=== PATIENT | male | born 1955 | race Caucasian/White ===

== ENCOUNTER 2018-07-24 23:46 | Observation (INO) | payer MEDICARE ==
[2018-07-24] MEDS ORDERED: NITRO-BID 2% UD PACKETS TOP ONE (23:59)
[2018-07-25] MEDS ORDERED: NITRO-BID 2% UD PACKETS ONE (00:06)
--- NOTE | 2018-07-25 00:06 | ERPHSYRPT ---
- History of Present Illness Time Seen by Provider: 07/24/18 23:54 Source: patient Exam Limitations: no limitations Physician History: Pt started c/o increasing SOB, chest pressure since 3 PM today, he took few sublingual NTG pills, and the pain relieved. He has a chronic cough, denies sore throat, cold symptoms, fever, chills, vomiting, diarrhea other complaints. EMS gave him 125 mg IV Solumedrol and Duoneb treatment. Timing/Duration: hour(s) (9) Activities at Onset: none Severity of Dyspnea-Max: moderate Severity of Dyspnea-Current: moderate Possible Cause: occasional episodes Modifying Factors: Improves With: activity Associated Symptoms: constant Allergies/Adverse Reactions: No Known Drug Allergies Allergy (Verified 01/23/15 06:49) Home Medications: Aspirin 81 mg PO DAILY 06/12/13 [History] Carvedilol 6.25 mg [Coreg 6.25 MG] 6.25 mg PO BID 06/12/13 [History] Clopidogrel Bisulfate 75 mg [PLAVIX 75 MG Tablet] 75 mg PO DAILY 06/12/13 [History] Levothyroxine Sodium 150 mcg PO DAILY 06/12/13 [History] Isosorbide Mononitrate [Isosorbide Mononitrate ER] 30 mg PO DAILY 01/20/15 [ History] Albuterol 2.5 mg/3 ml Neb [Proventil 2.5 mg/3 ml Neb] 0.63 mg NEB QID PRN 07/25/18 [History] Atorvastatin Calcium 40 mg PO DAILY 07/25/18 [History] Fluticasone/Vilanterol [Breo Ellipta 100-25 Mcg INH] 100 mg IH DAILY 07/25/18 [ History] Lisinopril 10 mg [Zestril 10 MG] 10 mg PO DAILY 07/25/18 [History] Nitroglycerin [Nitrostat] 0.4 mg SL Q5MIN PRN MR X 3 PRN 07/25/18 [History] - Review of Systems Constitutional: No Symptoms Ears, Nose, & Throat: No Symptoms Respiratory: Cough, Dyspnea Cardiac: Chest Pain Abdominal/Gastrointestinal: No Symptoms Genitourinary Symptoms: No Symptoms Musculoskeletal: No Symptoms Skin: No Symptoms Neurological: No Symptoms All Other Systems: Reviewed and Negative - Past Medical History Pertinent Past Medical History: Yes Neurological History: No Pertinent History ENT History: No Pertinent History Cardiac History: Aneurysm, Coronary Artery Disease, High Cholesterol Respiratory History: COPD Endocrine Medical History: No Pertinent History Musculoskeletal History: Arthritis GI Medical History: No Pertinent History History: No Pertinent History Psycho-Social History: No Pertinent History Male Reproductive Disorders: No Pertinent History - Past Surgical History Past Surgical History: Yes Neuro Surgical History: No Pertinent History Cardiac: No Pertinent History Gastrointestinal: Cholecystectomy Genitourinary: No Pertinent History Musculoskeletal: Joint Replacement, Other Male Surgical History: No Pertinent History Other Surgical History: STENT. AAA RIGHT KNEE. LEFT HIP REPLACEMENT. BACK SURGERY - Social History Smoking Status: Current every day smoker How long have you smoked: 40 YEARS Exposure to second hand smoke: Yes Drug Use: none Patient Lives Alone: No - Nursing Vital Signs Nursing Vital Signs: Initial Vital Signs Temperature 98.0 F 07/24/18 23:57 Pulse Rate 79 07/24/18 23:57 Respiratory Rate 22 07/24/18 23:57 Blood Pressure 137/85 07/24/18 23:57 O2 Sat by Pulse Oximetry 98 07/24/18 23:57 Pain Scale Pain Intensity 0 - Physical Exam General Appearance: mild distress Eye Exam: eyes nml inspection Ears, Nose, Throat Exam: normal pharynx Neck Exam: normal inspection, non-tender, supple, No carotid bruit, No JVD Respiratory Exam: respiratory distress (mild), crackles/rales, rhonchi (mild, bibasilar) Cardiovascular/Chest Exam: normal heart sounds, regular rate/rhythm, murmur, normal peripheral pulses, No edema, No JVD Abdominal/Gastrointestinal Exam: soft, normal bowel sounds, No tenderness Extremity Exam: non-tender, No no calf tenderness, No no pedal edema, No jeanna' s sign Peripheral Pulses Exam: carotid (R): 3+, carotid (L): 3+, dorsalis-pedis (R): 2+ , dorsalis-pedis (L): 2+ Neurologic Exam: alert, oriented x 3, cooperative, normal mood/affect Skin Exam: normal color, warm, dry, No rash, No petechiae, No diaphoresis Lymphatic Exam: No adenopathy SpO2 Interpretation: normal SpO2: 98 O2 Delivery: Nasal Cannula - Course Nursing assessment & vital signs reviewed: Yes EKG Interpreted by Me: RATE (77/min), NORMAL AXIS, NORMAL INTERVALS, NORMAL QRS , Non-specific ST Changes - Radiology Exams Chest X-ray Interpretation: Interpreted by me, Negative, Other (COPD) - CT Exams Chest CT Interpretation: Tele-radiologist Report, No PE, Other (1.4 cm new pulmonary nodule in ANTHONY) Ordered Tests: Active Orders 24 hr Category Date Time Status Rn Eligibility STAT Care 07/25/18 00:00 Active EKG-ER Only STAT Care 07/24/18 23:59 Active EKG-ER Only STAT Care 07/25/18 02:14 Active IV Insertion STAT Care 07/24/18 23:59 Active Oxygen-ED Only Nasal Cannula 2 lpm Care 07/24/18 23:59 Active CHEST 1 VIEW (PORTABLE) Stat Exams 07/25/18 00:00 Taken CHEST WITH CONTRAST [CT] Stat Exams 07/25/18 01:35 Taken ABG [ARTERIAL BLOOD GASES] Stat Lab 07/25/18 00:24 Completed D-DIMER QUANTITATION Stat Lab 07/25/18 00:00 Completed TROPONIN Q3H Lab 07/25/18 00:23 Completed TROPONIN Q3H Lab 07/25/18 02:33 Completed TROPONIN Q3H Lab 07/25/18 05:15 Ordered TROPONIN Q3H Lab 07/25/18 06:00 Ordered TROPONIN Q3H Lab 07/25/18 08:15 Ordered TROPONIN Q3H Lab 07/25/18 09:00 Ordered TROPONIN Q3H Lab 07/25/18 11:15 Ordered TROPONIN Q3H Lab 07/25/18 12:00 Ordered Peak Expiratory Flow Rate DAILY RT 07/25/18 01:32 Active Respiratory Therapy Assessment DAILY RT 07/25/18 01:32 Active Medication Summary Discontinued Medications Generic Name Dose Route Start Last Admin Trade Name Freq PRN Reason Stop Dose Admin Albuterol/Ipratropium 3 ml 07/25/18 01:13 07/25/18 01:27 Duoneb 0.5-3 Mg/3 Ml Neb IH 07/25/18 01:14 3 ml STAT ONE Administration Albuterol/Ipratropium Confirm 07/25/18 01:26 Duoneb 0.5-3 Mg/3 Ml Neb Administered 07/25/18 01:27 Dose 3 ml IH .STK-MED ONE Nitroglycerin 1 gm 07/24/18 23:59 07/25/18 00:07 Nitro-Bid 2% Ud Packets TOP 07/25/18 00:00 1 gm STAT ONE Administration Nitroglycerin Confirm 07/25/18 00:06 Nitro-Bid 2% Ud Packets Administered 07/25/18 00:07 Dose 1 gm .ROUTE .STK-MED ONE Lab/Rad Data: Laboratory Result Diagrams 07/24/18 00:23 07/24/18 00:23 Laboratory Results 07/25/18 07/25/18 07/25/18 Range/Units 02:33 00:24 00:23 WBC (4.0-10.5) K/mm3 RBC (4.1-5.6) M/mm3 Hgb (12.5-18.0) gm/dl Hct (42-50) % MCV (78-100) fl MCH (26-32) pg MCHC (32-36) g/dl RDW (11.5-14.0) % Plt Count (150-450) K/mm3 MPV (6-9.5) fl Gran % (36.0-66.0) % Eos # (Auto) (0-0.5) Absolute Lymphs (auto) (1.0-4.6) Absolute Monos (auto) (0.0-1.3) Lymphocytes % (24.0-44.0) % Monocytes % (0.0-12.0) % Eosinophils % (0.00-5.0) % Basophils % (0.0-0.4) % Absolute Granulocytes (1.4-6.9) Basophils # (0-0.4) PT (8.83-12.87) SECONDS INR (0.8-3.0) APTT (24.1-36.1) SECONDS D-Dimer (215-500) ng/mL Puncture Site RIGHT BRACHIAL pCO2 54 H (35-45) mmHg pO2 100 (75-100) mmHg Base Excess 4.6 H (-2.0-2.0) O2 Saturation 92.2 L (94-100) g/dF ABG pH 7.37 (7.35-7.45) ABG HCO3 31.2 H* (22-28) ABG O2 Sat (Measured) 99.1 (95-100) % Pool Test NOT APPLICABLE A-a Gradient 89 a/A Ratio 0.53 Hemoglobin 13.1 Carboxyhemoglobin 6.3 (0.0-6.9) % THgb Methemoglobin 0.7 L (1.4-1.5) % Temperature 37.0 C POC O2 Flow Rate 36 % Sodium (137-145) mmol/L Potassium 4.8 (3.5-5.1) mmol/L Chloride (98-107) mmol/L Carbon Dioxide (22-30) mmol/L Anion Gap (5-15) MEQ/L BUN (9-20) mg/dL Creatinine (0.66-1.25) mg/dL Estimated GFR ML/MIN Glucose (74-106) mg/dL Calcium (8.4-10.2) mg/dL Total Bilirubin (0.2-1.3) mg/dL AST (17-59) U/L ALT (0-50) U/L Alkaline Phosphatase (38-126) U/L Creatine Kinase (55-170) U/L Troponin I < 0.012 < 0.012 (0.000-0.034) ng/mL NT-Pro-B Natriuret Pep (0-900) pg/mL Serum Total Protein (6.3-8.2) g/dL Albumin (3.5-5.0) g/dL 07/25/18 07/24/18 07/24/18 Range/Units 00:00 00:23 00:23 WBC (4.0-10.5) K/mm3 RBC (4.1-5.6) M/mm3 Hgb (12.5-18.0) gm/dl Hct (42-50) % MCV (78-100) fl MCH (26-32) pg MCHC (32-36) g/dl RDW (11.5-14.0) % Plt Count (150-450) K/mm3 MPV (6-9.5) fl Gran % (36.0-66.0) % Eos # (Auto) (0-0.5) Absolute Lymphs (auto) (1.0-4.6) Absolute Monos (auto) (0.0-1.3) Lymphocytes % (24.0-44.0) % Monocytes % (0.0-12.0) % Eosinophils % (0.00-5.0) % Basophils % (0.0-0.4) % Absolute Granulocytes (1.4-6.9) Basophils # (0-0.4) PT 12.1 (8.83-12.87) SECONDS INR 1.07 (0.8-3.0) APTT 32.5 (24.1-36.1) SECONDS D-Dimer 6982 H* (215-500) ng/mL Puncture Site pCO2 (35-45) mmHg pO2 (75-100) mmHg Base Excess (-2.0-2.0) O2 Saturation (94-100) g/dF ABG pH (7.35-7.45) ABG HCO3 (22-28) ABG O2 Sat (Measured) (95-100) % Pool Test A-a Gradient a/A Ratio Hemoglobin Carboxyhemoglobin (0.0-6.9) % THgb Methemoglobin (1.4-1.5) % Temperature C POC O2 Flow Rate % Sodium 141 (137-145) mmol/L Potassium 4.9 (3.5-5.1) mmol/L Chloride 101 (98-107) mmol/L Carbon Dioxide 33 H (22-30) mmol/L Anion Gap 12.1 (5-15) MEQ/L BUN 27 H (9-20) mg/dL Creatinine 1.11 (0.66-1.25) mg/dL Estimated GFR > 60.0 ML/MIN Glucose 76 (74-106) mg/dL Calcium 9.8 (8.4-10.2) mg/dL Total Bilirubin 0.30 (0.2-1.3) mg/dL AST 16 L (17-59) U/L ALT 18 (0-50) U/L Alkaline Phosphatase 74 (38-126) U/L Creatine Kinase 51 L (55-170) U/L Troponin I (0.000-0.034) ng/mL NT-Pro-B Natriuret Pep 334 (0-900) pg/mL Serum Total Protein 7.7 (6.3-8.2) g/dL Albumin 4.1 (3.5-5.0) g/dL 07/24/18 Range/Units 00:23 WBC 4.5 (4.0-10.5) K/mm3 RBC 4.13 (4.1-5.6) M/mm3 Hgb 13.0 (12.5-18.0) gm/dl Hct 40.1 L (42-50) % MCV 97.1 (78-100) fl MCH 31.5 (26-32) pg MCHC 32.4 (32-36) g/dl RDW 14.5 H (11.5-14.0) % Plt Count 124 L (150-450) K/mm3 MPV 10.4 H (6-9.5) fl Gran % 40.9 (36.0-66.0) % Eos # (Auto) 0.51 H (0-0.5) Absolute Lymphs (auto) 1.41 (1.0-4.6) Absolute Monos (auto) 0.70 (0.0-1.3) Lymphocytes % 31.6 (24.0-44.0) % Monocytes % 15.7 H (0.0-12.0) % Eosinophils % 11.4 H (0.00-5.0) % Basophils % 0.4 (0.0-0.4) % Absolute Granulocytes 1.82 (1.4-6.9) Basophils # 0.02 (0-0.4) PT (8.83-12.87) SECONDS INR (0.8-3.0) APTT (24.1-36.1) SECONDS D-Dimer (215-500) ng/mL Puncture Site pCO2 (35-45) mmHg pO2 (75-100) mmHg Base Excess (-2.0-2.0) O2 Saturation (94-100) g/dF ABG pH (7.35-7.45) ABG HCO3 (22-28) ABG O2 Sat (Measured) (95-100) % Pool Test A-a Gradient a/A Ratio Hemoglobin Carboxyhemoglobin (0.0-6.9) % THgb Methemoglobin (1.4-1.5) % Temperature C POC O2 Flow Rate % Sodium (137-145) mmol/L Potassium (3.5-5.1) mmol/L Chloride (98-107) mmol/L Carbon Dioxide (22-30) mmol/L Anion Gap (5-15) MEQ/L BUN (9-20) mg/dL Creatinine (0.66-1.25) mg/dL Estimated GFR ML/MIN Glucose (74-106) mg/dL Calcium (8.4-10.2) mg/dL Total Bilirubin (0.2-1.3) mg/dL AST (17-59) U/L ALT (0-50) U/L Alkaline Phosphatase (38-126) U/L Creatine Kinase (55-170) U/L Troponin I (0.000-0.034) ng/mL NT-Pro-B Natriuret Pep (0-900) pg/mL Serum Total Protein (6.3-8.2) g/dL Albumin (3.5-5.0) g/dL - Progress Progress: improved Air Movement: good Progress Note: 07/25/18 03:55 Pt states, he feels much better, denies chest pain, no resting dyspnea, little bit of SOB when active, we reviewed his results, including his CT chest, revealing new 1.4 cm ANTHONY pulmonary nodule, will require close follow up, his repeat troponin is also negative, he has appointment with his wind technician tomorrow. He was advised to be admitted for observation, I explained my reasons , he understood, but declined, he wants to go home and follow up with his physician. He is alert and oriented x4, mentally competent, and stable. He was advised to rest x 2-3 days, and follow up with physician and pulmonary physician as scheduled. Blood Culture(s) Obtained: No Antibiotics given: Yes Counseled pt/family regarding: lab results, diagnosis, need for follow-up, rad results - Departure Departure Disposition: AMA Clinical Impression: COPD (chronic obstructive pulmonary disease) with acute bronchitis Condition: Stable Critical Care Time: No Referrals: LIZZY FREITAS [Primary Care Provider] - Instructions: Chronic Obstructive Pulmonary Disease, Exacerbation of COPD (DC) , Acute Bronchitis, Adult (DC) Additional Instructions: Rest x 2-3 days, and follow up with your physician and medical management specialist as scheduled in 1-2 days, return if severe shortness of breath, chest pain, vomiting, fever> 102 F! Prescriptions: Albuterol Sulfate [Albuterol Sulfate Hfa] 8.5 gm IH Q4H PRN #1 [email or web address] PRN Reason: Shortness Of Breath/Wheezing Albuterol/Ipratropium 3ml Neb* [DUONEB 0.5-3 MG/3 ml Neb] 3 ml NEB Q4H PRN # 25 ampul.neb PRN Reason: Shortness Of Breath/Wheezing Azithromycin 250 mg [Zithromax 250 MG TABLET] 250 mg PO ZPACK #6 tablet Methylprednisolone Packet [Medrol Dosepack] 4 mg PO UD #1 packet
[2018-07-25 00:27] LABS: BASOPHIL % 0.4 % (0.0-0.4); Basophil (Absolute #) 0.02 (0-0.4); Eosinophil % 11.4 % (0.00-5.0); Eosinophil (Absolute #) 0.51 (0-0.5); Granulocyte Absolute (ANC) 1.82 (1.4-6.9); Granulocytes % 40.9 % (36.0-66.0); Hematocrit 40.1 % (42-50); Lymphocyte (Absolute #) 1.41 (1.0-4.6); Lymphocytes % 31.6 % (24.0-44.0); Mean Cell Volume 97.1 fl (78-100); Mean Corpuscular Hemoglobin 31.5 pg (26-32); Mean Corpuscular Hgb Concent. 32.4 g/dl (32-36); Mean Platelet Volume 10.4 fl (6-9.5); Monocytes % 15.7 % (0.0-12.0); Platelet Count 124 K/mm3 (150-450); Red Blood Count 4.13 M/mm3 (4.1-5.6); Red Cell Distribution Width 14.5 % (11.5-14.0); White Blood Count 4.5 K/mm3 (4.0-10.5)
[2018-07-25 00:32] LABS: A-aADO2 89; ABG HEMOGLOBIN 13.1; ABG POTASSIUM 4.8 (3.5-5.1); ABG SITE RIGHT BRACHIAL; ARTERIAL BLD GAS O2 SATURATION 99.1 % (95-100); ARTERIAL BLOOD GAS BASE EXCESS 4.6 (-2.0-2.0); ARTERIAL BLOOD GAS FIO2 36 %; ARTERIAL BLOOD GAS PCO2 54 mmHg (35-45); ARTERIAL BLOOD GAS PO2 100 mmHg (75-100); ARTERIAL BLOOD GAS pH 7.37 (7.35-7.45); CARBOXYHEMOGLOBIN 6.3 % THgb (0.0-6.9); HCO3- 31.2 (22-28); HGB O2 SAT 92.2 g/dF (94-100); Methhemoglobin 0.7 % (1.4-1.5); paO2 pAO1 0.53
[2018-07-25 00:35] LABS: INR 1.07 (0.8-3.0); PROTIME 12.1 SECONDS (8.83-12.87)
[2018-07-25 00:38] LABS: PTT 32.5 SECONDS (24.1-36.1)
[2018-07-25 00:48] LABS: ALBUMIN 4.1 g/dL (3.5-5.0); ALKALINE PHOSPHATASE 74 U/L (38-126); ANION GAP 12.1 MEQ/L (5-15); BLOOD UREA NITROGEN 27 mg/dL (9-20); CHLORIDE 101 mmol/L (98-107); CK-Creatinine Phosphokinase 51 U/L (55-170); Calcium 9.8 mg/dL (8.4-10.2); Carbon Dioxide 33 mmol/L (22-30); Creatinine 1 1.11 mg/dL (0.66-1.25); Glucose 76 mg/dL (74-106); NT PRO BNP 334 pg/mL (0-900); Potassium 4.9 mmol/L (3.5-5.1); SGOT/AST 16 U/L (17-59); SGPT/ALT 18 U/L (0-50); SODIUM 141 mmol/L (137-145); Total Protein 7.7 g/dL (6.3-8.2)
[2018-07-25] MEDS ORDERED: DUONEB 0.5-3 MG/3 ml Neb IH ONE ×2 (01:13→01:26)
[2018-07-25] MEDS ORDERED: Ecotrin 325 MG PO ONE (04:13)
[2018-07-25] MEDS ORDERED: BABY ASPIRIN 81 MG CHEW PO ONE (04:18)
[2018-07-25] MEDS ORDERED: BABY ASPIRIN 81 MG CHEW ONE (04:18)
[2018-07-25 05:17] VITALS: O2SAT 94
[2018-07-25] MEDS ORDERED: PROVENTIL 2.5 MG/3 ML NEB IH ONE (05:33)
[2018-07-25] MEDS: PROVENTIL 2.5 MG/3 ML NEB IH SCH ×2 (05:38→10:39)
[2018-07-25] MEDS ORDERED: solu-MEDROL 125 MG IV SCH (06:00)
[2018-07-25] MEDS ORDERED: PROVENTIL 2.5 MG/3 ML NEB IH SCH (07:00)
[2018-07-25] MEDS ORDERED: Advair Hfa 115/21 Common canister IH SCH (07:00)
[2018-07-25 07:11] VITALS: BP 119/68
[2018-07-25] MEDS ORDERED: solu-MEDROL 125 MG IV ONE (07:45)
--- NOTE | 2018-07-25 07:51 | PCM.DCORD ---
- Discharge Discharge Date: 07/25/18 Disposition: Home, Self-Care Prescriptions: New Albuterol Sulfate [Albuterol Sulfate Hfa] 8.5 gm IH Q4H PRN #1 [email or web address] PRN Reason: Shortness Of Breath/Wheezing Albuterol/Ipratropium 3ml Neb* [DUONEB 0.5-3 MG/3 ml Neb] 3 ml NEB Q4H PRN #25 ampul.neb PRN Reason: Shortness Of Breath/Wheezing Continue Carvedilol 6.25 mg [Coreg 6.25 MG] 6.25 mg PO BID Aspirin 81 mg PO DAILY Levothyroxine Sodium 150 mcg PO DAILY Clopidogrel Bisulfate 75 mg [PLAVIX 75 MG Tablet] 75 mg PO DAILY Isosorbide Mononitrate [Isosorbide Mononitrate ER] 30 mg PO DAILY Nitroglycerin [Nitrostat] 0.4 mg SL Q5MIN PRN MR X 3 PRN PRN Reason: Chest Pain Lisinopril 10 mg [Zestril 10 MG] 10 mg PO DAILY Fluticasone/Vilanterol [Breo Ellipta 100-25 Mcg INH] 100 mg IH DAILY Atorvastatin Calcium 40 mg PO DAILY Albuterol 2.5 mg/3 ml Neb [Proventil 2.5 mg/3 ml Neb] 0.63 mg NEB QID PRN Additional Instructions: Keep fu appt with Estelle on 07/26 Follow up with: LIZZY FREITAS [Primary Care Provider] - 1 Week
--- NOTE | 2018-07-25 08:49 | XRAY ---
Indication: Chest pain and dyspnea. Elevated d-dimer. Multiple contiguous axial images obtained through the chest using 80 cc Isovue 370 contrast and PE protocol. Comparison: June 12, 2013. There is satisfactory opacification of the pulmonary arteries to include the lobar and segmental branches. No filling defect or pulmonary embolus. Heart is now borderline enlarged with interval CABG surgery. Aorta is mildly arteriosclerotic without aneurysm/dissection. No pathologic mediastinal/hilar lymphadenopathy. Examination of the lung parenchyma again demonstrates mild pulmonary emphysema with diffuse scattered fibrosis/scarring, mild bilateral dependent atelectasis, and a few right lung calcified granulomas. New indeterminant 1.4 cm left upper lobe noncalcified nodule. No infiltrate or effusion. Bony thorax intact again with mild degenerative changes throughout the spine and new sternotomy wires. Limited upper abdomen again demonstrates tiny left lobe hepatic cyst, nonobstructing left renal micro-calculus, cholecystectomy, and incompletely visualize 4 cm AAA with endovascular stent graft. Impression: 1. Negative pulmonary embolus. No acute cardiopulmonary abnormalities. 2. New indeterminant 1.4 cm left upper lobe noncalcified nodule. PET/CT may yield further information. 3. Stable pulmonary emphysema, fibrosis/scarring, and evidence for old granulomatous disease. 4. Interval CABG surgery with now borderline cardiomegaly. 5. Stable hepatic cyst, nonobstructing left renal micro-calculus, and incompletely visualized AAA with endovascular stent graft. Comment: Preliminary interpretation was made by [facility]. No critical discrepancy. CT DI 20.75
--- NOTE | 2018-07-25 08:51 | XRAY ---
Indication: Dyspnea. Comparison: February 18, 2016. Portable chest remains hyperinflated and clear again with incidental calcified granulomas and CABG surgery. Heart is not enlarged. New small left upper lobe nodule further detailed same-day CT chest exam. Bony thorax intact again with degenerative changes.
[2018-07-25] MEDS ORDERED: Nitrostat 0.4 MG Tablet SL PRN (09:11)
[2018-07-25] MEDS ORDERED: ECOTRIN 81 MG PO SCH (10:00)
[2018-07-25] MEDS ORDERED: PLAVIX 75 MG Tablet PO SCH (10:00)
[2018-07-25] MEDS ORDERED: NON-FORMULARY ITEM (Atorvastatin Calcium [Atorvastatin Calcium] 40 MG) PO SCH (10:00)
[2018-07-25] MEDS ORDERED: NON-FORMULARY ITEM (Aspirin [Aspirin] 81 MG) PO SCH (10:00)
[2018-07-25] MEDS ORDERED: SYNTHROID 150 MCG PO SCH (10:00)
[2018-07-25] MEDS ORDERED: Zithromax 500 MG/ 250 ML NaCl Premix 500 MG/250 ML IVPB IV SCH (10:00)
[2018-07-25] MEDS ORDERED: LEVOTHYROXINE SODIUM 150 MCG PO SCH (10:00)
[2018-07-25] MEDS ORDERED: ZOCOR 20MG PO SCH (10:00)
[2018-07-25] MEDS ORDERED: Imdur 30 MG PO SCH (10:00)
[2018-07-25] MEDS ORDERED: Coreg 6.25 MG PO SCH (10:00)
[2018-07-25] MEDS ORDERED: Zestril 10 MG PO SCH (10:00)
[2018-07-25 10:42] VITALS: PULSE 88
--- NOTE | 2018-07-25 10:48 | SSS ---
DISCHARGE DIAGNOSES: 1) CHRONIC OBSTRUCTIVE PULMONARY DISEASE EXACERBATION. 2) CORONARY ARTERY DISEASE. HOSPITAL COURSE: The patient is a 63 year-old white male with history of chronic obstructive pulmonary disease and coronary artery disease. He had recently seen his salon shampoo assistant about three weeks ago and was told that he had some issues. He previously had a coronary artery bypass graft and also apparently aneurysm. He reports that he is being treated medically for this. The patient also has a consultation with his pulmonary physician coming up tomorrow morning. The patient was brought into the emergency room due to increasing shortness of breath. He does wear oxygen at home. He apparently was outside last evening doing some yard work when he came in. He was more short of breath than usual and he got to the point where felt like he was stressing out and presented to the emergency room. Apparently he was evaluated in the emergency room and was doing better. The evaluation essentially showed no significant new problems and ready to discharge him home. However, when he got up to go to the bathroom he was extremely dyspneic on his trip to the bathroom. We therefore decided to keep him overnight for IV steroid medications and Zithromax for evaluation in the morning. By the morning the patient was feeling much better, at ease at rest. He had been able to go to the bathroom without so much distress and he is anxious to be discharged home as he does not wish to miss his visit with his pulmonary doctor tomorrow. HOME MEDICATIONS: Aspirin 81 mg a day, Coreg 6.25 mg b.i.d., Plavix 75 mg a day, levothyroxine 150 mg daily, isosorbide mononitrate 30 mg daily, Proventil PRN, Atorvastatin 40 mg a day, Breo Ellipta daily, lisinopril 10 mg daily, Nitrostat PRN. The patient does also wear oxygen he reports mostly at night and he does have an oxygen monitor at home. ALLERGIES: NKDA. PHYSICAL EXAMINATION: The patient's vital signs on admission showed temperature 98.0F, pulse 79, respiratory rate 22 and blood pressure 137/85. O2 saturations 98% with supplemental oxygen. HEENT: Normocephalic, atraumatic. Pupils equal round reactive to light. He is wearing oxygen 2 liters nasal cannula presently. Oropharynx is pink and moist. NECK: Supple without lymphadenopathy, thyromegaly or JVD. CHEST: Clear to auscultation with diminished air movement bilaterally but no wheezes presently. HEART: Currently regular rate and rhythm without significant murmurs, rubs or gallops heard. ABDOMEN: Soft. No palpable masses. EXTREMITIES: Without cyanosis, clubbing or edema. NEUROLOGIC: The patient is alert and oriented x3. LAB DATA AND TESTS: Troponins which have been less than 0.012. His D-dimer was elevated at 6,982. He did have a CT scan ruling out pulmonary embolism but it does show a new 1.4 cm nodule in the lung which the patient has been appraised of. His metabolic panel showed glucose 76, BUN 27, creatinine 1.11. Electrolytes are normal. Liver enzymes are normal. CPK was low at 51. International normalized ratio was 1.07. CBC showed a white count of 4,500, hemoglobin 13.0, PLT count was slightly low at 124,000. ABG showed pH of 7.37, pCO2 of 54 and pO2 of 100. His CT showed no evidence of pulmonary embolism, a new pulmonary nodule located in the left upper lobe measuring 1.4 cm in its greatest length, not present on the previous CT scan dated 2013. The patient's EKG shows him to be in sinus rhythm. ASSESSMENT: A patient with exacerbation of his chronic obstructive pulmonary disease, will give him a dose of Solu-Medrol 125 mg prior to discharging home. He has nebulizer treatments at home already and oxygen as well. He will be discharged with his to home also to keep an eye on him otherwise he does have an appointment to see his pulmonary physician tomorrow morning.
== END 2018-07-25 11:45 | disposition home or self-care (01) ==
LOC: ED 23:46 → MED SURG 07-25 05:02
PROVIDERS: ADMIT Family Medicine; ATTEND Family Medicine
DX: J44.1 Chronic obstructive pulmonary disease with (acute) exacerbation (principal); R09.02 Hypoxemia; I25.10 Atherosclerotic heart disease of native coronary artery without angina pectoris; Z99.81 Dependence on supplemental oxygen; Z79.899 Other long term (current) drug therapy; Z79.01 Long term (current) use of anticoagulants
CPT/HCPCS: 36415; 36600; 71045; 71260; 80053; 82375; 82550; 82803; 83880; 84484; 85025; 85379; 85610; 85730; 93005; 93041; 93268; 94150; 94640; 94760; 99285; J2930; J7609; A9270-GY; G0378

== ENCOUNTER 2018-09-26 08:29 | Observation (INO) | payer MEDICARE ==
--- NOTE | 2018-09-26 08:36 | ERPHSYRPT ---
- History of Present Illness Time Seen by Provider: 09/26/18 08:31 Historian: patient Exam Limitations: no limitations Physician History: 63 y/o white male pt of Dr. Wong, cobbler upper, woke up fine this am. at 0700 pt had sudden left sided chest pain that radiated into left jaw. pt took his bp and it was low. despite this, pt took a ntg sl and a single baby asa. pts bp went lower and per his spouse says he turned borrero and passed out twice. pt has hx of cabg and 5 cardiac stents. pt has associated soa. pt takes plavix and asa daily. pt continues to smoke Timing/Duration: today Activities at Onset: none Quality: pressure, sharpness Location: other (left chest) Chest Pain Radiation: jaw Severity of Pain-Max: moderate Severity of Pain-Current: mild Modifying Factors: Improves With: nitroglycerin, aspirin Associated Symptoms: shortness of breath, diaphoresis Prior Chest Pain/Cardiac Workup: cardiac cath, heart attack Nitro Today/Relief: 0.4 mg x 1 Aspirin Treatment Today: 81 mg x 1 Allergies/Adverse Reactions: No Known Drug Allergies Allergy (Verified 01/23/15 06:49) Home Medications: Aspirin 81 mg PO DAILY 06/12/13 [History] Carvedilol 6.25 mg [Coreg 6.25 MG] 25 mg PO BID 06/12/13 [History] Clopidogrel Bisulfate 75 mg [PLAVIX 75 MG Tablet] 75 mg PO DAILY 06/12/13 [History] Levothyroxine Sodium 150 mcg PO DAILY 06/12/13 [History] Isosorbide Mononitrate [Isosorbide Mononitrate ER] 30 mg PO DAILY 01/20/15 [ History] Albuterol 2.5 mg/3 ml Neb [Proventil 2.5 mg/3 ml Neb] 0.63 mg NEB QID PRN 07/25/18 [History] Atorvastatin Calcium 40 mg PO DAILY 07/25/18 [History] Fluticasone/Vilanterol [Breo Ellipta 100-25 Mcg INH] 100 mg IH DAILY 07/25/18 [ History] Lisinopril 10 mg [Zestril 10 MG] 10 mg PO DAILY 07/25/18 [History] Nitroglycerin [Nitrostat] 0.4 mg SL Q5MIN PRN MR X 3 PRN 07/25/18 [History] Hx Tetanus, Diphtheria Vaccination/Date Given: Yes Hx Influenza Vaccination/Date Given: Yes Hx Pneumococcal Vaccination/Date Given: Yes - Review of Systems Constitutional: No Symptoms Eyes: No Symptoms Ears, Nose, & Throat: No Symptoms Respiratory: Dyspnea Cardiac: Chest Pain, Syncope Abdominal/Gastrointestinal: No Symptoms Genitourinary Symptoms: No Symptoms Musculoskeletal: No Symptoms Skin: No Symptoms Neurological: No Symptoms Psychological: No Symptoms Endocrine: No Symptoms Hematologic/Lymphatic: No Symptoms Immunological/Allergic: No Symptoms All Other Systems: Reviewed and Negative - Past Medical History Pertinent Past Medical History: Yes Neurological History: No Pertinent History ENT History: No Pertinent History Cardiac History: Aneurysm, Coronary Artery Disease, High Cholesterol Respiratory History: COPD Endocrine Medical History: No Pertinent History Musculoskeletal History: Arthritis GI Medical History: No Pertinent History History: No Pertinent History Psycho-Social History: No Pertinent History Male Reproductive Disorders: No Pertinent History - Past Surgical History Past Surgical History: Yes Neuro Surgical History: No Pertinent History Cardiac: No Pertinent History Respiratory: No Pertinent History Gastrointestinal: Cholecystectomy Genitourinary: No Pertinent History Musculoskeletal: Joint Replacement, Other Male Surgical History: No Pertinent History Other Surgical History: STENT. AAA RIGHT KNEE. LEFT HIP REPLACEMENT. BACK SURGERY - Social History Smoking Status: Current every day smoker How long have you smoked: 40 YEARS Exposure to second hand smoke: Yes Drug Use: none Patient Lives Alone: No - Nursing Vital Signs Nursing Vital Signs: Initial Vital Signs Temperature 97.7 F 09/26/18 08:30 Pulse Rate 61 09/26/18 08:30 Respiratory Rate 22 09/26/18 08:30 Blood Pressure 100/76 09/26/18 08:30 O2 Sat by Pulse Oximetry 97 09/26/18 08:30 Pain Scale Pain Intensity 2 - Physical Exam General Appearance: moderate distress, alert, anxiety Eye Exam: PERRL/EOMI, eyes nml inspection Ears, Nose, Throat Exam: normal ENT inspection, moist mucous membranes Neck Exam: normal inspection, non-tender, supple, full range of motion Respiratory Exam: normal breath sounds, chest tenderness, lungs clear, airway intact, No respiratory distress Cardiovascular Exam: regular rate/rhythm, normal heart sounds, normal peripheral pulses Gastrointestinal/Abdomen Exam: soft, normal bowel sounds, No tenderness Rectal Exam: not done Back Exam: normal inspection, normal range of motion, No CVA tenderness, No vertebral tenderness Extremity Exam: normal inspection, normal range of motion, pelvis stable Neurologic Exam: alert, oriented x 3, cooperative, history tutor II-XII nml as tested Skin Exam: normal color, warm, dry Lymphatic Exam: No adenopathy SpO2 Interpretation: normal O2 Delivery: Room Air - Course Nursing assessment & vital signs reviewed: Yes EKG Interpreted by Me: RATE (59), Sinus Rhythm, NORMAL AXIS, NORMAL INTERVALS, NORMAL QRS, Non-specific ST Changes, Other (new st segment changes when compared to ekg dated 07/25/18) Ordered Tests: Active Orders 24 hr Category Date Time Status Care Director STAT Care 09/26/18 08:41 Active EKG-ER Only STAT Care 09/26/18 08:40 Active IV Insertion STAT Care 09/26/18 08:40 Active Pulse Oximetry (ED) STAT Care 09/26/18 08:40 Active CHEST 1 VIEW (PORTABLE) Stat Exams 09/26/18 08:40 Completed CHEST WITH CONTRAST [CT] Stat Exams 09/26/18 09:28 Completed HEAD WITHOUT CONTRAST [CT] Stat Exams 09/26/18 09:28 Completed CBC W DIFF Stat Lab 09/26/18 08:49 Completed CMP Stat Lab 09/26/18 08:49 Completed D-DIMER QUANTITATION Stat Lab 09/26/18 08:49 Completed NT PRO BNP Stat Lab 09/26/18 08:49 Completed PROTIME WITH INR Stat Lab 09/26/18 08:49 Completed TROPONIN Q3H Lab 09/26/18 08:49 Completed TROPONIN Q3H Lab 09/26/18 11:50 Received TROPONIN Q3H Lab 09/26/18 14:45 Ordered TROPONIN Q3H Lab 09/26/18 17:45 Ordered TROPONIN Q3H Lab 09/26/18 20:45 Ordered Transfer Order Routine Transfer 09/26/18 Ordered Medication Summary Generic Name Dose Route Start Last Admin Trade Name Freq PRN Reason Stop Dose Admin Sodium Chloride 1,000 mls @ 100 mls/hr 09/26/18 08:45 09/26/18 08:43 Sodium Chloride 0.9% 1000 Ml IV 10/26/18 08:44 100 mls/hr .Q10H AMMY Administration Discontinued Medications Generic Name Dose Route Start Last Admin Trade Name Freq PRN Reason Stop Dose Admin Aspirin Confirm 09/26/18 08:39 Baby Aspirin 81 Mg Chew Administered 09/26/18 08:40 Dose 243 mg .ROUTE .STK-MED ONE Aspirin 243 mg 09/26/18 08:40 09/26/18 08:42 Baby Aspirin 81 Mg Chew PO 09/26/18 08:41 243 mg STAT ONE Administration Morphine Sulfate 4 mg 09/26/18 10:11 09/26/18 10:14 Morphine Sulfate 4 Mg Inj IV 09/26/18 10:12 Not Given STAT ONE Morphine Sulfate Confirm 09/26/18 10:12 Morphine Sulfate 4 Mg Inj Administered 09/26/18 10:13 Dose 4 mg .ROUTE .STK-MED ONE Lab/Rad Data: Laboratory Result Diagrams 09/26/18 08:49 09/26/18 08:49 Laboratory Results 09/26/18 09/26/18 09/26/18 Range/Units 08:49 08:49 08:49 WBC (4.0-10.5) K/mm3 RBC (4.1-5.6) M/mm3 Hgb (12.5-18.0) gm/dl Hct (42-50) % MCV (78-100) fl MCH (26-32) pg MCHC (32-36) g/dl RDW (11.5-14.0) % Plt Count (150-450) K/mm3 MPV (6-9.5) fl Gran % (36.0-66.0) % Eos # (Auto) (0-0.5) Absolute Lymphs (auto) (1.0-4.6) Absolute Monos (auto) (0.0-1.3) Lymphocytes % (24.0-44.0) % Monocytes % (0.0-12.0) % Eosinophils % (0.00-5.0) % Basophils % (0.0-0.4) % Absolute Granulocytes (1.4-6.9) Basophils # (0-0.4) PT 11.9 (8.83-12.87) SECONDS INR 1.05 (0.8-3.0) D-Dimer 4864 H* (215-500) ng/mL Sodium 140 (137-145) mmol/L Potassium 4.5 (3.5-5.1) mmol/L Chloride 103 (98-107) mmol/L Carbon Dioxide 32 H (22-30) mmol/L Anion Gap 10.7 (5-15) MEQ/L BUN 16 (9-20) mg/dL Creatinine 0.97 (0.66-1.25) mg/dL Estimated GFR > 60.0 ML/MIN Glucose 88 (74-106) mg/dL Calcium 9.6 (8.4-10.2) mg/dL Total Bilirubin 0.60 (0.2-1.3) mg/dL AST 20 (17-59) U/L ALT 19 (0-50) U/L Alkaline Phosphatase 61 (38-126) U/L Troponin I < 0.012 (0.000-0.034) ng/mL NT-Pro-B Natriuret Pep 564 (0-900) pg/mL Serum Total Protein 7.3 (6.3-8.2) g/dL Albumin 4.1 (3.5-5.0) g/dL 09/26/18 Range/Units 08:49 WBC 4.7 (4.0-10.5) K/mm3 RBC 4.36 (4.1-5.6) M/mm3 Hgb 13.7 (12.5-18.0) gm/dl Hct 42.5 (42-50) % MCV 97.5 (78-100) fl MCH 31.4 (26-32) pg MCHC 32.2 (32-36) g/dl RDW 15.3 H (11.5-14.0) % Plt Count 159 (150-450) K/mm3 MPV 10.1 H (6-9.5) fl Gran % 62.4 (36.0-66.0) % Eos # (Auto) 0.19 (0-0.5) Absolute Lymphs (auto) 0.98 L (1.0-4.6) Absolute Monos (auto) 0.56 (0.0-1.3) Lymphocytes % 20.9 L (24.0-44.0) % Monocytes % 12.0 (0.0-12.0) % Eosinophils % 4.1 (0.00-5.0) % Basophils % 0.6 (0.0-0.4) % Absolute Granulocytes 2.92 (1.4-6.9) Basophils # 0.03 (0-0.4) PT (8.83-12.87) SECONDS INR (0.8-3.0) D-Dimer (215-500) ng/mL Sodium (137-145) mmol/L Potassium (3.5-5.1) mmol/L Chloride (98-107) mmol/L Carbon Dioxide (22-30) mmol/L Anion Gap (5-15) MEQ/L BUN (9-20) mg/dL Creatinine (0.66-1.25) mg/dL Estimated GFR ML/MIN Glucose (74-106) mg/dL Calcium (8.4-10.2) mg/dL Total Bilirubin (0.2-1.3) mg/dL AST (17-59) U/L ALT (0-50) U/L Alkaline Phosphatase (38-126) U/L Troponin I (0.000-0.034) ng/mL NT-Pro-B Natriuret Pep (0-900) pg/mL Serum Total Protein (6.3-8.2) g/dL Albumin (3.5-5.0) g/dL - Progress Progress: improved Air Movement: good Progress Note: 09/26/18 09:31 after d/w pt and spouse regarding elevated d dimer and performing a cta chest looking for pulmonary emboli, they informed they already know he has them and dr. Wong is aware as well. 09/26/18 11:56 cxr-no acute process; cta chest-no pulm emboli; no acute process spoke with dr. Wong, cobbler upper. pt needs to be observed. ok to keep here. if physician here does not feel comfortable, then he will accept. ok to discharge to home in am if troponins remain negative. 09/26/18 12:04 dr. infante, who is covering for dr. heath, accepts pt for observation placement with telemetry. Blood Culture(s) Obtained: No Antibiotics given: No Discussed with : Linwood, Other (Judith-pts cobbler upper) Counseled pt/family regarding: lab results, diagnosis, need for follow-up, rad results - Departure Departure Disposition: Observation Clinical Impression: Chest pain Condition: Stable Critical Care Time: No Critical Care Time(excluding separately billable procedures): Critical 30-74 mins Referrals: LIZZY HEATH [Primary Care Provider] -
[2018-09-26] MEDS ORDERED: BABY ASPIRIN 81 MG CHEW ONE (08:39)
[2018-09-26] MEDS ORDERED: BABY ASPIRIN 81 MG CHEW PO ONE (08:40)
[2018-09-26] MEDS ORDERED: Sodium Chloride 0.9% 1000 ML 1,000 ML ONE (08:42)
[2018-09-26] MEDS ORDERED: Sodium Chloride 0.9% 1000 ML 1,000 ML IV SCH ×2 (08:45→14:22)
[2018-09-26 08:57] LABS: INR 1.05 (0.8-3.0); PROTIME 11.9 SECONDS (8.83-12.87)
[2018-09-26 08:58] LABS: BASOPHIL % 0.6 % (0.0-0.4); Basophil (Absolute #) 0.03 (0-0.4); Eosinophil % 4.1 % (0.00-5.0); Eosinophil (Absolute #) 0.19 (0-0.5); Granulocyte Absolute (ANC) 2.92 (1.4-6.9); Granulocytes % 62.4 % (36.0-66.0); Hematocrit 42.5 % (42-50); Hemoglobin 13.7 gm/dl (12.5-18.0); Lymphocyte (Absolute #) 0.98 (1.0-4.6); Lymphocytes % 20.9 % (24.0-44.0); Mean Cell Volume 97.5 fl (78-100); Mean Corpuscular Hemoglobin 31.4 pg (26-32); Mean Corpuscular Hgb Concent. 32.2 g/dl (32-36); Mean Platelet Volume 10.1 fl (6-9.5); Monocyte (Absolute #) 0.56 (0.0-1.3); Platelet Count 159 K/mm3 (150-450); Red Blood Count 4.36 M/mm3 (4.1-5.6); Red Cell Distribution Width 15.3 % (11.5-14.0); White Blood Count 4.7 K/mm3 (4.0-10.5)
[2018-09-26 09:11] LABS: ALBUMIN 4.1 g/dL (3.5-5.0); ALKALINE PHOSPHATASE 61 U/L (38-126); ANION GAP 10.7 MEQ/L (5-15); BLOOD UREA NITROGEN 16 mg/dL (9-20); CHLORIDE 103 mmol/L (98-107); Calcium 9.6 mg/dL (8.4-10.2); Carbon Dioxide 32 mmol/L (22-30); Creatinine 1 0.97 mg/dL (0.66-1.25); Glucose 88 mg/dL (74-106); NT PRO BNP 564 pg/mL (0-900); Potassium 4.5 mmol/L (3.5-5.1); SGOT/AST 20 U/L (17-59); SGPT/ALT 19 U/L (0-50); SODIUM 140 mmol/L (137-145); Total Protein 7.3 g/dL (6.3-8.2)
--- NOTE | 2018-09-26 09:17 | XRAY ---
Indication: Chest pain and short of breath. Comparison: July 25, 2018. Portable chest unchanged again hyperinflated with scattered fibrosis/scarring and a few calcified granulomas. No focal infiltrate, consolidation, or large effusion. Heart is not enlarged again with CABG surgery. Bony thorax intact again with mild degenerative changes. Impression: Stable nonacute chest with chronic features.
[2018-09-26] MEDS ORDERED: MORPHINE SULFATE 4 MG INJ IV ONE (10:11)
[2018-09-26] MEDS ORDERED: MORPHINE SULFATE 4 MG INJ ONE (10:12)
--- NOTE | 2018-09-26 11:30 | XRAY ---
Indication: Headache and dizziness. Multiple contiguous axial images obtained through the head without contrast. Comparison: None Normal appearing brain parenchyma, ventricles, and bony calvarium. Visualized paranasal sinuses and mastoid air cells are clear. Impression: Normal CT head without contrast exam. CTDI 67.60
--- NOTE | 2018-09-26 11:36 | XRAY ---
Indication: Elevated d-dimer. History of blood clots. Multiple contiguous axial images obtained through the chest using 80 cc Isovue 370 contrast and PE protocol. Comparison: July 25, 2018. There is satisfactory opacification of the pulmonary arteries to include the lobar and segmental branches. Again no filling defect or pulmonary embolus. Heart is not enlarged again with CABG surgery. Aorta remains mildly arteriosclerotic without aneurysm/dissection. No pathologic mediastinal/hilar lymphadenopathy. Lungs again demonstrates mild pulmonary emphysema with diffuse scattered fibrosis/scarring, mild bilateral dependent atelectasis, right lung calcified granulomas, and 1.4 cm indeterminate left upper lobe noncalcified nodule. Again no infiltrate or effusion. Bony thorax again demonstrates mild degenerative changes throughout the spine and sternotomy wires. Limited upper abdomen demonstrates stable tiny hepatic cyst, cholecystectomy, and incompletely visualized 4 cm AAA with endovascular stent graft. Impression: 1. Again negative pulmonary embolus. No new or acute cardiopulmonary abnormalities. 2. Stable indeterminant 1.4 cm left upper lobe noncalcified nodule. 3. Stable pulmonary emphysema, scattered fibrosis/scarring, and evidence for old granulomatous disease. 4. Stable hepatic cyst and incompletely visualized AAA with endovascular stent graft. CT DI 23.69
[2018-09-26] MEDS ORDERED: Zofran 4 MG/2 ML VIAL IV PRN (14:22)
[2018-09-26] MEDS ORDERED: TYLENOL 325 MG PO PRN (14:22)
[2018-09-26] MEDS ORDERED: PROVENTIL 2.5 MG/3 ML NEB IH PRN (15:30)
[2018-09-26] MEDS ORDERED: DUONEB 0.5-3 MG/3 ml Neb IH ONE (15:34)
[2018-09-26] MEDS: DUONEB 0.5-3 MG/3 ml Neb IH SCH ×2 (15:36→19:29)
[2018-09-26] MEDS: Advair Hfa 115/21 Common canister IH SCH (19:30)
[2018-09-26] MEDS ORDERED: Nitrostat 0.4 MG Tablet SL PRN (20:22)
[2018-09-26] MEDS: COREG 12.5 MG PO SCH ×2 (21:46→21:48)
[2018-09-26] MEDS ORDERED: Coreg 6.25 MG PO SCH (22:00)
[2018-09-27 04:57] LABS: Hematocrit 41.1 % (42-50); Hemoglobin 13.3 gm/dl (12.5-18.0); Mean Cell Volume 97.6 fl (78-100); Mean Corpuscular Hemoglobin 31.6 pg (26-32); Mean Corpuscular Hgb Concent. 32.4 g/dl (32-36); Mean Platelet Volume 10.3 fl (6-9.5); Platelet Count 149 K/mm3 (150-450); Red Blood Count 4.21 M/mm3 (4.1-5.6); Red Cell Distribution Width 15.2 % (11.5-14.0); White Blood Count 4.2 K/mm3 (4.0-10.5)
[2018-09-27 05:03] LABS: ALBUMIN 3.9 g/dL (3.5-5.0); ALKALINE PHOSPHATASE 57 U/L (38-126); ANION GAP 9.6 MEQ/L (5-15); BLOOD UREA NITROGEN 15 mg/dL (9-20); CHLORIDE 104 mmol/L (98-107); Calcium 9.2 mg/dL (8.4-10.2); Carbon Dioxide 32 mmol/L (22-30); Creatinine 1 0.86 mg/dL (0.66-1.25); Glucose 82 mg/dL (74-106); NT PRO BNP 502 pg/mL (0-900); Potassium 4.8 mmol/L (3.5-5.1); SGOT/AST 27 U/L (17-59); SGPT/ALT 19 U/L (0-50); SODIUM 141 mmol/L (137-145); Total Protein 7.2 g/dL (6.3-8.2)
[2018-09-27] MEDS: DUONEB 0.5-3 MG/3 ml Neb IH SCH (06:55)
[2018-09-27] MEDS: Advair Hfa 115/21 Common canister IH SCH (06:55)
[2018-09-27 08:11] VITALS: BP 144/74; PULSE 66; O2SAT 94
[2018-09-27] MEDS ORDERED: Celestone Soluspan 6MG/ML IM ONE (08:17)
[2018-09-27] MEDS ORDERED: LEVOTHYROXINE SODIUM 150 MCG PO SCH (10:00)
[2018-09-27] MEDS ORDERED: SYNTHROID 150 MCG PO SCH (10:00)
[2018-09-27] MEDS ORDERED: ZOCOR 20MG PO SCH (10:00)
[2018-09-27] MEDS ORDERED: NON-FORMULARY ITEM (Aspirin [Aspirin] 81 MG) PO SCH (10:00)
[2018-09-27] MEDS ORDERED: Zestril 10 MG PO SCH (10:00)
[2018-09-27] MEDS ORDERED: ECOTRIN 81 MG PO SCH (10:00)
[2018-09-27] MEDS ORDERED: NON-FORMULARY ITEM (Atorvastatin Calcium [Atorvastatin Calcium] 40 MG) PO SCH (10:00)
[2018-09-27] MEDS ORDERED: PLAVIX 75 MG Tablet PO SCH (10:00)
[2018-09-27] MEDS ORDERED: Imdur 30 MG PO SCH (10:00)
[2018-09-27] MEDS ORDERED: VILANTEROL IH SCH (10:00)
[2018-09-27] MEDS ORDERED: [UNRECOGNIZED DRUG - OTHER] IH SCH (10:00)
--- NOTE | 2018-09-27 14:01 | SSS ---
DISCHARGE DIAGNOSES: 1) SYNCOPAL EPISODE. 2) HYPOTENSION. 3) CORONARY ARTERY DISEASE. 4) CHRONIC OBSTRUCTIVE PULMONARY DISEASE. 5) BRONCHOSPASM. HISTORY: The patient is a 63 year-old white male patient who presented to the emergency room after having an episode of left-sided chest discomfort. He reports his blood pressure was noted to be somewhat low and noted that it continued to get lower but due to the chest pain he took his nitroglycerin after which he passed out. He did call his and he was brought to the emergency room for further evaluation and management. In the emergency room, the patient's senior sales compensation analyst, Dr. Randle, was contacted and felt the patient needed to be admitted for observational stay and to monitor his troponins. If his troponins had stayed negative overnight he was to be discharged the next morning if he was stable. PAST MEDICAL/SURGICAL HISTORY: Again significant for previous coronary artery bypass graft. He has chronic obstructive pulmonary disease. He is hypothyroid. HOME MEDICATIONS: Aspirin 81 mg a day, carvedilol 6.25 mg b.i.d., Plavix 75 mg daily, levofloxacin 150 mcg daily, isosorbide mononitrate 30 mg a day, Albuterol nebulizers four times a day PRN, atorvastatin 40 mg a day, Breo Ellipta, lisinopril 10 mg daily, nitroglycerin sublingual PRN. ALLERGIES: NKDA. PHYSICAL EXAMINATION: The patient's vital signs in the emergency room showed his temperature to be 97.7F, pulse 61, respiratory rate 22 and blood pressure 100/76. O2 saturation 97%. HEENT: Normocephalic, atraumatic. Pupils equal round reactive to light. Extraocular movements intact. Oropharynx is pink and moist. NECK: Supple without lymphadenopathy, thyromegaly or JVD. CHEST: Reveals slight wheezes on the left side. HEART: Regular rate and rhythm. ABDOMEN: Soft. No palpable masses. EXTREMITIES: Without cyanosis, clubbing or edema. NEUROLOGIC: The patient is alert and oriented x3. HOSPITAL COURSE: The patient was admitted to the medicine [place]. His blood pressure ranged from 100/76 up to 140/73 by 0420 hours the morning of 09/27/2018. His heart rate stayed in the high 50's to low 70's. O2 saturation 95%. The patient being monitored overnight on telemetry did well with no further episodes. Due to the wheeze on his left side, history of chronic obstructive pulmonary disease he was given a Celestone shot prior to discharge home. His laboratory studies revealed his troponins to all be less than 0.012. His metabolic panel showed glucose 82 fasting, BUN 15, creatinine 0.86. Electrolytes were normal. Liver enzymes were normal. ProBNP was normal at 502. The patient's CBC showed hemoglobin 13.3, white blood cell count 4,200, PLT count 149,000. The patient did have an elevation in his D-dimer that was above 4864. He had a CT to rule out pulmonary embolism which was negative. Again, the patient at this time was felt to be ready for discharge home. He will see his senior sales compensation analyst within the next week. He also has follow up in my office due to chronic obstructive pulmonary disease with evolving what sounds to be like an early bronchitis. He is to return to the hospital if he has any further problems in the interim.
== END 2018-09-27 09:37 | disposition home or self-care (01) ==
LOC: ED 08:29 → MED SURG 13:59
PROVIDERS: ADMIT Family Medicine; ATTEND Family Medicine
DX: R55 Syncope and collapse (principal); I95.9 Hypotension, unspecified; I25.10 Atherosclerotic heart disease of native coronary artery without angina pectoris; J44.9 Chronic obstructive pulmonary disease, unspecified; E03.9 Hypothyroidism, unspecified; J98.01 Acute bronchospasm; Z79.01 Long term (current) use of anticoagulants; Z79.899 Other long term (current) drug therapy
CPT/HCPCS: 36000; 36415; 70450; 71045; 71260; 80053; 83880; 84484; 85025; 85027; 85379; 85610; 93005; 93041; 93268; 94150; 94640; 94760; 94762; 96360; 99285; G0378; 96374; J0702; J2270; A9270-GY

== ENCOUNTER 2019-08-08 12:29 | Day surgery (SDC) | payer MEDICARE, OTHER ==
--- NOTE | 2019-08-01 09:05 | HP ---
DATE OF SURGERY: 08/08/2019 HISTORY OF PRESENT ILLNESS: The patient presents with pain in the umbilical area for the past four or five months. He sees a bulge. He states that this is getting worse. He reports that it sticks out especially after he eats. He does have a small umbilical hernia that is reducible on our exam today. PAST MEDICAL HISTORY: Coronary artery disease. COPD. Thyroid disease. PAST SURGICAL HISTORY: Triple bypass. Abdominal aortic aneurysm stented. Laparoscopic cholecystectomy. Several orthopedic surgeries. ALLERGIES: NKDA. MEDICATIONS: Atorvastatin. Aspirin. Plavix. Coreg. Isosorbide. Levothyroxine. Furosemide. Albuterol. Advair nebulizer inhaler. FAMILY HISTORY: Heart attack, heart disease. SOCIAL HISTORY: He smokes a pack a day, denies alcohol. REVIEW OF SYSTEMS: CONSTITUTIONAL: No fever. No chills. CHEST: Denies shortness of breath. CVS: Denies chest pain. ABDOMEN: Soft, tender to palpation umbilical areal with umbilical hernia reducible. Denies diarrhea, constipation or rectal bleeding. : Denies dysuria or hematuria. PHYSICAL EXAMINATION: GENERAL: No acute distress. CHEST: Nonlabored. No shortness of breath. CVS: Regular rate and rhythm. ABDOMEN: Soft, reducible umbilical hernia. EXTREMITIES: No edema. NEUROLOGIC: Alert. PSYCHIATRIC: Appropriate. ASSESSMENT: Small to moderate umbilical hernia. PLAN: Repair of umbilical hernia with possible mesh with Dr. Jose Elias Parekh. As dictated by Eva Peoples NP.
[~2019-08-08 12:29] MED LIST: KEFZOL 1 GM ONE; Lactated Ringers 1,000 ML IV ONE; Sensorcaine 0.25% 10 ML ONE
[2019-08-08] MEDS ORDERED: Xopenex 1.25 MG/0.5 ML UD NEBULE IH ONE (14:13)
[2019-08-08] MEDS ORDERED: Sodium Chloride 3 ML UD NEBULES IH ONE (14:16)
[2019-08-08] MEDS ORDERED: Lactated Ringers 1,000 ML IV SCH (14:30)
[2019-08-08] MEDS ORDERED: CEFAZOLIN 2 GM-D5W BAG** 2 GM/50 ML ML IV SCH (14:30)
[2019-08-08] MEDS ORDERED: DIPRIVAN 200 MG/20 ML IV ONE (15:05)
[2019-08-08] MEDS ORDERED: Versed 2 MG/2 ML Injection ONE (15:05)
[2019-08-08] MEDS ORDERED: SUBLIMAZE 250 MCG/5 ML ONE (15:05)
[2019-08-08] MEDS ORDERED: DEMEROL 50 MG ONE (17:55)
[2019-08-08 18:55] VITALS: PULSE 77; O2SAT 95
[2019-08-08 19:08] VITALS: BP 155/90
--- NOTE | 2019-08-09 11:54 | OP ---
SURGERY DATE/TIME: 08/08/2019 1641 PREOPERATIVE DIAGNOSIS: Umbilical hernia. POSTOPERATIVE DIAGNOSIS: Ventral hernia, umbilical hernia. The patient also has diastasis rectus which was not addressed. PROCEDURES: 1) Ventral hernia with mesh. 2) Umbilical hernia basically primary repair. 3) Diastasis recti observation only. SURGEON: Jose Elias Parekh M.D. ANESTHESIA: General. COMPLICATIONS: None. CONDITION: Stable. INDICATION: The patient has symptomatic hernia. He was examined in the holding area. He does have a diastasis above this which will not be addressed. DESCRIPTION OF PROCEDURE: He is taken to surgery. General anesthetic. Routine prep and drape. Time out performed. It was a little sketchy on exactly the nature of this hernia so vertical incision was made. There was a lot of omentum about 3 inches but the defect was ventral and the defect was only 2 cm x 1.5 cm so it was slightly in the diastasis rectus area. Below this was umbilical hernia 1 cm this was taken off the umbilicus and repaired primarily. A small Bicomponent mesh was then placed and then pulled up this did cover underneath the umbilical and underneath the ventral hernia. It was secured with 0 Prolene. The fascia was basically covered over the ventral hernia. The field was dry. It was irrigated with antibiotic solution. Umbilicus reapproximated with 3-0 Vicryl. Skin closed with 4-0 Vicryl. Sterile dressing applied. The patient tolerated the procedure satisfactorily.
== END 2019-08-08 19:17 | disposition home or self-care (01) ==
LOC: SDC 12:29
PROVIDERS: ATTEND Surgery
DX: K42.9 Umbilical hernia without obstruction or gangrene (principal); K43.9 Ventral hernia without obstruction or gangrene; M62.08 Separation of muscle (nontraumatic), other site; J44.9 Chronic obstructive pulmonary disease, unspecified; I25.10 Atherosclerotic heart disease of native coronary artery without angina pectoris; Z79.01 Long term (current) use of anticoagulants; Z79.899 Other long term (current) drug therapy
CPT/HCPCS: 94640; J0690; J2175; J2250; J2704; J3010; A9270-GY; C1781

== ENCOUNTER 2020-06-09 20:10 | Inpatient (IN) | payer MEDICARE, OTHER ==
[2020-06-09] MEDS ORDERED: Ativan 2 MG/1 ML VIAL IV ONE (20:20)
[2020-06-09] MEDS ORDERED: Lasix 40 MG/4 ML IV ONE (20:20)
--- NOTE | 2020-06-09 20:20 | ERPHSYRPT ---
- History of Present Illness Time Seen by Provider: 06/09/20 20:15 Source: patient, EMS Exam Limitations: clinical condition Physician History: This is a 65-year-old white male patient of Dr. Freitas who has a history of COPD, coronary artery disease, coronary artery stents, CABG, chronic angina, hypothyroidism and has had an abdominal aortic aneurysm repair and continues to smoke. He is taking Plavix daily. His drilling assistant is Dr. Randle. If patient requires transfer he prefers [facility]. In the last 2 days the patient has had increasing shortness of air. However, he did not come in until this evening even though he had symptoms this morning he went to [facility] to have a CAT scan of his chest performed to evaluate a pulmonary nodule. That center is closed at this time and we are unable to obtain the report. However, it appears as though he had intravenous contrast during that study. Patient denies chest pain. He has a fever on arrival of 101.8 F. Timing/Duration: day(s) (2) Severity of Dyspnea-Max: severe Severity of Dyspnea-Current: moderate Possible Cause: occasional episodes Modifying Factors: Improves With: rest Associated Symptoms: anxiety, No chest pain/discomfort Allergies/Adverse Reactions: No Known Drug Allergies Allergy (Verified 07/31/19 09:14) Home Medications: Aspirin 81 mg PO DAILY 06/12/13 [History] Carvedilol 6.25 mg [Coreg 6.25 MG] 12.5 mg PO BID 06/12/13 [History] Clopidogrel Bisulfate 75 mg [PLAVIX 75 MG Tablet] 75 mg PO DAILY 06/12/13 [History] Levothyroxine Sodium 150 mcg PO DAILY 06/12/13 [History] Isosorbide Mononitrate [Isosorbide Mononitrate ER] 90 mg PO DAILY 01/20/15 [History] Atorvastatin Calcium 40 mg PO DAILY 07/25/18 [History] Nitroglycerin [Nitrostat] 0.4 mg SL Q5MIN PRN MR X 3 PRN 07/25/18 [History] Albuterol/Ipratropium 3ml Neb* [DUONEB 0.5-3 MG/3 ml Neb] 3 ml NEB Q4H 07/31/19 [History] Fluticasone/Umeclidin/Vilanter [Trelegy Ellipta 100-62.5-25] 1 each IH DAILY 08/08/19 [History] Furosemide 20 mg [Lasix 20 mg] 20 mg PO DAILY PRN 08/08/19 [History] Hx Tetanus, Diphtheria Vaccination/Date Given: Yes Hx Influenza Vaccination/Date Given: Yes Hx Pneumococcal Vaccination/Date Given: Yes Travel Risk - International Travel Have you traveled outside of the country in past 3 weeks: No - Coronavirus Screening Are you exhibiting any of the following symptoms?: No Close contact with a COVID-19 positive Pt in past 14-21 Days: No - Vaccine Status Have you recieved a Covid-19 vaccination: No - Review of Systems Constitutional: No Symptoms Eyes: No Symptoms Ears, Nose, & Throat: No Symptoms Respiratory: Dyspnea Cardiac: No Symptoms Abdominal/Gastrointestinal: No Symptoms Genitourinary Symptoms: No Symptoms Musculoskeletal: No Symptoms Skin: No Symptoms Neurological: No Symptoms Psychological: No Symptoms Endocrine: No Symptoms Hematologic/Lymphatic: No Symptoms Immunological/Allergic: No Symptoms All Other Systems: Reviewed and Negative - Past Medical History Pertinent Past Medical History: Yes Neurological History: No Pertinent History ENT History: No Pertinent History Cardiac History: Aneurysm, Angina, Congenital Heart Disease, Coronary Artery Disease, High Cholesterol, Hypertension Respiratory History: CHF, COPD Endocrine Medical History: Hyperthyroidism Musculoskeletal History: No Pertinent History GI Medical History: No Pertinent History History: No Pertinent History Psycho-Social History: No Pertinent History Male Reproductive Disorders: No Pertinent History - Past Surgical History Past Surgical History: Yes (2016 open heart) Neuro Surgical History: No Pertinent History Cardiac: CABG, Cardiac Stent Respiratory: No Pertinent History Gastrointestinal: Cholecystectomy Genitourinary: No Pertinent History Musculoskeletal: Joint Replacement Male Surgical History: No Pertinent History Other Surgical History: R knee, L hip replacement. Aortic aneursym repair - Social History Smoking Status: Current every day smoker How long have you smoked: 40 years Exposure to second hand smoke: No Drug Use: none Patient Lives Alone: No - Nursing Vital Signs Nursing Vital Signs: Initial Vital Signs Temperature 101.8 F 06/09/20 20:14 Pulse Rate 104 H 06/09/20 20:14 Respiratory Rate 26 H 06/09/20 20:14 Blood Pressure 175/91 06/09/20 20:14 O2 Sat by Pulse Oximetry 96 06/09/20 20:14 Pain Scale Pain Intensity 0 - Physical Exam General Appearance: moderate distress, alert, anxiety Eye Exam: PERRL/EOMI, eyes nml inspection Ears, Nose, Throat Exam: hearing grossly normal Neck Exam: normal inspection, non-tender, supple, full range of motion Respiratory Exam: respiratory distress, airway intact, diminished breath sounds, accessory muscle use Cardiovascular/Chest Exam: normal peripheral pulses, tachycardia Abdominal/Gastrointestinal Exam: soft, normal bowel sounds, No tenderness Rectal Exam: not done Extremity Exam: non-tender, normal range of motion, no calf tenderness, pedal edema, No normal inspection Neurologic Exam: alert, oriented x 3, cooperative, door slinger II-XII nml as tested (Mild bilateral ankles), other (Anxious) Skin Exam: normal color, warm, dry Lymphatic Exam: No adenopathy SpO2 Interpretation: normal O2 Delivery: Aerosol Mask - Course Nursing assessment & vital signs reviewed: Yes EKG Interpreted by Me: RATE (104), Sinus Tach, Non-specific ST Changes, Other (When compared to EKG dated 08/01/2019 there is new sinus tachycardia. The remainder of the EKG is unchanged. There is no obvious acute ischemic changes on today's EKG.) Ordered Tests: Active Orders 24 hr Category Date Time Status EKG-ER Only STAT Care 06/09/20 20:20 Active Vicente [Catheter-[place] Vicente] STAT Care 06/09/20 21:25 Active IV Insertion STAT Care 06/09/20 20:20 Active IV Insertion-2nd Peripheral STAT Care 06/09/20 20:25 Active Oxygen-ED Only Nasal Cannula 4 lpm Care 06/09/20 21:14 Active Pulse Oximetry (ED) STAT Care 06/09/20 20:20 Active CHEST 1 VIEW (PORTABLE) Stat Exams 06/09/20 20:39 Taken ABG [ARTERIAL BLOOD GASES] Stat Lab 06/09/20 20:22 Completed ABG [ARTERIAL BLOOD GASES] Stat Lab 06/09/20 20:45 Completed BLOOD CULTURE Stat Lab 06/09/20 20:43 Received CBC W DIFF Stat Lab 06/09/20 20:15 Completed CMP Stat Lab 06/09/20 20:15 Completed CULTURE,URINE Stat Lab 06/09/20 21:28 Received D-DIMER QUANTITATIVE Stat Lab 06/09/20 20:15 Completed INFLUENZA A+B WALLY Stat Lab 06/09/20 20:43 Completed Lactic Acid Stat Lab 06/09/20 20:22 Completed NT PRO BNP Stat Lab 06/09/20 20:15 Completed PROTIME WITH INR Stat Lab 06/09/20 20:15 Completed Sputum Culture [CULTURE,SPUTUM] Stat Lab 06/09/20 21:08 Received TROPONIN Q3H Lab 06/09/20 20:15 Completed TROPONIN Q3H Lab 06/09/20 23:30 Ordered TROPONIN Q3H Lab 06/10/20 02:30 Ordered TROPONIN Q3H Lab 06/10/20 05:30 Ordered TROPONIN Q3H Lab 06/10/20 08:30 Ordered UA W/RFX UR CULTURE Stat Lab 06/09/20 21:08 Received UA W/RFX UR CULTURE Stat Lab 06/09/20 21:26 Received Transfer Order Routine Transfer 06/09/20 Ordered Medication Summary Discontinued Medications Generic Name Dose Route Start Last Admin Trade Name Freq PRN Reason Stop Dose Admin Acetaminophen 650 mg 06/09/20 20:49 06/09/20 20:51 Tylenol 325 Mg PO 06/09/20 20:50 650 mg STAT STA Administration Acetaminophen Confirm 06/09/20 20:51 Tylenol 325 Mg Administered 06/09/20 20:52 Dose 650 mg .ROUTE .STK-MED ONE Bumetanide 2 mg 06/09/20 20:27 06/09/20 20:32 Bumex 1 Mg IV 06/09/20 20:28 2 mg STAT STA Administration Bumetanide Confirm 06/09/20 20:28 Bumex 1 Mg Administered 06/09/20 20:29 Dose 2 mg .ROUTE .STK-MED ONE Furosemide 40 mg 06/09/20 20:20 06/09/20 20:47 Lasix 40 Mg/4 Ml IV 06/09/20 20:21 Not Given STAT ONE Lorazepam 1 mg 06/09/20 20:20 06/09/20 20:32 Ativan 2 Mg/1 Ml Vial IV 06/09/20 20:21 1 mg STAT ONE Administration Lorazepam Confirm 06/09/20 20:28 Ativan 2 Mg/1 Ml Vial Administered 06/09/20 20:29 Dose 2 mg .ROUTE .STK-MED ONE Lab/Rad Data: Laboratory Result Diagrams 06/09/20 20:15 06/09/20 20:15 Laboratory Results 06/09/20 06/09/20 06/09/20 Range/Units 21:26 20:45 20:43 WBC (4.0-10.5) K/mm3 RBC (4.1-5.6) M/mm3 Hgb (12.5-18.0) gm/dl Hct (42-50) % MCV (78-100) fl MCH (26-32) pg MCHC (32-36) g/dl RDW (11.5-14.0) % Plt Count (150-450) K/mm3 MPV (7.5-11.0) fl Gran % (36.0-66.0) % Eos # (Auto) (0-0.5) Absolute Lymphs (auto) (1.0-4.6) Absolute Monos (auto) (0.0-1.3) Lymphocytes % (24.0-44.0) % Monocytes % (0.0-12.0) % Eosinophils % (0.00-5.0) % Basophils % (0.0-0.4) % Absolute Granulocytes (1.4-6.9) Basophils # (0-0.4) PT (8.83-12.87) SECONDS INR (0.8-3.0) D-Dimer (215-500) ng/mL Puncture Site RIGHT RADIAL pCO2 42 (35-45) mmHg pO2 71 L (75-100) mmHg Base Excess 3.9 H (-2.0-2.0) O2 Saturation 89.7 L (94-100) g/dF ABG pH 7.44 (7.35-7.45) ABG HCO3 28.5 H (22-28) ABG O2 Sat (Measured) 94.9 L (95-100) % Pool Test YES A-a Gradient 190 a/A Ratio 0.27 Hemoglobin 14.9 Carboxyhemoglobin 4.5 (0.0-6.9) % THgb Methemoglobin 1.0 L (1.4-1.5) % Temperature 37.0 C POC O2 Flow Rate 44 % Sodium (137-145) mmol/L Potassium 4.4 (3.5-5.1) mmol/L Chloride (98-107) mmol/L Carbon Dioxide (22-30) mmol/L Anion Gap (5-15) MEQ/L BUN (9-20) mg/dL Creatinine (0.66-1.25) mg/dL Estimated GFR ML/MIN Glucose (74-106) mg/dL Lactic Acid (0.4-2.0) Calcium (8.4-10.2) mg/dL Total Bilirubin (0.2-1.3) mg/dL AST (17-59) U/L ALT (0-50) U/L Alkaline Phosphatase (38-126) U/L Troponin I (0.000-0.034) ng/mL NT-Pro-B Natriuret Pep (0-900) pg/mL Serum Total Protein (6.3-8.2) g/dL Albumin (3.5-5.0) g/dL Urine Color COLORLESS (YELLOW) Urine Appearance CLEAR (CLEAR) Urine pH 7.0 (5-6) Ur Specific [place] 1.005 (1.005-1.025) Urine Protein NEGATIVE (Negative) Urine Ketones NEGATIVE (NEGATIVE) Urine Blood NEGATIVE (0-5) Jake/ul Urine Nitrite NEGATIVE (NEGATIVE) Urine Bilirubin NEGATIVE (NEGATIVE) Urine Urobilinogen NEGATIVE (0-1) mg/dL Ur Leukocyte Esterase NEGATIVE (NEGATIVE) Urine WBC (Auto) NONE (0-5) /HPF Urine RBC (Auto) NONE (0-2) /HPF U Epithel Cells (Auto) NONE (FEW) /HPF Urine Bacteria (Auto) NONE (NEGATIVE) /HPF Urine Mucus (Auto) SLIGHT (NEGATIVE) /HPF Urine Culture Reflexed ORDERED SEPARATELY (NO) Urine Glucose NEGATIVE (NEGATIVE) mg/dL Influenza Type A Ag NEGATIVE (NEGATIVE) Influenza Type B Ag NEGATIVE (NEGATIVE) 06/09/20 06/09/20 06/09/20 Range/Units 20:22 20:22 20:15 WBC (4.0-10.5) K/mm3 RBC (4.1-5.6) M/mm3 Hgb (12.5-18.0) gm/dl Hct (42-50) % MCV (78-100) fl MCH (26-32) pg MCHC (32-36) g/dl RDW (11.5-14.0) % Plt Count (150-450) K/mm3 MPV (7.5-11.0) fl Gran % (36.0-66.0) % Eos # (Auto) (0-0.5) Absolute Lymphs (auto) (1.0-4.6) Absolute Monos (auto) (0.0-1.3) Lymphocytes % (24.0-44.0) % Monocytes % (0.0-12.0) % Eosinophils % (0.00-5.0) % Basophils % (0.0-0.4) % Absolute Granulocytes (1.4-6.9) Basophils # (0-0.4) PT (8.83-12.87) SECONDS INR (0.8-3.0) D-Dimer (215-500) ng/mL Puncture Site LEFT RADIAL pCO2 62 H* (35-45) mmHg pO2 22 L* (75-100) mmHg Base Excess 5.6 H (-2.0-2.0) O2 Saturation 29.7 L (94-100) g/dF ABG pH 7.34 L (7.35-7.45) ABG HCO3 33.4 H* (22-28) ABG O2 Sat (Measured) 31.1 L (95-100) % Pool Test YES A-a Gradient 257 a/A Ratio 0.08 Hemoglobin 14.9 Carboxyhemoglobin 4.0 (0.0-6.9) % THgb Methemoglobin 0.6 L (1.4-1.5) % Temperature 37.0 C POC O2 Flow Rate 50 % Sodium (137-145) mmol/L Potassium 4.9 (3.5-5.1) mmol/L Chloride (98-107) mmol/L Carbon Dioxide (22-30) mmol/L Anion Gap (5-15) MEQ/L BUN (9-20) mg/dL Creatinine (0.66-1.25) mg/dL Estimated GFR ML/MIN Glucose (74-106) mg/dL Lactic Acid 1.2 (0.4-2.0) Calcium (8.4-10.2) mg/dL Total Bilirubin (0.2-1.3) mg/dL AST (17-59) U/L ALT (0-50) U/L Alkaline Phosphatase (38-126) U/L Troponin I < 0.012 (0.000-0.034) ng/mL NT-Pro-B Natriuret Pep (0-900) pg/mL Serum Total Protein (6.3-8.2) g/dL Albumin (3.5-5.0) g/dL Urine Color (YELLOW) Urine Appearance (CLEAR) Urine pH (5-6) Ur Specific [place] (1.005-1.025) Urine Protein (Negative) Urine Ketones (NEGATIVE) Urine Blood (0-5) Jake/ul Urine Nitrite (NEGATIVE) Urine Bilirubin (NEGATIVE) Urine Urobilinogen (0-1) mg/dL Ur Leukocyte Esterase (NEGATIVE) Urine WBC (Auto) (0-5) /HPF Urine RBC (Auto) (0-2) /HPF U Epithel Cells (Auto) (FEW) /HPF Urine Bacteria (Auto) (NEGATIVE) /HPF Urine Mucus (Auto) (NEGATIVE) /HPF Urine Culture Reflexed (NO) Urine Glucose (NEGATIVE) mg/dL Influenza Type A Ag (NEGATIVE) Influenza Type B Ag (NEGATIVE) 06/09/20 06/09/20 06/09/20 Range/Units 20:15 20:15 20:15 WBC 8.8 (4.0-10.5) K/mm3 RBC 4.51 (4.1-5.6) M/mm3 Hgb 14.3 (12.5-18.0) gm/dl Hct 44.4 (42-50) % MCV 98.4 (78-100) fl MCH 31.7 (26-32) pg MCHC 32.2 (32-36) g/dl RDW 13.4 (11.5-14.0) % Plt Count 192 (150-450) K/mm3 MPV 9.7 (7.5-11.0) fl Gran % 75.6 H (36.0-66.0) % Eos # (Auto) 0.15 (0-0.5) Absolute Lymphs (auto) 1.06 (1.0-4.6) Absolute Monos (auto) 0.91 (0.0-1.3) Lymphocytes % 12.1 L (24.0-44.0) % Monocytes % 10.4 (0.0-12.0) % Eosinophils % 1.7 (0.00-5.0) % Basophils % 0.2 (0.0-0.4) % Absolute Granulocytes 6.63 (1.4-6.9) Basophils # 0.02 (0-0.4) PT 12.7 (8.83-12.87) SECONDS INR 1.12 (0.8-3.0) D-Dimer 6958 H* (215-500) ng/mL Puncture Site pCO2 (35-45) mmHg pO2 (75-100) mmHg Base Excess (-2.0-2.0) O2 Saturation (94-100) g/dF ABG pH (7.35-7.45) ABG HCO3 (22-28) ABG O2 Sat (Measured) (95-100) % Pool Test A-a Gradient a/A Ratio Hemoglobin Carboxyhemoglobin (0.0-6.9) % THgb Methemoglobin (1.4-1.5) % Temperature C POC O2 Flow Rate % Sodium 138 (137-145) mmol/L Potassium 4.7 (3.5-5.1) mmol/L Chloride 100 (98-107) mmol/L Carbon Dioxide 32 H (22-30) mmol/L Anion Gap 10.5 (5-15) MEQ/L BUN 17 (9-20) mg/dL Creatinine 0.85 (0.66-1.25) mg/dL Estimated GFR > 60.0 ML/MIN Glucose 91 (74-106) mg/dL Lactic Acid (0.4-2.0) Calcium 9.9 (8.4-10.2) mg/dL Total Bilirubin 0.50 (0.2-1.3) mg/dL AST 26 (17-59) U/L ALT 23 (0-50) U/L Alkaline Phosphatase 73 (38-126) U/L Troponin I (0.000-0.034) ng/mL NT-Pro-B Natriuret Pep 211 (0-900) pg/mL Serum Total Protein 8.0 (6.3-8.2) g/dL Albumin 4.4 (3.5-5.0) g/dL Urine Color (YELLOW) Urine Appearance (CLEAR) Urine pH (5-6) Ur Specific [place] (1.005-1.025) Urine Protein (Negative) Urine Ketones (NEGATIVE) Urine Blood (0-5) Jake/ul Urine Nitrite (NEGATIVE) Urine Bilirubin (NEGATIVE) Urine Urobilinogen (0-1) mg/dL Ur Leukocyte Esterase (NEGATIVE) Urine WBC (Auto) (0-5) /HPF Urine RBC (Auto) (0-2) /HPF U Epithel Cells (Auto) (FEW) /HPF Urine Bacteria (Auto) (NEGATIVE) /HPF Urine Mucus (Auto) (NEGATIVE) /HPF Urine Culture Reflexed (NO) Urine Glucose (NEGATIVE) mg/dL Influenza Type A Ag (NEGATIVE) Influenza Type B Ag (NEGATIVE) - Progress Progress: improved Air Movement: poor Progress Note: 06/09/20 21:26 Chest x-ray shows question of increased vascular markings. No definite infiltrate present. Medical decision making: This patient has a significantly elevated D-dimer of over 6900. He has had elevated D-dimers in the past as high as this. He is anticoagulated on Plavix. He did have a CAT scan of the chest with what appears to be with contrast at 10:00 this morning. The center where he had the CAT sc an performed is closed at this time. Patient needs inpatient monitoring. He has no chest pain his troponin is normal. With the exception of his elevated D- dimer and his clinical condition of shortness of breath and fever we will place him in observation, start intravenous antibiotics and repeat labs in the morning. I discussed this with Dr. Dc who is covering for Dr. Freitas. They will contact the radiology center tomorrow morning to determine if there is any significant findings on today's CAT scan of the chest with contrast. If they are unable to determine whether or not there are pulmonary emboli, the CAT scan of the chest with contrast cannot be repeated until approximately 11 AM tomorrow morning. I will give him a dose of Lovenox subcutaneously tonight. Dr. Dc accepts the patient to be placed in observation Blood Culture(s) Obtained: Yes Antibiotics given: Yes Discussed with : Rakesh Counseled pt/family regarding: lab results, diagnosis, need for follow-up, rad r esults - Departure Departure Disposition: Observation Clinical Impression: COPD exacerbation, Elevated d-dimer, Fever, Hypoxia Condition: Fair Critical Care Time: Yes Critical Care Time(excluding separately billable procedures): Critical 30-74 mins Referrals: LIZZY FREITAS [Primary Care Provider] - Instructions: Chronic Obstructive Pulmonary Disease
[2020-06-09] MEDS ORDERED: BUMEX 1 MG IV STA (20:27)
[2020-06-09 20:28] LABS: A-aADO2 257; ABG HEMOGLOBIN 14.9; ABG POTASSIUM 4.9 (3.5-5.1); ARTERIAL BLD GAS O2 SATURATION 31.1 % (95-100); ARTERIAL BLOOD GAS BASE EXCESS 5.6 (-2.0-2.0); ARTERIAL BLOOD GAS FIO2 50 %; ARTERIAL BLOOD GAS PCO2 62 mmHg (35-45); ARTERIAL BLOOD GAS pH 7.34 (7.35-7.45); HCO3- 33.4 (22-28); HGB O2 SAT 29.7 g/dF (94-100); Methhemoglobin 0.6 % (1.4-1.5)
[2020-06-09] MEDS ORDERED: Ativan 2 MG/1 ML VIAL ONE (20:28)
[2020-06-09] MEDS ORDERED: BUMEX 1 MG ONE (20:28)
[2020-06-09 20:29] LABS: ABG SITE LEFT RADIAL; ALLEN TEST OK? YES; ARTERIAL BLOOD GAS PO2 22 mmHg (75-100)
[2020-06-09 20:29] LABS: Absolute Neutrophil Ct (ANC) 6.63 (1.4-6.9); BASOPHIL % 0.2 % (0.0-0.4); Basophil (Absolute #) 0.02 (0-0.4); Eosinophil % 1.7 % (0.00-5.0); Eosinophil (Absolute #) 0.15 (0-0.5); Hematocrit 44.4 % (42-50); Hemoglobin 14.3 gm/dl (12.5-18.0); Lymphocyte (Absolute #) 1.06 (1.0-4.6); Lymphocytes % 12.1 % (24.0-44.0); Mean Cell Volume 98.4 fl (78-100); Mean Corpuscular Hemoglobin 31.7 pg (26-32); Mean Corpuscular Hgb Concent. 32.2 g/dl (32-36); Mean Platelet Volume 9.7 fl (7.5-11.0); Monocyte (Absolute #) 0.91 (0.0-1.3); Monocytes % 10.4 % (0.0-12.0); Neutrophil % 75.6 % (36.0-66.0); Platelet Count 192 K/mm3 (150-450); Red Blood Count 4.51 M/mm3 (4.1-5.6); Red Cell Distribution Width 13.4 % (11.5-14.0); White Blood Count 8.8 K/mm3 (4.0-10.5)
[2020-06-09 20:32] LABS: INR 1.12 (0.8-3.0); PROTIME 12.7 SECONDS (8.83-12.87)
[2020-06-09] MEDS ORDERED: TYLENOL 325 MG PO STA (20:49)
[2020-06-09 20:50] LABS: ALBUMIN 4.4 g/dL (3.5-5.0); ALKALINE PHOSPHATASE 73 U/L (38-126); ANION GAP 10.5 MEQ/L (5-15); BLOOD UREA NITROGEN 17 mg/dL (9-20); CHLORIDE 100 mmol/L (98-107); Calcium 9.9 mg/dL (8.4-10.2); Carbon Dioxide 32 mmol/L (22-30); Creatinine 1 0.85 mg/dL (0.66-1.25); EST GLOMERULAR FILTRATION RATE > 60.0 ML/MIN; Glucose 91 mg/dL (74-106); NT PRO BNP 211 pg/mL (0-900); Potassium 4.7 mmol/L (3.5-5.1); SGOT/AST 26 U/L (17-59); SGPT/ALT 23 U/L (0-50); SODIUM 138 mmol/L (137-145)
[2020-06-09] MEDS ORDERED: TYLENOL 325 MG ONE (20:51)
[2020-06-09 20:54] LABS: A-aADO2 190; ABG HEMOGLOBIN 14.9; ABG POTASSIUM 4.4 (3.5-5.1); ABG SITE RIGHT RADIAL; ALLEN TEST OK? YES; ARTERIAL BLD GAS O2 SATURATION 94.9 % (95-100); ARTERIAL BLOOD GAS BASE EXCESS 3.9 (-2.0-2.0); ARTERIAL BLOOD GAS FIO2 44 %; ARTERIAL BLOOD GAS PCO2 42 mmHg (35-45); ARTERIAL BLOOD GAS PO2 71 mmHg (75-100); ARTERIAL BLOOD GAS pH 7.44 (7.35-7.45); CARBOXYHEMOGLOBIN 4.5 % THgb (0.0-6.9); HCO3- 28.5 (22-28); HGB O2 SAT 89.7 g/dF (94-100)
[2020-06-09 21:17] LABS: INFLUENZA A NEGATIVE (NEGATIVE); INFLUENZA B NEGATIVE (NEGATIVE)
[2020-06-09 21:36] LABS: Appearance CLEAR (CLEAR); Bilirubin NEGATIVE (NEGATIVE); Blood NEGATIVE Ery/ul (0-5); Glucose NEGATIVE (NEGATIVE); Ketones NEGATIVE (NEGATIVE); Leukocyte Esterase NEGATIVE (NEGATIVE); Mucus SLIGHT /HPF (NEGATIVE); Nitrite NEGATIVE (NEGATIVE); Protein,Urine Dip NEGATIVE (Negative); Specific Gravity 1.005 (1.005-1.025); Urobilinogen NEGATIVE mg/dL (0-1)
[2020-06-09] MEDS ORDERED: ROCEPHIN 1 Gm-D5w 50 ml Bag** 1 G/50 ML IVPB IV ONE ×2 (21:38→21:44)
[2020-06-09] MEDS ORDERED: ENOXAPARIN SODIUM SQ STA (21:39)
[2020-06-09] MEDS ORDERED: ENOXAPARIN SODIUM SQ ONE (21:44)
[2020-06-09 22:41] LABS: INFLUENZA A NEGATIVE (NEGATIVE); INFLUENZA B NEGATIVE (NEGATIVE); RESPIRATORY SYNCTIAL VIRUS NEGATIVE (Negative)
[2020-06-09] MEDS ORDERED: Zofran 4 MG/2 ML VIAL IV PRN (23:31)
[2020-06-09] MEDS ORDERED: TYLENOL 325 MG PO PRN (23:31)
[2020-06-10] MEDS: DUONEB 0.5-3 MG/3 ml Neb IH SCH ×6 (03:03→22:21)
[2020-06-10 05:19] LABS: Absolute Neutrophil Ct (ANC) 12.42 (1.4-6.9); BASOPHIL % 0.1 % (0.0-0.4); Basophil (Absolute #) 0.01 (0-0.4); Eosinophil % 0.1 % (0.00-5.0); Eosinophil (Absolute #) 0.01 (0-0.5); Hematocrit 43.5 % (42-50); Hemoglobin 14.3 gm/dl (12.5-18.0); Lymphocyte (Absolute #) 0.36 (1.0-4.6); Lymphocytes % 2.7 % (24.0-44.0); Mean Cell Volume 97.3 fl (78-100); Mean Corpuscular Hgb Concent. 32.9 g/dl (32-36); Mean Platelet Volume 9.9 fl (7.5-11.0); Monocyte (Absolute #) 0.76 (0.0-1.3); Monocytes % 5.6 % (0.0-12.0); Neutrophil % 91.5 % (36.0-66.0); Platelet Count 194 K/mm3 (150-450); Red Blood Count 4.47 M/mm3 (4.1-5.6); Red Cell Distribution Width 13.4 % (11.5-14.0); White Blood Count 13.6 K/mm3 (4.0-10.5)
[2020-06-10 06:26] LABS: ALBUMIN 4.3 g/dL (3.5-5.0); ALKALINE PHOSPHATASE 67 U/L (38-126); ANION GAP 11.5 MEQ/L (5-15); BLOOD UREA NITROGEN 17 mg/dL (9-20); CHLORIDE 98 mmol/L (98-107); Calcium 9.3 mg/dL (8.4-10.2); Carbon Dioxide 32 mmol/L (22-30); Creatinine 1 0.81 mg/dL (0.66-1.25); EST GLOMERULAR FILTRATION RATE > 60.0 ML/MIN; Glucose 142 mg/dL (74-106); NT PRO BNP 830 pg/mL (0-900); Potassium 4.3 mmol/L (3.5-5.1); SGOT/AST 22 U/L (17-59); SGPT/ALT 23 U/L (0-50); SODIUM 138 mmol/L (137-145); Total Protein 7.8 g/dL (6.3-8.2)
[2020-06-10] MEDS ORDERED: Advair Hfa 115/21 Common canister IH SCH (07:00)
[2020-06-10 07:19] LABS: Slide Review 1 YES
--- NOTE | 2020-06-10 08:39 | XRAY ---
Indication: Short of breath. COPD. Comparison: September 26, 2018. Portable chest remains hyperinflated and clear again with a few tiny calcified granulomas. Heart not enlarged again with CABG surgery. Bony thorax intact again with mild osteopenia and degenerative changes. Impression: Continued nonacute hyperinflated chest with chronic features.
[2020-06-10] MEDS ORDERED: Ventolin Hfa MDI IH PRN (09:15)
[2020-06-10] MEDS ORDERED: Nitrostat 0.4 MG Tablet SL PRN (09:15)
[2020-06-10] MEDS ORDERED: VENTOLIN COMMON CANISTER IH PRN (09:21)
[2020-06-10] MEDS: SYNTHROID 150 MCG PO SCH (09:30)
[2020-06-10] MEDS: BUMEX 1 MG PO SCH (09:30)
[2020-06-10] MEDS: PLAVIX 75 MG Tablet PO SCH (09:30)
[2020-06-10] MEDS ORDERED: MEDICATION INTERVENTION MC SCH (09:30)
[2020-06-10] MEDS: COREG 12.5 MG PO SCH ×2 (09:30→22:16)
[2020-06-10] MEDS: ECOTRIN 81 MG PO SCH (09:31)
[2020-06-10] MEDS: Imdur 30 MG PO SCH (09:31)
[2020-06-10] MEDS: ZOCOR 20MG PO SCH (09:31)
[2020-06-10] MEDS ORDERED: LEVOTHYROXINE SODIUM 150 MCG PO SCH (10:00)
[2020-06-10] MEDS ORDERED: Zithromax 500 MG/ 250 ML NaCl Premix 500 MG/250 ML IVPB IV SCH (10:00)
[2020-06-10] MEDS ORDERED: NON-FORMULARY ITEM (Fluticasone/Umeclidin/Vilanter [Trelegy Ellipta 100-62.5-25] 1 EACH) IH SCH (10:00)
[2020-06-10] MEDS ORDERED: LIPITOR 40MG PO SCH (10:00)
[2020-06-10] MEDS ORDERED: NON-FORMULARY ITEM (Aspirin [Aspirin] 81 MG) PO SCH (10:00)
--- NOTE | 2020-06-10 12:29 | XRAY ---
Indication: Short of breath. Elevated d-dimer. Multiple contiguous images obtained through the chest using 100 cc Isovue 370 contrast and PE protocol. Comparison: CT chest without contrast June 13, 2019. There is good opacification of the pulmonary arteries to include the lobar and segmental branches. Minimal respiration artifact limits evaluation of the more distal segmental branches. There are nonoccluding pulmonary emboli in the segmental branches of the right upper lobe. Heart is not enlarged again with CABG surgery. Aorta remains minimally atherosclerotic without aneurysm/dissection. No pathologic mediastinal/hilar lymphadenopathy. Lungs again demonstrate emphysema, scattered fibrosis/scarring bilaterally, and a few tiny right lung calcified granulomas. New mild/moderate bibasilar posterior infiltrates versus atelectasis left greater than right. No effusion. Bony thorax intact again with mild degenerative changes throughout the spine and sternotomy wires. Limited upper abdomen demonstrates stable tiny hepatic cysts, cholecystectomy, splenic calcified granulomas, and partially visualized AAA with endovascular stent graft. Impression: 1. Nonobstructing right upper lobe pulmonary emboli. No distal infarct. 2. New bibasilar posterior infiltrates versus atelectasis. 3. Stable incidental pulmonary emphysema, scattered fibrosis/scarring, hepatic cysts, partially visualized AAA with stent graft, chronic bony findings, and old granulomatous disease.
[2020-06-10] MEDS: ENOXAPARIN SODIUM SQ SCH (13:36)
[2020-06-10] MEDS: ROCEPHIN 1 Gm-D5w 50 ml Bag** 1 G/50 ML IVPB IV SCH (22:16)
[2020-06-10] MEDS: Zithromax 500 MG/ 250 ML NaCl Premix 500 MG/250 ML IVPB IV SCH (22:54)
[2020-06-11] MEDS: ENOXAPARIN SODIUM SQ SCH ×3 (00:02→22:21)
[2020-06-11] MEDS: DUONEB 0.5-3 MG/3 ml Neb IH SCH ×6 (02:40→23:32)
[2020-06-11] MEDS: Imdur 30 MG PO SCH (09:17)
[2020-06-11] MEDS: BUMEX 1 MG PO SCH (09:18)
[2020-06-11] MEDS: ZOCOR 20MG PO SCH (09:18)
[2020-06-11] MEDS: SYNTHROID 150 MCG PO SCH (09:18)
[2020-06-11] MEDS: COREG 12.5 MG PO SCH ×2 (09:18→22:23)
[2020-06-11] MEDS: PLAVIX 75 MG Tablet PO SCH (10:06)
[2020-06-11] MEDS: ECOTRIN 81 MG PO SCH (10:07)
[2020-06-11] MEDS: Robitussin 100 MG/5 ML PO SCH ×2 (17:06→22:22)
[2020-06-11] MEDS: solu-MEDROL 125 MG IV SCH ×2 (17:08→23:52)
[2020-06-11] MEDS: ROCEPHIN 1 Gm-D5w 50 ml Bag** 1 G/50 ML IVPB IV SCH (22:22)
[2020-06-11] MEDS: Zithromax 500 MG/ 250 ML NaCl Premix 500 MG/250 ML IVPB IV SCH (22:30)
[2020-06-12] MEDS: DUONEB 0.5-3 MG/3 ml Neb IH SCH ×6 (03:40→23:10)
[2020-06-12] MEDS: solu-MEDROL 125 MG IV SCH ×3 (06:09→17:11)
[2020-06-12] MEDS: Robitussin 100 MG/5 ML PO SCH ×3 (06:30→21:43)
[2020-06-12] MEDS: PATIENT OWN MEDICATION IH SCH ×2 (06:52→07:00)
[2020-06-12] MEDS: PLAVIX 75 MG Tablet PO SCH (09:17)
[2020-06-12] MEDS: ECOTRIN 81 MG PO SCH (09:17)
[2020-06-12] MEDS: ZOCOR 20MG PO SCH (09:17)
[2020-06-12] MEDS: COREG 12.5 MG PO SCH ×2 (09:17→21:43)
[2020-06-12] MEDS: ENOXAPARIN SODIUM SQ SCH ×2 (09:18→21:42)
[2020-06-12] MEDS: Imdur 30 MG PO SCH (09:18)
[2020-06-12] MEDS: BUMEX 1 MG PO SCH (09:18)
[2020-06-12] MEDS: SYNTHROID 150 MCG PO SCH (09:18)
[2020-06-12] MEDS: ROCEPHIN 1 Gm-D5w 50 ml Bag** 1 G/50 ML IVPB IV SCH (21:36)
[2020-06-12] MEDS: Zithromax 500 MG/ 250 ML NaCl Premix 500 MG/250 ML IVPB IV SCH (22:19)
[2020-06-13] MEDS: solu-MEDROL 125 MG IV SCH ×3 (00:49→12:18)
[2020-06-13] MEDS: DUONEB 0.5-3 MG/3 ml Neb IH SCH ×3 (02:52→10:20)
[2020-06-13] MEDS: Robitussin 100 MG/5 ML PO SCH (05:15)
[2020-06-13] MEDS: PATIENT OWN MEDICATION IH SCH (06:38)
[2020-06-13 10:23] VITALS: O2SAT 93
[2020-06-13] MEDS: COREG 12.5 MG PO SCH (10:24)
[2020-06-13] MEDS: SYNTHROID 150 MCG PO SCH (10:24)
[2020-06-13] MEDS: ZOCOR 20MG PO SCH (10:24)
[2020-06-13] MEDS: PLAVIX 75 MG Tablet PO SCH (10:24)
[2020-06-13] MEDS: ECOTRIN 81 MG PO SCH (10:24)
[2020-06-13] MEDS: BUMEX 1 MG PO SCH (10:24)
[2020-06-13] MEDS: Imdur 30 MG PO SCH (10:24)
[2020-06-13] MEDS: ENOXAPARIN SODIUM SQ SCH (10:26)
[2020-06-13 12:15] VITALS: BP 101/55; PULSE 76
== END 2020-06-13 13:17 | disposition home or self-care (01) | DRG 190 ==
LOC: ED 20:10 → MED SURG 23:30 → OBSVTOIN 06-10 12:30
PROVIDERS: ADMIT Family Medicine; ATTEND Family Medicine
DX: J44.1 Chronic obstructive pulmonary disease with (acute) exacerbation (principal); I26.99 Other pulmonary embolism without acute cor pulmonale; E78.00 Pure hypercholesterolemia, unspecified; R79.1 Abnormal coagulation profile; I10 Essential (primary) hypertension; E03.9 Hypothyroidism, unspecified; Z86.79 Personal history of other diseases of the circulatory system; Z95.1 Presence of aortocoronary bypass graft; Z79.899 Other long term (current) drug therapy; Z79.01 Long term (current) use of anticoagulants; Z20.828 Contact with and (suspected) exposure to other viral communicable diseases
CPT/HCPCS: 0241U; 36000; 36415; 36600; 51702; 71045; 71260; 80053; 81001; 82375; 82803; 83605; 83880; 84484; 85025; 85379; 85610; 87040; 87070; 87077; 87086; 87400; 93005; 93268; 94640; 94667; 94668; 94760; 94762; 96365; 96372; 96374; 96375; 99285; 99291; G0378; J0456; J0696; J1650; J2060; J2930; A9270-GY

== ENCOUNTER 2020-06-16 13:07 | Emergency (ER) | payer MEDICARE, OTHER ==
[2020-06-16] MEDS ORDERED: Adenocard IV 6 MG/2 ML IV ONE ×3 (13:16→13:38)
[2020-06-16] MEDS ORDERED: Sodium Chloride 0.9% 1000 ML 1,000 ML ONE (13:17)
[2020-06-16] MEDS ORDERED: Zofran 4 MG/2 ML VIAL ONE (13:17)
[2020-06-16] MEDS ORDERED: CARDIZEM DRIP 100 MG/100 ML D5W 100 ML IV ONE (13:32)
[2020-06-16] MEDS ORDERED: BABY ASPIRIN 81 MG CHEW PO ONE (13:36)
[2020-06-16] MEDS ORDERED: Cardizem IV 50 MG/10 ML IV ONE (13:39)
[2020-06-16] MEDS ORDERED: CARDIZEM DRIP 100 MG/100 ML D5W 100 ML IV PRN (13:39)
[2020-06-16] MEDS ORDERED: BABY ASPIRIN 81 MG CHEW ONE (13:40)
[2020-06-16] MEDS ORDERED: Sodium Chloride 0.9% 1000 ML 1,000 ML IV SCH (13:45)
[2020-06-16 13:54] LABS: Hematocrit 44.9 % (42-50); Hemoglobin 14.7 gm/dl (12.5-18.0); Mean Cell Volume 97.4 fl (78-100); Mean Corpuscular Hemoglobin 31.9 pg (26-32); Mean Corpuscular Hgb Concent. 32.7 g/dl (32-36); Platelet Count 278 K/mm3 (150-450); Red Blood Count 4.61 M/mm3 (4.1-5.6); Red Cell Distribution Width 13.7 % (11.5-14.0); White Blood Count 9.2 K/mm3 (4.0-10.5)
--- NOTE | 2020-06-16 14:01 | ERPHSYRPT ---
- History of Present Illness Time Seen by Provider: 06/16/20 13:08 Source: patient Exam Limitations: no limitations Patient Subjective Stated Complaint: Tachycardia Triage Nursing Assessment: Patient ambulated back to ED and transferred self to bed. Patient A+O X3. Patient's skin pink, warm and dry. Patient states he was just released from hospital on Monday after a 5 days stay for PE. Patient states he was at home and checked his pulse ox and it was in the 150s. Patient complains of occasional SOB and dizziness. Patient denies pain or discomfort. Physician History: 65 years old male with multiple medical problems including coronary artery disease status post CABG, abdominal aortic aneurysm repair, COPD/tobacco abuse, mood disorder, seizures, hypertension, hyperlipidemia, recently diagnosed pulmonary embolism on Xarelto as presented in the ER when he checked his pulse ox which was reading saturation around 96% but heart rate in 150s prior to arrival. Patient reports since morning he has been feeling occasional dizzy and lightheaded and some fluttering sensation in the chest at times but nothing constant. He denies any increased shortness of breath than usual. Denies any definite of chest pain. He has a chronic smoker cough which is not any worse than usual. Denies fever chills but is feeling fatigued and tired with lack of energy. Timing/Duration: today, sudden Activities at Onset: rest Severity of Dyspnea-Max: moderate Severity of Dyspnea-Current: moderate Associated Symptoms: cough, heart racing, lightheadedness, No chest pain/discomfort Allergies/Adverse Reactions: No Known Drug Allergies Allergy (Verified 06/16/20 13:19) Home Medications: Aspirin 81 mg PO DAILY 06/12/13 [History] Carvedilol 6.25 mg [Coreg 6.25 MG] 12.5 mg PO BID 06/12/13 [History] Levothyroxine Sodium 150 mcg PO DAILY 06/12/13 [History] Isosorbide Mononitrate [Isosorbide Mononitrate ER] 90 mg PO DAILY 01/20/15 [History] Atorvastatin Calcium 40 mg PO DAILY 07/25/18 [History] Nitroglycerin [Nitrostat] 0.4 mg SL Q5MIN PRN MR X 3 PRN 07/25/18 [History] Albuterol/Ipratropium 3ml Neb* [DUONEB 0.5-3 MG/3 ml Neb] 3 ml NEB Q4H 07/31/19 [History] Fluticasone/Umeclidin/Vilanter [Trelegy Ellipta 100-62.5-25] 1 each IH DAILY 08/08/19 [History] Bumetanide 1 mg [Bumex 1 mg] 1 mg PO DAILY 06/09/20 [History] Hx Tetanus, Diphtheria Vaccination/Date Given: Yes Hx Influenza Vaccination/Date Given: Yes Hx Pneumococcal Vaccination/Date Given: Yes Immunizations Up to Date: Yes Travel Risk - International Travel Have you traveled outside of the country in past 3 weeks: No - Coronavirus Screening Are you exhibiting any of the following symptoms?: No Close contact with a COVID-19 positive Pt in past 14-21 Days: No - Vaccine Status Have you recieved a Covid-19 vaccination: No Cath Lab Tech: Moderna - Vaccination Dates Date of 2cond Vaccination (if applicable): 05/12/20 - Review of Systems Constitutional: Fatigue, Weakness Eyes: No Symptoms Ears, Nose, & Throat: No Symptoms Respiratory: Cough, Dyspnea Cardiac: Palpitations Abdominal/Gastrointestinal: No Symptoms Genitourinary Symptoms: No Symptoms Musculoskeletal: No Symptoms Skin: No Symptoms Neurological: No Symptoms Psychological: No Symptoms Endocrine: No Symptoms Hematologic/Lymphatic: No Symptoms Immunological/Allergic: No Symptoms - Past Medical History Pertinent Past Medical History: Yes Neurological History: No Pertinent History ENT History: No Pertinent History Cardiac History: Aneurysm, Angina, Congenital Heart Disease, Coronary Artery Disease, High Cholesterol, Hypertension Respiratory History: CHF, COPD Endocrine Medical History: Hyperthyroidism Musculoskeletal History: No Pertinent History GI Medical History: No Pertinent History, Gallbladder Disease History: No Pertinent History Psycho-Social History: No Pertinent History Male Reproductive Disorders: No Pertinent History Other Medical History: Right knee implant, left hip implant - Past Surgical History Past Surgical History: Yes (2016 open heart) Neuro Surgical History: No Pertinent History Cardiac: CABG, Cardiac Stent Respiratory: No Pertinent History Gastrointestinal: Cholecystectomy Genitourinary: No Pertinent History Musculoskeletal: Joint Replacement Male Surgical History: No Pertinent History Other Surgical History: R knee, L hip replacement. Aortic aneursym repair - Social History Smoking Status: Former smoker How long have you smoked: 40 years Exposure to second hand smoke: No Drug Use: none Patient Lives Alone: No - Nursing Vital Signs Nursing Vital Signs: Initial Vital Signs Temperature 98.0 F 06/16/20 13:11 Pulse Rate 148 H 06/16/20 13:11 Respiratory Rate 24 06/16/20 13:11 Blood Pressure 140/92 06/16/20 13:11 O2 Sat by Pulse Oximetry 97 06/16/20 13:11 Pain Scale Pain Intensity 0 - Physical Exam General Appearance: no apparent distress, alert Eye Exam: PERRL/EOMI, eyes nml inspection Ears, Nose, Throat Exam: hearing grossly normal, normal ENT inspection, normal pharynx Neck Exam: normal inspection, non-tender, supple, full range of motion Respiratory Exam: normal breath sounds, wheezing, No chest tenderness Cardiovascular/Chest Exam: normal heart sounds, tachycardia, irregular Abdominal/Gastrointestinal Exam: soft, normal bowel sounds, No tenderness Extremity Exam: non-tender, normal range of motion, pedal edema Neurologic Exam: alert, oriented x 3, cooperative Skin Exam: normal color SpO2 Interpretation: normal SpO2: 99 O2 Delivery: Room Air - Course EKG Interpreted by Me: RATE (150), A-fib (Flutter), NORMAL AXIS, Non-specific ST Changes, Other Ordered Tests: Active Orders 24 hr Category Date Time Status Tray Line Supervisor STAT Care 06/16/20 13:37 Active EKG-ER Only STAT Care 06/16/20 13:36 Active IV Insertion STAT Care 06/16/20 13:36 Active Pulse Oximetry (ED) STAT Care 06/16/20 13:36 Active CHEST 1 VIEW (PORTABLE) Stat Exams 06/16/20 13:37 Completed CBC W DIFF Stat Lab 06/16/20 13:52 Completed CMP Stat Lab 06/16/20 13:52 Completed Manual Differential NC Stat Lab 06/16/20 13:52 Completed NT PRO BNP Stat Lab 06/16/20 13:52 Completed TROPONIN Q3H Lab 06/16/20 13:52 Completed TROPONIN Q3H Lab 06/16/20 16:45 Ordered TROPONIN Q3H Lab 06/16/20 19:45 Ordered TROPONIN Q3H Lab 06/16/20 22:45 Ordered TROPONIN Q3H Lab 06/17/20 01:45 Ordered TSH [TSH, 3RD Generation] Stat Lab 06/16/20 14:37 Ordered Medication Summary Generic Name Dose Route Start Last Admin Trade Name Freq PRN Reason Stop Dose Admin Sodium Chloride 1,000 mls @ 125 mls/hr 06/16/20 13:45 06/16/20 13:42 Sodium Chloride 0.9% 1000 Ml IV 07/16/20 13:44 125 mls/hr .Q8H AMMY Administration Diltiazem HCl 100 mls @ 5 mls/hr 06/16/20 13:39 06/16/20 13:41 Cardizem Drip 100 Mg/100 Ml D5w IV 07/16/20 13:38 5 mg/hr .Q20H PRN 5 mls/hr HEART RATE/ A-FIB Administration Protocol 5 MG/HR Discontinued Medications Generic Name Dose Route Start Last Admin Trade Name Freq PRN Reason Stop Dose Admin Adenosine Confirm 06/16/20 13:16 Adenocard Iv 6 Mg/2 Ml Administered 06/16/20 13:17 Dose 6 mg IV .STK-MED ONE Adenosine Confirm 06/16/20 13:25 Adenocard Iv 6 Mg/2 Ml Administered 06/16/20 13:26 Dose 12 mg IV .STK-MED ONE Adenosine 6 mg 06/16/20 13:38 06/16/20 13:41 Adenocard Iv 6 Mg/2 Ml IV 06/16/20 13:39 6 mg STAT ONE Administration Aspirin 324 mg 06/16/20 13:36 06/16/20 13:41 Baby Aspirin 81 Mg Chew PO 06/16/20 13:37 324 mg STAT ONE Administration Aspirin Confirm 06/16/20 13:40 Baby Aspirin 81 Mg Chew Administered 06/16/20 13:41 Dose 324 mg .ROUTE .STK-MED ONE Diltiazem HCl 10 mg 06/16/20 13:39 06/16/20 13:42 Cardizem Iv 50 Mg/10 Ml IV 06/16/20 13:40 10 mg STAT ONE Administration Sodium Chloride Confirm 06/16/20 13:17 Sodium Chloride 0.9% 1000 Ml Administered 06/16/20 13:18 Dose 1,000 mls @ ud .ROUTE .STK-MED ONE Diltiazem HCl Confirm 06/16/20 13:32 Cardizem Drip 100 Mg/100 Ml D5w Administered 06/16/20 13:33 Dose 100 mls @ ud IV .STK-MED ONE Ondansetron HCl Confirm 06/16/20 13:17 Zofran 4 Mg/2 Ml Vial Administered 06/16/20 13:18 Dose 4 mg .ROUTE .STK-MED ONE Lab/Rad Data: Laboratory Result Diagrams 06/16/20 13:52 06/16/20 13:52 Laboratory Results 06/16/20 06/16/20 06/16/20 Range/Units 13:52 13:52 13:52 WBC 9.2 (4.0-10.5) K/mm3 RBC 4.61 (4.1-5.6) M/mm3 Hgb 14.7 (12.5-18.0) gm/dl Hct 44.9 (42-50) % MCV 97.4 (78-100) fl MCH 31.9 (26-32) pg MCHC 32.7 (32-36) g/dl RDW 13.7 (11.5-14.0) % Plt Count 278 (150-450) K/mm3 MPV 10.0 (7.5-11.0) fl Sodium 138 (137-145) mmol/L Potassium 4.3 (3.5-5.1) mmol/L Chloride 98 (98-107) mmol/L Carbon Dioxide 31 H (22-30) mmol/L Anion Gap 12.5 (5-15) MEQ/L BUN 26 H (9-20) mg/dL Creatinine 1.17 (0.66-1.25) mg/dL Estimated GFR > 60.0 ML/MIN Glucose 170 H (74-106) mg/dL Calcium 9.6 (8.4-10.2) mg/dL Total Bilirubin 0.50 (0.2-1.3) mg/dL AST 40 (17-59) U/L ALT 77 H (0-50) U/L Alkaline Phosphatase 78 (38-126) U/L Troponin I 0.024 (0.000-0.034) ng/mL NT-Pro-B Natriuret Pep 7370 H (0-900) pg/mL Serum Total Protein 7.3 (6.3-8.2) g/dL Albumin 4.1 (3.5-5.0) g/dL - Progress Progress: improved, re-examined Air Movement: good Progress Note: 06/16/20 14:56 65 years old is evaluated for palpitations. Patient has a heart rate in 150s on presentation regular and EKG suggesting atrial flutter. I have given him 6 of adenosine and the underlying rhythm confirmed by his atrial flutter. He is started on Cardizem bolus followed by drip and currently his heart rate is in 120s. Chest x-ray did not show any acute findings. Normal white count no acute electrolyte abnormality but does have marked increase in the BNP in 7000s with lower extremity swelling. Patient blood pressure is on the lower side, I will hold off on Lasix for now. Patient is already anticoagulated with Xarelto. Discussed with Dr. Galaviz, since patient has new onset atrial flutter recommended transfer to facility with his primary household coordinator, I think this is reasonable. I have discussed with Dr. Vera at [facility], reviewed history work-up and current management, agreed with transfer. Blood Culture(s) Obtained: No Antibiotics given: No Discussed with : Rio Counseled pt/family regarding: lab results, diagnosis, need for follow-up, rad results, smoking cessation - Departure Departure Disposition: Transfer Clinical Impression: Atrial flutter with rapid ventricular response Condition: Stable Critical Care Time: Yes Critical Care Time(excluding separately billable procedures): Critical 30-74 mins Referrals: LIZZY GALAVIZ [Primary Care Provider] -
--- NOTE | 2020-06-16 14:05 | XRAY ---
Indication: Palpitations. Comparison: June 09, 2020. Portable chest remains hyperinflated with tiny calcified granulomas and minimal scattered fibrosis/scarring. Heart not enlarged again with CABG surgery. No new/acute findings.
[2020-06-16 14:19] LABS: ALBUMIN 4.1 g/dL (3.5-5.0); ALKALINE PHOSPHATASE 78 U/L (38-126); ANION GAP 12.5 MEQ/L (5-15); BLOOD UREA NITROGEN 26 mg/dL (9-20); CHLORIDE 98 mmol/L (98-107); Calcium 9.6 mg/dL (8.4-10.2); Carbon Dioxide 31 mmol/L (22-30); Creatinine 1 1.17 mg/dL (0.66-1.25); EST GLOMERULAR FILTRATION RATE > 60.0 ML/MIN; Glucose 170 mg/dL (74-106); NT PRO BNP 7370 pg/mL (0-900); Potassium 4.3 mmol/L (3.5-5.1); SGOT/AST 40 U/L (17-59); SGPT/ALT 77 U/L (0-50); SODIUM 138 mmol/L (137-145); Total Protein 7.3 g/dL (6.3-8.2)
[2020-06-16 15:11] VITALS: BP 110/63; PULSE 109; O2SAT 98
[2020-06-16 15:59] LABS: Lymphocytes 11 % (24-44); Monocyte 4 % (0.0-12.0); Neutrophils 85 % (36.-66.); Platelet Estimate NORMAL (NORMAL); Total Cells Counted 100
== END 2020-06-16 15:48 | disposition short-term general hospital (02) ==
LOC: ED 13:07
DX: I48.92 Unspecified atrial flutter (principal); R00.0 Tachycardia, unspecified; J44.9 Chronic obstructive pulmonary disease, unspecified; I25.810 Atherosclerosis of coronary artery bypass graft(s) without angina pectoris; I10 Essential (primary) hypertension; E78.5 Hyperlipidemia, unspecified; Z79.01 Long term (current) use of anticoagulants; I26.99 Other pulmonary embolism without acute cor pulmonale; Z79.899 Other long term (current) drug therapy; I50.9 Heart failure, unspecified
CPT/HCPCS: 36000; 36415; 71045; 80053; 83880; 84443; 84484; 85025; 93005; 93041; 94760; 96365; 96366; 96374; 96375; 99285; 99291; J0153; J2405; A9270-GY

== ENCOUNTER 2021-01-23 22:56 | Emergency (ER) | payer MEDICARE, OTHER ==
[2021-01-23] MEDS ORDERED: NEOSYNEPHRINE 0.5% NASAL SPRAY/DROPS ONE (23:01)
[2021-01-23] MEDS: NEOSYNEPHRINE 0.5% NASAL SPRAY/DROPS NS ONE (23:27)
[2021-01-23 23:49] LABS: Absolute Neutrophil Ct (ANC) 2.34 (1.4-6.9); BASOPHIL % 0.5 % (0.0-0.4); Basophil (Absolute #) 0.02 (0-0.4); Eosinophil % 5.5 % (0.00-5.0); Eosinophil (Absolute #) 0.24 (0-0.5); Hematocrit 40.2 % (42-50); Hemoglobin 12.8 gm/dl (12.5-18.0); Lymphocyte (Absolute #) 1.08 (1.0-4.6); Lymphocytes % 24.8 % (24.0-44.0); Mean Cell Volume 94.6 fl (78-100); Mean Corpuscular Hemoglobin 30.1 pg (26-32); Mean Corpuscular Hgb Concent. 31.8 g/dl (32-36); Mean Platelet Volume 9.4 fl (7.5-11.0); Monocyte (Absolute #) 0.68 (0.0-1.3); Monocytes % 15.6 % (0.0-12.0); Neutrophil % 53.6 % (36.0-66.0); Platelet Count 272 K/mm3 (150-450); Red Blood Count 4.25 M/mm3 (4.1-5.6); Red Cell Distribution Width 14.9 % (11.5-14.0); White Blood Count 4.4 K/mm3 (4.0-10.5)
[2021-01-23 23:57] LABS: PTT 50.1 SECONDS (25.1-36.5)
--- NOTE | 2021-01-23 23:58 | ERPHSYRPT ---
- History of Present Illness Time Seen by Provider: 01/23/21 23:16 Source: patient Exam Limitations: no limitations Patient Subjective Stated Complaint: "My nose is bleeding." Triage Nursing Assessment: Bilateral epistaxis on xarelto. Significant bleeding onset 2029. Initial onset reported to be intermittent over the past two - three days. Denied any trauma. Reported onset following a coughing fit. Significant bleeding from bilateral nares. Physician History: 65 years old male with history of chronic respiratory failure secondary to COPD on 2 L oxygen, tobacco abuse, hypertension, hyperlipidemia, recently switched from Coumadin to Xarelto presented in the ER with chief complaint of intermittent nasal bleed for the last couple of days and since 830 is having worsening bleeding after he coughed really hard. More on the right side but some on the left side as well bright red, going back into the throat. Patient was not on oxygen on presentation, was feeling short of breath, placed on oxygen and feeling better. Questionable dizziness. No chest pain palpitations. Timing/Duration: abrupt onset, hours (2.5) Severity: moderate ENT Location: nose Prearrival Treatment: squeezing nostrils Modifying Factors: Worsens With: coughing Associated Symptoms: dizziness, nasal congestion/drainage, epistaxis Allergies/Adverse Reactions: No Known Drug Allergies Allergy (Verified 01/23/21 22:58) Home Medications: Aspirin 81 mg PO DAILY 06/12/13 [History] Carvedilol 6.25 mg [Coreg 6.25 MG] 12.5 mg PO BID 06/12/13 [History] Levothyroxine Sodium 150 mcg PO DAILY 06/12/13 [History] Isosorbide Mononitrate [Isosorbide Mononitrate ER] 90 mg PO DAILY 01/20/15 [History] Atorvastatin Calcium 40 mg PO DAILY 07/25/18 [History] Nitroglycerin [Nitrostat] 0.4 mg SL Q5MIN PRN MR X 3 PRN 07/25/18 [History] Albuterol/Ipratropium 3ml Neb* [DUONEB 0.5-3 MG/3 ml Neb] 3 ml NEB Q4H 07/31/19 [History] Fluticasone/Umeclidin/Vilanter [Trelegy Ellipta 100-62.5-25] 1 each IH DAILY 08/08/19 [History] Bumetanide 1 mg [Bumex 1 mg] 1 mg PO DAILY 06/09/20 [History] Hx Tetanus, Diphtheria Vaccination/Date Given: No Hx Influenza Vaccination/Date Given: No Hx Pneumococcal Vaccination/Date Given: Yes Travel Risk - International Travel Have you traveled outside of the country in past 3 weeks: No - Coronavirus Screening Are you exhibiting any of the following symptoms?: No Close contact with a COVID-19 positive Pt in past 14-21 Days: No - Vaccine Status Have you recieved a Covid-19 vaccination: Yes Skip Locator: Moderna - Vaccination Dates Date of 2cond Vaccination (if applicable): 04/2020 - Review of Systems Constitutional: No Symptoms Eyes: No Symptoms Ears, Nose, & Throat: Nose Congestion, Epistaxis Respiratory: No Symptoms Cardiac: No Symptoms Abdominal/Gastrointestinal: No Symptoms Genitourinary Symptoms: No Symptoms Musculoskeletal: No Symptoms Skin: No Symptoms Neurological: Dizziness Psychological: No Symptoms Endocrine: No Symptoms Hematologic/Lymphatic: Easy Bleeding Immunological/Allergic: No Symptoms - Past Medical History Pertinent Past Medical History: Yes Neurological History: No Pertinent History ENT History: No Pertinent History Cardiac History: Aneurysm, Angina, Congenital Heart Disease, Coronary Artery Disease, High Cholesterol, Hypertension Respiratory History: CHF, COPD Endocrine Medical History: Hyperthyroidism Musculoskeletal History: No Pertinent History GI Medical History: No Pertinent History, Gallbladder Disease History: No Pertinent History Psycho-Social History: No Pertinent History Male Reproductive Disorders: No Pertinent History Other Medical History: Right knee implant, left hip implant - Past Surgical History Past Surgical History: Yes (2016 open heart) Neuro Surgical History: No Pertinent History Cardiac: CABG, Cardiac Stent Respiratory: No Pertinent History Gastrointestinal: Cholecystectomy Genitourinary: No Pertinent History Musculoskeletal: Joint Replacement Male Surgical History: No Pertinent History Other Surgical History: R knee, L hip replacement. Aortic aneursym repair - Social History Smoking Status: Former smoker How long have you smoked: 40 years Exposure to second hand smoke: No Drug Use: none Patient Lives Alone: No - Nursing Vital Signs Nursing Vital Signs: Initial Vital Signs Temperature 97.9 F 01/23/21 22:57 Pulse Rate 77 01/23/21 22:57 Respiratory Rate 20 01/23/21 22:57 Blood Pressure 172/87 01/23/21 22:57 O2 Sat by Pulse Oximetry 95 01/23/21 22:57 Pain Scale Pain Intensity 0 - Physical Exam General Appearance: no apparent distress, alert Eye Exam: bilateral eye: normal inspection, PERRL, EOMI Ear Exam: bilateral ear: auricle normal, canal normal Nasal Exam: active bleeding (Bright red blood more on the right and little on the left with some going back into the throat. No obvious visible active source anteriorly.) Throat Exam: normal Neck Exam: normal inspection, supple, full range of motion Cardiovascular/Respiratory Exam: regular rate/rhythm, wheezing, No accessory muscle use Neurologic Exam: alert, oriented x 3, cooperative, cotton jammer II-XII nml as tested Skin Exam: normal color SpO2 Interpretation: normal SpO2: 95 O2 Delivery: Room Air Procedures - Additional Procedures Progress: Time. 2323. Bilateral Rhino Rocket placement. Bleeding improved. Patient tolerated procedure very well. 09 cc area injected. Ordered Tests: Active Orders 24 hr Category Date Time Status CBC W DIFF Stat Lab 01/23/21 23:45 Completed CMP Stat Lab 01/23/21 23:45 Completed PROTIME WITH INR Stat Lab 01/23/21 23:45 Completed PTT Stat Lab 01/23/21 23:45 Completed Medication Summary Discontinued Medications Generic Name Dose Route Start Last Admin Trade Name Freq PRN Reason Stop Dose Admin Cephalexin HCl 500 mg 01/24/21 00:01 01/24/21 00:08 Cephalexin Mh500 Mg Capsule PO 01/24/21 00:02 500 mg STAT ONE Administration Cephalexin HCl Confirm 01/24/21 00:05 Cephalexin Mh500 Mg Capsule Administered 01/24/21 00:06 Dose 500 mg .ROUTE .STK-MED ONE Phenylephrine HCl Confirm 01/23/21 23:01 Neosynephrine 0.5% Nasal Dora/Drops Administered 01/23/21 23:02 Dose 15 ml .ROUTE .STK-MED ONE Phenylephrine HCl 15 ml 01/23/21 23:11 01/23/21 23:27 Neosynephrine 0.5% Nasal Dora/Drops NS 01/23/21 23:12 15 ml STAT ONE Administration Phytonadione 5 mg 01/24/21 00:05 01/24/21 00:09 Phytonadione 10 Mg/Ml Amp PO 01/24/21 00:06 5 mg STAT ONE Administration Phytonadione Confirm 01/24/21 00:07 Phytonadione 10 Mg/Ml Amp Administered 01/24/21 00:08 Dose 10 mg .ROUTE .STK-MED ONE Lab/Rad Data: Laboratory Result Diagrams 01/23/21 23:45 01/23/21 23:45 Laboratory Results 01/23/21 01/23/21 01/23/21 Range/Units 23:45 23:45 23:45 WBC 4.4 (4.0-10.5) K/mm3 RBC 4.25 (4.1-5.6) M/mm3 Hgb 12.8 (12.5-18.0) gm/dl Hct 40.2 L (42-50) % MCV 94.6 (78-100) fl MCH 30.1 (26-32) pg MCHC 31.8 L (32-36) g/dl RDW 14.9 H (11.5-14.0) % Plt Count 272 (150-450) K/mm3 MPV 9.4 (7.5-11.0) fl Gran % 53.6 (36.0-66.0) % Eos # (Auto) 0.24 (0-0.5) Absolute Lymphs (auto) 1.08 (1.0-4.6) Absolute Monos (auto) 0.68 (0.0-1.3) Lymphocytes % 24.8 (24.0-44.0) % Monocytes % 15.6 H (0.0-12.0) % Eosinophils % 5.5 H (0.00-5.0) % Basophils % 0.5 (0.0-0.4) % Absolute Granulocytes 2.34 (1.4-6.9) Basophils # 0.02 (0-0.4) PT 63.2 H (9.4-12.5) SECONDS INR 5.16 H* (0.8-3.0) APTT 50.1 H (25.1-36.5) SECONDS Sodium 137 (137-145) mmol/L Potassium 4.3 (3.5-5.1) mmol/L Chloride 96 L (98-107) mmol/L Carbon Dioxide 33 H (22-30) mmol/L Anion Gap 11.8 (5-15) MEQ/L BUN 16 (9-20) mg/dL Creatinine 0.73 (0.66-1.25) mg/dL Estimated GFR > 60.0 ML/MIN Glucose 96 (74-106) mg/dL Calcium 9.1 (8.4-10.2) mg/dL Total Bilirubin 0.30 (0.2-1.3) mg/dL AST 21 (17-59) U/L ALT 16 (0-50) U/L Alkaline Phosphatase 107 (38-126) U/L Serum Total Protein 7.0 (6.3-8.2) g/dL Albumin 3.8 (3.5-5.0) g/dL - Progress Progress: improved Progress Note: nasal clamp is applied on presentation. Cal-Synephrine spray is used but patient was having profuse bleeding. Initially right sided Rhino Rocket was placed but continued to have bleeding from the left and bilateral Rhino Rocket's were placed. Bleeding is improved. Patient is observed for almost an hour with no weakness. I have just checked routine labs because of his bleeding going on for couple of hours and also complaining of mild dizziness/lightheadedness. Stable H&H. INR is 5.12 despite the fact patient stopped taking Coumadin 2 days ago. I have given him an oral dose of vitamin K. Recommended eating leafy vegetable and continue with Xarelto. Recommended outpatient follow-up. Discussed signs symptoms of worsening needing return to ER which he seems understanding. Stable for discharge. 01/24/21 00:56 Counseled pt/family regarding: lab results, diagnosis, need for follow-up - Departure Departure Disposition: Home Clinical Impression: Bleeding from the nose, Supratherapeutic INR Condition: Stable Critical Care Time: No Referrals: KENNA MISTRY MD [Primary Care Provider] - Follow up/PCP as directed (In 2 days for reevaluation) BETTY STEPHENSON [NON-STAFF PHY W/O PRIVILEGES] - Follow up/PCP as directed (Call tomorrow morning for reevaluation and packing removal.) Instructions: Nosebleeds (DC) Additional Instructions: Call tomorrow for appointment with primary care and ENT for reevaluation and packing removal. Return to ER if again having increased bleeding, feeling dizzy lightheaded etc. Do not smoke. Prescriptions: Cephalexin Mh 500 mg [Keflex 500 mg] 500 mg PO TID #21 cap
[2021-01-24 00:01] LABS: PROTIME 63.2 SECONDS (9.4-12.5)
[2021-01-24 00:03] LABS: ALBUMIN 3.8 g/dL (3.5-5.0); ALKALINE PHOSPHATASE 107 U/L (38-126); ANION GAP 11.8 MEQ/L (5-15); BLOOD UREA NITROGEN 16 mg/dL (9-20); CHLORIDE 96 mmol/L (98-107); Calcium 9.1 mg/dL (8.4-10.2); Carbon Dioxide 33 mmol/L (22-30); Creatinine 1 0.73 mg/dL (0.66-1.25); EST GLOMERULAR FILTRATION RATE > 60.0 ML/MIN; Glucose 96 mg/dL (74-106); Potassium 4.3 mmol/L (3.5-5.1); SGOT/AST 21 U/L (17-59); SGPT/ALT 16 U/L (0-50); SODIUM 137 mmol/L (137-145)
[2021-01-24 00:05] LABS: INR 5.16 (0.8-3.0)
[2021-01-24] MEDS ORDERED: KEFLEX 500 MG ONE (00:05)
[2021-01-24] MEDS ORDERED: Vitamin K 10 MG/ML ONE (00:07)
[2021-01-24] MEDS: KEFLEX 500 MG PO ONE (00:08)
[2021-01-24] MEDS: Vitamin K 10 MG/ML PO ONE (00:09)
[2021-01-24 00:49] VITALS: BP 164/93; PULSE 89
[2021-01-24 00:58] VITALS: O2SAT 95
== END 2021-01-24 01:04 | disposition home or self-care (01) ==
LOC: ED 22:56
DX: R04.0 Epistaxis (principal); R79.1 Abnormal coagulation profile; J96.10 Chronic respiratory failure, unspecified whether with hypoxia or hypercapnia; Z99.81 Dependence on supplemental oxygen; I10 Essential (primary) hypertension; E78.5 Hyperlipidemia, unspecified; Z79.01 Long term (current) use of anticoagulants
CPT/HCPCS: 30901; 36000; 36415; 80053; 85025; 85610; 85730; 99284; J3430; A9270-GY

== ENCOUNTER 2021-03-21 06:13 | Inpatient (IN) | payer MEDICARE, OTHER ==
[2021-03-21] MEDS ORDERED: DUONEB 0.5-3 MG/3 ml Neb IH ONE ×2 (06:41→06:43)
--- NOTE | 2021-03-21 06:59 | ERPHSYRPT ---
<TODD DUNLAP - Last Filed: 03/21/21 07:39> - History of Present Illness Source: patient, EMS Exam Limitations: no limitations Patient Subjective Stated Complaint: pt states "I've been having trouble breathing the past couple days." Triage Nursing Assessment: pt came into the er via ambulance; pt is axo x 4; c/o SOB; pt denies pain; pt states hx of COPD, CHF; pt states that he wears 2L O2 at home, pt states that he has had to increase O2 up to 4L; pt states he took a at home covid test yesterday that was negative; pt states SOB has increased over the past couple days; anterior upper lobes wheezes; mauricio lower lobes diminished; sputum clear; slight BLE edema; vitals wnl. pt received 2 nebs and 125 mg solu-medrol in route per Medic Timing/Duration: yesterday, constant, gradual onset, worse Activities at Onset: activity, rest Severity of Dyspnea-Max: moderate Severity of Dyspnea-Current: moderate Modifying Factors: Improves With: albuterol nebulizer. Worsens With: activity, coughing, exertion Associated Symptoms: cough, chest pain/discomfort, wheezing, heaviness, productive cough, tightness Hx Tetanus, Diphtheria Vaccination/Date Given: No Hx Influenza Vaccination/Date Given: Yes Hx Pneumococcal Vaccination/Date Given: Yes <MIGDALIA GILBERT - Last Filed: 03/23/21 12:45> - History of Present Illness Time Seen by Provider: 03/21/21 06:40 Physician History: 66-year-old male with history of chronic respiratory failure secondary to COPD, tobacco abuse, coronary artery disease status post CABG, congestive heart neoruthy coffey presented in the ER with chief complaint of increasing shortness of breath since yesterday despite being on oxygen with cough productive of clear to yellow sputum. On EMS arrival patient was around 88% on 4 L, was given 2 neb treatments and steroid prior to arrival and started to feel better. Shortness of breath is more with exertion. (MIGDALIA GILBERT) Allergies/Adverse Reactions: No Known Drug Allergies Allergy (Verified 03/21/21 06:19) Home Medications: Aspirin 81 mg PO DAILY 06/12/13 [History] Carvedilol 6.25 mg [Coreg 6.25 MG] 6.25 mg PO DAILY 06/12/13 [History] Levothyroxine Sodium 150 mcg PO DAILY 06/12/13 [History] Isosorbide Mononitrate [Isosorbide Mononitrate ER] 90 mg PO DAILY 01/20/15 [History] Atorvastatin Calcium 40 mg PO DAILY 07/25/18 [History] Nitroglycerin [Nitrostat] 0.4 mg SL Q5MIN PRN MR X 3 PRN 07/25/18 [History] Albuterol/Ipratropium 3ml Neb* [DUONEB 0.5-3 MG/3 ml Neb] 3 ml NEB Q4H 0 07/31/19 [History] Fluticasone/Umeclidin/Vilanter [Trelegy Ellipta 100-62.5-25] 1 each IH DAILY 08/08/19 [History] Carvedilol 12.5 mg [Coreg 12.5 mg] 12.5 mg PO EVENING MEAL 03/21/21 [History] Furosemide 40 mg [Lasix 40 MG] 40 mg PO DAILY PRN PRN 03/21/21 [History] Travel Risk - International Travel Have you traveled outside of the country in past 3 weeks: No - Coronavirus Screening Are you exhibiting any of the following symptoms?: Yes Symptoms: Shortness of Breath Close contact with a COVID-19 positive Pt in past 14-21 Days: No - Vaccine Status Have you recieved a Covid-19 vaccination: Yes [employer] Lead: Moderna - Vaccination Dates Date of 2cond Vaccination (if applicable): 04/2020 Comment: received booster <MIGDALIA GILBERT - Last Filed: 03/23/21 12:45> - Review of Systems Constitutional: No Symptoms, Fatigue Eyes: No Symptoms Ears, Nose, & Throat: No Symptoms Respiratory: Cough, Dyspnea, Dyspnea on Exertion (HANLEY), Wheezing Cardiac: No Symptoms Abdominal/Gastrointestinal: No Symptoms Genitourinary Symptoms: No Symptoms Musculoskeletal: No Symptoms Skin: No Symptoms Neurological: No Symptoms Psychological: No Symptoms Endocrine: No Symptoms Hematologic/Lymphatic: No Symptoms Immunological/Allergic: No Symptoms <MIGDALIA GILBERT - Last Filed: 03/23/21 12:45> - Past Medical History Pertinent Past Medical History: Yes Neurological History: No Pertinent History ENT History: No Pertinent History Cardiac History: Aneurysm, Angina, Congenital Heart Disease, Coronary Artery Disease, High Cholesterol, Hypertension Respiratory History: CHF, COPD Endocrine Medical History: Hyperthyroidism Musculoskeletal History: No Pertinent History GI Medical History: No Pertinent History, Gallbladder Disease History: No Pertinent History Psycho-Social History: No Pertinent History Male Reproductive Disorders: No Pertinent History Other Medical History: Right knee implant, left hip implant - Past Surgical History Past Surgical History: Yes (2016 open heart) Neuro Surgical History: No Pertinent History Cardiac: CABG, Cardiac Stent Respiratory: No Pertinent History Gastrointestinal: Cholecystectomy Genitourinary: No Pertinent History Musculoskeletal: Joint Replacement Male Surgical History: No Pertinent History Other Surgical History: R knee, L hip replacement. Aortic aneursym repair - Social History Smoking Status: Former smoker How long have you smoked: 40 years Exposure to second hand smoke: No Drug Use: none Patient Lives Alone: No <MIGDALIA GILBERT - Last Filed: 03/23/21 12:45> - Physical Exam General Appearance: no apparent distress, alert Eye Exam: PERRL/EOMI, eyes nml inspection Ears, Nose, Throat Exam: hearing grossly normal, pharyngeal erythema Neck Exam: normal inspection, non-tender, supple, full range of motion Respiratory Exam: diminished breath sounds, accessory muscle use, crackles/rales, rhonchi, wheezing Cardiovascular/Chest Exam: normal heart sounds, regular rate/rhythm Abdominal/Gastrointestinal Exam: soft, normal bowel sounds, No tenderness Extremity Exam: non-tender, normal range of motion Neurologic Exam: alert, oriented x 3, cooperative Skin Exam: normal color SpO2 Interpretation: O2 applied SpO2: 96 O2 Delivery: Nasal Cannula (4L) <MIGDALIA GILBERT - Last Filed: 03/23/21 12:45> - Nursing Vital Signs Nursing Vital Signs: Initial Vital Signs Pulse Rate 81 03/21/21 06:20 Respiratory Rate 28 H 03/21/21 06:20 Blood Pressure 121/74 03/21/21 06:20 O2 Sat by Pulse Oximetry 100 03/21/21 06:20 Pain Scale Pain Intensity 0 - Radiology Exams Chest X-ray Interpretation: Reviewed by me, Negative <TODD DUNLAP - Last Filed: 03/21/21 07:39> - Course EKG Interpreted by Me: RATE, Sinus Rhythm, NORMAL AXIS, NORMAL INTERVALS, Non- specific ST Changes <MIGDALIA GILBERT - Last Filed: 03/23/21 12:45> Ordered Tests: Medication Summary Generic Name Dose Route Start Last Admin Trade Name Freq PRN Reason Stop Dose Admin Acetaminophen 650 mg 03/21/21 23:22 03/21/21 23:25 Acetaminophen 325 Mg Tablet PO 04/20/21 23:21 650 mg Q6H PRN PRN Administration PAIN AND/OR FEVER Albuterol Sulfate 2.5 mg 03/23/21 09:37 Albuterol Sulfate 2.5 Mg/3 Ml [facility] 04/22/21 09:36 Q2H PRN PRN SHORTNESS OF BREATH Albuterol/Ipratropium 3 ml 03/23/21 13:00 Ipratropium/Albuterol Sulfate 3 Ml Ampul.[facility] 04/22/21 12:59 Q6HRT [facility] Aspirin 81 mg 03/22/21 10:00 03/23/21 09:58 Aspirin 81 Mg Tablet.Ec PO 04/21/21 09:59 81 mg DAILY [facility] Administration Budesonide 0.5 mg 03/23/21 19:00 Budesonide 0.5 Mg/2 Ml Ampul.[facility]. 04/22/21 18:59 BIDRT AMMY Carvedilol 6.25 mg 03/22/21 10:00 03/23/21 09:59 Carvedilol 6.25 Mg Tablet PO 04/21/21 09:59 6.25 mg DAILY [facility] Administration Carvedilol 12.5 mg 03/21/21 18:00 03/22/21 18:32 Carvedilol 12.5 Mg Tablet PO 04/20/21 17:59 12.5 mg EVENING MEAL [facility] Administration Methylprednisolone Sodium 0 mg 03/22/21 18:10 03/23/21 12:10 Succinate 125 mg/ Sterile IV 04/21/21 18:09 125 mg Water 2 ml Q6HT [facility]MY Administration Famotidine 20 mg 03/21/21 10:00 03/23/21 10:58 Famotidine 20 Mg/1 Vial IV 04/20/21 09:59 20 mg Q12HT [facility]MY Administration Furosemide 40 mg 03/21/21 14:39 Furosemide 40 Mg Tablet PO 04/20/21 14:38 DAILY PRN PRN fluid retention Guaifenesin 15 ml 03/23/21 12:00 03/23/21 12:10 Guaifenesin 100mg/5 Ml 120 Ml Bottle PO 04/22/21 11:59 15 ml Q6HT AMMY Administration Sodium Chloride 1,000 mls @ 50 mls/hr 03/21/21 07:45 03/23/21 00:09 Sodium Chloride 0.9% 1000 Ml IV 04/20/21 07:44 50 mls/hr .Q20H AMMY Administration Ceftriaxone Sodium/Dextrose 1 g in 50 mls @ 100 mls/hr 03/21/21 10:00 03/23/21 09:54 Rocephin 1 Gm-D5w 50 Ml Bag IV 03/25/21 09:59 100 ml/hr Q24H10 AMMY 100 mls/hr Administration Azithromycin 500 mg in 250 mls @ 125 mls/hr 03/23/21 10:00 03/23/21 10:58 Zithromax 500 Mg/ 250 Ml Nacl Premix IV 04/22/21 09:59 125 mls/hr Q24H10 [facility] Administration Isosorbide Mononitrate 90 mg 03/22/21 10:00 03/23/21 09:55 Isosorbide Mononitrate 30 Mg Tab PO 04/21/21 09:59 90 mg DAILY [facility] Administration Levothyroxine Sodium 112 mcg 03/24/21 07:00 Levothyroxine Sodium 112 Mcg Tablet PO 04/23/21 06:59 DAILY@0700 [facility] Levothyroxine Sodium 25 mcg 03/24/21 07:00 Levothyroxine Sodium 25 Mcg Tablet PO 04/23/21 06:59 DAILY@0700 [facility] Montelukast Sodium 10 mg 03/23/21 10:00 03/23/21 09:59 Montelukast Sodium 10 Mg Tablet PO 04/22/21 09:59 10 mg DAILY [facility] Administration Nicotine 14 mg 03/21/21 11:15 03/23/21 10:58 Nicotine 14 Mg/Patch Patch TOP 04/20/21 11:14 14 mg DAILY [facility] Administration Nitroglycerin 0.4 mg 03/21/21 14:39 Nitroglycerin 0.4 Mg Tablet Bottle SL 04/20/21 14:38 Q5MIN PRN MR X 3 PRN CHEST PAIN Rivaroxaban 20 mg 03/22/21 10:00 03/23/21 09:59 Rivaroxaban 10 Mg Tablet PO 04/21/21 09:59 20 mg DAILY [facility] Administration Fluticasone/Salmeterol 2 puff 03/21/21 19:00 03/23/21 06:29 Fluticasone/Salmeterol / - 120 Puff Common Canister 04/20/21 18:59 2 puff BIDRT [facility]MY Administration Simethicone 80 mg 03/22/21 22:00 03/23/21 09:56 Simethicone 80 Mg Tab.Chew PO 04/21/21 21:59 80 mg BID AMMY Administration Simvastatin 40 mg 03/22/21 10:00 03/23/21 09:58 Simvastatin 20 Mg Tablet PO 04/21/21 09:59 40 mg DAILY [facility] Administration Discontinued Medications Generic Name Dose Route Start Last Admin Trade Name Freq PRN Reason Stop Dose Admin Albuterol/Ipratropium 3 ml 03/21/21 06:41 03/21/21 06:40 Ipratropium/Albuterol Sulfate 3 Ml Ampul.Neb 03/21/21 06:42 3 ml STAT ONE Administration Albuterol/Ipratropium Confirm 03/21/21 06:43 Ipratropium/Albuterol Sulfate 3 Ml Ampul.Neb Administered 03/21/21 06:44 Dose 3 ml IH .STK-MED ONE Albuterol/Ipratropium 3 ml 03/21/21 11:00 03/23/21 06:28 Ipratropium/Albuterol Sulfate 3 Ml Ampul.Neb 04/20/21 10:59 3 ml Q4HRT AMMY Administration Atorvastatin Calcium 40 mg 03/22/21 10:00 Atorvastatin Calcium 40 Mg Tablet PO 04/21/21 09:59 DAILY [facility] Budesonide 0.5 mg 03/23/21 13:00 Budesonide 0.5 Mg/2 Ml Ampul.Neb. 04/22/21 12:59 Q6HRT [facility] Methylprednisolone Sodium 0 mg 03/21/21 12:00 03/22/21 11:15 Succinate 80 mg/ Sterile Water IV 04/20/21 11:59 80 mg 2 ml Q6HT AMMY Administration Levothyroxine Sodium 150 mcg 03/22/21 07:30 03/22/21 07:34 Levothyroxine Sodium 150 Mcg Tablet PO 04/21/21 07:29 150 mcg QDAC AMMY Administration Levothyroxine Sodium 125 mcg 03/23/21 07:00 03/23/21 07:55 Levothyroxine Sodium 125 Mcg Tablet PO 04/22/21 06:59 125 mcg QAM@0700 [facility] Administration Levothyroxine Sodium 112 mcg 03/23/21 10:00 Levothyroxine Sodium 112 Mcg Tablet PO 04/22/21 09:59 DAILY [facility] Levothyroxine Sodium 25 mcg 03/23/21 10:00 Levothyroxine Sodium 25 Mcg Tablet PO 04/22/21 09:59 DAILY [facility] Methylprednisolone Sodium Succinate Confirm 03/22/21 06:01 Methylprednis Sod Succ 125 Mg/2 Ml Vial Administered 03/22/21 06:02 Dose 125 mg .ROUTE .STK-MED ONE Methylprednisolone Sodium Succinate Confirm 03/22/21 23:54 Methylprednis Sod Succ 125 Mg/2 Ml Vial Administered 03/22/21 23:55 Dose 125 mg .ROUTE .STK-MED ONE Methylprednisolone Sodium Succinate Confirm 03/23/21 05:49 Methylprednis Sod Succ 125 Mg/2 Ml Vial Administered 03/23/21 05:50 Dose 125 mg .ROUTE .STK-MED ONE Nicotine 21 mg 03/21/21 11:15 Nicotine 21 Mg/Patch Patch TOP 04/20/21 11:14 Q24H [facility] Nicotine 21 mg 03/22/21 10:00 Nicotine 21 Mg/Patch Patch TOP 04/20/21 11:14 DAILY [facility] Sterile Water Confirm 03/22/21 23:56 Water For Injection,Sterile 10 Ml Vial Administered 03/22/21 23:57 Dose 10 ml IJ .STK-MED ONE Sterile Water Confirm 03/23/21 05:50 Water For Injection,Sterile 10 Ml Vial Administered 03/23/21 05:51 Dose 10 ml IJ .STK-MED ONE Lab/Rad Data: Laboratory Result Diagrams 03/22/21 05:00 03/22/21 05:00 Laboratory Results 03/22/21 03/22/21 03/22/21 Range/Units 05:30 05:30 05:00 WBC (4.0-10.5) K/mm3 RBC (4.1-5.6) M/mm3 Hgb (12.5-18.0) gm/dl Hct (42-50) % MCV (78-100) fl MCH (26-32) pg MCHC (32-36) g/dl RDW (11.5-14.0) % Plt Count (150-450) K/mm3 MPV (7.5-11.0) fl Gran % (36.0-66.0) % Eos # (Auto) (0-0.5) Absolute Lymphs (auto) (1.0-4.6) Absolute Monos (auto) (0.0-1.3) Lymphocytes % (24.0-44.0) % Monocytes % (0.0-12.0) % Eosinophils % (0.00-5.0) % Basophils % (0.0-0.4) % Absolute Granulocytes (1.4-6.9) Basophils # (0-0.4) Sodium 138 (137-145) mmol/L Potassium 4.8 (3.5-5.1) mmol/L Chloride 95 L (98-107) mmol/L Carbon Dioxide 38 H (22-30) mmol/L Anion Gap 9.6 (5-15) MEQ/L BUN 14 (9-20) mg/dL Creatinine 0.55 L (0.66-1.25) mg/dL Estimated GFR > 60.0 ML/MIN Glucose 137 H (74-106) mg/dL Lactic Acid (0.4-2.0) Calcium 8.9 (8.4-10.2) mg/dL Magnesium (1.6-2.3) mg/dL Total Bilirubin 0.50 (0.2-1.3) mg/dL AST 16 L (17-59) U/L ALT 15 (0-50) U/L Alkaline Phosphatase 92 (38-126) U/L Troponin I (0.000-0.034) ng/mL NT-Pro-B Natriuret Pep (0-900) pg/mL Serum Total Protein 7.7 (6.3-8.2) g/dL Albumin 3.9 (3.5-5.0) g/dL Vitamin B12 403 (239-931) pg/mL TSH 3rd Generation 0.077 L (0.47-4.68) mIU/L Urine Color (YELLOW) Urine Appearance (CLEAR) Urine pH (5-6) Ur Specific [place] (1.005-1.025) Urine Protein (Negative) Urine Ketones (NEGATIVE) Urine Blood (0-5) Jake/ul Urine Nitrite (NEGATIVE) Urine Bilirubin (NEGATIVE) Urine Urobilinogen (0-1) mg/dL Ur Leukocyte Esterase (NEGATIVE) Urine WBC (Auto) (0-5) /HPF Urine RBC (Auto) (0-2) /HPF U Epithel Cells (Auto) (FEW) /HPF Urine Bacteria (Auto) (NEGATIVE) /HPF Urine Mucus (Auto) (NEGATIVE) /HPF Urine Culture Reflexed (NO) Urine Glucose (NEGATIVE) mg/dL Influenza Type A Ag (NEGATIVE) Influenza Type B Ag (NEGATIVE) RSV (PCR) (Negative) SARS-CoV-2 (PCR) (NEGATIVE) Slides for Path Review 03/22/21 03/21/21 03/21/21 Range/Units 05:00 12:35 09:40 WBC 7.7 (4.0-10.5) K/mm3 RBC 3.37 L (4.1-5.6) M/mm3 Hgb 11.1 L (12.5-18.0) gm/dl Hct 33.5 L (42-50) % MCV 99.4 (78-100) fl MCH 32.9 H (26-32) pg MCHC 33.1 (32-36) g/dl RDW 15.6 H (11.5-14.0) % Plt Count 161 (150-450) K/mm3 MPV 10.2 (7.5-11.0) fl Gran % (36.0-66.0) % Eos # (Auto) (0-0.5) Absolute Lymphs (auto) (1.0-4.6) Absolute Monos (auto) (0.0-1.3) Lymphocytes % (24.0-44.0) % Monocytes % (0.0-12.0) % Eosinophils % (0.00-5.0) % Basophils % (0.0-0.4) % Absolute Granulocytes (1.4-6.9) Basophils # (0-0.4) Sodium (137-145) mmol/L Potassium (3.5-5.1) mmol/L Chloride (98-107) mmol/L Carbon Dioxide (22-30) mmol/L Anion Gap (5-15) MEQ/L BUN (9-20) mg/dL Creatinine (0.66-1.25) mg/dL Estimated GFR ML/MIN Glucose (74-106) mg/dL Lactic Acid (0.4-2.0) Calcium (8.4-10.2) mg/dL Magnesium (1.6-2.3) mg/dL Total Bilirubin (0.2-1.3) mg/dL AST (17-59) U/L ALT (0-50) U/L Alkaline Phosphatase (38-126) U/L Troponin I < 0.012 < 0.012 (0.000-0.034) ng/mL NT-Pro-B Natriuret Pep (0-900) pg/mL Serum Total Protein (6.3-8.2) g/dL Albumin (3.5-5.0) g/dL Vitamin B12 (239-931) pg/mL TSH 3rd Generation (0.47-4.68) mIU/L Urine Color (YELLOW) Urine Appearance (CLEAR) Urine pH (5-6) Ur Specific [place] (1.005-1.025) Urine Protein (Negative) Urine Ketones (NEGATIVE) Urine Blood (0-5) Jake/ul Urine Nitrite (NEGATIVE) Urine Bilirubin (NEGATIVE) Urine Urobilinogen (0-1) mg/dL Ur Leukocyte Esterase (NEGATIVE) Urine WBC (Auto) (0-5) /HPF Urine RBC (Auto) (0-2) /HPF U Epithel Cells (Auto) (FEW) /HPF Urine Bacteria (Auto) (NEGATIVE) /HPF Urine Mucus (Auto) (NEGATIVE) /HPF Urine Culture Reflexed (NO) Urine Glucose (NEGATIVE) mg/dL Influenza Type A Ag (NEGATIVE) Influenza Type B Ag (NEGATIVE) RSV (PCR) (Negative) SARS-CoV-2 (PCR) (NEGATIVE) Slides for Path Review 03/21/21 03/21/21 03/21/21 Range/Units 07:21 07:00 07:00 WBC (4.0-10.5) K/mm3 RBC (4.1-5.6) M/mm3 Hgb (12.5-18.0) gm/dl Hct (42-50) % MCV (78-100) fl MCH (26-32) pg MCHC (32-36) g/dl RDW (11.5-14.0) % Plt Count (150-450) K/mm3 MPV (7.5-11.0) fl Gran % (36.0-66.0) % Eos # (Auto) (0-0.5) Absolute Lymphs (auto) (1.0-4.6) Absolute Monos (auto) (0.0-1.3) Lymphocytes % (24.0-44.0) % Monocytes % (0.0-12.0) % Eosinophils % (0.00-5.0) % Basophils % (0.0-0.4) % Absolute Granulocytes (1.4-6.9) Basophils # (0-0.4) Sodium 139 (137-145) mmol/L Potassium 5.0 (3.5-5.1) mmol/L Chloride 95 L (98-107) mmol/L Carbon Dioxide 37 H (22-30) mmol/L Anion Gap 11.9 (5-15) MEQ/L BUN 11 (9-20) mg/dL Creatinine 0.62 L (0.66-1.25) mg/dL Estimated GFR > 60.0 ML/MIN Glucose 99 (74-106) mg/dL Lactic Acid (0.4-2.0) Calcium 9.3 (8.4-10.2) mg/dL Magnesium 1.8 (1.6-2.3) mg/dL Total Bilirubin 0.60 (0.2-1.3) mg/dL AST 19 (17-59) U/L ALT 16 (0-50) U/L Alkaline Phosphatase 95 (38-126) U/L Troponin I < 0.012 (0.000-0.034) ng/mL NT-Pro-B Natriuret Pep 878 (0-900) pg/mL Serum Total Protein 7.5 (6.3-8.2) g/dL Albumin 4.0 (3.5-5.0) g/dL Vitamin B12 (239-931) pg/mL TSH 3rd Generation (0.47-4.68) mIU/L Urine Color (YELLOW) Urine Appearance (CLEAR) Urine pH (5-6) Ur Specific [place] (1.005-1.025) Urine Protein (Negative) Urine Ketones (NEGATIVE) Urine Blood (0-5) Jake/ul Urine Nitrite (NEGATIVE) Urine Bilirubin (NEGATIVE) Urine Urobilinogen (0-1) mg/dL Ur Leukocyte Esterase (NEGATIVE) Urine WBC (Auto) (0-5) /HPF Urine RBC (Auto) (0-2) /HPF U Epithel Cells (Auto) (FEW) /HPF Urine Bacteria (Auto) (NEGATIVE) /HPF Urine Mucus (Auto) (NEGATIVE) /HPF Urine Culture Reflexed (NO) Urine Glucose (NEGATIVE) mg/dL Influenza Type A Ag NEGATIVE (NEGATIVE) Influenza Type B Ag NEGATIVE (NEGATIVE) RSV (PCR) NEGATIVE (Negative) SARS-CoV-2 (PCR) NEGATIVE (NEGATIVE) Slides for Path Review 03/21/21 03/21/21 03/21/21 Range/Units 07:00 06:41 06:41 WBC 4.6 (4.0-10.5) K/mm3 RBC 3.89 L (4.1-5.6) M/mm3 Hgb 11.3 L (12.5-18.0) gm/dl Hct 37.5 L (42-50) % MCV 96.4 (78-100) fl MCH 29.0 (26-32) pg MCHC 30.1 L (32-36) g/dl RDW 15.5 H (11.5-14.0) % Plt Count 160 (150-450) K/mm3 MPV 10.3 (7.5-11.0) fl Gran % 76.1 H (36.0-66.0) % Eos # (Auto) 0.02 (0-0.5) Absolute Lymphs (auto) 0.43 L (1.0-4.6) Absolute Monos (auto) 0.65 (0.0-1.3) Lymphocytes % 9.3 L (24.0-44.0) % Monocytes % 14.0 H (0.0-12.0) % Eosinophils % 0.4 (0.00-5.0) % Basophils % 0.2 (0.0-0.4) % Absolute Granulocytes 3.52 (1.4-6.9) Basophils # 0.01 (0-0.4) Sodium (137-145) mmol/L Potassium (3.5-5.1) mmol/L Chloride (98-107) mmol/L Carbon Dioxide (22-30) mmol/L Anion Gap (5-15) MEQ/L BUN (9-20) mg/dL Creatinine (0.66-1.25) mg/dL Estimated GFR ML/MIN Glucose (74-106) mg/dL Lactic Acid 0.7 (0.4-2.0) Calcium (8.4-10.2) mg/dL Magnesium (1.6-2.3) mg/dL Total Bilirubin (0.2-1.3) mg/dL AST (17-59) U/L ALT (0-50) U/L Alkaline Phosphatase (38-126) U/L Troponin I (0.000-0.034) ng/mL NT-Pro-B Natriuret Pep (0-900) pg/mL Serum Total Protein (6.3-8.2) g/dL Albumin (3.5-5.0) g/dL Vitamin B12 (239-931) pg/mL TSH 3rd Generation (0.47-4.68) mIU/L Urine Color YELLOW (YELLOW) Urine Appearance CLEAR (CLEAR) Urine pH 5.0 (5-6) Ur Specific [place] 1.013 (1.005-1.025) Urine Protein NEGATIVE (Negative) Urine Ketones NEGATIVE (NEGATIVE) Urine Blood SMALL (0-5) Jake/ul Urine Nitrite NEGATIVE (NEGATIVE) Urine Bilirubin NEGATIVE (NEGATIVE) Urine Urobilinogen 2 (0-1) mg/dL Ur Leukocyte Esterase NEGATIVE (NEGATIVE) Urine WBC (Auto) NONE (0-5) /HPF Urine RBC (Auto) 6-10 (0-2) /HPF U Epithel Cells (Auto) NONE (FEW) /HPF Urine Bacteria (Auto) NONE (NEGATIVE) /HPF Urine Mucus (Auto) SLIGHT (NEGATIVE) /HPF Urine Culture Reflexed NO (NO) Urine Glucose NEGATIVE (NEGATIVE) mg/dL Influenza Type A Ag (NEGATIVE) Influenza Type B Ag (NEGATIVE) RSV (PCR) (Negative) SARS-CoV-2 (PCR) (NEGATIVE) Slides for Path Review YES - Progress Progress: improved Air Movement: good Blood Culture(s) Obtained: Yes Counseled pt/family regarding: lab results, diagnosis, need for follow-up, rad results <TODD DUNLAP - Last Filed: 03/21/21 07:39> <MIGDALIA GILBERT - Last Filed: 03/23/21 12:45> - Progress Progress Note: 03/21/21 06:59 patient is checked out to at shift change (MIGDALIA GILBERT) - Departure Departure Disposition: Observation Critical Care Time: Yes Critical Care Time(excluding separately billable procedures): Critical 30-74 mins <TODD DUNLAP - Last Filed: 03/21/21 07:39> <MIGDALIA GILBERT - Last Filed: 03/23/21 12:45> - Departure Clinical Impression: COPD (chronic obstructive pulmonary disease) with acute bronchitis Condition: Fair
[2021-03-21 07:13] LABS: Absolute Neutrophil Ct (ANC) 3.52 (1.4-6.9); Basophil (Absolute #) 0.01 (0-0.4); Eosinophil % 0.4 % (0.00-5.0); Eosinophil (Absolute #) 0.02 (0-0.5); Hematocrit 37.5 % (42-50); Hemoglobin 11.3 gm/dl (12.5-18.0); Lymphocyte (Absolute #) 0.43 (1.0-4.6); Lymphocytes % 9.3 % (24.0-44.0); Mean Cell Volume 96.4 fl (78-100); Mean Corpuscular Hgb Concent. 30.1 g/dl (32-36); Mean Platelet Volume 10.3 fl (7.5-11.0); Monocyte (Absolute #) 0.65 (0.0-1.3); Neutrophil % 76.1 % (36.0-66.0); Platelet Count 160 K/mm3 (150-450); Red Blood Count 3.89 M/mm3 (4.1-5.6); Red Cell Distribution Width 15.5 % (11.5-14.0); White Blood Count 4.6 K/mm3 (4.0-10.5)
[2021-03-21 07:43] LABS: ALKALINE PHOSPHATASE 95 U/L (38-126); ANION GAP 11.9 MEQ/L (5-15); BLOOD UREA NITROGEN 11 mg/dL (9-20); CHLORIDE 95 mmol/L (98-107); Calcium 9.3 mg/dL (8.4-10.2); Carbon Dioxide 37 mmol/L (22-30); Creatinine 1 0.62 mg/dL (0.66-1.25); EST GLOMERULAR FILTRATION RATE > 60.0 ML/MIN; Glucose 99 mg/dL (74-106); MAGNESIUM 1.8 mg/dL (1.6-2.3); NT PRO BNP 878 pg/mL (0-900); SGOT/AST 19 U/L (17-59); SGPT/ALT 16 U/L (0-50); SODIUM 139 mmol/L (137-145); Total Protein 7.5 g/dL (6.3-8.2)
[2021-03-21] MEDS: ROCEPHIN 1 Gm-D5w 50 ml Bag** 1 G/50 ML IVPB IV SCH (07:54)
--- NOTE | 2021-03-21 08:05 | XRAY ---
Indication: Short of breath. Comparison: February 10, 2021. Portable chest again hyperinflated left base subsegmental atelectasis/scarring. No focal infiltrate, consolidation, or large effusion. Heart not enlarged again with CABG and coronary stent graft. Limited upper abdomen again demonstrates partially visualized aortic stent graft. No new/acute abnormalities. Impression: Continued nonacute chest with chronic features.
[2021-03-21 08:11] LABS: INFLUENZA A NEGATIVE (NEGATIVE); INFLUENZA B NEGATIVE (NEGATIVE); RESPIRATORY SYNCTIAL VIRUS NEGATIVE (Negative)
[2021-03-21 08:19] LABS: SARS-CoV-2 Xpert Express NEGATIVE (NEGATIVE)
[2021-03-21] MEDS: DUONEB 0.5-3 MG/3 ml Neb IH SCH ×4 (10:44→22:30)
[2021-03-21] MEDS ORDERED: Nicoderm CQ 21 MG TOP SCH (11:15)
[2021-03-21] MEDS: Sodium Chloride 0.9% 1000 ML 1,000 ML IV SCH (11:25)
[2021-03-21] MEDS: Pepcid 20 MG VIAL IV SCH ×2 (11:26→21:29)
[2021-03-21 12:44] LABS: Appearance CLEAR (CLEAR); Bilirubin NEGATIVE (NEGATIVE); Blood SMALL Ery/ul (0-5); Glucose NEGATIVE (NEGATIVE); Ketones NEGATIVE (NEGATIVE); Leukocyte Esterase NEGATIVE (NEGATIVE); Mucus SLIGHT /HPF (NEGATIVE); Nitrite NEGATIVE (NEGATIVE); Protein,Urine Dip NEGATIVE (Negative); Specific Gravity 1.013 (1.005-1.025); Urobilinogen 2 mg/dL (0-1)
[2021-03-21] MEDS: NICODERM CQ 14 MG TOP SCH (13:32)
[2021-03-21] MEDS: solu-MEDROL 80 MG, Sterile H2O 10 ml 2 ML IV SCH ×6 (13:32→23:52)
[2021-03-21 14:37] LABS: Slide Review 1 YES
[2021-03-21] MEDS ORDERED: Nitrostat 0.4 MG Tablet SL PRN (14:39)
[2021-03-21] MEDS ORDERED: Lasix 40 MG PO PRN (14:39)
[2021-03-21] MEDS: COREG 12.5 MG PO SCH (18:41)
[2021-03-21] MEDS: Advair Hfa 115/21 Common canister IH SCH (18:45)
--- NOTE | 2021-03-21 20:06 | PCM.HP ---
History of Present Illness - Chief Complaint Chief Complaint: c/o shortness of breath for 1-2 days History of Present Illness: is a 66 year old male.with history of chronic respiratory failure secondary to COPD, tobacco abuse, coronary artery disease status post CABG, congestive heart failure presented in the ER with chief complaint of increasing shortness of breath since yesterday despite being on oxygen with cough productive of clear to yellow sputum. On EMS arrival patient was around 88% on 4 L, was given 2 neb treatments and steroid prior to arrival and started to feel better. Shortness of breath is more with exertion. - Review of Systems Constitutional: No Fever, No Chills Eyes: No Symptoms Ears, Nose, & Throat: No Symptoms Respiratory: Cough, Orthopnea, Short Of Breath, Wheezing Cardiac: No Chest Pain, No Edema, No Syncope Abdominal/Gastrointestinal: No Abdominal Pain, No Nausea, No Vomiting, No Di arrhea Genitourinary Symptoms: No Dysuria Musculoskeletal: No Back Pain, No Neck Pain Skin: No Rash Neurological: No Dizziness, No Focal Weakness, No Sensory Changes Psychological: No Symptoms Endocrine: No Symptoms Hematologic/Lymphatic: No Symptoms Immunological/Allergic: No Symptoms Medications & Allergies Home Medications: Home Medication List Aspirin 81 mg PO DAILY 06/12/13 [History Confirmed 03/21/21] Carvedilol 6.25 mg [Coreg 6.25 MG] 6.25 mg PO DAILY 06/12/13 [History Confirmed 03/21/21] Levothyroxine Sodium 150 mcg PO DAILY 06/12/13 [History Confirmed 03/21/21] Isosorbide Mononitrate [Isosorbide Mononitrate ER] 90 mg PO DAILY 01/20/15 [History Confirmed 03/21/21] Albuterol Sulfate [Albuterol Sulfate Hfa] 8.5 gm IH Q4H PRN #1 hfa.[id number].[email or web address] 07/25/18 [Rx Confirmed 03/21/21] Atorvastatin Calcium 40 mg PO DAILY 07/25/18 [History Confirmed 03/21/21] Nitroglycerin [Nitrostat] 0.4 mg SL Q5MIN PRN MR X 3 PRN 07/25/18 [History Confirmed 03/21/21] Albuterol/Ipratropium 3ml Neb* [DUONEB 0.5-3 MG/3 ml Neb] 3 ml NEB Q4H 07/31/19 [History Confirmed 03/21/21] Fluticasone/Umeclidin/Vilanter [Trelegy Ellipta 100-62.5-25] 1 each IH DAILY 08/08/19 [History Confirmed 03/21/21] Rivaroxaban [Xarelto] 20 mg PO DAILY 30 Days #30 tablet 06/13/20 [Rx Confirmed 03/21/21] Carvedilol 12.5 mg [Coreg 12.5 mg] 12.5 mg PO EVENING MEAL 03/21/21 [Hist ory Confirmed 03/21/21] Furosemide 40 mg [Lasix 40 MG] 40 mg PO DAILY PRN PRN 03/21/21 [History Confirmed 03/21/21] Allergies/Adverse Reactions: Allergies Allergy/AdvReac Type Severity Reaction Status Date / Time No Known Drug Allergies Allergy Verified 03/21/21 06:19 - Past Medical History Past Medical History: Yes Neurological History: No Pertinent History ENT History: No Pertinent History Cardiac History: Peripheral Vascular Disease Respiratory History: CHF, COPD Endocrine Medical History: Hypothyroidism Musculoskelatal History: No Pertinent History GI Medical History: No Pertinent History History: No Pertinent History Pyscho-Social History: Anxiety Male Reproductive Disorders: No Pertinent History Comment: Right knee implant, left hip implant - Past Surgical History Past Surgical History: Yes Neuro Surgical History: No Pertinent History Cardiac History: CABG, Cardiac Stent Respiratory Surgery: No Pertinent History GI Surgical History: Cholecystectomy Genitourinary Surgical Hx: No Pertinent History Musculskeletal Surgical Hx: Joint Replacement Male Surgical History: No Pertinent History Other Surgical History: R knee, L hip replacement. Aortic aneursym repair - Social History Smoking Status: Heavy tobacco smoker How long have you smoked: 40 years Exposure to second hand smoke: No Alcohol: Rarely Drug Use: none - Physical Exam Vital Signs: Vital Signs - 24 hr Temp Pulse Resp BP Pulse Ox 03/21/21 19:53 99.3 F 91 H 26 H 124/56 95 03/21/21 16:53 97.7 F 94 H 130/69 93 L 03/21/21 15:09 105 H 20 98 03/21/21 12:48 98 F 82 20 104/59 100 03/21/21 10:48 89 20 92 L 03/21/21 09:43 96.9 F 79 26 H 122/67 91 L 03/21/21 09:33 78 22 98 03/21/21 09:31 96.9 F 79 24 122/67 91 L 03/21/21 08:00 68 18 101/56 98 03/21/21 07:00 96 03/21/21 06:58 84 20 97 03/21/21 06:20 81 28 H 121/74 96 General Appearance: no apparent distress, alert Neurologic Exam: alert, oriented x 3, cooperative, normal mood/affect, nml cerebellar function, nml station & gait, sensation nml, No motor deficits Eye Exam: PERRL/EOMI, eyes nml inspection Ears, Nose, Throat Exam: normal ENT inspection, TMs normal, pharynx normal, moist mucous membranes Neck Exam: normal inspection, non-tender, supple, full range of motion Respiratory Exam: diminished breath sounds, crackles/rales, rhonchi, wheezing, No respiratory distress Cardiovascular Exam: regular rate/rhythm, normal heart sounds, normal peripheral pulses Gastrointestinal/Abdomen Exam: soft, normal bowel sounds, No tenderness, No mass Back Exam: normal inspection, normal range of motion, No CVA tenderness, No vertebral tenderness Extremity Exam: normal inspection, normal range of motion, pelvis stable Skin Exam: normal color, warm, dry, No rash Lymphatic Exam: No adenopathy Results - Labs Lab/Micro Results: Lab Results-Last 24 Hours 03/21/21 03/21/21 03/21/21 Range/Units 06:41 06:41 07:00 WBC 4.6 (4.0-10.5) K/mm3 RBC 3.89 L (4.1-5.6) M/mm3 Hgb 11.3 L (12.5-18.0) gm/dl Hct 37.5 L (42-50) % MCV 96.4 (78-100) fl MCH 29.0 (26-32) pg MCHC 30.1 L (32-36) g/dl RDW 15.5 H (11.5-14.0) % Plt Count 160 (150-450) K/mm3 MPV 10.3 (7.5-11.0) fl Gran % 76.1 H (36.0-66.0) % Eos # (Auto) 0.02 (0-0.5) Absolute Lymphs (auto) 0.43 L (1.0-4.6) Absolute Monos (auto) 0.65 (0.0-1.3) Lymphocytes % 9.3 L (24.0-44.0) % Monocytes % 14.0 H (0.0-12.0) % Eosinophils % 0.4 (0.00-5.0) % Basophils % 0.2 (0.0-0.4) % Absolute Granulocytes 3.52 (1.4-6.9) Basophils # 0.01 (0-0.4) Sodium (137-145) mmol/L Potassium (3.5-5.1) mmol/L Chloride (98-107) mmol/L Carbon Dioxide (22-30) mmol/L Anion Gap (5-15) MEQ/L BUN (9-20) mg/dL Creatinine (0.66-1.25) mg/dL Estimated GFR ML/MIN Glucose (74-106) mg/dL Lactic Acid 0.7 (0.4-2.0) Calcium (8.4-10.2) mg/dL Magnesium (1.6-2.3) mg/dL Total Bilirubin (0.2-1.3) mg/dL AST (17-59) U/L ALT (0-50) U/L Alkaline Phosphatase (38-126) U/L Troponin I (0.000-0.034) ng/mL NT-Pro-B Natriuret Pep (0-900) pg/mL Serum Total Protein (6.3-8.2) g/dL Albumin (3.5-5.0) g/dL Urine Color YELLOW (YELLOW) Urine Appearance CLEAR (CLEAR) Urine pH 5.0 (5-6) Ur Specific [place] 1.013 (1.005-1.025) Urine Protein NEGATIVE (Negative) Urine Ketones NEGATIVE (NEGATIVE) Urine Blood SMALL (0-5) Jake/ul Urine Nitrite NEGATIVE (NEGATIVE) Urine Bilirubin NEGATIVE (NEGATIVE) Urine Urobilinogen 2 (0-1) mg/dL Ur Leukocyte Esterase NEGATIVE (NEGATIVE) Urine WBC (Auto) NONE (0-5) /HPF Urine RBC (Auto) 6-10 (0-2) /HPF U Epithel Cells (Auto) NONE (FEW) /HPF Urine Bacteria (Auto) NONE (NEGATIVE) /HPF Urine Mucus (Auto) SLIGHT (NEGATIVE) /HPF Urine Culture Reflexed NO (NO) Urine Glucose NEGATIVE (NEGATIVE) mg/dL Influenza Type A Ag (NEGATIVE) Influenza Type B Ag (NEGATIVE) RSV (PCR) (Negative) SARS-CoV-2 (PCR) (NEGATIVE) Slides for Path Review YES 03/21/21 03/21/21 03/21/21 Range/Units 07:00 07:00 07:21 WBC (4.0-10.5) K/mm3 RBC (4.1-5.6) M/mm3 Hgb (12.5-18.0) gm/dl Hct (42-50) % MCV (78-100) fl MCH (26-32) pg MCHC (32-36) g/dl RDW (11.5-14.0) % Plt Count (150-450) K/mm3 MPV (7.5-11.0) fl Gran % (36.0-66.0) % Eos # (Auto) (0-0.5) Absolute Lymphs (auto) (1.0-4.6) Absolute Monos (auto) (0.0-1.3) Lymphocytes % (24.0-44.0) % Monocytes % (0.0-12.0) % Eosinophils % (0.00-5.0) % Basophils % (0.0-0.4) % Absolute Granulocytes (1.4-6.9) Basophils # (0-0.4) Sodium 139 (137-145) mmol/L Potassium 5.0 (3.5-5.1) mmol/L Chloride 95 L (98-107) mmol/L Carbon Dioxide 37 H (22-30) mmol/L Anion Gap 11.9 (5-15) MEQ/L BUN 11 (9-20) mg/dL Creatinine 0.62 L (0.66-1.25) mg/dL Estimated GFR > 60.0 ML/MIN Glucose 99 (74-106) mg/dL Lactic Acid (0.4-2.0) Calcium 9.3 (8.4-10.2) mg/dL Magnesium 1.8 (1.6-2.3) mg/dL Total Bilirubin 0.60 (0.2-1.3) mg/dL AST 19 (17-59) U/L ALT 16 (0-50) U/L Alkaline Phosphatase 95 (38-126) U/L Troponin I < 0.012 (0.000-0.034) ng/mL NT-Pro-B Natriuret Pep 878 (0-900) pg/mL Serum Total Protein 7.5 (6.3-8.2) g/dL Albumin 4.0 (3.5-5.0) g/dL Urine Color (YELLOW) Urine Appearance (CLEAR) Urine pH (5-6) Ur Specific [place] (1.005-1.025) Urine Protein (Negative) Urine Ketones (NEGATIVE) Urine Blood (0-5) Jake/ul Urine Nitrite (NEGATIVE) Urine Bilirubin (NEGATIVE) Urine Urobilinogen (0-1) mg/dL Ur Leukocyte Esterase (NEGATIVE) Urine WBC (Auto) (0-5) /HPF Urine RBC (Auto) (0-2) /HPF U Epithel Cells (Auto) (FEW) /HPF Urine Bacteria (Auto) (NEGATIVE) /HPF Urine Mucus (Auto) (NEGATIVE) /HPF Urine Culture Reflexed (NO) Urine Glucose (NEGATIVE) mg/dL Influenza Type A Ag NEGATIVE (NEGATIVE) Influenza Type B Ag NEGATIVE (NEGATIVE) RSV (PCR) NEGATIVE (Negative) SARS-CoV-2 (PCR) NEGATIVE (NEGATIVE) Slides for Path Review 03/21/21 03/21/21 Range/Units 09:40 12:35 WBC (4.0-10.5) K/mm3 RBC (4.1-5.6) M/mm3 Hgb (12.5-18.0) gm/dl Hct (42-50) % MCV (78-100) fl MCH (26-32) pg MCHC (32-36) g/dl RDW (11.5-14.0) % Plt Count (150-450) K/mm3 MPV (7.5-11.0) fl Gran % (36.0-66.0) % Eos # (Auto) (0-0.5) Absolute Lymphs (auto) (1.0-4.6) Absolute Monos (auto) (0.0-1.3) Lymphocytes % (24.0-44.0) % Monocytes % (0.0-12.0) % Eosinophils % (0.00-5.0) % Basophils % (0.0-0.4) % Absolute Granulocytes (1.4-6.9) Basophils # (0-0.4) Sodium (137-145) mmol/L Potassium (3.5-5.1) mmol/L Chloride (98-107) mmol/L Carbon Dioxide (22-30) mmol/L Anion Gap (5-15) MEQ/L BUN (9-20) mg/dL Creatinine (0.66-1.25) mg/dL Estimated GFR ML/MIN Glucose (74-106) mg/dL Lactic Acid (0.4-2.0) Calcium (8.4-10.2) mg/dL Magnesium (1.6-2.3) mg/dL Total Bilirubin (0.2-1.3) mg/dL AST (17-59) U/L ALT (0-50) U/L Alkaline Phosphatase (38-126) U/L Troponin I < 0.012 < 0.012 (0.000-0.034) ng/mL NT-Pro-B Natriuret Pep (0-900) pg/mL Serum Total Protein (6.3-8.2) g/dL Albumin (3.5-5.0) g/dL Urine Color (YELLOW) Urine Appearance (CLEAR) Urine pH (5-6) Ur Specific [place] (1.005-1.025) Urine Protein (Negative) Urine Ketones (NEGATIVE) Urine Blood (0-5) Jake/ul Urine Nitrite (NEGATIVE) Urine Bilirubin (NEGATIVE) Urine Urobilinogen (0-1) mg/dL Ur Leukocyte Esterase (NEGATIVE) Urine WBC (Auto) (0-5) /HPF Urine RBC (Auto) (0-2) /HPF U Epithel Cells (Auto) (FEW) /HPF Urine Bacteria (Auto) (NEGATIVE) /HPF Urine Mucus (Auto) (NEGATIVE) /HPF Urine Culture Reflexed (NO) Urine Glucose (NEGATIVE) mg/dL Influenza Type A Ag (NEGATIVE) Influenza Type B Ag (NEGATIVE) RSV (PCR) (Negative) SARS-CoV-2 (PCR) (NEGATIVE) Slides for Path Review - Radiology Impressions Radiology Exams & Impressions: Radiology Procedures Category Date Time Status CHEST 1 VIEW (PORTABLE) Stat Exams 03/21/21 06:41 Completed CHEST 2 VIEWS (PA AND LAT) Routine Exams 03/22/21 07:45 Ordered - Other Procedures and Tests Respiratory Therapy 03/21/21 07:41 Oxygen Nasal Cannula 2 lpm 03/21/21 10:41 Respiratory Therapy Assessment DAILY 03/21/21 11:05 Respiratory MDI BID Assessment/Plan (1) COPD (chronic obstructive pulmonary disease) with acute bronchitis Current Visit: Yes Status: Acute Assessment & Plan: Chief Complaint Diagnosis COPD exacerbation Allergies Allergy/AdvReac Type Severity Reaction Status Date / Time No Known Drug Allergies Allergy Verified 03/21/21 06:19 Vital Signs (Last 24 hours) Temp Pulse Resp BP Pulse Ox 03/21/21 19:53 99.3 F 91 H 26 H 124/56 95 03/21/21 16:53 97.7 F 94 H 130/69 93 L 03/21/21 15:09 105 H 20 98 03/21/21 12:48 98 F 82 20 104/59 100 03/21/21 10:48 89 20 92 L 03/21/21 09:43 96.9 F 79 26 H 122/67 91 L 03/21/21 09:33 78 22 98 03/21/21 09:31 96.9 F 79 24 122/67 91 L 03/21/21 08:00 68 18 101/56 98 03/21/21 07:00 96 03/21/21 06:58 84 20 97 03/21/21 06:20 81 28 H 121/74 96 Home Medications Medication Instructions Recorded Confirmed Last Taken Type Carvedilol 12.5 mg [Coreg 12.5 12.5 mg PO EVENING MEAL 03/21/21 03/21/21 03/20/21 History mg] Furosemide 40 mg [Lasix 40 40 mg PO DAILY PRN PRN 03/21/21 03/21/21 Unknown History MG] Current Medications Generic Name Dose Route Start Last Admin Trade Name Freq PRN Reason Stop Dose Admin Albuterol/Ipratropium 3 ml 03/21/21 11:00 03/21/21 18:44 Ipratropium/Albuterol Sulfate 3 Ml Ampul.Neb IH 04/20/21 10:59 3 ml Q4HRT AMMY Administration Aspirin 81 mg 03/22/21 10:00 Aspirin 81 Mg Tablet.Ec PO 04/21/21 09:59 DAILY AMMY Carvedilol 6.25 mg 03/22/21 10:00 Carvedilol 6.25 Mg Tablet PO 04/21/21 09:59 DAILY AMMY Carvedilol 12.5 mg 03/21/21 18:00 03/21/21 18:41 Carvedilol 12.5 Mg Tablet PO 04/20/21 17:59 12.5 mg EVENING MEAL AMMY Administration Methylprednisolone Sodium 0 mg 03/21/21 12:00 03/21/21 18:42 Succinate 80 mg/ Sterile Water IV 04/20/21 11:59 80 mg 2 ml Q6HT AMMY Administration Famotidine 20 mg 03/21/21 10:00 03/21/21 11:26 Famotidine 20 Mg/1 Vial IV 04/20/21 09:59 20 mg Q12HT AMMY Administration Furosemide 40 mg 03/21/21 14:39 Furosemide 40 Mg Tablet PO 04/20/21 14:38 DAILY PRN PRN fluid retention Sodium Chloride 1,000 mls @ 50 mls/hr 03/21/21 07:45 03/21/21 11:25 Sodium Chloride 0.9% 1000 Ml IV 04/20/21 07:44 50 mls/hr .Q20H AMMY Administration Ceftriaxone Sodium/Dextrose 1 g in 50 mls @ 100 mls/hr 03/21/21 10:00 03/21/21 07:54 Rocephin 1 Gm-D5w 50 Ml Bag IV 03/24/21 09:59 100 ml/hr Q24H10 AMMY 100 mls/hr Administration Isosorbide Mononitrate 90 mg 03/22/21 10:00 Isosorbide Mononitrate 30 Mg Tab PO 04/21/21 09:59 DAILY [facility] Levothyroxine Sodium 150 mcg 03/22/21 07:30 Levothyroxine Sodium 150 Mcg Tablet PO 04/21/21 07:29 QDAC AMMY Nicotine 14 mg 03/21/21 11:15 03/21/21 13:32 Nicotine 14 Mg/Patch Patch TOP 04/20/21 11:14 14 mg DAILY AMMY Administration Nitroglycerin 0.4 mg 03/21/21 14:39 Nitroglycerin 0.4 Mg Tablet Bottle SL 04/20/21 14:38 Q5MIN PRN MR X 3 PRN CHEST PAIN Rivaroxaban 20 mg 03/22/21 10:00 Rivaroxaban 10 Mg Tablet PO 04/21/21 09:59 DAILY AMMY Fluticasone/Salmeterol 2 puff 03/21/21 19:00 03/21/21 18:45 Fluticasone/Salmeterol 115/21 - 120 Puff Common Canister IH 04/20/21 18:59 2 puff BIDRT AMMY Administration Simvastatin 40 mg 03/22/21 10:00 Simvastatin 20 Mg Tablet PO 04/21/21 09:59 DAILY AMMY Discontinued Medications Generic Name Dose Route Start Last Admin Trade Name [place] PRN Reason Stop Dose Admin Albuterol/Ipratropium 3 ml 03/21/21 06:41 03/21/21 06:40 Ipratropium/Albuterol Sulfate 3 Ml Ampul.Neb IH 03/21/21 06:42 3 ml STAT ONE Administration Albuterol/Ipratropium Confirm 03/21/21 06:43 Ipratropium/Albuterol Sulfate 3 Ml Ampul.Neb Administered 03/21/21 06:44 Dose 3 ml IH .STK-MED ONE Atorvastatin Calcium 40 mg 03/22/21 10:00 Atorvastatin Calcium 40 Mg Tablet PO 04/21/21 09:59 DAILY [facility] Nicotine 21 mg 03/21/21 11:15 Nicotine 21 Mg/Patch Patch TOP 04/20/21 11:14 Q24H [facility] Nicotine 21 mg 03/22/21 10:00 Nicotine 21 Mg/Patch Patch TOP 04/20/21 11:14 DAILY AMMY Intake & Output (Last 24 hours) 03/19/21 03/20/21 03/21/21 03/22/21 11:59 11:59 11:59 11:59 Intake Total 300 Output Total 1350 Balance -1050 Weight 93 kg Microbiology Results (Last 24 hours) 03/21/21 07:00 Blood Blood Culture Gram Stain - Pending 03/21/21 07:00 Blood Blood Culture - Pending 03/21/21 06:55 Blood Blood Culture Gram Stain - Pending 03/21/21 06:55 Blood Blood Culture - Pending Laboratory Results (Last 24 hours) 03/21/21 03/21/21 03/21/21 12:35 09:40 07:21 WBC RBC Hgb Hct MCV MCH MCHC RDW Plt Count MPV Gran % Eos # (Auto) Absolute Lymphs (auto) Absolute Monos (auto) Lymphocytes % Monocytes % Eosinophils % Basophils % Absolute Granulocytes Basophils # Sodium Potassium Chloride Carbon Dioxide Anion Gap BUN Creatinine Estimated GFR Glucose Lactic Acid Calcium Magnesium Total Bilirubin AST ALT Alkaline Phosphatase Troponin I < 0.012 < 0.012 NT-Pro-B Natriuret Pep Serum Total Protein Albumin Urine Color Urine Appearance Urine pH Ur Specific [place] Urine Protein Urine Ketones Urine Blood Urine Nitrite Urine Bilirubin Urine Urobilinogen Ur Leukocyte Esterase Urine WBC (Auto) Urine RBC (Auto) U Epithel Cells (Auto) Urine Bacteria (Auto) Urine Mucus (Auto) Urine Culture Reflexed Urine Glucose Influenza Type A Ag NEGATIVE Influenza Type B Ag NEGATIVE RSV (PCR) NEGATIVE SARS-CoV-2 (PCR) NEGATIVE Slides for Path Review 03/21/21 03/21/21 03/21/21 07:00 07:00 07:00 WBC 4.6 RBC 3.89 L Hgb 11.3 L Hct 37.5 L MCV 96.4 MCH 29.0 MCHC 30.1 L RDW 15.5 H Plt Count 160 MPV 10.3 Gran % 76.1 H Eos # (Auto) 0.02 Absolute Lymphs (auto) 0.43 L Absolute Monos (auto) 0.65 Lymphocytes % 9.3 L Monocytes % 14.0 H Eosinophils % 0.4 Basophils % 0.2 Absolute Granulocytes 3.52 Basophils # 0.01 Sodium 139 Potassium 5.0 Chloride 95 L Carbon Dioxide 37 H Anion Gap 11.9 BUN 11 Creatinine 0.62 L Estimated GFR > 60.0 Glucose 99 Lactic Acid Calcium 9.3 Magnesium 1.8 Total Bilirubin 0.60 AST 19 ALT 16 Alkaline Phosphatase 95 Troponin I < 0.012 NT-Pro-B Natriuret Pep 878 Serum Total Protein 7.5 Albumin 4.0 Urine Color Urine Appearance Urine pH Ur Specific [place] Urine Protein Urine Ketones Urine Blood Urine Nitrite Urine Bilirubin Urine Urobilinogen Ur Leukocyte Esterase Urine WBC (Auto) Urine RBC (Auto) U Epithel Cells (Auto) Urine Bacteria (Auto) Urine Mucus (Auto) Urine Culture Reflexed Urine Glucose Influenza Type A Ag Influenza Type B Ag RSV (PCR) SARS-CoV-2 (PCR) Slides for Path Review YES 03/21/21 03/21/21 06:41 06:41 WBC RBC Hgb Hct MCV MCH MCHC RDW Plt Count MPV Gran % Eos # (Auto) Absolute Lymphs (auto) Absolute Monos (auto) Lymphocytes % Monocytes % Eosinophils % Basophils % Absolute Granulocytes Basophils # Sodium Potassium Chloride Carbon Dioxide Anion Gap BUN Creatinine Estimated GFR Glucose Lactic Acid 0.7 Calcium Magnesium Total Bilirubin AST ALT Alkaline Phosphatase Troponin I NT-Pro-B Natriuret Pep Serum Total Protein Albumin Urine Color YELLOW Urine Appearance CLEAR Urine pH 5.0 Ur Specific [place] 1.013 Urine Protein NEGATIVE Urine Ketones NEGATIVE Urine Blood SMALL Urine Nitrite NEGATIVE Urine Bilirubin NEGATIVE Urine Urobilinogen 2 Ur Leukocyte Esterase NEGATIVE Urine WBC (Auto) NONE Urine RBC (Auto) 6-10 U Epithel Cells (Auto) NONE Urine Bacteria (Auto) NONE Urine Mucus (Auto) SLIGHT Urine Culture Reflexed NO Urine Glucose NEGATIVE Influenza Type A Ag Influenza Type B Ag RSV (PCR) SARS-CoV-2 (PCR) Slides for Path Review Orders (Last 24 hours) Category Date Time Status Up Ad Komal ROUTINE Activity 03/21/21 07:41 Active Software Engineering Manager STAT Care 03/21/21 06:41 Active Code Status Order ROUTINE Care 03/21/21 07:41 Active IV Insertion STAT Care 03/21/21 06:41 Active Oxygen-ED Only Nasal Cannula 4 lpm Care 03/21/21 06:[address] in Observation ROUTINE Care 03/21/21 07:42 Active Vern Hose, Apply ROUTINE Care 03/21/21 07:41 Active Weight,Daily 0600 Care 03/21/21 07:41 Active Heart-Healthy Diet Diet 03/21/21 Breakfast Active CHEST 1 VIEW (PORTABLE) Stat Exams 03/21/21 06:41 Completed CHEST 2 VIEWS (PA AND LAT) Routine Exams 03/22/21 07:45 Ordered BLOOD CULTURE Stat Lab 03/21/21 07:00 Received CBC AM.LAB Lab 03/22/21 04:00 Ordered CBC W DIFF Stat Lab 03/21/21 07:00 Completed CMP AM.LAB Lab 03/22/21 04:00 Ordered CMP Stat Lab 03/21/21 07:00 Completed Lactic Acid Stat Lab 03/21/21 06:41 Completed MAGNESIUM Stat Lab 03/21/21 07:00 Completed NT PRO BNP Stat Lab 03/21/21 07:00 Completed TROPONIN Q3H Lab 03/21/21 07:00 Completed TROPONIN Q3H Lab 03/21/21 09:40 Completed TROPONIN Q3H Lab 03/21/21 12:35 Completed UA W/RFX UR CULTURE Stat Lab 03/21/21 06:41 Completed Albuterol/Ipratropium 3ml Neb* [DUONEB 0.5-3 MG/3 ml Med 03/21/21 06:43 Discontinued Neb] 3 ml IH .STK-MED ONE Albuterol/Ipratropium 3ml Neb* [DUONEB 0.5-3 MG/3 ml Med 03/21/21 11:00 Active Neb] 3 ml IH Q4HRT Albuterol/Ipratropium 3ml Neb* [DUONEB 0.5-3 MG/3 ml Med 03/21/21 06:41 Discontinued Neb] 3 ml IH STAT ONE Aspirin EC 81 mg [Ecotrin 81 mg] Med 03/22/21 10:00 Active 81 mg PO DAILY Atorvastatin Calcium [Lipitor 40Mg] Med 03/22/21 10:00 Discontinued 40 mg PO DAILY Carvedilol 12.5 mg [Coreg 12.5 mg] Med 03/21/21 18:00 Active 12.5 mg PO EVENING MEAL Carvedilol 6.25 mg [Coreg 6.25 MG] Med 03/22/21 10:00 Active 6.25 mg PO DAILY Ceftriaxone 1 GM/50 ML PREMIX* [ROCEPHIN 1 Gm-D5w 50 ml Med 03/21/21 10:00 Active Bag] 1 g in 50 ml IV Q24H10 Famotidine 20 mg Vial [Pepcid 20 MG VIAL] Med 03/21/21 10:00 Active 20 mg IV Q12HT Fluticasone/Salmeterol 115/21 [Advair Hfa 115/21 Common Med 03/21/21 19:00 Active canister*] 2 puff IH BIDRT Furosemide 40 mg [Lasix 40 MG] Med 03/21/21 14:39 Active 40 mg PO DAILY PRN PRN Isosorbide Mononitrate 30 mg [Imdur 30 MG] Med 03/22/21 10:00 Active 90 mg PO DAILY Levothyroxine Sodium 150 Mcg [Synthroid 150 Mcg] Med 03/22/21 07:30 Active 150 mcg PO QDAC Methylprednis Sod Succ 125 mg* [solu-MEDROL] 80 mg Med 03/21/21 12:00 Active Water For Injection,Sterile [Sterile H2O 10 ml] 2 ml IV Q6HT NaCl 0.9% 1000 ml [Sodium Chloride 0.9% 1000 ML] 1,000 Med 03/21/21 07:45 Active ml IV 50 mls/hr Nicotine 14 mg [Nicoderm Cq 14 mg] Med 03/21/21 11:15 Active 14 mg TOP DAILY Nicotine 21 mg [Nicoderm CQ 21 MG] Med 03/22/21 10:00 Discontinued 21 mg TOP DAILY Nicotine 21 mg [Nicoderm CQ 21 MG] Med 03/21/21 11:15 Discontinued 21 mg TOP Q24H Nitroglycerin 0.4 mg Tablet [Nitrostat 0.4 MG Tablet Med 03/21/21 14:39 Active ] 0.4 mg SL Q5MIN PRN MR X 3 PRN Rivaroxaban 10 mg Tablet [Xarelto 10 mg Tablet] Med 03/22/21 10:00 Active 20 mg PO DAILY Simvastatin 20Mg [Zocor 20Mg] Med 03/22/21 10:00 Active 40 mg PO DAILY Oxygen Nasal Cannula 2 lpm RT 03/21/21 07:41 Active Pulse Oximetry .spot check RT 03/21/21 10:42 Active Respiratory MDI BID RT 03/21/21 11:05 Active Respiratory Therapy Assessment DAILY RT 03/21/21 06:57 Completed Respiratory Therapy Assessment DAILY RT 03/21/21 10:41 Active Respiratory Therapy Consult ROUTINE RT 03/21/21 07:43 Completed Patient Care Notes (Last 24 hours) 03/21/21 15:11 Respiratory Note by Orquidea Javed 1510 O2 SAT 98% ON 6LPM NC. DECREASED TO 5LPM NC. Initialized on 03/21/21 15:11 - END OF NOTE Code(s): J44.0 - CHR OBSTRUCTIVE PULMON DISEASE WITH (ACUTE) LOWER RESP INFCT; J20.9 - ACUTE BRONCHITIS, UNSPECIFIED
[2021-03-21] MEDS: TYLENOL 325 MG PO PRN (23:25)
[2021-03-22] MEDS: DUONEB 0.5-3 MG/3 ml Neb IH SCH ×6 (02:50→23:34)
[2021-03-22] MEDS: Sodium Chloride 0.9% 1000 ML 1,000 ML IV SCH (04:09)
[2021-03-22 05:50] LABS: ALBUMIN 3.9 g/dL (3.5-5.0); ALKALINE PHOSPHATASE 92 U/L (38-126); ANION GAP 9.6 MEQ/L (5-15); BLOOD UREA NITROGEN 14 mg/dL (9-20); CHLORIDE 95 mmol/L (98-107); Calcium 8.9 mg/dL (8.4-10.2); Carbon Dioxide 38 mmol/L (22-30); Creatinine 1 0.55 mg/dL (0.66-1.25); EST GLOMERULAR FILTRATION RATE > 60.0 ML/MIN; Glucose 137 mg/dL (74-106); Potassium 4.8 mmol/L (3.5-5.1); SGOT/AST 16 U/L (17-59); SGPT/ALT 15 U/L (0-50); SODIUM 138 mmol/L (137-145); Total Protein 7.7 g/dL (6.3-8.2)
[2021-03-22] MEDS ORDERED: solu-MEDROL ONE ×2 (06:01→23:54)
[2021-03-22] MEDS: solu-MEDROL 80 MG, Sterile H2O 10 ml 2 ML IV SCH ×4 (06:03→11:15)
[2021-03-22 06:17] LABS: Hematocrit 33.5 % (42-50); Hemoglobin 11.1 gm/dl (12.5-18.0); Mean Cell Volume 99.4 fl (78-100); Mean Corpuscular Hemoglobin 32.9 pg (26-32); Mean Corpuscular Hgb Concent. 33.1 g/dl (32-36); Mean Platelet Volume 10.2 fl (7.5-11.0); Platelet Count 161 K/mm3 (150-450); Red Blood Count 3.37 M/mm3 (4.1-5.6); Red Cell Distribution Width 15.6 % (11.5-14.0); White Blood Count 7.7 K/mm3 (4.0-10.5)
[2021-03-22] MEDS: Advair Hfa 115/21 Common canister IH SCH ×2 (06:40→18:35)
[2021-03-22] MEDS ORDERED: SYNTHROID 150 MCG PO SCH (07:30)
--- NOTE | 2021-03-22 09:40 | XRAY ---
Indication: Short of breath. Comparison: March 21, 2021. PA/lateral chest unchanged again hyperinflated with minimal left base subsegmental atelectasis/scarring. Heart not enlarged again with CABG and coronary stent graft. No new/acute abnormalities.
[2021-03-22] MEDS ORDERED: NON-FORMULARY ITEM (Rivaroxaban [Xarelto] 20 MG Tablet) PO SCH (10:00)
[2021-03-22] MEDS ORDERED: Nicoderm CQ 21 MG TOP SCH (10:00)
[2021-03-22] MEDS ORDERED: LIPITOR 40MG PO SCH (10:00)
[2021-03-22] MEDS ORDERED: NON-FORMULARY ITEM (Levothyroxine Sodium [Levothyroxine Sodium] 137 MCG Tablet) PO SCH (10:00)
[2021-03-22] MEDS ORDERED: NON-FORMULARY ITEM (Aspirin [Aspirin] 81 MG Tablet) PO SCH (10:00)
[2021-03-22] MEDS: ROCEPHIN 1 Gm-D5w 50 ml Bag** 1 G/50 ML IVPB IV SCH (10:07)
[2021-03-22] MEDS: Imdur 30 MG PO SCH (10:08)
[2021-03-22] MEDS: ECOTRIN 81 MG PO SCH (10:08)
[2021-03-22] MEDS: Coreg 6.25 MG PO SCH (10:08)
[2021-03-22] MEDS: ZOCOR 20MG PO SCH (10:08)
[2021-03-22] MEDS: XARELTO 10 MG TABLET PO SCH (10:08)
[2021-03-22] MEDS: NICODERM CQ 14 MG TOP SCH (10:09)
[2021-03-22] MEDS: Pepcid 20 MG VIAL IV SCH ×2 (10:09→21:31)
--- NOTE | 2021-03-22 13:31 | PCM.NOTE ---
Date and Time: 03/22/21 1330 Subjective Assessment: Patient has not improved COPD exacerbation is on IV solumedrol 80 mg q6 H and will inccrease to 125 q6 H. Patient states he is tired feeling like he is working to breath, cough productive of thick green mucus per patient. He is eating and drinking fluids but c/o bowels grumbling. is at bedside. OBJECTIVE DATA Vital Signs: Vital Signs - 24 hr Temp Pulse Resp BP Pulse Ox 03/22/21 12:00 99.1 F 89 22 130/67 93 L 03/22/21 11:04 88 22 94 L 03/22/21 08:00 97.8 F 85 22 140/71 90 L 03/22/21 06:40 82 18 98 03/22/21 04:06 98.9 F 82 24 125/67 93 L 03/22/21 02:50 73 18 96 03/21/21 23:50 98.9 F 88 24 108/66 92 L 03/21/21 22:30 96 H 20 98 03/21/21 19:53 99.3 F 91 H 26 H 124/56 95 03/21/21 18:45 98 H 22 94 L 03/21/21 16:53 97.7 F 94 H 130/69 93 L 03/21/21 15:09 105 H 20 98 Pain Assessment - Last Documented Pain Intensity 0 Pain Scale Used 0-10 Pain Scale Intake and Output: Intake & Output 03/20/21 03/21/21 03/22/21 03/23/21 11:59 11:59 11:59 11:59 Intake Total 2138 240 Output Total 3300 Balance -1162 240 Weight 93 kg Lab Results: Lab Results-Last 24 Hours 03/21/21 03/21/21 03/22/21 Range/Units 07:00 12:35 05:00 WBC 7.7 (4.0-10.5) K/mm3 RBC 3.37 L (4.1-5.6) M/mm3 Hgb 11.1 L (12.5-18.0) gm/dl Hct 33.5 L (42-50) % MCV 99.4 (78-100) fl MCH 32.9 H (26-32) pg MCHC 33.1 (32-36) g/dl RDW 15.6 H (11.5-14.0) % Plt Count 161 (150-450) K/mm3 MPV 10.2 (7.5-11.0) fl Sodium (137-145) mmol/L Potassium (3.5-5.1) mmol/L Chloride (98-107) mmol/L Carbon Dioxide (22-30) mmol/L Anion Gap (5-15) MEQ/L BUN (9-20) mg/dL Creatinine (0.66-1.25) mg/dL Estimated GFR ML/MIN Glucose (74-106) mg/dL Calcium (8.4-10.2) mg/dL Total Bilirubin (0.2-1.3) mg/dL AST (17-59) U/L ALT (0-50) U/L Alkaline Phosphatase (38-126) U/L Troponin I < 0.012 (0.000-0.034) ng/mL Serum Total Protein (6.3-8.2) g/dL Albumin (3.5-5.0) g/dL Slides for Path Review YES 03/22/21 Range/Units 05:00 WBC (4.0-10.5) K/mm3 RBC (4.1-5.6) M/mm3 Hgb (12.5-18.0) gm/dl Hct (42-50) % MCV (78-100) fl MCH (26-32) pg MCHC (32-36) g/dl RDW (11.5-14.0) % Plt Count (150-450) K/mm3 MPV (7.5-11.0) fl Sodium 138 (137-145) mmol/L Potassium 4.8 (3.5-5.1) mmol/L Chloride 95 L (98-107) mmol/L Carbon Dioxide 38 H (22-30) mmol/L Anion Gap 9.6 (5-15) MEQ/L BUN 14 (9-20) mg/dL Creatinine 0.55 L (0.66-1.25) mg/dL Estimated GFR > 60.0 ML/MIN Glucose 137 H (74-106) mg/dL Calcium 8.9 (8.4-10.2) mg/dL Total Bilirubin 0.50 (0.2-1.3) mg/dL AST 16 L (17-59) U/L ALT 15 (0-50) U/L Alkaline Phosphatase 92 (38-126) U/L Troponin I (0.000-0.034) ng/mL Serum Total Protein 7.7 (6.3-8.2) g/dL Albumin 3.9 (3.5-5.0) g/dL Slides for Path Review Radiology Exams: Radiology Procedures Category Date Time Status CHEST 1 VIEW (PORTABLE) Stat Exams 03/21/21 06:41 Completed CHEST 2 VIEWS (PA AND LAT) Routine Exams 03/22/21 07:45 Completed Multi-Disciplinary Progress Notes: Multi-Disciplinary Progress Notes 03/21/21 15:11 Respiratory Note by Orquidea Javed 1510 O2 SAT 98% ON 6LPM NC. DECREASED TO 5LPM NC. Initialized on 03/21/21 15:11 - END OF NOTE
[2021-03-22] MEDS: COREG 12.5 MG PO SCH (18:32)
[2021-03-22] MEDS: solu-MEDROL 125 MG, Sterile H2O 10 ml 2 ML IV SCH ×4 (18:32→23:56)
[2021-03-22] MEDS: Mylicon 80MG PO SCH (21:31)
[2021-03-22] MEDS ORDERED: Sterile H2O 10 ml IJ ONE (23:56)
[2021-03-23] MEDS: Sodium Chloride 0.9% 1000 ML 1,000 ML IV SCH (00:09)
[2021-03-23] MEDS: DUONEB 0.5-3 MG/3 ml Neb IH SCH ×4 (02:03→18:29)
[2021-03-23 05:20] LABS: Absolute Neutrophil Ct (ANC) 8.33 (1.4-6.9); Basophil (Absolute #) 0 (0-0.4); Eosinophil (Absolute #) 0 (0-0.5); Hematocrit 36.3 % (42-50); Hemoglobin 11.3 gm/dl (12.5-18.0); Lymphocytes % 2.3 % (24.0-44.0); Mean Cell Volume 98.9 fl (78-100); Mean Corpuscular Hemoglobin 30.8 pg (26-32); Mean Corpuscular Hgb Concent. 31.1 g/dl (32-36); Mean Platelet Volume 10.2 fl (7.5-11.0); Monocyte (Absolute #) 0.13 (0.0-1.3); Monocytes % 1.5 % (0.0-12.0); Neutrophil % 96.2 % (36.0-66.0); Platelet Count 176 K/mm3 (150-450); Red Blood Count 3.67 M/mm3 (4.1-5.6); Red Cell Distribution Width 16.1 % (11.5-14.0); White Blood Count 8.7 K/mm3 (4.0-10.5)
[2021-03-23] MEDS ORDERED: solu-MEDROL ONE (05:49)
[2021-03-23] MEDS ORDERED: Sterile H2O 10 ml IJ ONE (05:50)
[2021-03-23] MEDS: solu-MEDROL 125 MG, Sterile H2O 10 ml 2 ML IV SCH ×6 (05:51→18:28)
[2021-03-23 06:11] LABS: ALBUMIN 3.8 g/dL (3.5-5.0); ALKALINE PHOSPHATASE 79 U/L (38-126); BLOOD UREA NITROGEN 17 mg/dL (9-20); CHLORIDE 95 mmol/L (98-107); Calcium 9.2 mg/dL (8.4-10.2); Creatinine 1 0.66 mg/dL (0.66-1.25); EST GLOMERULAR FILTRATION RATE > 60.0 ML/MIN; Glucose 126 mg/dL (74-106); NT PRO BNP 1290 pg/mL (0-900); Potassium 5.2 mmol/L (3.5-5.1); SGOT/AST 19 U/L (17-59); SGPT/ALT 16 U/L (0-50); SODIUM 140 mmol/L (137-145); Total Protein 7.5 g/dL (6.3-8.2)
[2021-03-23 06:18] LABS: Carbon Dioxide 39 mmol/L (22-30)
[2021-03-23] MEDS: Advair Hfa 115/21 Common canister IH SCH ×2 (06:29→18:29)
[2021-03-23 06:38] LABS: ANION GAP 11.2 MEQ/L (5-15)
[2021-03-23] MEDS ORDERED: SYNTHROID 125 MCG PO SCH (07:00)
[2021-03-23 08:15] LABS: Slide Review 1 YES
[2021-03-23] MEDS ORDERED: PROVENTIL 2.5 MG/3 ML NEB IH PRN (09:37)
[2021-03-23] MEDS: ROCEPHIN 1 Gm-D5w 50 ml Bag** 1 G/50 ML IVPB IV SCH (09:54)
[2021-03-23] MEDS: Imdur 30 MG PO SCH (09:55)
[2021-03-23] MEDS: Mylicon 80MG PO SCH ×2 (09:56→21:42)
[2021-03-23] MEDS: ECOTRIN 81 MG PO SCH (09:58)
[2021-03-23] MEDS: ZOCOR 20MG PO SCH (09:58)
[2021-03-23] MEDS: Singulair 10 MG PO SCH (09:59)
[2021-03-23] MEDS: XARELTO 10 MG TABLET PO SCH (09:59)
[2021-03-23] MEDS: Coreg 6.25 MG PO SCH (09:59)
[2021-03-23] MEDS ORDERED: SYNTHROID 25 MCG PO SCH (10:00)
[2021-03-23] MEDS ORDERED: SYNTHROID 112 MCG PO SCH (10:00)
[2021-03-23] MEDS: Zithromax 500 MG/ 250 ML NaCl Premix 500 MG/250 ML IVPB IV SCH (10:58)
[2021-03-23] MEDS: Pepcid 20 MG VIAL IV SCH ×2 (10:58→21:43)
[2021-03-23] MEDS: NICODERM CQ 14 MG TOP SCH (10:58)
[2021-03-23] MEDS: Robitussin 100 MG/5 ML PO SCH ×2 (12:10→18:28)
[2021-03-23] MEDS ORDERED: PULMICORT 0.5 MG/2 ML RESPULES IH SCH (13:00)
[2021-03-23] MEDS: COREG 12.5 MG PO SCH (18:28)
[2021-03-23] MEDS: PULMICORT 0.5 MG/2 ML RESPULES IH SCH (18:29)
[2021-03-24] MEDS: DUONEB 0.5-3 MG/3 ml Neb IH SCH ×4 (00:15→18:28)
[2021-03-24] MEDS: solu-MEDROL 125 MG, Sterile H2O 10 ml 2 ML IV SCH ×10 (00:35→23:24)
[2021-03-24] MEDS: Robitussin 100 MG/5 ML PO SCH ×4 (00:36→18:19)
[2021-03-24] MEDS: Sodium Chloride 0.9% 1000 ML 1,000 ML IV SCH ×2 (01:31→23:24)
[2021-03-24 06:11] LABS: Hematocrit 35.4 % (42-50); Mean Cell Volume 102.6 fl (78-100); Mean Corpuscular Hemoglobin 31.9 pg (26-32); Mean Corpuscular Hgb Concent. 31.1 g/dl (32-36); Mean Platelet Volume 10.4 fl (7.5-11.0); Platelet Count 171 K/mm3 (150-450); Red Blood Count 3.45 M/mm3 (4.1-5.6); Red Cell Distribution Width 15.9 % (11.5-14.0); White Blood Count 6.4 K/mm3 (4.0-10.5)
[2021-03-24] MEDS: PULMICORT 0.5 MG/2 ML RESPULES IH SCH ×2 (06:37→18:29)
[2021-03-24] MEDS: Advair Hfa 115/21 Common canister IH SCH ×2 (06:39→18:45)
[2021-03-24 06:41] LABS: ALBUMIN 3.5 g/dL (3.5-5.0); ALKALINE PHOSPHATASE 79 U/L (38-126); BLOOD UREA NITROGEN 20 mg/dL (9-20); CHLORIDE 96 mmol/L (98-107); Calcium 8.5 mg/dL (8.4-10.2); EST GLOMERULAR FILTRATION RATE > 60.0 ML/MIN; Glucose 119 mg/dL (74-106); Potassium 4.8 mmol/L (3.5-5.1); SGOT/AST 22 U/L (17-59); SGPT/ALT 25 U/L (0-50); SODIUM 139 mmol/L (137-145)
[2021-03-24 06:49] LABS: Carbon Dioxide 39 mmol/L (22-30)
[2021-03-24 06:53] LABS: ANION GAP 8.8 MEQ/L (5-15)
[2021-03-24] MEDS ORDERED: SYNTHROID 150 MCG PO SCH (07:00)
[2021-03-24] MEDS: SYNTHROID 112 MCG PO SCH (07:59)
[2021-03-24] MEDS: SYNTHROID 25 MCG PO SCH (07:59)
[2021-03-24] MEDS: TYLENOL 325 MG PO PRN (08:02)
[2021-03-24] MEDS: Pepcid 20 MG VIAL IV SCH ×2 (09:36→21:03)
[2021-03-24] MEDS: ROCEPHIN 1 Gm-D5w 50 ml Bag** 1 G/50 ML IVPB IV SCH (09:37)
[2021-03-24] MEDS: XARELTO 10 MG TABLET PO SCH (09:38)
[2021-03-24] MEDS: Mylicon 80MG PO SCH ×2 (09:38→21:03)
[2021-03-24] MEDS: ECOTRIN 81 MG PO SCH (09:40)
[2021-03-24] MEDS: Singulair 10 MG PO SCH (09:41)
[2021-03-24] MEDS: NICODERM CQ 14 MG TOP SCH (09:41)
[2021-03-24] MEDS: Imdur 30 MG PO SCH (09:41)
[2021-03-24] MEDS: Coreg 6.25 MG PO SCH (09:41)
[2021-03-24] MEDS: THEOPHYLLINE ER 24HR PO SCH (09:42)
[2021-03-24] MEDS: ZOCOR 20MG PO SCH (09:47)
[2021-03-24] MEDS: Zithromax 500 MG/ 250 ML NaCl Premix 500 MG/250 ML IVPB IV SCH (11:30)
[2021-03-24] MEDS ORDERED: Ativan 2 MG/1 ML VIAL IV ONE (17:30)
[2021-03-24] MEDS: COREG 12.5 MG PO SCH (18:19)
[2021-03-24] MEDS ORDERED: Ativan 2 MG/1 ML VIAL ONE (20:53)
[2021-03-25] MEDS: Robitussin 100 MG/5 ML PO SCH ×4 (00:05→17:14)
[2021-03-25] MEDS: DUONEB 0.5-3 MG/3 ml Neb IH SCH ×4 (00:14→18:44)
[2021-03-25 05:41] LABS: Hematocrit 35.4 % (42-50); Hemoglobin 11.3 gm/dl (12.5-18.0); Mean Cell Volume 103.2 fl (78-100); Mean Corpuscular Hemoglobin 32.9 pg (26-32); Mean Corpuscular Hgb Concent. 31.9 g/dl (32-36); Mean Platelet Volume 10.4 fl (7.5-11.0); Platelet Count 165 K/mm3 (150-450); Red Blood Count 3.43 M/mm3 (4.1-5.6); White Blood Count 4.3 K/mm3 (4.0-10.5)
[2021-03-25 06:06] LABS: ALBUMIN 3.3 g/dL (3.5-5.0); ALKALINE PHOSPHATASE 74 U/L (38-126); BLOOD UREA NITROGEN 20 mg/dL (9-20); CHLORIDE 93 mmol/L (98-107); Calcium 8.4 mg/dL (8.4-10.2); Creatinine 1 0.61 mg/dL (0.66-1.25); EST GLOMERULAR FILTRATION RATE > 60.0 ML/MIN; Glucose 124 mg/dL (74-106); Potassium 4.7 mmol/L (3.5-5.1); SGOT/AST 22 U/L (17-59); SGPT/ALT 34 U/L (0-50); SODIUM 138 mmol/L (137-145); Total Protein 6.6 g/dL (6.3-8.2)
[2021-03-25 06:12] LABS: Carbon Dioxide 40 mmol/L (22-30)
[2021-03-25 06:14] LABS: ANION GAP 9.7 MEQ/L (5-15)
[2021-03-25] MEDS: solu-MEDROL 125 MG, Sterile H2O 10 ml 2 ML IV SCH ×2 (06:17)
[2021-03-25] MEDS: Advair Hfa 115/21 Common canister IH SCH ×2 (07:00→18:49)
[2021-03-25] MEDS ORDERED: SYNTHROID 125 MCG PO SCH (07:00)
[2021-03-25] MEDS: PULMICORT 0.5 MG/2 ML RESPULES IH SCH ×2 (07:01→18:45)
[2021-03-25] MEDS: SYNTHROID 112 MCG PO SCH (08:04)
[2021-03-25] MEDS: SYNTHROID 25 MCG PO SCH (08:04)
--- NOTE | 2021-03-25 08:20 | CONS ---
CONSULT DATE: 03/24/2021 HISTORY: William Carter is a 66-year-old male with long standing history of pulmonary problems had been admitted to [facility] with complaints of progressively increasing shortness of breath. The patient reportedly started developing cough with yellow expectoration about a week ago. He has been hospitalized and is currently being treated with routine therapy including IV antibiotics, steroids and bronchodilators. He reportedly felt better yesterday but his symptoms got progressively worse again today. The patient is noted to have labored respirations. He was added on theophylline p.o. along with other treatment today as well. At the time of my evaluation today, he does report cough productive of clear expectoration. The patient mainly reports nocturnal symptoms. PAST MEDICAL HISTORY: Positive for chronic obstructive pulmonary disease, chronic hypoxemia, coronary artery disease, history of atrial fibrillation, hypertension, anxiety disorder. PAST SURGICAL HISTORY: He had open heart surgery. PERSONAL AND SOCIAL HISTORY: The patient still smokes a pack of cigarettes per day. MEDICATIONS: Home and current medications are reviewed. ALLERGIES: NKDA. PHYSICAL EXAMINATION: This is an elderly male who appears mildly tachypneic. Vital signs noted. HEENT: Normocephalic. Oral exam unremarkable. NECK: Supple. Accessory muscles are prominent. CVS: First and second heart sounds are normal, regular, rhythmic. RESPIRATORY: Shows diminished breath sounds, bilateral rhonchi are heard. ABDOMEN: Soft. EXTREMITIES: No edema is noted. LABORATORY DATA AND TESTS: IgA level is 178. Sputum culture is negative. Sodium 139, potassium 4.8, chloride 96, bicarb 39, glucose 119, BUN 20, creatinine 0.6. White count 6.4, hemoglobin 11.3, hematocrit 35.4, PLT count 171,000. Chest x-ray noted. ASSESSMENT: This is a 66 year old male admitted with: 1) Chronic obstructive pulmonary disease with acute exacerbation. 2) Acute bronchitis. 3) Chronic hypoxemia. 4) History of coronary artery disease and atrial fibrillation. 5) Comorbidities listed above. RECOMMENDATIONS: 1) I agree with the present treatment. 2) Continue antibiotics. 3) Steroids can be tapered to avoid metabolic alkalosis. 4) The patient will benefit from noninvasive ventilation to reduce work of breathing. Will attempt AVAPS mode with some Ativan to improve nightly sleep. 5) I agree with Xarelto which also has been offering deep vein thrombosis prophylaxis. 6) Continue other supportive care. Discussed with patient and at bedside, will continue to follow. Thank you for allowing me to participate in the care of William Carter.
--- NOTE | 2021-03-25 09:28 | XRAY ---
Dictation: Short of breath. Comparison: March 22, 2021. PA/lateral chest unchanged again demonstrating COPD, minimal left base subsegmental atelectasis/scarring, and multiple overlying monitoring leads. Heart not enlarged again with CABG. No new/acute abnormalities.
[2021-03-25] MEDS: Imdur 30 MG PO SCH (09:43)
[2021-03-25] MEDS: NICODERM CQ 14 MG TOP SCH (09:43)
[2021-03-25] MEDS: ZOCOR 20MG PO SCH (09:43)
[2021-03-25] MEDS: Coreg 6.25 MG PO SCH (09:44)
[2021-03-25] MEDS: Mylicon 80MG PO SCH ×2 (09:44→21:26)
[2021-03-25] MEDS: Singulair 10 MG PO SCH (09:44)
[2021-03-25] MEDS: XARELTO 10 MG TABLET PO SCH (09:44)
[2021-03-25] MEDS: ECOTRIN 81 MG PO SCH (09:44)
[2021-03-25] MEDS: Pepcid 20 MG VIAL IV SCH ×2 (09:45→21:26)
[2021-03-25] MEDS: THEOPHYLLINE ER 24HR PO SCH (09:45)
[2021-03-25] MEDS: ROCEPHIN 1 Gm-D5w 50 ml Bag** 1 G/50 ML IVPB IV SCH (09:45)
[2021-03-25] MEDS: Zithromax 500 MG/ 250 ML NaCl Premix 500 MG/250 ML IVPB IV SCH (09:46)
--- NOTE | 2021-03-25 12:46 | PROG NOTE ---
Events noted. DATE: 03/25/2021 HISTORY: The patient slept with BiPAP last night. Appears significantly improved. Denies shortness of breath at rest. PHYSICAL EXAMINATION: Vital signs reviewed. HEENT: Normocephalic. Oral exam unremarkable. NECK: Supple. CVS: First and second heart sounds are normal, regular, rhythmic. RESPIRATORY: Shows diminished breath sounds, fairly clear. ABDOMEN: Soft. EXTREMITIES: No edema is noted. LABORATORY DATA AND TESTS: Labs reviewed. ASSESSMENT: This is a 66-year-old male admitted with: 1) Chronic obstructive pulmonary disease with acute exacerbation. 2) Acute bronchitis. 3) Hypoxemia. 4) History of hypertension and atrial fibrillation. RECOMMENDATIONS: 1) The patient is doing well from pulmonary standpoint. 2) Reduce steroids. 3) Increase ambulation with physical therapy. 4) May discharge home in the next one to two days without outpatient follow up.
[2021-03-25] MEDS: solu-MEDROL 60 MG, Sterile H2O 10 ml 2 ML IV SCH ×4 (13:36→21:26)
[2021-03-25] MEDS: COREG 12.5 MG PO SCH (17:14)
[2021-03-25] MEDS: Sodium Chloride 0.9% 1000 ML 1,000 ML IV SCH (19:43)
[2021-03-26] MEDS: DUONEB 0.5-3 MG/3 ml Neb IH SCH ×4 (01:00→18:35)
[2021-03-26] MEDS: Robitussin 100 MG/5 ML PO SCH ×5 (04:10→17:25)
[2021-03-26 05:37] LABS: Hematocrit 33.5 % (42-50); Hemoglobin 11.3 gm/dl (12.5-18.0); Mean Cell Volume 101.5 fl (78-100); Mean Corpuscular Hemoglobin 34.2 pg (26-32); Mean Corpuscular Hgb Concent. 33.7 g/dl (32-36); Mean Platelet Volume 10.4 fl (7.5-11.0); Platelet Count 167 K/mm3 (150-450); Red Cell Distribution Width 16.1 % (11.5-14.0); White Blood Count 4.1 K/mm3 (4.0-10.5)
[2021-03-26] MEDS: solu-MEDROL 60 MG, Sterile H2O 10 ml 2 ML IV SCH ×6 (06:08→22:26)
[2021-03-26 06:11] LABS: ALBUMIN 3.3 g/dL (3.5-5.0); ALKALINE PHOSPHATASE 63 U/L (38-126); BLOOD UREA NITROGEN 26 mg/dL (9-20); CHLORIDE 93 mmol/L (98-107); Calcium 8.6 mg/dL (8.4-10.2); Creatinine 1 0.59 mg/dL (0.66-1.25); EST GLOMERULAR FILTRATION RATE > 60.0 ML/MIN; Glucose 115 mg/dL (74-106); Potassium 5.2 mmol/L (3.5-5.1); SGOT/AST 23 U/L (17-59); SGPT/ALT 37 U/L (0-50); SODIUM 140 mmol/L (137-145); Total Protein 6.8 g/dL (6.3-8.2)
[2021-03-26 06:23] LABS: ANION GAP 9.2 MEQ/L (5-15); Carbon Dioxide 43 mmol/L (22-30)
[2021-03-26] MEDS: PULMICORT 0.5 MG/2 ML RESPULES IH SCH ×2 (06:40→18:35)
[2021-03-26] MEDS: Advair Hfa 115/21 Common canister IH SCH ×2 (06:43→18:38)
[2021-03-26] MEDS: SYNTHROID 112 MCG PO SCH (07:52)
[2021-03-26] MEDS: SYNTHROID 25 MCG PO SCH (07:52)
[2021-03-26] MEDS: Coreg 6.25 MG PO SCH (09:25)
[2021-03-26] MEDS: ECOTRIN 81 MG PO SCH (09:25)
[2021-03-26] MEDS: Mylicon 80MG PO SCH ×2 (09:25→22:19)
[2021-03-26] MEDS: Singulair 10 MG PO SCH (09:25)
[2021-03-26] MEDS: Imdur 30 MG PO SCH (09:25)
[2021-03-26] MEDS: Pepcid 20 MG VIAL IV SCH ×2 (09:25→22:26)
[2021-03-26] MEDS: ZOCOR 20MG PO SCH (09:25)
[2021-03-26] MEDS: XARELTO 10 MG TABLET PO SCH (09:25)
[2021-03-26] MEDS: NICODERM CQ 14 MG TOP SCH (09:26)
[2021-03-26] MEDS: ROCEPHIN 1 Gm-D5w 50 ml Bag** 1 G/50 ML IVPB IV SCH (09:26)
[2021-03-26] MEDS: Zithromax 500 MG/ 250 ML NaCl Premix 500 MG/250 ML IVPB IV SCH (10:25)
[2021-03-26] MEDS: THEOPHYLLINE ER 24HR PO SCH (10:26)
[2021-03-26] MEDS: Sodium Chloride 0.9% 1000 ML 1,000 ML IV SCH (16:22)
[2021-03-26] MEDS: COREG 12.5 MG PO SCH (17:25)
[2021-03-26] MEDS ORDERED: solu-MEDROL ONE (22:15)
[2021-03-27] MEDS: DUONEB 0.5-3 MG/3 ml Neb IH SCH ×2 (00:46→07:31)
[2021-03-27] MEDS: Robitussin 100 MG/5 ML PO SCH ×2 (01:25→06:11)
[2021-03-27 04:37] VITALS: O2SAT 93
[2021-03-27] MEDS ORDERED: solu-MEDROL ONE (06:01)
[2021-03-27] MEDS: solu-MEDROL 60 MG, Sterile H2O 10 ml 2 ML IV SCH ×2 (06:06)
[2021-03-27] MEDS: PULMICORT 0.5 MG/2 ML RESPULES IH SCH (07:32)
[2021-03-27] MEDS: Advair Hfa 115/21 Common canister IH SCH (07:33)
[2021-03-27 08:10] VITALS: BP 182/81; PULSE 71
[2021-03-27] MEDS: SYNTHROID 112 MCG PO SCH (08:33)
[2021-03-27] MEDS: SYNTHROID 25 MCG PO SCH (08:33)
[2021-03-27] MEDS: Singulair 10 MG PO SCH (09:16)
[2021-03-27] MEDS: XARELTO 10 MG TABLET PO SCH (09:16)
[2021-03-27] MEDS: ECOTRIN 81 MG PO SCH (09:17)
[2021-03-27] MEDS: THEOPHYLLINE ER 24HR PO SCH (09:17)
[2021-03-27] MEDS: NICODERM CQ 14 MG TOP SCH (09:17)
[2021-03-27] MEDS: Pepcid 20 MG VIAL IV SCH (09:17)
[2021-03-27] MEDS: Mylicon 80MG PO SCH (09:17)
[2021-03-27] MEDS: Coreg 6.25 MG PO SCH (09:17)
[2021-03-27] MEDS: ZOCOR 20MG PO SCH (09:17)
[2021-03-27] MEDS: Imdur 30 MG PO SCH (09:17)
[2021-03-27] MEDS: Zithromax 500 MG/ 250 ML NaCl Premix 500 MG/250 ML IVPB IV SCH (09:19)
== END 2021-03-27 10:35 | disposition home or self-care (01) | DRG 192 ==
LOC: ED 06:13 → MED SURG 09:20 → OBSVTOIN 03-22 13:30
PROVIDERS: ADMIT General Practice; ATTEND Family Medicine
DX: J44.1 Chronic obstructive pulmonary disease with (acute) exacerbation (principal); J20.9 Acute bronchitis, unspecified; R09.02 Hypoxemia; I25.10 Atherosclerotic heart disease of native coronary artery without angina pectoris; I48.91 Unspecified atrial fibrillation; I10 Essential (primary) hypertension; Z72.0 Tobacco use; Z99.81 Dependence on supplemental oxygen; Z79.899 Other long term (current) drug therapy; Z20.828 Contact with and (suspected) exposure to other viral communicable diseases
CPT/HCPCS: 0241U; 36000; 36415; 71045; 71046; 80053; 81001; 82607; 82784; 83605; 83735; 83880; 84443; 84484; 85025; 85027; 87040; 87070; 93005; 93041; 93268; 94002; 94003; 94640; 94760; 97161; 97530; 99285; 99291; G0378; J0456; J0696; J2060; J2930; A9270-GY

== ENCOUNTER 2021-05-19 13:12 | Observation (INO) | payer MEDICARE, OTHER ==
--- NOTE | 2021-05-19 13:21 | ERPHSYRPT ---
- History of Present Illness Time Seen by Provider: 05/19/21 13:20 Source: patient, EMS Exam Limitations: no limitations Physician History: This is a 66-year-old white male patient of Dr. Mistry who was brought in by the ambulance service because of the possibility of a stroke. However, it appears more than that he just weak. He has had diarrhea for 2 to 3 weeks. He does have a history of hypertension, hypothyroidism, elevated cholesterol, COPD, CHF, chronic angina, coronary artery disease (CABG, cardiac stents). There was some altered mental status which has improved upon evaluation in the emergency department. He presents to the emergency department alert and oriented x4 with no focal signs or symptoms of a stroke. Patient denies chest pain, he denies ab dominal pain. He has no shortness of breath. His primary complaint is weakness in the diarrhea. Timing/Duration: today Severity: moderate Associated Symptoms: malaise, weakness Allergies/Adverse Reactions: No Known Drug Allergies Allergy (Verified 05/19/21 13:13) Home Medications: Aspirin 81 mg PO DAILY 06/12/13 [History] Carvedilol 6.25 mg [Coreg 6.25 MG] 6.25 mg PO DAILY 06/12/13 [History] Levothyroxine Sodium 150 mcg PO DAILY 06/12/13 [History] Isosorbide Mononitrate [Isosorbide Mononitrate ER] 90 mg PO DAILY 01/20/15 [History] Atorvastatin Calcium 40 mg PO DAILY 07/25/18 [History] Nitroglycerin [Nitrostat] 0.4 mg SL Q5MIN PRN MR X 3 PRN 07/25/18 [History] Albuterol/Ipratropium 3ml Neb* [DUONEB 0.5-3 MG/3 ml Neb] 3 ml NEB Q4H 07/31/19 [History] Fluticasone/Umeclidin/Vilanter [Trelegy Ellipta 100-62.5-25] 1 each IH DAILY 08/08/19 [History] Carvedilol 12.5 mg [Coreg 12.5 mg] 12.5 mg PO EVENING MEAL 03/21/21 [History] Furosemide 40 mg [Lasix 40 MG] 40 mg PO DAILY PRN PRN 03/21/21 [History] Hx Tetanus, Diphtheria Vaccination/Date Given: No Hx Influenza Vaccination/Date Given: Yes Hx Pneumococcal Vaccination/Date Given: Yes Travel Risk - International Travel Have you traveled outside of the country in past 3 weeks: No - Coronavirus Screening Are you exhibiting any of the following symptoms?: No Close contact with a COVID-19 positive Pt in past 14-21 Days: No - Vaccine Status Have you recieved a Covid-19 vaccination: Yes Steam Blocker: Moderna - Vaccination Dates Date of 2cond Vaccination (if applicable): 04/2020 Comment: received booster - Review of Systems Constitutional: Weakness Eyes: No Symptoms Ears, Nose, & Throat: No Symptoms Respiratory: No Symptoms Cardiac: No Symptoms Abdominal/Gastrointestinal: Diarrhea Genitourinary Symptoms: No Symptoms Musculoskeletal: No Symptoms Skin: No Symptoms Neurological: No Symptoms Psychological: No Symptoms Endocrine: No Symptoms Hematologic/Lymphatic: No Symptoms Immunological/Allergic: No Symptoms All Other Systems: Reviewed and Negative - Past Medical History Pertinent Past Medical History: Yes Neurological History: No Pertinent History ENT History: No Pertinent History Cardiac History: Aneurysm, Angina, Congenital Heart Disease, Coronary Artery Disease, High Cholesterol, Hypertension Respiratory History: CHF, COPD Endocrine Medical History: Hyperthyroidism Musculoskeletal History: No Pertinent History GI Medical History: No Pertinent History, Gallbladder Disease History: No Pertinent History Psycho-Social History: No Pertinent History Male Reproductive Disorders: No Pertinent History Other Medical History: Right knee implant, left hip implant - Past Surgical History Past Surgical History: Yes (2016 open heart) Neuro Surgical History: No Pertinent History Cardiac: CABG, Cardiac Stent Respiratory: No Pertinent History Gastrointestinal: Cholecystectomy Genitourinary: No Pertinent History Musculoskeletal: Joint Replacement Male Surgical History: No Pertinent History Other Surgical History: R knee, L hip replacement. Aortic aneursym repair - Social History Smoking Status: Former smoker How long have you smoked: 40 years Exposure to second hand smoke: No Drug Use: none Patient Lives Alone: No - Nursing Vital Signs Nursing Vital Signs: Initial Vital Signs Temperature 97.7 F 05/19/21 13:14 Pulse Rate 77 05/19/21 13:14 Respiratory Rate 18 05/19/21 13:14 Blood Pressure 111/66 05/19/21 13:14 O2 Sat by Pulse Oximetry 100 05/19/21 13:14 Pain Scale Pain Intensity 0 - Physical Exam General Appearance: no apparent distress, alert, lethargy (Mild) Eye Exam: PERRL/EOMI, eyes nml inspection Ears, Nose, Throat Exam: pharynx normal, dry mucous membranes Neck Exam: normal inspection, non-tender, supple, full range of motion Respiratory Exam: normal breath sounds, lungs clear, airway intact, No chest tenderness, No respiratory distress Cardiovascular Exam: regular rate/rhythm, normal heart sounds, normal peripheral pulses Gastrointestinal/Abdomen Exam: soft, normal bowel sounds, No tenderness Rectal Exam: not done Back Exam: normal inspection, normal range of motion, No CVA tenderness, No vertebral tenderness Extremity Exam: normal inspection, normal range of motion, pelvis stable Neurologic Exam: alert, oriented x 3, cooperative, key entry operator II-XII nml as tested, normal mood/affect, sensation nml Skin Exam: normal color, warm, dry Lymphatic Exam: No adenopathy SpO2 Interpretation: normal O2 Delivery: Room Air - Course Nursing assessment & vital signs reviewed: Yes EKG Interpreted by Me: RATE (77), Sinus Rhythm, NORMAL AXIS, NORMAL INTERVALS, NORMAL QRS, Non-specific ST Changes, Other (No acute ischemic changes on today's EKG. When compared to a twelve-lead EKG that was performed on 03/22/2021, there is new minimal ST elevation in the inferior leads. I do not appreciate that when I view the EKG. We will repeat the EKG when we perform the 3-hour troponin.) Ordered Tests: Active Orders 24 hr Category Date Time Status EKG-ER Only STAT Care 05/19/21 13:39 Active EKG-ER Only STAT Care 05/19/21 16:25 Active IV Insertion STAT Care 05/19/21 13:39 Active NPO (ED) STAT Care 05/19/21 13:39 Active Pulse Oximetry (ED) STAT Care 05/19/21 13:39 Active CHEST 1 VIEW (PORTABLE) Stat Exams 05/19/21 13:42 Completed HEAD WITHOUT CONTRAST [CT] Stat Exams 05/19/21 13:39 Completed BLOOD CULTURE Stat Lab 05/19/21 14:05 Received CBC W DIFF Stat Lab 05/19/21 13:20 Completed CMP Stat Lab 05/19/21 13:20 Completed Lactic Acid Stat Lab 05/19/21 13:39 Completed Manual Differential NC Stat Lab 05/19/21 13:20 Completed [place] Screen Stat Lab 05/19/21 13:20 Completed TROPONIN Q3H Lab 05/19/21 14:30 Completed TROPONIN Q3H Lab 05/19/21 17:00 Received TROPONIN Q3H Lab 05/19/21 20:30 Ordered TROPONIN Q3H Lab 05/19/21 23:30 Ordered TROPONIN Q3H Lab 05/20/21 02:30 Ordered Transfer Order Routine Transfer 05/19/21 Ordered Medication Summary Generic Name Dose Route Start Last Admin Trade Name Freq PRN Reason Stop Dose Admin Sodium Chloride 1,000 mls @ 100 mls/hr 05/19/21 13:45 05/19/21 14:25 Sodium Chloride 0.9% 1000 Ml IV 06/18/21 13:44 100 mls/hr .Q10H AMMY Administration Discontinued Medications Generic Name Dose Route Start Last Admin Trade Name Freq PRN Reason Stop Dose Admin Acetaminophen 650 mg 05/19/21 13:41 05/19/21 14:18 Acetaminophen 325 Mg Tablet PO 05/19/21 13:42 Not Given STAT STA Lab/Rad Data: Laboratory Result Diagrams 05/19/21 13:20 05/19/21 13:20 Laboratory Results 05/19/21 05/19/21 05/19/21 Range/Units Unknown 16:00 14:30 WBC (4.0-10.5) K/mm3 RBC (4.1-5.6) M/mm3 Hgb (12.5-18.0) gm/dl Hct (42-50) % MCV (78-100) fl MCH (26-32) pg MCHC (32-36) g/dl RDW (11.5-14.0) % Plt Count (150-450) K/mm3 MPV (7.5-11.0) fl Segmented Neutrophils (36.-66.) % Lymphocytes (Manual) (24-44) % Monocytes (Manual) (0.0-12.0) % Platelet Estimate (NORMAL) RBC Morphology Sodium (137-145) mmol/L Potassium (3.5-5.1) mmol/L Chloride (98-107) mmol/L Carbon Dioxide (22-30) mmol/L Anion Gap (5-15) MEQ/L BUN (9-20) mg/dL Creatinine (0.66-1.25) mg/dL Estimated GFR ML/MIN Glucose (74-106) mg/dL Lactic Acid (0.4-2.0) Calcium (8.4-10.2) mg/dL Total Bilirubin (0.2-1.3) mg/dL AST (17-59) U/L ALT (0-50) U/L Alkaline Phosphatase (38-126) U/L Ammonia < 9 L (9-30) umol/L Troponin I < 0.012 (0.000-0.034) ng/mL Serum Total Protein (6.3-8.2) g/dL Albumin (3.5-5.0) g/dL Urinalys Dipstick Clnc MAIN LAB Urine Color Cancelled Urine Appearance Cancelled Urine pH Cancelled Ur Specific Warren Cancelled Urine Protein Cancelled POC Urine Protein Conf 30 (Negative) Urine Ketones Cancelled Urine Blood Cancelled Urine Nitrite Cancelled Urine Bilirubin Cancelled Urine Urobilinogen Cancelled Ur Leukocyte Esterase Cancelled Urine Leukocytes NEGATIVE (NEGATIVE) Urine WBC (Auto) NONE (0-5) /HPF Urine RBC (Auto) NONE (0-2) /HPF U Epithel Cells (Auto) NONE (FEW) /HPF Urine Bacteria (Auto) NONE (NEGATIVE) /HPF Urine RBC NEGATIVE (0-5) Jake/ul U Non-Squamous Epi Cells Cancelled Urine Mucus (Auto) SLIGHT (NEGATIVE) /HPF Ur Culture Indicated? NO Urine Culture Reflexed Cancelled Urine Glucose NEGATIVE (NEGATIVE) mg/dL Monoscreen (Negative) Influenza Type A Ag (NEGATIVE) Influenza Type B Ag (NEGATIVE) RSV (PCR) (Negative) SARS-CoV-2 (PCR) (NEGATIVE) 05/19/21 05/19/21 05/19/21 Range/Units 13:50 13:39 13:20 WBC (4.0-10.5) K/mm3 RBC (4.1-5.6) M/mm3 Hgb (12.5-18.0) gm/dl Hct (42-50) % MCV (78-100) fl MCH (26-32) pg MCHC (32-36) g/dl RDW (11.5-14.0) % Plt Count (150-450) K/mm3 MPV (7.5-11.0) fl Segmented Neutrophils (36.-66.) % Lymphocytes (Manual) (24-44) % Monocytes (Manual) (0.0-12.0) % Platelet Estimate (NORMAL) RBC Morphology Sodium (137-145) mmol/L Potassium (3.5-5.1) mmol/L Chloride (98-107) mmol/L Carbon Dioxide (22-30) mmol/L Anion Gap (5-15) MEQ/L BUN (9-20) mg/dL Creatinine (0.66-1.25) mg/dL Estimated GFR ML/MIN Glucose (74-106) mg/dL Lactic Acid 0.7 (0.4-2.0) Calcium (8.4-10.2) mg/dL Total Bilirubin (0.2-1.3) mg/dL AST (17-59) U/L ALT (0-50) U/L Alkaline Phosphatase (38-126) U/L Ammonia (9-30) umol/L Troponin I (0.000-0.034) ng/mL Serum Total Protein (6.3-8.2) g/dL Albumin (3.5-5.0) g/dL Urinalys Dipstick Clnc Urine Color Urine Appearance Urine pH Ur Specific Warren Urine Protein POC Urine Protein Conf (Negative) Urine Ketones Urine Blood Urine Nitrite Urine Bilirubin Urine Urobilinogen Ur Leukocyte Esterase Urine Leukocytes (NEGATIVE) Urine WBC (Auto) (0-5) /HPF Urine RBC (Auto) (0-2) /HPF U Epithel Cells (Auto) (FEW) /HPF Urine Bacteria (Auto) (NEGATIVE) /HPF Urine RBC (0-5) Jake/ul U Non-Squamous Epi Cells Urine Mucus (Auto) (NEGATIVE) /HPF Ur Culture Indicated? Urine Culture Reflexed Urine Glucose (NEGATIVE) mg/dL Monoscreen NEGATIVE (Negative) Influenza Type A Ag NEGATIVE (NEGATIVE) Influenza Type B Ag NEGATIVE (NEGATIVE) RSV (PCR) NEGATIVE (Negative) SARS-CoV-2 (PCR) NEGATIVE (NEGATIVE) 05/19/21 05/19/21 Range/Units 13:20 13:20 WBC 13.8 H (4.0-10.5) K/mm3 RBC 3.51 L (4.1-5.6) M/mm3 Hgb 10.8 L (12.5-18.0) gm/dl Hct 34.9 L (42-50) % MCV 99.4 (78-100) fl MCH 30.8 (26-32) pg MCHC 30.9 L (32-36) g/dl RDW 16.8 H (11.5-14.0) % Plt Count 308 (150-450) K/mm3 MPV 9.3 (7.5-11.0) fl Segmented Neutrophils 95 H (36.-66.) % Lymphocytes (Manual) 4 L (24-44) % Monocytes (Manual) 1 (0.0-12.0) % Platelet Estimate NORMAL (NORMAL) RBC Morphology NORMAL Sodium 139 (137-145) mmol/L Potassium 4.9 (3.5-5.1) mmol/L Chloride 97 L (98-107) mmol/L Carbon Dioxide 37 H (22-30) mmol/L Anion Gap 9.4 (5-15) MEQ/L BUN 13 (9-20) mg/dL Creatinine 0.57 L (0.66-1.25) mg/dL Estimated GFR > 60.0 ML/MIN Glucose 92 (74-106) mg/dL Lactic Acid (0.4-2.0) Calcium 8.8 (8.4-10.2) mg/dL Total Bilirubin 0.60 (0.2-1.3) mg/dL AST 20 (17-59) U/L ALT 16 (0-50) U/L Alkaline Phosphatase 78 (38-126) U/L Ammonia (9-30) umol/L Troponin I (0.000-0.034) ng/mL Serum Total Protein 6.2 L (6.3-8.2) g/dL Albumin 3.3 L (3.5-5.0) g/dL Urinalys Dipstick Clnc Urine Color Urine Appearance Urine pH Ur Specific Warren Urine Protein POC Urine Protein Conf (Negative) Urine Ketones Urine Blood Urine Nitrite Urine Bilirubin Urine Urobilinogen Ur Leukocyte Esterase Urine Leukocytes (NEGATIVE) Urine WBC (Auto) (0-5) /HPF Urine RBC (Auto) (0-2) /HPF U Epithel Cells (Auto) (FEW) /HPF Urine Bacteria (Auto) (NEGATIVE) /HPF Urine RBC (0-5) Jake/ul U Non-Squamous Epi Cells Urine Mucus (Auto) (NEGATIVE) /HPF Ur Culture Indicated? Urine Culture Reflexed Urine Glucose (NEGATIVE) mg/dL Monoscreen (Negative) Influenza Type A Ag (NEGATIVE) Influenza Type B Ag (NEGATIVE) RSV (PCR) (Negative) SARS-CoV-2 (PCR) (NEGATIVE) - Progress Progress: improved, re-examined Progress Note: 05/19/21 16:03 CT scan of the head is a normal CT scan without contrast. Chest x-ray shows nonacute findings with chronic features. 05/19/21 17:01 3-hour twelve-lead EKG performed 3 hours from the last EKG today shows a heart rate of 68 bpm, normal sinus rhythm. There is nonspecific T wave abnormalities in the anterolateral leads. There is no acute ischemic changes on today's EKG. The remainder of the EKG findings that were on the previous EKG from today have resolved. Patient has no chest pain. 05/19/21 17:11 Medical decision making: This patient was brought into the emergency department because of altered mental status and weakness. He does not have an acute CVA. I believe his mental status change, which is significantly improved and weakness is secondary to multiple episodes of diarrhea over the last 2 to 3 weeks. Patient denies chest pain. He has no abdominal pain. His flu studies are all negative. I spoke with Dr. Mistry, the patient's primary care provider. We will place the patient in observation and provide her with intravenous fluids, serial troponins, repeat labs in the morning and repeat an EKG in the morning. As soon as a stool sample is obtained, a GI profile will be ordered. Discussed with : Rakesh Counseled pt/family regarding: lab results, diagnosis, need for follow-up, rad results - Departure Departure Disposition: Observation Clinical Impression: Weakness, Altered mental status, Diarrhea Condition: Stable Critical Care Time: No Referrals: KENNA MISTRY MD [Primary Care Provider] - Follow up/PCP as directed
[2021-05-19] MEDS ORDERED: TYLENOL 325 MG PO STA (13:41)
[2021-05-19] MEDS ORDERED: Sodium Chloride 0.9% 1000 ML 1,000 ML IV SCH (13:45)
[2021-05-19 13:52] LABS: Hematocrit 34.9 % (42-50); Hemoglobin 10.8 gm/dl (12.5-18.0); Mean Cell Volume 99.4 fl (78-100); Mean Corpuscular Hemoglobin 30.8 pg (26-32); Mean Corpuscular Hgb Concent. 30.9 g/dl (32-36); Mean Platelet Volume 9.3 fl (7.5-11.0); Platelet Count 308 K/mm3 (150-450); Red Blood Count 3.51 M/mm3 (4.1-5.6); Red Cell Distribution Width 16.8 % (11.5-14.0); White Blood Count 13.8 K/mm3 (4.0-10.5)
[2021-05-19 14:04] LABS: ALBUMIN 3.3 g/dL (3.5-5.0); ALKALINE PHOSPHATASE 78 U/L (38-126); ANION GAP 9.4 MEQ/L (5-15); BLOOD UREA NITROGEN 13 mg/dL (9-20); CHLORIDE 97 mmol/L (98-107); Calcium 8.8 mg/dL (8.4-10.2); Carbon Dioxide 37 mmol/L (22-30); Creatinine 1 0.57 mg/dL (0.66-1.25); EST GLOMERULAR FILTRATION RATE > 60.0 ML/MIN; Glucose 92 mg/dL (74-106); Potassium 4.9 mmol/L (3.5-5.1); SGOT/AST 20 U/L (17-59); SGPT/ALT 16 U/L (0-50); SODIUM 139 mmol/L (137-145); Total Protein 6.2 g/dL (6.3-8.2)
[2021-05-19] MEDS ORDERED: Sodium Chloride 0.9% 1000 ML 1,000 ML ONE (14:21)
--- NOTE | 2021-05-19 14:53 | XRAY ---
Indication: Fever. Status post fall weeks ago. Comparison: March 25, 2021. Portable chest limited as both costophrenic angles not completely included. Remaining lungs again hyperinflated and clear with incidental tiny calcified granulomas. Heart not enlarged again with CABG. Bony thorax intact with mild osteopenia and degenerative changes. Impression: Nonacute limited chest with chronic features.
--- NOTE | 2021-05-19 14:57 | XRAY ---
Indication: Fever. Altered mental status. Status post fall weeks ago. Multiple contiguous axial images obtained through the head without contrast. Comparison: September 26, 2018. Normal appearing brain parenchyma, ventricles, and bony calvarium. Paranasal sinuses and mastoid air cells are clear. Impression: Continued normal CT head without contrast exam.
[2021-05-19 15:09] LABS: INFLUENZA A NEGATIVE (NEGATIVE); INFLUENZA B NEGATIVE (NEGATIVE); RESPIRATORY SYNCTIAL VIRUS NEGATIVE (Negative); SARS-CoV-2 Xpert Express NEGATIVE (NEGATIVE)
[2021-05-19 15:37] LABS: Lymphocytes 4 % (24-44); Monocyte 1 % (0.0-12.0); Platelet Estimate NORMAL (NORMAL); Total Cells Counted 100
[2021-05-19 16:32] LABS: Appearance CLEAR (CLEAR); Bilirubin NEGATIVE (NEGATIVE); Dipstick done @ ? MAIN LAB; Glucose NEGATIVE (NEGATIVE); Ketones NEGATIVE (NEGATIVE); Nitrite NEGATIVE (NEGATIVE); Protein,Urine Dip 30 (Negative); RBC NEGATIVE Ery/ul (0-5); Specific Gravity >=1.030 (1.005-1.025); Urobilinogen 0.2 mg/dL (0-1)
[2021-05-19 16:33] LABS: Mucus SLIGHT /HPF (NEGATIVE)
[2021-05-19 16:34] LABS: Urine Cultured Indicated? NO
[2021-05-19] MEDS ORDERED: TYLENOL 325 MG PO PRN (17:54)
[2021-05-19] MEDS ORDERED: Zofran 4 MG/2 ML VIAL IV PRN (17:54)
[2021-05-19] MEDS: Sodium Chloride 0.9% 1000 ML 1,000 ML IV SCH (18:06)
[2021-05-19] MEDS ORDERED: DUONEB 0.5-3 MG/3 ml Neb IH ONE (19:45)
[2021-05-19] MEDS: DUONEB 0.5-3 MG/3 ml Neb IH SCH ×2 (19:50→23:40)
[2021-05-20 03:07] LABS: Absolute Neutrophil Ct (ANC) 9.63 (1.4-6.9); Basophil (Absolute #) 0.01 (0-0.4); Eosinophil (Absolute #) 0 (0-0.5); Hematocrit 34.3 % (42-50); Hemoglobin 10.1 gm/dl (12.5-18.0); Lymphocyte (Absolute #) 0.69 (1.0-4.6); Mean Cell Volume 96.1 fl (78-100); Mean Corpuscular Hemoglobin 28.3 pg (26-32); Mean Corpuscular Hgb Concent. 29.4 g/dl (32-36); Mean Platelet Volume 9.2 fl (7.5-11.0); Monocyte (Absolute #) 1.23 (0.0-1.3); Monocytes % 10.6 % (0.0-12.0); Neutrophil % 83.3 % (36.0-66.0); Platelet Count 295 K/mm3 (150-450); Red Blood Count 3.57 M/mm3 (4.1-5.6); Red Cell Distribution Width 16.7 % (11.5-14.0); White Blood Count 11.6 K/mm3 (4.0-10.5)
[2021-05-20 03:13] LABS: ALBUMIN 3.2 g/dL (3.5-5.0); ALKALINE PHOSPHATASE 71 U/L (38-126); ANION GAP -30.1 MEQ/L (5-15); BLOOD UREA NITROGEN 13 mg/dL (9-20); CHLORIDE 134 mmol/L (98-107); Calcium 8.3 mg/dL (8.4-10.2); Carbon Dioxide 36 mmol/L (22-30); Creatinine 1 0.47 mg/dL (0.66-1.25); EST GLOMERULAR FILTRATION RATE > 60.0 ML/MIN; Glucose 95 mg/dL (74-106); Potassium 4.3 mmol/L (3.5-5.1); SGOT/AST 19 U/L (17-59); SGPT/ALT 14 U/L (0-50); SODIUM 136 mmol/L (137-145); Total Protein 6.1 g/dL (6.3-8.2)
[2021-05-20] MEDS: DUONEB 0.5-3 MG/3 ml Neb IH SCH ×2 (03:37→07:29)
[2021-05-20] MEDS ORDERED: Sodium Chloride 0.9% 1000 ML 1,000 ML ONE (06:15)
[2021-05-20] MEDS: Sodium Chloride 0.9% 1000 ML 1,000 ML IV SCH (06:16)
[2021-05-20] MEDS ORDERED: Advair Hfa 115/21 Common canister IH SCH (07:00)
[2021-05-20 07:19] VITALS: BP 141/73
[2021-05-20 07:35] VITALS: PULSE 83; O2SAT 92
[2021-05-23 06:38] LABS: Adenovirus F40/41 Not Detected (Not Detected); Astrovirus Not Detected (Not Detected); Campylobacter Not Detected (Not Detected); Cryptosporidium Not Detected (Not Detected); Cyclospora cayetanensis Not Detected (Not Detected); Entamoeba histolytica Not Detected (Not Detected); Enteroaggregative E coli Not Detected (Not Detected); Enterpathogenic E coli Not Detected (Not Detected); Entertoxigenic E coli Not Detected (Not Detected); Giardia lamblia Not Detected (Not Detected); Norovirus GI/GII Not Detected (Not Detected); Plesiomonas shigelloides Not Detected (Not Detected); Rotavirus A Not Detected (Not Detected); Salmonella Not Detected (Not Detected); Shig-toxin-producing E coli Not Detected (Not Detected); Shigella/Enterinvasive E coli Not Detected (Not Detected); Vibrio Not Detected (Not Detected); Vibrio cholerae Not Detected (Not Detected); Yersinia enterocolitica Not Detected (Not Detected)
[2021-05-24 00:53] LABS: Sapovirus Not Detected (Not Detected)
--- NOTE | 2021-06-01 22:50 | PCM.SSS ---
History of Present Illness - Chief Complaint Chief Complaint: AMS, WEAKNESS, DIARRHEA Date: 05/20/21 History of Present Illness: is a 66 year old male. Pt. presented to ER after mowing and noted general weakness, with volume depletion, pt. notes he has had intermittent loose stools for the past 4 months. Pt. admitted for further evaluation, hydration. - Review of Systems Constitutional: Weakness, No Fever, No Chills Eyes: No Symptoms Ears, Nose, & Throat: No Symptoms Respiratory: No Cough, No Short Of Breath Cardiac: No Chest Pain, No Edema, No Syncope Abdominal/Gastrointestinal: Diarrhea, No Abdominal Pain, No Nausea, No Vomiting Genitourinary Symptoms: No Dysuria Musculoskeletal: No Back Pain, No Neck Pain Skin: No Rash Neurological: No Dizziness, No Focal Weakness, No Sensory Changes Psychological: No Symptoms Endocrine: No Symptoms Hematologic/Lymphatic: No Symptoms Immunological/Allergic: No Symptoms Medications & Allergies Home Medications: Home Medication List Aspirin 81 mg PO DAILY 06/12/13 [History Confirmed 05/23/21] Carvedilol 6.25 mg [Coreg 6.25 MG] 6.25 mg PO DAILY 06/12/13 [History Confirmed 05/23/21] Levothyroxine Sodium 150 mcg PO DAILY 06/12/13 [History Confirmed 05/23/21] Isosorbide Mononitrate [Isosorbide Mononitrate ER] 90 mg PO DAILY 01/20/15 [History Confirmed 05/23/21] Albuterol Sulfate [Albuterol Sulfate Hfa] 8.5 gm IH Q4H PRN #1 hfa.aer.ad 07/25/18 [Rx Confirmed 05/23/21] Atorvastatin Calcium 40 mg PO DAILY 07/25/18 [History Confirmed 05/23/21] Nitroglycerin [Nitrostat] 0.4 mg SL Q5MIN PRN MR X 3 PRN 07/25/18 [History Confirmed 05/23/21] Albuterol/Ipratropium 3ml Neb* [DUONEB 0.5-3 MG/3 ml Neb] 3 ml NEB Q4H 07/31/19 [History Confirmed 05/23/21] Fluticasone/Umeclidin/Vilanter [Trelegy Ellipta 100-62.5-25] 1 each IH DAILY 08/08/19 [History Confirmed 05/23/21] Rivaroxaban [Xarelto] 20 mg PO DAILY 30 Days #30 tablet 06/13/20 [Rx Confirmed 05/23/21] Carvedilol 12.5 mg [Coreg 12.5 mg] 12.5 mg PO EVENING MEAL 03/21/21 [History Confirmed 05/23/21] Furosemide 40 mg [Lasix 40 MG] 20 mg PO DAILY PRN PRN 03/21/21 [History Confirmed 05/23/21] Albuterol/Ipratropium cc [Combivent Inhaler COMMON CANISTER] 1 ea IH UD PRN 05/23/21 [History Confirmed 05/23/21] Diltiazem HCl [Cardizem Cd] 240 mg PO DAILY 30 Days #30 05/28/21 [Rx] Metronidazole 500 mg [Flagyl 500 MG] 500 mg PO TID 7 Days #21 tablet 05/28/21 [Rx] Vancomycin HCl [Vancomycin HCl Capsule] 125 mg PO QID 7 Days #28 05/28/21 [Rx] Allergies/Adverse Reactions: Allergies Allergy/AdvReac Type Severity Reaction Status Date / Time No Known Drug Allergies Allergy Verified 05/23/21 17:34 - Past Medical History Past Medical History: Yes Neurological History: No Pertinent History ENT History: No Pertinent History Cardiac History: Aneurysm, Angina, Congestive Heart Failure, Coronary Artery Disease, High Cholesterol, Other Respiratory History: CHF, COPD Endocrine Medical History: Hyperthyroidism Musculoskelatal History: No Pertinent History GI Medical History: Gallbladder Disease History: No Pertinent History Pyscho-Social History: No Pertinent History Male Reproductive Disorders: No Pertinent History Comment: Right knee implant, left hip implant, HYPOTENSION - Past Surgical History Past Surgical History: Yes Neuro Surgical History: No Pertinent History Cardiac History: CABG, Cardiac Stent Respiratory Surgery: No Pertinent History GI Surgical History: Cholecystectomy Genitourinary Surgical Hx: No Pertinent History Musculskeletal Surgical Hx: Joint Replacement Male Surgical History: No Pertinent History Other Surgical History: R knee, L hip replacement. Aortic aneursym repair - Social History Smoking Status: Current every day smoker How long have you smoked: 40 YEARS Exposure to second hand smoke: No Alcohol: Rarely Drug Use: none - Physical Exam General Appearance: no apparent distress, alert Neurologic Exam: alert, oriented x 3, cooperative, normal mood/affect, nml cerebellar function, nml station & gait, sensation nml, No motor deficits Eye Exam: PERRL/EOMI, eyes nml inspection Ears, Nose, Throat Exam: normal ENT inspection, TMs normal, pharynx normal, moist mucous membranes Neck Exam: normal inspection, non-tender, supple, full range of motion Respiratory Exam: lungs clear, diminished breath sounds, prolonged expirations, wheezing, No respiratory distress Cardiovascular Exam: regular rate/rhythm, normal heart sounds, normal peripheral pulses Gastrointestinal/Abdomen Exam: soft, normal bowel sounds, No tenderness, No mass Back Exam: normal inspection, normal range of motion, No CVA tenderness, No vertebral tenderness Extremity Exam: normal inspection, normal range of motion, pelvis stable Skin Exam: normal color, warm, dry, No rash Lymphatic Exam: No adenopathy Results - Labs Lab/Micro Results: Microbiology 05/19/21 13:55 Blood Culture Gram Stain - Final Blood Not Reportable Blood Culture - Final NO GROWTH 05/19/21 14:05 Blood Culture Gram Stain - Final Blood Not Reportable Blood Culture - Final NO GROWTH Assessment/Plan (1) Diarrhea Status: Acute Code(s): R19.7 - DIARRHEA, UNSPECIFIED (2) Volume depletion, gastrointestinal loss Status: Acute Code(s): E86.9 - VOLUME DEPLETION, UNSPECIFIED (3) Weakness Status: Acute Code(s): R53.1 - WEAKNESS (4) Anticoagulant long-term use Status: Chronic Code(s): Z79.01 - [facility] (CURRENT) USE OF ANTICOAGULANTS Hospital Summary - Hospital Course Hospital Course: Pt admitted, notes return to normal bowel function, and strength improved with hydration, pt. feeling much better and ready for discharge to home, the followin g morning. - Vitals & Intake/Output Vital Signs: Vital Signs Temperature 98.2 F 05/20/21 07:18 Pulse Rate 83 05/20/21 07:30 Respiratory Rate 18 05/20/21 07:30 Blood Pressure 141/73 05/20/21 07:18 O2 Sat by Pulse Oximetry 92 L 05/20/21 07:30 - Lab Result Diagrams: 05/20/21 03:04 05/20/21 03:04 Micro Results-Entire Visit: Microbiology 05/19/21 13:55 Blood Culture Gram Stain - Final Blood Not Reportable Blood Culture - Final NO GROWTH 05/19/21 14:05 Blood Culture Gram Stain - Final Blood Not Reportable Blood Culture - Final NO GROWTH - Procedures and Test Procedures and Tests throughout Hospitalization: Therapy Orders & Screens 05/19/21 17:54 EKG REPEAT IN AM Comment: 05/19/21 18:26 RT Screen per Nursing Assess ONCE Comment: Protocol Order Physician Instructions: Greater than 3 points order RT Admission Screen Reason For Exam: Triggered on Admission Diagnosis: AMS, WEAKNESS, DIARRHEA Diagnosis: AMS, WEAKNESS, DIARRHEA Pneumonia: No Home O2: Yes Asthma: No CHF: No Home CPAP/BIPAP: No Home Nebs/MDI: Yes Total Points: 10 Smoking Cessation Education ONCE Comment: Diagnosis: AMS, WEAKNESS, DIARRHEA Smoking Status: Current every day smoker How long have you smoked: 40 YEARS Have you smoked in the past 12 months: Yes Approximately how many cigarettes per day: 15 Do you dip or chew tobacco: No If,Former Smoker,when did you quit: 1 week ago 05/19/21 19:47 Oxygen Nasal Cannula 2 lpm Comment: Diagnosis: AMS, WEAKNESS, DIARRHEA Respiratory Therapy Assessment DAILY Comment: Diagnosis: AMS, WEAKNESS, DIARRHEA - Discharge Discharge Date: 05/20/21 Disposition: Home, Self-Care Condition: Stable Prescriptions: Continue Carvedilol 6.25 mg [Coreg 6.25 MG] 6.25 mg PO DAILY Aspirin 81 mg PO DAILY Levothyroxine Sodium 150 mcg PO DAILY Isosorbide Mononitrate [Isosorbide Mononitrate ER] 90 mg PO DAILY Nitroglycerin [Nitrostat] 0.4 mg SL Q5MIN PRN MR X 3 PRN PRN Reason: Chest Pain Atorvastatin Calcium 40 mg PO DAILY Albuterol Sulfate [Albuterol Sulfate Hfa] 8.5 gm IH Q4H PRN #1 hfa.aer.ad PRN Reason: Shortness Of Breath/Wheezing Albuterol/Ipratropium 3ml Neb* [DUONEB 0.5-3 MG/3 ml Neb] 3 ml NEB Q4H Fluticasone/Umeclidin/Vilanter [Trelegy Ellipta 100-62.5-25] 1 each IH DAILY Rivaroxaban [Xarelto] 20 mg PO DAILY 30 Days #30 tablet Carvedilol 12.5 mg [Coreg 12.5 mg] 12.5 mg PO EVENING MEAL Furosemide 40 mg [Lasix 40 MG] 20 mg PO DAILY PRN PRN PRN Reason: fluid retention No Action Albuterol/Ipratropium cc [Combivent Inhaler COMMON CANISTER] 1 ea IH UD PRN PRN Reason: Shortness Of Breath Diltiazem HCl [Cardizem Cd] 240 mg PO DAILY 30 Days #30 Metronidazole 500 mg [Flagyl 500 MG] 500 mg PO TID 7 Days #21 tablet Vancomycin HCl [Vancomycin HCl Capsule] 125 mg PO QID 7 Days #28 Instructions: Diarrhea in Adolescents and Adults, High Fiber Diet Additional Instructions: Take a total of 20 grams of fiber daily. Get an over the counter Probiotic and begin taking daily. Follow up with: KENNA MISTRY MD [Primary Care Provider] - 05/26/21 10:15 am Forms: Discharge Instructions
== END 2021-05-20 10:20 | disposition home or self-care (01) ==
LOC: ED 13:12 → MED SURG 17:51
PROVIDERS: ADMIT Family Medicine; ATTEND Family Medicine
DX: R19.7 Diarrhea, unspecified (principal); E86.9 Volume depletion, unspecified; R53.1 Weakness; R41.82 Altered mental status, unspecified; E78.00 Pure hypercholesterolemia, unspecified; J44.9 Chronic obstructive pulmonary disease, unspecified; I11.0 Hypertensive heart disease with heart failure; I50.9 Heart failure, unspecified; I25.10 Atherosclerotic heart disease of native coronary artery without angina pectoris; Z79.899 Other long term (current) drug therapy; Z79.01 Long term (current) use of anticoagulants; Z20.828 Contact with and (suspected) exposure to other viral communicable diseases
CPT/HCPCS: 0241U; 36000; 36415; 70450; 71045; 80053; 81015; 82140; 83605; 84484; 85025; 86308; 87040; 87507; 93005; 94640; 94760; 96360; 96361; 99285; G0378; A9270-GY

== ENCOUNTER 2021-05-23 17:24 | Inpatient (IN) | payer MEDICARE, OTHER ==
[2021-05-23] MEDS ORDERED: Sodium Chloride 0.9% 1000 ML 1,000 ML IV STA (18:03)
[2021-05-23] MEDS ORDERED: DUONEB 0.5-3 MG/3 ml Neb IH ONE ×2 (18:08→18:19)
[2021-05-23] MEDS ORDERED: Sodium Chloride 0.9% 1000 ML 1,000 ML ONE (18:12)
[2021-05-23 18:18] LABS: Absolute Neutrophil Ct (ANC) 5.62 (1.4-6.9); Basophil (Absolute #) 0.02 (0-0.4); Eosinophil % 1.6 % (0.00-5.0); Eosinophil (Absolute #) 0.13 (0-0.5); Hematocrit 34.7 % (42-50); Hemoglobin 10.7 gm/dl (12.5-18.0); Lymphocyte (Absolute #) 1.13 (1.0-4.6); Lymphocytes % 13.9 % (24.0-44.0); Mean Cell Volume 98.6 fl (78-100); Mean Corpuscular Hemoglobin 30.4 pg (26-32); Mean Corpuscular Hgb Concent. 30.8 g/dl (32-36); Mean Platelet Volume 9.5 fl (7.5-11.0); Monocyte (Absolute #) 1.25 (0.0-1.3); Monocytes % 15.3 % (0.0-12.0); Platelet Count 297 K/mm3 (150-450); Red Blood Count 3.52 M/mm3 (4.1-5.6); Red Cell Distribution Width 15.9 % (11.5-14.0); White Blood Count 8.2 K/mm3 (4.0-10.5)
[2021-05-23 18:24] LABS: ALBUMIN 3.2 g/dL (3.5-5.0); ALKALINE PHOSPHATASE 68 U/L (38-126); BLOOD UREA NITROGEN 16 mg/dL (9-20); CHLORIDE 93 mmol/L (98-107); Creatinine 1 0.48 mg/dL (0.66-1.25); EST GLOMERULAR FILTRATION RATE > 60.0 ML/MIN; Glucose 123 mg/dL (74-106); LIPASE 61 U/L (23-300); Potassium 3.7 mmol/L (3.5-5.1); SGOT/AST 18 U/L (17-59); SGPT/ALT 12 U/L (0-50); SODIUM 137 mmol/L (137-145); Total Protein 5.9 g/dL (6.3-8.2)
[2021-05-23 18:30] LABS: Carbon Dioxide 39 mmol/L (22-30)
[2021-05-23 18:36] LABS: MAGNESIUM 2.2 mg/dL (1.6-2.3); NT PRO BNP 888 pg/mL (0-900); TROPONIN < 0.012 ng/mL (0.000-0.034)
[2021-05-23 18:40] LABS: ANION GAP 8.7 MEQ/L (5-15)
[2021-05-23 19:19] LABS: INFLUENZA A NEGATIVE (NEGATIVE); INFLUENZA B NEGATIVE (NEGATIVE); RESPIRATORY SYNCTIAL VIRUS NEGATIVE (Negative); SARS-CoV-2 Xpert Express NEGATIVE (NEGATIVE)
[2021-05-23 19:29] LABS: 027 TOX PROD PRESUMPTIVE NEGATIVE (NEGATIVE)
[2021-05-23 19:33] LABS: TOXIGENIC C. DIFF ORG POSITIVE (NEGATIVE)
[2021-05-23] MEDS ORDERED: VANCOMYCIN HCL CAPSULE PO ONE (20:22)
--- NOTE | 2021-05-23 20:42 | ERPHSYRPT ---
- History of Present Illness Time Seen by Provider: 05/23/21 17:36 Source: patient, family Exam Limitations: no limitations Patient Subjective Stated Complaint: Weakness Triage Nursing Assessment: Patient brought back to ED via w/c and transferred to bed with assist of 1. Patient A+O X 3. Patient's skin pink, warm and dry. Patient complains of lower abdominal pain 5/10 intermittent sharp pain. Patient has also been having diarrhea. Patient's family reports patient sleeping all day and not eating or drinking. Physician History: 66-year-old male with history of coronary artery disease status post CABG/stenting, chronic respiratory failure on 3 L oxygen from COPD/tobacco abuse, hypertension, hyperlipidemia who was recently admitted for diarrhea and currently on Flagyl is brought in the ER with worsening generalized weakness fatigue tiredness and more sleepy than usual. Per family he is not acting himself. No fever or chills reported. He is having multiple episodes of diarrhea every day since discharge with associated lower abdominal pain dull aching to sharp moderate intensity without any significant aggravating or relieving factors. Timing/Duration: day(s) (2), constant, gradual onset, worse Severity: moderate Modifying Factors: Improves With: rest. Worsens With: movement Associated Symptoms: abdominal pain, shortness of breath, loss of appetite, malaise, weakness Allergies/Adverse Reactions: No Known Drug Allergies Allergy (Verified 05/23/21 17:34) Home Medications: Aspirin 81 mg PO DAILY 06/12/13 [History] Carvedilol 6.25 mg [Coreg 6.25 MG] 6.25 mg PO DAILY 06/12/13 [History] Levothyroxine Sodium 150 mcg PO DAILY 06/12/13 [History] Isosorbide Mononitrate [Isosorbide Mononitrate ER] 90 mg PO DAILY 01/20/15 [History] Atorvastatin Calcium 40 mg PO DAILY 07/25/18 [History] Nitroglycerin [Nitrostat] 0.4 mg SL Q5MIN PRN MR X 3 PRN 07/25/18 [History] Albuterol/Ipratropium 3ml Neb* [DUONEB 0.5-3 MG/3 ml Neb] 3 ml NEB Q4H [History] Fluticasone/Umeclidin/Vilanter [Trelegy Ellipta 100-62.5-25] 1 each IH DAILY 08/08/19 [History] Carvedilol 12.5 mg [Coreg 12.5 mg] 12.5 mg PO EVENING MEAL 03/21/21 [History] Furosemide 40 mg [Lasix 40 MG] 20 mg PO DAILY PRN PRN 03/21/21 [History] Cephalexin Mh 500 mg [Keflex 500 mg] 500 mg PO Q12H 05/19/21 [History] Prednisone 20 mg [Deltasone 20 mg] 20 mg PO DAILY 05/19/21 [History] Hx Tetanus, Diphtheria Vaccination/Date Given: No Hx Influenza Vaccination/Date Given: Yes Hx Pneumococcal Vaccination/Date Given: Yes Immunizations Up to Date: Yes Travel Risk - International Travel Have you traveled outside of the country in past 3 weeks: No - Coronavirus Screening Are you exhibiting any of the following symptoms?: No Close contact with a COVID-19 positive Pt in past 14-21 Days: No - Vaccine Status Have you recieved a Covid-19 vaccination: Yes Public Affairs Manager: Moderna - Vaccination Dates Date of 2cond Vaccination (if applicable): 05/07/2020 - Review of Systems Constitutional: Fatigue, Weakness Eyes: No Symptoms Ears, Nose, & Throat: No Symptoms Respiratory: Cough, Dyspnea, Dyspnea on Exertion (HANLEY) Cardiac: No Symptoms Abdominal/Gastrointestinal: Abdominal Pain, Diarrhea, No Hematochezia Genitourinary Symptoms: No Symptoms Musculoskeletal: Myalgias Skin: No Symptoms Neurological: No Symptoms Psychological: No Symptoms Endocrine: No Symptoms Hematologic/Lymphatic: No Symptoms Immunological/Allergic: No Symptoms - Past Medical History Pertinent Past Medical History: Yes Neurological History: No Pertinent History ENT History: No Pertinent History Cardiac History: Aneurysm, Angina, Congestive Heart Failure, Coronary Artery Disease, High Cholesterol, Other Respiratory History: CHF, COPD Endocrine Medical History: Hyperthyroidism Musculoskeletal History: No Pertinent History GI Medical History: Gallbladder Disease History: No Pertinent History Psycho-Social History: No Pertinent History Male Reproductive Disorders: No Pertinent History Other Medical History: Right knee implant, left hip implant, HYPOTENSION - Past Surgical History Past Surgical History: Yes Neuro Surgical History: No Pertinent History Cardiac: CABG, Cardiac Stent Respiratory: No Pertinent History Gastrointestinal: Cholecystectomy Genitourinary: No Pertinent History Musculoskeletal: Joint Replacement Male Surgical History: No Pertinent History Other Surgical History: R knee, L hip replacement. Aortic aneursym repair - Social History Smoking Status: Current every day smoker How long have you smoked: 40 YEARS Exposure to second hand smoke: No Drug Use: none Patient Lives Alone: No - Nursing Vital Signs Nursing Vital Signs: Initial Vital Signs Temperature 98.5 F 05/23/21 17:37 Pulse Rate 79 05/23/21 17:37 Respiratory Rate 20 05/23/21 17:37 Blood Pressure 137/70 05/23/21 17:37 O2 Sat by Pulse Oximetry 97 05/23/21 17:37 Pain Scale Pain Intensity 5 - Physical Exam General Appearance: no apparent distress, alert Eye Exam: PERRL/EOMI, eyes nml inspection Ears, Nose, Throat Exam: normal ENT inspection, TMs normal, pharynx normal, moist mucous membranes Neck Exam: normal inspection, non-tender, supple, full range of motion, No meningismus Respiratory Exam: diminished breath sounds, rhonchi, wheezing Cardiovascular Exam: regular rate/rhythm, normal heart sounds, edema Gastrointestinal/Abdomen Exam: soft, normal bowel sounds, tenderness (Lower abdomen without guarding and rebound) Back Exam: normal inspection, normal range of motion Extremity Exam: normal inspection, normal range of motion, pelvis stable Neurologic Exam: alert, oriented x 3, cooperative, 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 Skin Exam: normal color SpO2 Interpretation: normal SpO2: 94 O2 Delivery: Room Air - Course EKG Interpreted by Me: RATE (81), Sinus Rhythm, NORMAL AXIS, NORMAL INTERVALS, Non-specific ST Changes, Other (Nonspecific T wave changes) Ordered Tests: Active Orders 24 hr Category Date Time Status Bedrest ROUTINE Activity 05/23/21 21:11 Active Up With Assistance ROUTINE Activity 05/23/21 21:11 Active Code Status Order ROUTINE Care 05/23/21 21:11 Active EKG-ER Only STAT Care 05/23/21 18:03 Completed Fall Protocol Q1H Care 05/23/21 21:11 Active IV Care Q6H Care 05/23/21 21:11 Active IV Insertion STAT Care 05/23/21 18:03 Completed NPO (ED) STAT Care 05/23/21 18:03 Completed Neuro Checks Q4H Care 05/23/21 21:11 Active Oxygen-ED Only Nasal Cannula 3 lpm Care 05/23/21 17:[address] in Observation ROUTINE Care 05/23/21 21:11 Active Vern AbdiEvelin ROUTINE Care 05/23/21 21:11 Active Weight,Daily 0600 Care 05/23/21 21:11 Active Heart-Healthy Diet Diet 05/23/21 Breakfast Active ABDOMEN AND PELVIS W/0 CONTRAS [CT] Stat Exams 05/23/21 18:05 Taken CHEST WITHOUT CONTRAST [CT] Stat Exams 05/23/21 18:07 Taken HEAD WITHOUT CONTRAST [CT] Stat Exams 05/23/21 18:07 Taken BLOOD CULTURE Stat Lab 05/23/21 18:38 Received CBC W DIFF AM.LAB Lab 05/24/21 04:00 Ordered CBC W DIFF Stat Lab 05/23/21 18:13 Completed CMP AM.LAB Lab 05/24/21 04:00 Ordered CMP Stat Lab 05/23/21 18:13 Completed LIPASE Stat Lab 05/23/21 18:13 Completed Lactic Acid Stat Lab 05/23/21 18:19 Completed MAGNESIUM Routine Lab 05/23/21 18:13 Completed NT PRO BNP Routine Lab 05/23/21 18:13 Completed TROPONIN Q3H Lab 05/23/21 18:13 Completed TROPONIN Q3H Lab 05/23/21 21:40 Received TROPONIN Q3H Lab 05/24/21 00:15 Ordered TROPONIN Q3H Lab 05/24/21 03:15 Ordered TROPONIN Q3H Lab 05/24/21 06:15 Ordered UA W/RFX UR CULTURE Stat Lab 05/23/21 18:05 Ordered Oxygen Nasal Cannula 3 lpm RT 05/23/21 21:11 Active Transfer Order Routine Transfer 05/23/21 Completed Medication Summary Generic Name Dose Route Start Last Admin Trade Name Freq PRN Reason Stop Dose Admin Acetaminophen 650 mg 05/23/21 21:11 Acetaminophen 325 Mg Tablet PO 06/22/21 21:10 Q4H PRN PRN PAIN AND/OR FEVER Albuterol/Ipratropium 3 ml 05/24/21 01:00 Ipratropium/Albuterol Sulfate 3 Ml Ampul.Neb 06/23/21 00:59 Q6HRT AMMY Potassium Chloride/Sodium Chloride 1,000 mls @ 100 mls/hr 05/23/21 21:11 Sodium Chloride 0.9% W/ 20 Meq Kcl/Liter IV 06/22/21 21:10 .Q10H AMMY Morphine Sulfate 2 mg 05/23/21 21:11 Morphine Sulfate 2 Mg/Ml Inj IV 05/28/21 21:10 Q4H PRN PRN PAIN Ondansetron HCl 4 mg 05/23/21 21:11 Ondansetron Hcl 4 Mg/2 Ml Vial IV 06/22/21 21:10 Q6H PRN PRN NAUSEA/VOMITING Pantoprazole Sodium 40 mg 05/24/21 10:00 Pantoprazole 40 Mg Vial IV 06/23/21 09:59 Q24H10 AMMY Vancomycin HCl 125 mg 05/23/21 22:00 Vancomycin Hcl 125 Mg Capsule PO 06/22/21 21:59 QID AMMY Discontinued Medications Generic Name Dose Route Start Last Admin Trade Name Freq PRN Reason Stop Dose Admin Albuterol/Ipratropium 3 ml 05/23/21 18:08 05/23/21 18:38 Ipratropium/Albuterol Sulfate 3 Ml Ampul.Neb IH 05/23/21 18:09 3 ml STAT ONE Administration Albuterol/Ipratropium Confirm 05/23/21 18:19 Ipratropium/Albuterol Sulfate 3 Ml Ampul.Neb Administered 05/23/21 18:20 Dose 3 ml IH .STK-MED ONE Sodium Chloride 1,000 mls @ 999 mls/hr 05/23/21 18:03 05/23/21 19:30 Sodium Chloride 0.9% 1000 Ml IV 05/23/21 19:03 Infused .Q1H1M STA Infusion Sodium Chloride Confirm 05/23/21 18:12 Sodium Chloride 0.9% 1000 Ml Administered 05/23/21 18:13 Dose 1,000 mls @ ud .ROUTE .STK-MED ONE Vancomycin HCl 5 ml 05/23/21 22:00 05/23/21 20:18 Vancomycin Oral Solution 25mg/Ml 150ml Bottle PO 06/22/21 21:59 Not Given QID AMMY Vancomycin HCl 125 mg 05/23/21 20:22 05/23/21 20:31 Vancomycin Hcl 125 Mg Capsule PO 05/23/21 20:23 125 mg STAT ONE Administration Lab/Rad Data: Laboratory Result Diagrams 05/23/21 18:13 05/23/21 18:13 Laboratory Results 05/23/21 05/23/21 05/23/21 Range/Units 18:38 18:32 18:19 WBC (4.0-10.5) K/mm3 RBC (4.1-5.6) M/mm3 Hgb (12.5-18.0) gm/dl Hct (42-50) % MCV (78-100) fl MCH (26-32) pg MCHC (32-36) g/dl RDW (11.5-14.0) % Plt Count (150-450) K/mm3 MPV (7.5-11.0) fl Gran % (36.0-66.0) % Eos # (Auto) (0-0.5) Absolute Lymphs (auto) (1.0-4.6) Absolute Monos (auto) (0.0-1.3) Lymphocytes % (24.0-44.0) % Monocytes % (0.0-12.0) % Eosinophils % (0.00-5.0) % Basophils % (0.0-0.4) % Absolute Granulocytes (1.4-6.9) Basophils # (0-0.4) Sodium (137-145) mmol/L Potassium (3.5-5.1) mmol/L Chloride (98-107) mmol/L Carbon Dioxide (22-30) mmol/L Anion Gap (5-15) MEQ/L BUN (9-20) mg/dL Creatinine (0.66-1.25) mg/dL Estimated GFR ML/MIN Glucose (74-106) mg/dL Lactic Acid 1.3 (0.4-2.0) Calcium (8.4-10.2) mg/dL Magnesium (1.6-2.3) mg/dL Total Bilirubin (0.2-1.3) mg/dL AST (17-59) U/L ALT (0-50) U/L Alkaline Phosphatase (38-126) U/L Troponin I (0.000-0.034) ng/mL NT-Pro-B Natriuret Pep (0-900) pg/mL Serum Total Protein (6.3-8.2) g/dL Albumin (3.5-5.0) g/dL Lipase (23-300) U/L C. difficile Screen POSITIVE (NEGATIVE) C.difficile 027-[id number] PRESUMPTIVE NEGATIVE (NEGATIVE) Influenza Type A Ag NEGATIVE (NEGATIVE) Influenza Type B Ag NEGATIVE (NEGATIVE) RSV (PCR) NEGATIVE (Negative) SARS-CoV-2 (PCR) NEGATIVE (NEGATIVE) 05/23/21 05/23/21 05/23/21 Range/Units 18:13 18:13 18:13 WBC 8.2 (4.0-10.5) K/mm3 RBC 3.52 L (4.1-5.6) M/mm3 Hgb 10.7 L (12.5-18.0) gm/dl Hct 34.7 L (42-50) % MCV 98.6 (78-100) fl MCH 30.4 (26-32) pg MCHC 30.8 L (32-36) g/dl RDW 15.9 H (11.5-14.0) % Plt Count 297 (150-450) K/mm3 MPV 9.5 (7.5-11.0) fl Gran % 69.0 H (36.0-66.0) % Eos # (Auto) 0.13 (0-0.5) Absolute Lymphs (auto) 1.13 (1.0-4.6) Absolute Monos (auto) 1.25 (0.0-1.3) Lymphocytes % 13.9 L (24.0-44.0) % Monocytes % 15.3 H (0.0-12.0) % Eosinophils % 1.6 (0.00-5.0) % Basophils % 0.2 (0.0-0.4) % Absolute Granulocytes 5.62 (1.4-6.9) Basophils # 0.02 (0-0.4) Sodium 137 (137-145) mmol/L Potassium 3.7 (3.5-5.1) mmol/L Chloride 93 L (98-107) mmol/L Carbon Dioxide 39 H (22-30) mmol/L Anion Gap 8.7 (5-15) MEQ/L BUN 16 (9-20) mg/dL Creatinine 0.48 L (0.66-1.25) mg/dL Estimated GFR > 60.0 ML/MIN Glucose 123 H (74-106) mg/dL Lactic Acid (0.4-2.0) Calcium 9.0 (8.4-10.2) mg/dL Magnesium 2.2 (1.6-2.3) mg/dL Total Bilirubin 0.70 (0.2-1.3) mg/dL AST 18 (17-59) U/L ALT 12 (0-50) U/L Alkaline Phosphatase 68 (38-126) U/L Troponin I < 0.012 (0.000-0.034) ng/mL NT-Pro-B Natriuret Pep 888 (0-900) pg/mL Serum Total Protein 5.9 L (6.3-8.2) g/dL Albumin 3.2 L (3.5-5.0) g/dL Lipase 61 (23-300) U/L C. difficile Screen (NEGATIVE) C.difficile 027-NAP1-B1 (NEGATIVE) Influenza Type A Ag (NEGATIVE) Influenza Type B Ag (NEGATIVE) RSV (PCR) (Negative) SARS-CoV-2 (PCR) (NEGATIVE) - Progress Progress: improved Progress Note: 05/23/21 20:41 66-year-old is evaluated for generalized weakness, diarrhea and abdominal pain. He is given fluid bolus, on reevaluation feeling somewhat better. Normal white count, grossly unremarkable chemistries. EKG showed sinus rhythm without ST elevation and negative troponins. CT head is negative. CT chest showed chronic bronchitis and patient is maintaining oxygen saturation around 96% on 3 L and is given breathing treatment. CT abdomen showed diffuse colitis and stool is positive for C. difficile. Started on oral vancomycin. I believe patient has C. difficile colitis, discussed with Dr. Serrano and patient is accepted for admission. Discussed with : Torres Counseled pt/family regarding: lab results, diagnosis, rad results, smoking cessation - Departure Departure Disposition: Observation Clinical Impression: C. difficile colitis, COPD with chronic bronchitis Condition: Stable Critical Care Time: No
[2021-05-23] MEDS ORDERED: MORPHINE SULFATE 2 MG INJ IV PRN (21:11)
[2021-05-23] MEDS ORDERED: TYLENOL 325 MG PO PRN (21:11)
[2021-05-23] MEDS ORDERED: Zofran 4 MG/2 ML VIAL IV PRN (21:11)
[2021-05-23] MEDS ORDERED: VANCOMYCIN 25MG/ML ORAL SOLUTION COMPOUND KIT PO SCH (22:00)
[2021-05-23] MEDS: DUONEB 0.5-3 MG/3 ml Neb IH SCH (22:20)
[2021-05-23] MEDS: VANCOMYCIN HCL CAPSULE PO SCH (23:50)
[2021-05-23] MEDS: Sodium Chloride 0.9% W/ 20 mEq KCl/LITER 1,000 ML IV SCH (23:51)
[2021-05-24] MEDS ORDERED: DUONEB 0.5-3 MG/3 ml Neb IH SCH (01:00)
[2021-05-24] MEDS: DUONEB 0.5-3 MG/3 ml Neb IH SCH ×6 (02:40→23:23)
[2021-05-24 04:04] LABS: ALBUMIN 2.9 g/dL (3.5-5.0); ALKALINE PHOSPHATASE 68 U/L (38-126); BLOOD UREA NITROGEN 12 mg/dL (9-20); CHLORIDE 95 mmol/L (98-107); Calcium 8.5 mg/dL (8.4-10.2); Creatinine 1 0.57 mg/dL (0.66-1.25); EST GLOMERULAR FILTRATION RATE > 60.0 ML/MIN; Glucose 84 mg/dL (74-106); Potassium 3.5 mmol/L (3.5-5.1); SGOT/AST 17 U/L (17-59); SGPT/ALT 10 U/L (0-50); SODIUM 139 mmol/L (137-145); Total Protein 5.6 g/dL (6.3-8.2)
[2021-05-24 04:10] LABS: Carbon Dioxide 39 mmol/L (22-30)
[2021-05-24 04:11] LABS: ANION GAP 8.5 MEQ/L (5-15)
[2021-05-24 04:33] LABS: Hematocrit 34.2 % (42-50); Hemoglobin 10.4 gm/dl (12.5-18.0); Mean Cell Volume 98.3 fl (78-100); Mean Corpuscular Hemoglobin 29.9 pg (26-32); Mean Corpuscular Hgb Concent. 30.4 g/dl (32-36); Mean Platelet Volume 9.4 fl (7.5-11.0); Platelet Count 277 K/mm3 (150-450); Red Blood Count 3.48 M/mm3 (4.1-5.6); White Blood Count 7.2 K/mm3 (4.0-10.5)
[2021-05-24 06:20] LABS: Basophil 1 % (0.0-1.0); Lymphocytes 12 % (24-44); Monocyte 23 % (0.0-12.0); Total Cells Counted 100
[2021-05-24 06:24] LABS: Platelet Estimate NORMAL (NORMAL); Poikilocytosis 1+; Polychromasia 1+
[2021-05-24] MEDS: Sodium Chloride 0.9% W/ 20 mEq KCl/LITER 1,000 ML IV SCH ×2 (08:29→20:40)
--- NOTE | 2021-05-24 08:37 | XRAY ---
Indication: Weakness. Multiple contiguous axial images obtained through the head without contrast. Comparison: May 19, 2021. Continued normal appearing brain parenchyma, ventricles, and bony calvarium for patient's age. Visualized paranasal sinuses and mastoid air cells remain clear. Impression: Continued normal CT head without contrast exam. Comment: Preliminary interpretation made by [facility]. No critical discrepancy.
--- NOTE | 2021-05-24 08:45 | XRAY ---
Indication: Short of breath, weakness, abdomen pain, and chronic diarrhea. Multiple contiguous axial images obtained through the chest without contrast. Comparison: June 10, 2020. Study slightly degraded by respiration artifact especially through lung bases. Lung bases demonstrates mild dependent atelectasis less than before. No focal infiltrate or effusion. Remaining lungs demonstrate scattered fibrosis/scarring again greatest in both upper lobes and mild pulmonary emphysema. Left upper lobe now demonstrates 9 x 16 mm noncalcified masslike opacity with spiculated margins. Right upper lobe demonstrates new 7 mm subpleural calcified granuloma. Stable bibasilar calcified granulomas. Heart not enlarged. Aorta remains minimally arteriosclerotic without aneurysm. Again a few tiny right perihilar calcified granulomas. No pathologic mediastinal lymphadenopathy. Bony thorax intact again with mild degenerative changes of the spine and sternotomy wires. CT abdomen/pelvis report separately. Impression: 1. Respiration artifact. 2. New left upper lobe noncalcified masslike opacity. PET/CT may yield further information. 3. Again pulmonary emphysema, scattered fibrosis/scarring, chronic bony findings, and old granulomatous disease. 4. Remaining CT chest without contrast exam is negative. Comment: Preliminary interpretation made by [facility] who does not report incidental left upper lobe mass like opacity.
--- NOTE | 2021-05-24 08:51 | XRAY ---
Indication: Short of breath, weakness, abdomen pain, and chronic diarrhea. Multiple contiguous axial images obtained through the abdomen and pelvis without contrast. Comparison: August 15, 2014. CT chest reported separately. Noncontrasted stomach and bowel loops appear nonobstructed. Colon now demonstrates moderate diffuse circumferential wall thickening with mild pericolonic stranding favoring colitis. New tiny free fluid along both colic gutters and perihepatic presumed reactive. No walled off fluid collection or free air. Stable cholecystectomy, tiny hepatic cysts, nonobstructing left renal micro-calculus, splenic calcified granulomas, and chunky prostate calcifications. Remaining liver, pancreas, spleen, adrenal glands, kidneys, ureters, and bladder are unremarkable for noncontrast exam. There is again aortobiiliac stent graft with stable 4.1 cm AAA. Lack of IV contrast precludes further characterization. Osseous structures intact again with mild degenerative changes throughout the spine and left total hip arthroplasty. Impression: 1. New CT findings favoring diffuse colitis with small free fluid. No walled off fluid collection or free air. 2. Again incidental hepatic cysts, nonobstructing left renal micro-calculus, benign chunky prostate calcifications, distal AAA with aortobiiliac stent graft, and chronic bony findings. Comment: Preliminary interpretation made by [facility]. No critical discrepancy.
[2021-05-24] MEDS: PROTONIX 40 MG IV IV SCH (09:33)
[2021-05-24] MEDS: VANCOMYCIN HCL CAPSULE PO SCH (09:33)
[2021-05-24] MEDS ORDERED: Ventolin Hfa MDI IH PRN (09:51)
[2021-05-24] MEDS ORDERED: NON-FORMULARY ITEM (Albuterol/Ipratropium Cc** [Combivent Inhaler Common Canister**] 1 PUF IH PRN (09:51)
[2021-05-24] MEDS ORDERED: Nitrostat 0.4 MG Tablet SL PRN (09:51)
[2021-05-24] MEDS ORDERED: NON-FORMULARY ITEM (Fluticasone/Umeclidin/Vilanter [Trelegy Ellipta 100-62.5-25] 1 EACH Bl IH SCH (10:00)
[2021-05-24] MEDS ORDERED: LIPITOR 40MG PO SCH (10:00)
[2021-05-24] MEDS ORDERED: NON-FORMULARY ITEM (Rivaroxaban [Xarelto] 20 MG Tablet) PO SCH (10:00)
[2021-05-24] MEDS ORDERED: NON-FORMULARY ITEM (Aspirin [Aspirin] 81 MG Tablet) PO SCH (10:00)
[2021-05-24] MEDS ORDERED: VENTOLIN COMMON CANISTER IH PRN (10:06)
[2021-05-24] MEDS ORDERED: MEDICATION INTERVENTION MC SCH (10:15)
[2021-05-24] MEDS: ECOTRIN 81 MG PO SCH (10:20)
[2021-05-24] MEDS: Imdur 60MG PO SCH (10:20)
[2021-05-24] MEDS: ZOCOR 20MG PO SCH (10:20)
[2021-05-24] MEDS: XARELTO 10 MG TABLET PO SCH (10:20)
[2021-05-24] MEDS: Imdur 30 MG PO SCH (10:20)
[2021-05-24] MEDS: Coreg 6.25 MG PO SCH (10:22)
[2021-05-24 11:57] LABS: Mucus SLIGHT /HPF (NEGATIVE)
[2021-05-24 11:58] LABS: Appearance CLEAR (CLEAR); Bilirubin NEGATIVE (NEGATIVE); Glucose NEGATIVE (NEGATIVE); Ketones NEGATIVE (NEGATIVE); Nitrite NEGATIVE (NEGATIVE); Protein,Urine Dip NEGATIVE (Negative); RBC MODERATE NON-HEM Ery/ul (0-5); Urine Cultured Indicated? NO; Urobilinogen 0.2 mg/dL (0-1)
[2021-05-24 11:59] LABS: Dipstick done @ ? MAIN LAB
[2021-05-24] MEDS: solu-MEDROL 80 MG, Sterile H2O 10 ml 2 ML IV SCH ×4 (14:16→21:46)
[2021-05-24] MEDS: NEOSYNEPHRINE 0.5% NASAL SPRAY/DROPS NS PRN ×2 (16:24→17:25)
[2021-05-24] MEDS ORDERED: NEOSYNEPHRINE 0.5% NASAL SPRAY/DROPS NS PRN (16:26)
[2021-05-24] MEDS: COREG 12.5 MG PO SCH (17:50)
[2021-05-24] MEDS ORDERED: PHARMACY DOSING REQUIRED: VANCOMYCIN IV STA (18:03)
[2021-05-24] MEDS ORDERED: VANCOMYCIN 1 GRAM/200 ML BAG 1 GM/200 ML PIGGYBACK IV ONE (18:15)
--- NOTE | 2021-05-24 20:04 | PCM.HP ---
History of Present Illness - Chief Complaint Chief Complaint: CDIFF History of Present Illness: is a 66 year old male who was discharged after a short hospital stay with diarrhea and C.diff but diarrhea was frequent and ptn represented to ER with weakness/volume depletion,states he feels better after IV fluids but still having diarrhea about 3-4 x an hour. He is on oral Vancomycin . NOTE -Visit this morning , at bedside then revisited this evening due to nose bleed. PMHx includes HTN,CHF,CAD on Xarelto and ASA,COPD,Hypothyroid ,nose bleeds followed by ENT [place]. Note patient developed epistaxis today and was packed with neosynephrine packing right nostril. - Review of Systems Constitutional: Lethargy Eyes: No Symptoms Ears, Nose, & Throat: No Symptoms, Epistaxis (right nostril just flared up today) Respiratory: No Symptoms Cardiac: No Symptoms Abdominal/Gastrointestinal: Diarrhea Genitourinary Symptoms: No Symptoms Musculoskeletal: No Symptoms Skin: No Symptoms Neurological: No Symptoms Medications & Allergies Home Medications: Home Medication List Aspirin 81 mg PO DAILY 06/12/13 [History Confirmed 05/23/21] Carvedilol 6.25 mg [Coreg 6.25 MG] 6.25 mg PO DAILY 06/12/13 [History Confirmed 05/23/21] Levothyroxine Sodium 150 mcg PO DAILY 06/12/13 [History Confirmed 05/23/21] Isosorbide Mononitrate [Isosorbide Mononitrate ER] 90 mg PO DAILY 01/20/15 [History Confirmed 05/23/21] Albuterol Sulfate [Albuterol Sulfate Hfa] 8.5 gm IH Q4H PRN #1 hfa.aer.ad 07/25/18 [Rx Confirmed 05/23/21] Atorvastatin Calcium 40 mg PO DAILY 07/25/18 [History Confirmed 05/23/21] Nitroglycerin [Nitrostat] 0.4 mg SL Q5MIN PRN MR X 3 PRN 07/25/18 [History Confirmed 05/23/21] Albuterol/Ipratropium 3ml Neb* [DUONEB 0.5-3 MG/3 ml Neb] 3 ml NEB Q4H 07/31/19 [History Confirmed 05/23/21] Fluticasone/Umeclidin/Vilanter [Trelegy Ellipta 100-62.5-25] 1 each IH DAILY 08/08/19 [History Confirmed 05/23/21] Rivaroxaban [Xarelto] 20 mg PO DAILY 30 Days #30 tablet 06/13/20 [Rx Confirmed 05/23/21] Carvedilol 12.5 mg [Coreg 12.5 mg] 12.5 mg PO EVENING MEAL 03/21/21 [History Confirmed 05/23/21] Furosemide 40 mg [Lasix 40 MG] 20 mg PO DAILY PRN PRN 03/21/21 [History Confirmed 05/23/21] Albuterol/Ipratropium cc [Combivent Inhaler COMMON CANISTER] 1 ea IH UD PRN 05/23/21 [History Confirmed 05/23/21] Allergies/Adverse Reactions: Allergies Allergy/AdvReac Type Severity Reaction Status Date / Time No Known Drug Allergies Allergy Verified 05/23/21 17:34 - Past Medical History Past Medical History: Yes Neurological History: No Pertinent History ENT History: No Pertinent History Cardiac History: Aneurysm, Angina, Congestive Heart Failure, Coronary Artery Disease, High Cholesterol, Other Respiratory History: CHF, COPD Endocrine Medical History: Hypothyroidism Musculoskelatal History: No Pertinent History GI Medical History: Gallbladder Disease History: No Pertinent History Pyscho-Social History: No Pertinent History Male Reproductive Disorders: No Pertinent History Comment: Right knee implant, left hip implant, HYPOTENSION - Past Surgical History Past Surgical History: Yes Neuro Surgical History: No Pertinent History Cardiac History: CABG, Cardiac Stent Respiratory Surgery: No Pertinent History GI Surgical History: Cholecystectomy Genitourinary Surgical Hx: No Pertinent History Musculskeletal Surgical Hx: Joint Replacement Male Surgical History: No Pertinent History Other Surgical History: R knee, L hip replacement. Aortic aneursym repair - Social History Smoking Status: Current every day smoker How long have you smoked: 40 YEARS Exposure to second hand smoke: No Alcohol: None, Rarely Drug Use: none - Physical Exam Vital Signs: Vital Signs - 24 hr Temp Pulse Resp BP Pulse Ox 05/24/21 19:09 71 22 97 05/24/21 17:00 99.0 F 84 24 116/62 97 05/24/21 16:45 92 L 05/24/21 15:00 80 16 95 04/18/22 13:00 97.8 F 70 24 116/63 92 L 05/24/21 10:50 96 H 20 05/24/21 10:39 96 05/24/21 07:30 77 16 96 05/24/21 07:29 98.1 F 79 16 136/63 95 05/24/21 03:38 99.1 F 82 31 H 169/74 90 L 05/24/21 02:40 89 20 91 L 05/24/21 00:00 99.3 F 83 28 H 128/60 88 L 05/23/21 22:20 85 20 95 05/23/21 21:52 94 L 05/23/21 21:11 97.7 F 80 26 H 140/73 94 L 05/23/21 20:59 84 34 H 130/80 94 L 05/23/21 20:27 81 42 H 133/84 94 L General Appearance: no apparent distress, other (sitting at bedside states feels better sitting,is nauseated when laying back in bed.) Neurologic Exam: alert, oriented x 3, cooperative, normal mood/affect Eye Exam: eyes nml inspection, EOM palsy/anisocoria Ears, Nose, Throat Exam: moist mucous membranes, other (right nostril nose bleed,packed with neosynephrine,controlled) Neck Exam: normal inspection Respiratory Exam: diminished breath sounds (bases) Cardiovascular Exam: regular rate/rhythm Gastrointestinal/Abdomen Exam: soft (increased BS,tender LLQ,no guarding) Rectal Exam: not done Back Exam: normal inspection Extremity Exam: normal inspection Skin Exam: warm, dry, pale Results - Labs Lab/Micro Results: Lab Results-Last 24 Hours 05/23/21 05/23/21 05/24/21 Range/Units 18:05 21:40 00:21 WBC (4.0-10.5) K/mm3 RBC (4.1-5.6) M/mm3 Hgb (12.5-18.0) gm/dl Hct (42-50) % MCV (78-100) fl MCH (26-32) pg MCHC (32-36) g/dl RDW (11.5-14.0) % Plt Count (150-450) K/mm3 MPV (7.5-11.0) fl Segmented Neutrophils (36.-66.) % Lymphocytes (Manual) (24-44) % Monocytes (Manual) (0.0-12.0) % Basophils (Manual) (0.0-1.0) % Platelet Estimate (NORMAL) RBC Morphology Polychromasia Poikilocytosis Sodium (137-145) mmol/L Potassium (3.5-5.1) mmol/L Chloride (98-107) mmol/L Carbon Dioxide (22-30) mmol/L Anion Gap (5-15) MEQ/L BUN (9-20) mg/dL Creatinine (0.66-1.25) mg/dL Estimated GFR ML/MIN Glucose (74-106) mg/dL Calcium (8.4-10.2) mg/dL Total Bilirubin (0.2-1.3) mg/dL AST (17-59) U/L ALT (0-50) U/L Alkaline Phosphatase (38-126) U/L Troponin I < 0.012 < 0.012 (0.000-0.034) ng/mL Serum Total Protein (6.3-8.2) g/dL Albumin (3.5-5.0) g/dL TSH 3rd Generation (0.47-4.68) mIU/L Urinalys Dipstick Clnc MAIN LAB Urine Color LT.YELLOW (YELLOW) Urine Appearance CLEAR (CLEAR) Urine pH 7.0 (5-6) Ur Specific [place] 1.020 (1.005-1.025) POC Urine Protein Conf NEGATIVE (Negative) Urine Ketones NEGATIVE (NEGATIVE) Urine Nitrite NEGATIVE (NEGATIVE) Urine Bilirubin NEGATIVE (NEGATIVE) Urine Urobilinogen 0.2 (0-1) mg/dL Urine Leukocytes NEGATIVE (NEGATIVE) Urine WBC (Auto) NONE (0-5) /HPF Urine RBC (Auto) NONE (0-2) /HPF Urine RBC MODERATE NON-HEM (0-5) Jake/ul Urine Mucus (Auto) SLIGHT (NEGATIVE) /HPF Ur Culture Indicated? NO Urine Glucose NEGATIVE (NEGATIVE) mg/dL 05/24/21 05/24/21 05/24/21 Range/Units 03:30 03:35 03:35 WBC 7.2 (4.0-10.5) K/mm3 RBC 3.48 L (4.1-5.6) M/mm3 Hgb 10.4 L (12.5-18.0) gm/dl Hct 34.2 L (42-50) % MCV 98.3 (78-100) fl MCH 29.9 (26-32) pg MCHC 30.4 L (32-36) g/dl RDW 16.0 H (11.5-14.0) % Plt Count 277 (150-450) K/mm3 MPV 9.4 (7.5-11.0) fl Segmented Neutrophils 64 (36.-66.) % Lymphocytes (Manual) 12 L (24-44) % Monocytes (Manual) 23 H (0.0-12.0) % Basophils (Manual) 1 (0.0-1.0) % Platelet Estimate NORMAL (NORMAL) RBC Morphology ABNORMAL Polychromasia 1+ Poikilocytosis 1+ Sodium (137-145) mmol/L Potassium (3.5-5.1) mmol/L Chloride (98-107) mmol/L Carbon Dioxide (22-30) mmol/L Anion Gap (5-15) MEQ/L BUN (9-20) mg/dL Creatinine (0.66-1.25) mg/dL Estimated GFR ML/MIN Glucose (74-106) mg/dL Calcium (8.4-10.2) mg/dL Total Bilirubin (0.2-1.3) mg/dL AST (17-59) U/L ALT (0-50) U/L Alkaline Phosphatase (38-126) U/L Troponin I < 0.012 (0.000-0.034) ng/mL Serum Total Protein (6.3-8.2) g/dL Albumin (3.5-5.0) g/dL TSH 3rd Generation 0.855 (0.47-4.68) mIU/L Urinalys Dipstick Clnc Urine Color (YELLOW) Urine Appearance (CLEAR) Urine pH (5-6) Ur Specific [place] (1.005-1.025) POC Urine Protein Conf (Negative) Urine Ketones (NEGATIVE) Urine Nitrite (NEGATIVE) Urine Bilirubin (NEGATIVE) Urine Urobilinogen (0-1) mg/dL Urine Leukocytes (NEGATIVE) Urine WBC (Auto) (0-5) /HPF Urine RBC (Auto) (0-2) /HPF Urine RBC (0-5) Jake/ul Urine Mucus (Auto) (NEGATIVE) /HPF Ur Culture Indicated? Urine Glucose (NEGATIVE) mg/dL 05/24/21 05/24/21 Range/Units 03:35 06:20 WBC (4.0-10.5) K/mm3 RBC (4.1-5.6) M/mm3 Hgb (12.5-18.0) gm/dl Hct (42-50) % MCV (78-100) fl MCH (26-32) pg MCHC (32-36) g/dl RDW (11.5-14.0) % Plt Count (150-450) K/mm3 MPV (7.5-11.0) fl Segmented Neutrophils (36.-66.) % Lymphocytes (Manual) (24-44) % Monocytes (Manual) (0.0-12.0) % Basophils (Manual) (0.0-1.0) % Platelet Estimate (NORMAL) RBC Morphology Polychromasia Poikilocytosis Sodium 139 (137-145) mmol/L Potassium 3.5 (3.5-5.1) mmol/L Chloride 95 L (98-107) mmol/L Carbon Dioxide 39 H (22-30) mmol/L Anion Gap 8.5 (5-15) MEQ/L BUN 12 (9-20) mg/dL Creatinine 0.57 L (0.66-1.25) mg/dL Estimated GFR > 60.0 ML/MIN Glucose 84 (74-106) mg/dL Calcium 8.5 (8.4-10.2) mg/dL Total Bilirubin 0.70 (0.2-1.3) mg/dL AST 17 (17-59) U/L ALT 10 (0-50) U/L Alkaline Phosphatase 68 (38-126) U/L Troponin I < 0.012 (0.000-0.034) ng/mL Serum Total Protein 5.6 L (6.3-8.2) g/dL Albumin 2.9 L (3.5-5.0) g/dL TSH 3rd Generation (0.47-4.68) mIU/L Urinalys Dipstick Clnc Urine Color (YELLOW) Urine Appearance (CLEAR) Urine pH (5-6) Ur Specific [place] (1.005-1.025) POC Urine Protein Conf (Negative) Urine Ketones (NEGATIVE) Urine Nitrite (NEGATIVE) Urine Bilirubin (NEGATIVE) Urine Urobilinogen (0-1) mg/dL Urine Leukocytes (NEGATIVE) Urine WBC (Auto) (0-5) /HPF Urine RBC (Auto) (0-2) /HPF Urine RBC (0-5) Jake/ul Urine Mucus (Auto) (NEGATIVE) /HPF Ur Culture Indicated? Urine Glucose (NEGATIVE) mg/dL - Radiology Impressions Radiology Exams & Impressions: Radiology Procedures Category Date Time Status ABDOMEN AND PELVIS W/0 CONTRAS [CT] Stat Exams 05/23/21 18:05 Completed CHEST WITHOUT CONTRAST [CT] Stat Exams 05/23/21 18:07 Completed HEAD WITHOUT CONTRAST [CT] Stat Exams 05/23/21 18:07 Completed - Other Procedures and Tests Respiratory Therapy 05/23/21 21:11 Oxygen Nasal Cannula 3 lpm 05/24/21 08:00 Respiratory MDI DAILY Assessment/Plan (1) C. difficile colitis Current Visit: Yes Status: Acute Assessment & Plan: readmission for volume depletion from C.diff (reported + on 05/23/21) failed oral tx as outpatient. Started IV Vancomycin-was on oral. Started IV steroid for colitis. Code(s): A04.72 - ENTEROCOLITIS D/T CLOSTRIDIUM DIFFICILE, NOT SPCF RECUR (2) Volume depletion, gastrointestinal loss Current Visit: Yes Status: Acute Assessment & Plan: IV fluids,monitor Code(s): E86.9 - VOLUME DEPLETION, UNSPECIFIED (3) CAD (coronary artery disease) Current Visit: Yes Status: Chronic Assessment & Plan: no chest pain Code(s): I25.10 - ATHSCL HEART DISEASE OF [place] CORONARY ARTERY W/O ANG PCTRS (4) CHF (congestive heart failure) Current Visit: Yes Status: Chronic Assessment & Plan: monitor Code(s): I50.9 - HEART FAILURE, UNSPECIFIED (5) Hypothyroid Current Visit: Yes Status: Chronic Assessment & Plan: TSH tested ,was 0.88 on current dose ? 150mcg- need to verify and will reduce dose. Code(s): E03.9 - HYPOTHYROIDISM, UNSPECIFIED (6) Anticoagulant long-term use Current Visit: Yes Status: Chronic Code(s): Z79.01 - [facility] (CURRENT) USE OF ANTICOAGULANTS (7) Bleeding from the nose Current Visit: No Status: Acute Assessment & Plan: acute ,stable with packing Code(s): R04.0 - EPISTAXIS
[2021-05-25] MEDS: PATIENT OWN MEDICATION IH SCH ×2 (01:33→07:24)
[2021-05-25] MEDS: DUONEB 0.5-3 MG/3 ml Neb IH SCH ×6 (03:55→22:56)
[2021-05-25 05:16] LABS: Absolute Neutrophil Ct (ANC) 5.83 (1.4-6.9); Basophil (Absolute #) 0.01 (0-0.4); Eosinophil (Absolute #) 0 (0-0.5); Hematocrit 31.6 % (42-50); Hemoglobin 9.9 gm/dl (12.5-18.0); Lymphocyte (Absolute #) 0.39 (1.0-4.6); Lymphocytes % 6.2 % (24.0-44.0); Mean Cell Volume 95.5 fl (78-100); Mean Corpuscular Hemoglobin 29.9 pg (26-32); Mean Corpuscular Hgb Concent. 31.3 g/dl (32-36); Mean Platelet Volume 9.8 fl (7.5-11.0); Monocyte (Absolute #) 0.06 (0.0-1.3); Neutrophil % 92.6 % (36.0-66.0); Platelet Count 262 K/mm3 (150-450); Red Blood Count 3.31 M/mm3 (4.1-5.6); Red Cell Distribution Width 16.4 % (11.5-14.0); White Blood Count 6.3 K/mm3 (4.0-10.5)
[2021-05-25 05:44] LABS: Slide Review 1 YES
[2021-05-25 05:50] LABS: ALKALINE PHOSPHATASE 58 U/L (38-126); ANION GAP 5.7 MEQ/L (5-15); BLOOD UREA NITROGEN 15 mg/dL (9-20); CHLORIDE 96 mmol/L (98-107); Calcium 7.7 mg/dL (8.4-10.2); Carbon Dioxide 38 mmol/L (22-30); Creatinine 1 0.41 mg/dL (0.66-1.25); EST GLOMERULAR FILTRATION RATE > 60.0 ML/MIN; Glucose 149 mg/dL (74-106); Potassium 3.6 mmol/L (3.5-5.1); SGOT/AST 20 U/L (17-59); SGPT/ALT 12 U/L (0-50); SODIUM 137 mmol/L (137-145); Total Protein 5.9 g/dL (6.3-8.2)
[2021-05-25] MEDS: solu-MEDROL 80 MG, Sterile H2O 10 ml 2 ML IV SCH ×6 (06:03→21:00)
[2021-05-25] MEDS: SYNTHROID 125 MCG PO SCH (06:03)
[2021-05-25] MEDS: Sodium Chloride 0.9% W/ 20 mEq KCl/LITER 1,000 ML IV SCH ×2 (06:20→15:29)
[2021-05-25] MEDS ORDERED: VANCOMYCIN 1.25 GM/250 ML BAG 1.25 GM/250 ML PIGGYBACK IV SCH (08:00)
[2021-05-25] MEDS ORDERED: AMOXIL 500 MG PO ONE (10:00)
[2021-05-25] MEDS: Acidophilus TABLET PO SCH (10:08)
[2021-05-25] MEDS: VANCOMYCIN HCL CAPSULE PO SCH ×4 (10:08→20:59)
[2021-05-25] MEDS: Coreg 6.25 MG PO SCH (10:08)
[2021-05-25] MEDS: ECOTRIN 81 MG PO SCH (10:08)
[2021-05-25] MEDS: ZOCOR 20MG PO SCH (10:08)
[2021-05-25] MEDS: AMOXIL 500 MG PO SCH ×3 (10:08→20:59)
[2021-05-25] MEDS: Imdur 60MG PO SCH (10:09)
[2021-05-25] MEDS: Imdur 30 MG PO SCH (10:09)
[2021-05-25] MEDS: XARELTO 10 MG TABLET PO SCH (10:09)
[2021-05-25] MEDS: PROTONIX 40 MG IV IV SCH (10:10)
[2021-05-25] MEDS: FLAGYL 500 MG IVPB 500 MG/100 ML BAG IV SCH ×3 (11:55→23:22)
[2021-05-25] MEDS: COREG 12.5 MG PO SCH (17:25)
[2021-05-26] MEDS: Sodium Chloride 0.9% W/ 20 mEq KCl/LITER 1,000 ML IV SCH ×4 (00:04→22:53)
[2021-05-26] MEDS: DUONEB 0.5-3 MG/3 ml Neb IH SCH ×6 (03:10→23:45)
[2021-05-26 04:51] LABS: Absolute Neutrophil Ct (ANC) 8.98 (1.4-6.9); Basophil (Absolute #) 0.01 (0-0.4); Eosinophil (Absolute #) 0 (0-0.5); Hematocrit 32.1 % (42-50); Hemoglobin 9.5 gm/dl (12.5-18.0); Lymphocyte (Absolute #) 0.27 (1.0-4.6); Lymphocytes % 2.8 % (24.0-44.0); Mean Cell Volume 94.1 fl (78-100); Mean Corpuscular Hemoglobin 27.9 pg (26-32); Mean Corpuscular Hgb Concent. 29.6 g/dl (32-36); Mean Platelet Volume 9.7 fl (7.5-11.0); Monocyte (Absolute #) 0.26 (0.0-1.3); Monocytes % 2.7 % (0.0-12.0); Neutrophil % 94.4 % (36.0-66.0); Platelet Count 250 K/mm3 (150-450); Red Blood Count 3.41 M/mm3 (4.1-5.6); Red Cell Distribution Width 16.6 % (11.5-14.0); White Blood Count 9.5 K/mm3 (4.0-10.5)
[2021-05-26 05:12] LABS: ALBUMIN 2.8 g/dL (3.5-5.0); ALKALINE PHOSPHATASE 56 U/L (38-126); BLOOD UREA NITROGEN 17 mg/dL (9-20); CHLORIDE 99 mmol/L (98-107); Carbon Dioxide 37 mmol/L (22-30); Creatinine 1 0.54 mg/dL (0.66-1.25); EST GLOMERULAR FILTRATION RATE > 60.0 ML/MIN; Glucose 117 mg/dL (74-106); Potassium 4.7 mmol/L (3.5-5.1); SGOT/AST 21 U/L (17-59); SGPT/ALT 12 U/L (0-50); SODIUM 138 mmol/L (137-145); Total Protein 5.5 g/dL (6.3-8.2)
[2021-05-26] MEDS ORDERED: CARDIZEM DRIP 100 MG/100 ML D5W 100 ML IV ONE (05:18)
[2021-05-26] MEDS ORDERED: Sodium Chloride 0.9% 1000 ML 1,000 ML ONE (05:30)
[2021-05-26] MEDS: CARDIZEM DRIP 100 MG/100 ML D5W 100 ML IV PRN ×2 (05:36→17:41)
[2021-05-26] MEDS: PATIENT OWN MEDICATION IH SCH (06:36)
[2021-05-26] MEDS: solu-MEDROL 80 MG, Sterile H2O 10 ml 2 ML IV SCH ×6 (06:52→22:53)
[2021-05-26] MEDS: FLAGYL 500 MG IVPB 500 MG/100 ML BAG IV SCH ×4 (06:52→23:00)
[2021-05-26] MEDS: SYNTHROID 125 MCG PO SCH (08:08)
[2021-05-26] MEDS: ZOCOR 20MG PO SCH (09:51)
[2021-05-26] MEDS: Coreg 6.25 MG PO SCH (09:51)
[2021-05-26] MEDS: Imdur 30 MG PO SCH (09:51)
[2021-05-26] MEDS: XARELTO 10 MG TABLET PO SCH (09:51)
[2021-05-26] MEDS: Acidophilus TABLET PO SCH (09:51)
[2021-05-26] MEDS: PROTONIX 40 MG IV IV SCH (09:51)
[2021-05-26] MEDS: Imdur 60MG PO SCH (09:51)
[2021-05-26] MEDS: VANCOMYCIN HCL CAPSULE PO SCH ×4 (09:52→22:53)
[2021-05-26] MEDS: ECOTRIN 81 MG PO SCH (09:52)
[2021-05-26 11:35] LABS: Slide Review 1 YES
[2021-05-26] MEDS ORDERED: TROUGH DRUG LEVELS IJ ONE (13:30)
[2021-05-26] MEDS: COREG 12.5 MG PO SCH (17:46)
[2021-05-27] MEDS: DUONEB 0.5-3 MG/3 ml Neb IH SCH ×6 (03:03→22:34)
[2021-05-27 04:57] LABS: Hemoglobin 9.7 gm/dl (12.5-18.0); Mean Corpuscular Hemoglobin 28.2 pg (26-32); Mean Corpuscular Hgb Concent. 30.3 g/dl (32-36); Mean Platelet Volume 9.5 fl (7.5-11.0); Platelet Count 260 K/mm3 (150-450); Red Blood Count 3.44 M/mm3 (4.1-5.6); White Blood Count 10.5 K/mm3 (4.0-10.5)
[2021-05-27 05:15] LABS: ANION GAP 6.2 MEQ/L (5-15); BLOOD UREA NITROGEN 19 mg/dL (9-20); CHLORIDE 101 mmol/L (98-107); Calcium 8.1 mg/dL (8.4-10.2); Carbon Dioxide 35 mmol/L (22-30); EST GLOMERULAR FILTRATION RATE > 60.0 ML/MIN; Glucose 115 mg/dL (74-106); Potassium 4.6 mmol/L (3.5-5.1); SODIUM 137 mmol/L (137-145)
[2021-05-27] MEDS: SYNTHROID 125 MCG PO SCH (06:01)
[2021-05-27] MEDS: FLAGYL 500 MG IVPB 500 MG/100 ML BAG IV SCH ×3 (06:01→17:55)
[2021-05-27] MEDS: solu-MEDROL 80 MG, Sterile H2O 10 ml 2 ML IV SCH ×6 (06:01→22:05)
[2021-05-27] MEDS: PATIENT OWN MEDICATION IH SCH (06:55)
[2021-05-27] MEDS ORDERED: Lasix 20 MG/2 ML IV SCH (08:45)
[2021-05-27] MEDS ORDERED: TRANDATE 20 MG/4 ML SYRINGE IV SCH (09:00)
[2021-05-27] MEDS: PROTONIX 40 MG IV IV SCH (09:31)
[2021-05-27] MEDS: VANCOMYCIN HCL CAPSULE PO SCH ×4 (09:32→22:05)
[2021-05-27] MEDS: Coreg 6.25 MG PO SCH (09:32)
[2021-05-27] MEDS: XARELTO 10 MG TABLET PO SCH (09:32)
[2021-05-27] MEDS: Acidophilus TABLET PO SCH (09:32)
[2021-05-27] MEDS: Imdur 30 MG PO SCH (09:32)
[2021-05-27] MEDS: ZOCOR 20MG PO SCH (09:32)
[2021-05-27] MEDS: Imdur 60MG PO SCH (09:32)
[2021-05-27] MEDS: ECOTRIN 81 MG PO SCH (09:33)
[2021-05-27] MEDS ORDERED: TRANDATE 20 MG/4 ML SYRINGE IV ONE (09:37)
[2021-05-27] MEDS ORDERED: Cardizem CD 180 MG PO SCH (10:00)
[2021-05-27] MEDS ORDERED: Romazicon 0.5 MG/5 ML Injection IV ONE (12:18)
[2021-05-27] MEDS ORDERED: Cardizem 30 MG PO SCH (15:45)
[2021-05-27] MEDS: Sodium Chloride 0.9% W/ 20 mEq KCl/LITER 1,000 ML IV SCH (15:56)
[2021-05-27] MEDS: COREG 12.5 MG PO SCH (17:56)
[2021-05-28] MEDS: FLAGYL 500 MG IVPB 500 MG/100 ML BAG IV SCH ×2 (00:03→05:54)
[2021-05-28] MEDS: DUONEB 0.5-3 MG/3 ml Neb IH SCH ×2 (03:26→07:22)
[2021-05-28 05:12] LABS: Hematocrit 32.3 % (42-50); Hemoglobin 10.1 gm/dl (12.5-18.0); Mean Cell Volume 91.5 fl (78-100); Mean Corpuscular Hemoglobin 28.6 pg (26-32); Mean Corpuscular Hgb Concent. 31.3 g/dl (32-36); Mean Platelet Volume 9.8 fl (7.5-11.0); Platelet Count 249 K/mm3 (150-450); Red Blood Count 3.53 M/mm3 (4.1-5.6); Red Cell Distribution Width 17.2 % (11.5-14.0); White Blood Count 17.1 K/mm3 (4.0-10.5)
[2021-05-28 05:45] LABS: ALBUMIN 2.7 g/dL (3.5-5.0); ALKALINE PHOSPHATASE 51 U/L (38-126); ANION GAP 9.4 MEQ/L (5-15); BLOOD UREA NITROGEN 17 mg/dL (9-20); CHLORIDE 99 mmol/L (98-107); Calcium 7.9 mg/dL (8.4-10.2); Carbon Dioxide 32 mmol/L (22-30); Creatinine 1 0.45 mg/dL (0.66-1.25); EST GLOMERULAR FILTRATION RATE > 60.0 ML/MIN; Glucose 113 mg/dL (74-106); SGOT/AST 21 U/L (17-59); SGPT/ALT 17 U/L (0-50); SODIUM 137 mmol/L (137-145); Total Protein 5.3 g/dL (6.3-8.2)
[2021-05-28] MEDS: Sodium Chloride 0.9% W/ 20 mEq KCl/LITER 1,000 ML IV SCH ×2 (05:53→10:03)
[2021-05-28] MEDS: solu-MEDROL 80 MG, Sterile H2O 10 ml 2 ML IV SCH ×2 (05:58)
[2021-05-28 08:29] VITALS: BP 117/77; PULSE 103; O2SAT 94
[2021-05-28] MEDS: PATIENT OWN MEDICATION IH SCH (09:37)
[2021-05-28] MEDS ORDERED: Cardizem CD 120 MG PO SCH (10:00)
[2021-05-28] MEDS: Acidophilus TABLET PO SCH (10:01)
[2021-05-28] MEDS: ECOTRIN 81 MG PO SCH (10:01)
[2021-05-28] MEDS: XARELTO 10 MG TABLET PO SCH (10:01)
[2021-05-28] MEDS: ZOCOR 20MG PO SCH (10:01)
[2021-05-28] MEDS: VANCOMYCIN HCL CAPSULE PO SCH (10:02)
[2021-05-28] MEDS: Coreg 6.25 MG PO SCH (10:02)
[2021-05-28] MEDS: SYNTHROID 125 MCG PO SCH (10:02)
[2021-05-28] MEDS: Imdur 30 MG PO SCH (10:02)
[2021-05-28] MEDS: PROTONIX 40 MG IV IV SCH (10:02)
[2021-05-28] MEDS: Imdur 60MG PO SCH (10:02)
== END 2021-05-28 10:28 | disposition home or self-care (01) | DRG 373 ==
LOC: ED 17:24 → MED SURG 21:10 → OBSVTOIN 05-24 19:58 → ICU 05-26 05:30
PROVIDERS: ADMIT Family Medicine; ATTEND Family Medicine
DX: A04.72 Enterocolitis due to Clostridium difficile, not specified as recurrent (principal); E86.9 Volume depletion, unspecified; R04.0 Epistaxis; I11.0 Hypertensive heart disease with heart failure; I50.9 Heart failure, unspecified; I25.10 Atherosclerotic heart disease of native coronary artery without angina pectoris; I48.91 Unspecified atrial fibrillation; E03.9 Hypothyroidism, unspecified; E78.00 Pure hypercholesterolemia, unspecified; Z79.899 Other long term (current) drug therapy; Z72.0 Tobacco use; Z79.01 Long term (current) use of anticoagulants; Z99.81 Dependence on supplemental oxygen
CPT/HCPCS: 0241U; 36000; 36415; 70450; 71250; 74176; 80048; 80053; 81015; 83605; 83690; 83735; 83880; 84443; 84484; 85025; 85027; 87040; 87493; 87507; 93005; 93268; 94640; 94760; 94762; 99285; J1940; J2930; A9270-GY; G0378; J3370

== ENCOUNTER 2021-07-19 13:57 | Emergency (ER) | payer MEDICARE, OTHER ==
--- NOTE | 2021-07-19 13:59 | ERPHSYRPT ---
- History of Present Illness Time Seen by Provider: 07/19/21 13:59 Historian: patient, family Exam Limitations: no limitations Physician History: This is a 66-year-old white male patient of Dr. Adams who was sent over by her office to be evaluated because the patient was diagnosed recently with C. difficile toxin positive diarrheal stools. Patient is having some abdominal cramping and vomiting. The diarrhea has slowed somewhat. However, patient is unable to hold any fluids down. Patient has significant medical history for COPD, coronary artery disease (CABG and cardiac stents), congestive heart failure, hypothyroidism, elevated cholesterol, and hypertension. Activities at Onset: none Quality: cramping Abdominal Pain Onset Location: generalized abdomen Pain Radiation: no radiation Severity of Pain-Max: moderate Severity of Pain-Current: mild Modifying Factors: Improves With: vomiting Associated Symptoms: diarrhea, loss of appetite, nausea, vomiting Previous symptoms: same symptoms as today, no recent treatment Allergies/Adverse Reactions: No Known Drug Allergies Allergy (Verified 07/19/21 14:24) Home Medications: Aspirin 81 mg PO DAILY 06/12/13 [History] Carvedilol [Coreg ] 6.25 mg PO DAILY 06/12/13 [History] Levothyroxine Sodium 150 mcg PO DAILY 06/12/13 [History] Isosorbide Mononitrate [Isosorbide Mononitrate ER] 90 mg PO DAILY 01/20/15 [History] Atorvastatin Calcium 40 mg PO DAILY 07/25/18 [History] Albuterol/Ipratropium 3ml Neb* [DUONEB 0.5-3 MG/3 ml Neb] 3 ml NEB Q4H 07/31/19 [History] Fluticasone/Umeclidin/Vilanter [Trelegy Ellipta 100-62.5-25] 1 each IH DAILY 08/08/19 [History] Carvedilol 12.5 mg [Coreg 12.5 mg] 12.5 mg PO EVENING MEAL 03/21/21 [History] Furosemide 40 mg [Lasix 40 MG] 20 mg PO DAILY PRN PRN 03/21/21 [History] Albuterol/Ipratropium cc [Combivent Inhaler COMMON CANISTER] 1 ea IH UD PRN 05/23/21 [History] Hx Tetanus, Diphtheria Vaccination/Date Given: No Hx Influenza Vaccination/Date Given: Yes Hx Pneumococcal Vaccination/Date Given: Yes Travel Risk - International Travel Have you traveled outside of the country in past 3 weeks: No - Coronavirus Screening Are you exhibiting any of the following symptoms?: No Close contact with a COVID-19 positive Pt in past 14-21 Days: No - Vaccine Status Have you recieved a Covid-19 vaccination: Yes Technical Account Representative: [place] - Vaccination Dates Date of 2cond Vaccination (if applicable): 05/07/2020 - Review of Systems Constitutional: Weakness Eyes: No Symptoms Ears, Nose, & Throat: No Symptoms Respiratory: No Symptoms Cardiac: No Symptoms Abdominal/Gastrointestinal: Abdominal Pain, Nausea, Vomiting, Diarrhea Genitourinary Symptoms: No Symptoms Musculoskeletal: No Symptoms Skin: No Symptoms Neurological: No Symptoms Psychological: No Symptoms Endocrine: No Symptoms Hematologic/Lymphatic: No Symptoms Immunological/Allergic: No Symptoms All Other Systems: Reviewed and Negative - Past Medical History Pertinent Past Medical History: Yes Neurological History: No Pertinent History ENT History: No Pertinent History Cardiac History: Aneurysm, Angina, Congestive Heart Failure, Coronary Artery Disease, High Cholesterol, Other Respiratory History: CHF, COPD Endocrine Medical History: Hypothyroidism Musculoskeletal History: No Pertinent History GI Medical History: Gallbladder Disease History: No Pertinent History Psycho-Social History: No Pertinent History Male Reproductive Disorders: No Pertinent History Other Medical History: Right knee implant, left hip implant, HYPOTENSION - Past Surgical History Past Surgical History: Yes Neuro Surgical History: No Pertinent History Cardiac: CABG, Cardiac Stent Respiratory: No Pertinent History Gastrointestinal: Cholecystectomy Genitourinary: No Pertinent History Musculoskeletal: Joint Replacement Male Surgical History: No Pertinent History Other Surgical History: R knee, L hip replacement. Aortic aneursym repair - Social History Smoking Status: Current every day smoker How long have you smoked: 40 YEARS Exposure to second hand smoke: No Drug Use: none Patient Lives Alone: No - Nursing Vital Signs Nursing Vital Signs: Initial Vital Signs Temperature 96.6 F 07/19/21 14:11 Pulse Rate 79 07/19/21 14:11 Blood Pressure 107/65 07/19/21 14:11 O2 Sat by Pulse Oximetry 94 L 07/19/21 14:11 Pain Scale Pain Intensity 0 - Physical Exam General Appearance: mild distress, alert, anxiety, thin Eye Exam: PERRL/EOMI, eyes nml inspection Ears, Nose, Throat Exam: normal ENT inspection, dry mucous membranes Neck Exam: normal inspection, non-tender, supple, full range of motion Respiratory Exam: normal breath sounds, lungs clear, airway intact, No chest tenderness, No respiratory distress Cardiovascular Exam: regular rate/rhythm, normal heart sounds, normal peripheral pulses Gastrointestinal/Abdomen Exam: soft, normal bowel sounds, No tenderness Rectal Exam: not done Back Exam: normal inspection, normal range of motion, No CVA tenderness, No vert ebral tenderness Extremity Exam: normal inspection, normal range of motion, pelvis stable Neurologic Exam: alert, oriented x 3, cooperative, 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, normal mood/affect, nml cerebellar function, nml station & gait, sensation nml Skin Exam: normal color, warm, dry Lymphatic Exam: No adenopathy SpO2 Interpretation: normal O2 Delivery: Room Air - Course Nursing assessment & vital signs reviewed: Yes Ordered Tests: Active Orders 24 hr Category Date Time Status IV Insertion STAT Care 07/19/21 14:02 Active AMYLASE Stat Lab 07/19/21 14:30 Completed CBC W DIFF Stat Lab 07/19/21 14:30 Completed CMP Stat Lab 07/19/21 14:30 Completed LIPASE Stat Lab 07/19/21 14:30 Completed Lactic Acid Stat Lab 07/19/21 14:24 Completed UA W/RFX CULTURE Stat Lab 07/19/21 16:00 Results Medication Summary Generic Name Dose Route Start Last Admin Trade Name Freq PRN Reason Stop Dose Admin Sodium Chloride 1,000 mls @ 999 mls/hr 07/19/21 16:37 07/19/21 16:41 Sodium Chloride 0.9% 1000 Ml IV 07/19/21 17:37 999 mls/hr .Q1H1M STA Administration Discontinued Medications Generic Name Dose Route Start Last Admin Trade Name Freq PRN Reason Stop Dose Admin Sodium Chloride 1,000 mls @ 999 mls/hr 07/19/21 14:02 07/19/21 15:39 Sodium Chloride 0.9% 1000 Ml IV 07/19/21 15:02 Infused .Q1H1M STA Infusion Sodium Chloride Confirm 07/19/21 14:30 Sodium Chloride 0.9% 1000 Ml Administered 07/19/21 14:31 Dose 1,000 mls @ ud .ROUTE .STK-MED ONE Metronidazole 500 mg in 100 mls @ 200 mls/hr 07/19/21 14:41 07/19/21 15:34 Flagyl 500 Mg Ivpb IV 07/19/21 15:10 Infused STAT STA Infusion Metronidazole Confirm 07/19/21 14:48 Flagyl 500 Mg Ivpb Administered 07/19/21 14:49 Dose 500 mg in 100 mls @ ud IV .STK-MED ONE Sodium Chloride Confirm 07/19/21 16:40 Sodium Chloride 0.9% 1000 Ml Administered 07/19/21 16:41 Dose 1,000 mls @ ud .ROUTE .STK-MED ONE Ondansetron HCl 4 mg 07/19/21 14:41 07/19/21 14:52 Ondansetron Hcl 4 Mg/2 Ml Vial IV 07/19/21 14:42 4 mg STAT ONE Administration Ondansetron HCl Confirm 07/19/21 14:48 Ondansetron Hcl 4 Mg/2 Ml Vial Administered 07/19/21 14:49 Dose 4 mg .ROUTE .STK-MED ONE Lab/Rad Data: Laboratory Result Diagrams 07/19/21 14:30 07/19/21 14:30 Laboratory Results 07/19/21 07/19/21 07/19/21 Range/Units 16:00 14:30 14:30 WBC 10.8 H (4.0-10.5) x10^3/uL RBC 4.10 (4.1-5.6) x10^6/uL Hgb 11.2 L (12.5-18.0) g/dL Hct 38.5 L (42-50) % MCV 93.9 (78-100) fL MCH 27.3 (26-32) pg MCHC 29.1 L (32-36) g/dL RDW 18.0 H (11.5-14.0) % Plt Count 217 (150-450) x10^3/uL MPV 10.0 (7.5-11.0) fL Gran % 82.3 H (36.0-66.0) % Immature Gran % (Auto) 0.5 H (0.00-0.4) % Nucleat RBC Rel Count 0.0 (0.00-0.1) % Eos # (Auto) 0.09 (0-0.5) x10^3/uL Immature Gran # (Auto) 0.05 H (0.00-0.03) x10^3u/L Absolute Lymphs (auto) 0.82 L (1.0-4.6) x10^3/uL Absolute Monos (auto) 0.93 (0.0-1.3) x10^3/uL Absolute Nucleated RBC 0.00 (0.00-0.01) x10^3u/L Lymphocytes % 7.6 L (24.0-44.0) % Monocytes % 8.6 (0.0-12.0) % Eosinophils % 0.8 (0.00-5.0) % Basophils % 0.2 (0.0-0.4) % Absolute Granulocytes 8.91 H (1.4-6.9) x10^3/uL Basophils # 0.02 (0-0.4) x10^3/uL Sodium 133 L (137-145) mmol/L Potassium 3.8 (3.5-5.1) mmol/L Chloride 95 L (98-107) mmol/L Carbon Dioxide 32 H (22-30) mmol/L Anion Gap 9.6 (5-15) MEQ/L BUN 16 (9-20) mg/dL Creatinine 0.83 (0.66-1.25) mg/dL Estimated GFR > 60.0 ML/MIN Glucose 101 (74-106) mg/dL Lactic Acid (0.4-2.0) Calcium 9.0 (8.4-10.2) mg/dL Total Bilirubin 0.60 (0.2-1.3) mg/dL AST 22 (17-59) U/L ALT 14 (0-50) U/L Alkaline Phosphatase 74 (38-126) U/L Serum Total Protein 6.5 (6.3-8.2) g/dL Albumin 3.4 L (3.5-5.0) g/dL Amylase 60 (30-110) U/L Lipase 34 (23-300) U/L Urinalys Dipstick Clnc MAIN LAB Urine Color YELLOW (YELLOW) Urine Appearance CLEAR (CLEAR) Urine pH 6.5 (5-6) Ur Specific [place] 1.020 (1.005-1.025) POC Urine Protein Conf 100 (Negative) Urine Ketones NEGATIVE (NEGATIVE) Urine Nitrite NEGATIVE (NEGATIVE) Urine Bilirubin NEGATIVE (NEGATIVE) Urine Urobilinogen 0.2 (0-1) mg/dL Urine Leukocytes NEGATIVE (NEGATIVE) Urine WBC (Auto) Pending Urine RBC (Auto) Pending U Epithel Cells (Auto) Pending Urine Bacteria (Auto) Pending Urine RBC NEGATIVE (0-5) Jake/ul Ur Culture Indicated? Pending Urine Glucose NEGATIVE (NEGATIVE) mg/dL 07/19/21 Range/Units 14:24 WBC (4.0-10.5) x10^3/uL RBC (4.1-5.6) x10^6/uL Hgb (12.5-18.0) g/dL Hct (42-50) % MCV (78-100) fL MCH (26-32) pg MCHC (32-36) g/dL RDW (11.5-14.0) % Plt Count (150-450) x10^3/uL MPV (7.5-11.0) fL Gran % (36.0-66.0) % Immature Gran % (Auto) (0.00-0.4) % Nucleat RBC Rel Count (0.00-0.1) % Eos # (Auto) (0-0.5) x10^3/uL Immature Gran # (Auto) (0.00-0.03) x10^3u/L Absolute Lymphs (auto) (1.0-4.6) x10^3/uL Absolute Monos (auto) (0.0-1.3) x10^3/uL Absolute Nucleated RBC (0.00-0.01) x10^3u/L Lymphocytes % (24.0-44.0) % Monocytes % (0.0-12.0) % Eosinophils % (0.00-5.0) % Basophils % (0.0-0.4) % Absolute Granulocytes (1.4-6.9) x10^3/uL Basophils # (0-0.4) x10^3/uL Sodium (137-145) mmol/L Potassium (3.5-5.1) mmol/L Chloride (98-107) mmol/L Carbon Dioxide (22-30) mmol/L Anion Gap (5-15) MEQ/L BUN (9-20) mg/dL Creatinine (0.66-1.25) mg/dL Estimated GFR ML/MIN Glucose (74-106) mg/dL Lactic Acid 0.8 (0.4-2.0) Calcium (8.4-10.2) mg/dL Total Bilirubin (0.2-1.3) mg/dL AST (17-59) U/L ALT (0-50) U/L Alkaline Phosphatase (38-126) U/L Serum Total Protein (6.3-8.2) g/dL Albumin (3.5-5.0) g/dL Amylase (30-110) U/L Lipase (23-300) U/L Urinalys Dipstick Clnc Urine Color (YELLOW) Urine Appearance (CLEAR) Urine pH (5-6) Ur Specific [place] (1.005-1.025) POC Urine Protein Conf (Negative) Urine Ketones (NEGATIVE) Urine Nitrite (NEGATIVE) Urine Bilirubin (NEGATIVE) Urine Urobilinogen (0-1) mg/dL Urine Leukocytes (NEGATIVE) Urine WBC (Auto) Urine RBC (Auto) U Epithel Cells (Auto) Urine Bacteria (Auto) Urine RBC (0-5) Jake/ul Ur Culture Indicated? Urine Glucose (NEGATIVE) mg/dL - Progress Progress: improved Progress Note: 07/19/21 17:32 This patient is doing very well. He is now free of any nausea. He is tolerating liquid diet. He wants to go home. His work-up does not yield any acute concerns. Counseled pt/family regarding: lab results, diagnosis, need for follow-up - Departure Departure Disposition: Home Clinical Impression: C. difficile diarrhea Condition: Stable Critical Care Time: No Referrals: KENNA MISTRY MD [Primary Care Provider] - Follow up/PCP as directed Additional Instructions: Drink plenty of clear liquids before advancing diet. Take your antibiotics as prescribed. Follow-up with Dr. Adams for further evaluation and management. Prescriptions: Ondansetron ODT 4 MG [Zofran Odt 4 mg] 4 mg PO Q6H PRN PRN #10 tablet PRN Reason: Vomiting Metronidazole 500 mg [Flagyl 500 MG] 500 mg PO TID #21 tablet
[2021-07-19] MEDS ORDERED: Sodium Chloride 0.9% 1000 ML 1,000 ML IV STA ×2 (14:02→16:37)
[2021-07-19] MEDS ORDERED: Sodium Chloride 0.9% 1000 ML 1,000 ML ONE ×2 (14:30→16:40)
[2021-07-19] MEDS ORDERED: FLAGYL 500 MG IVPB 500 MG/100 ML BAG IV STA (14:41)
[2021-07-19] MEDS ORDERED: Zofran 4 MG/2 ML VIAL IV ONE (14:41)
[2021-07-19] MEDS ORDERED: FLAGYL 500 MG IVPB 500 MG/100 ML BAG IV ONE (14:48)
[2021-07-19] MEDS ORDERED: Zofran 4 MG/2 ML VIAL ONE (14:48)
[2021-07-19 14:59] LABS: ALBUMIN 3.4 g/dL (3.5-5.0); ALKALINE PHOSPHATASE 74 U/L (38-126); AMYLASE 60 U/L (30-110); ANION GAP 9.6 MEQ/L (5-15); BLOOD UREA NITROGEN 16 mg/dL (9-20); CHLORIDE 95 mmol/L (98-107); Carbon Dioxide 32 mmol/L (22-30); Creatinine 1 0.83 mg/dL (0.66-1.25); EST GLOMERULAR FILTRATION RATE > 60.0 ML/MIN; Glucose 101 mg/dL (74-106); LIPASE 34 U/L (23-300); Potassium 3.8 mmol/L (3.5-5.1); SGOT/AST 22 U/L (17-59); SGPT/ALT 14 U/L (0-50); SODIUM 133 mmol/L (137-145); Total Protein 6.5 g/dL (6.3-8.2)
[2021-07-19 15:04] LABS: Absolute Neutrophil Ct (ANC) 8.91 x10^3/uL (1.4-6.9); Basophil (Absolute #) 0.02 x10^3/uL (0-0.4); Eosinophil % 0.8 % (0.00-5.0); Eosinophil (Absolute #) 0.09 x10^3/uL (0-0.5); Hematocrit 38.5 % (42-50); Hemoglobin 11.2 g/dL (12.5-18.0); Lymphocyte (Absolute #) 0.82 x10^3/uL (1.0-4.6); Lymphocytes % 7.6 % (24.0-44.0); Mean Cell Volume 93.9 fL (78-100); Mean Corpuscular Hemoglobin 27.3 pg (26-32); Mean Corpuscular Hgb Concent. 29.1 g/dL (32-36); Monocyte (Absolute #) 0.93 x10^3/uL (0.0-1.3); Monocytes % 8.6 % (0.0-12.0); Neutrophil % 82.3 % (36.0-66.0); Platelet Count 217 x10^3/uL (150-450); White Blood Count 10.8 x10^3/uL (4.0-10.5)
[2021-07-19 16:27] VITALS: BP 107/62
[2021-07-19 17:12] LABS: Calcium Oxalate Crystals 0-2 /HPF (NEGATIVE); Granular Casts 0-2 /LPF (NEGATIVE); Hyaline Casts 0-2 /LPF (0-2); Mucus SLIGHT /HPF (NEGATIVE)
[2021-07-19 17:26] LABS: Appearance CLEAR (CLEAR); Bilirubin NEGATIVE (NEGATIVE); Glucose NEGATIVE (NEGATIVE); Ketones NEGATIVE (NEGATIVE); RBC NEGATIVE Ery/ul (0-5)
[2021-07-19 17:27] LABS: Dipstick done @ ? MAIN LAB; Nitrite NEGATIVE (NEGATIVE); Ph 6.5 (5-6); Protein,Urine Dip 100 (Negative); Urobilinogen 0.2 mg/dL (0-1)
[2021-07-19 17:30] VITALS: PULSE 80; O2SAT 99
[2021-07-19 18:08] LABS: Urine Cultured Indicated? YES
== END 2021-07-19 17:55 | disposition home or self-care (01) ==
LOC: ED 13:57
DX: A04.72 Enterocolitis due to Clostridium difficile, not specified as recurrent (principal); R10.84 Generalized abdominal pain; R11.2 Nausea with vomiting, unspecified; J44.9 Chronic obstructive pulmonary disease, unspecified; E78.5 Hyperlipidemia, unspecified; I11.0 Hypertensive heart disease with heart failure; I50.9 Heart failure, unspecified; Z72.0 Tobacco use; Z79.899 Other long term (current) drug therapy
CPT/HCPCS: 36000; 36415; 80053; 81015; 82150; 83605; 83690; 85025; 87086; 96360; 96365; 96374; 99284; J2405

== ENCOUNTER 2022-11-28 10:35 | Observation (INO) | payer MEDICARE, OTHER ==
--- NOTE | 2022-11-28 11:02 | XRAY ---
Indication: Dyspnea. Comparison: May 19, 2021 Portable chest again demonstrates COPD, chronic lung markings, and a few tiny calcified granulomas. Heart not enlarged again with CABG. Bony thorax intact again with osteopenia and mild degenerative changes. Impression: Nonacute chest with chronic features.
[2022-11-28 11:06] LABS: Absolute Neutrophil Ct (ANC) 4.36 x10^3/uL (1.4-6.9); BASOPHIL % 0.2 % (0.0-0.4); Basophil (Absolute #) 0.01 x10^3/uL (0-0.4); Eosinophil % 0.2 % (0.00-5.0); Eosinophil (Absolute #) 0.01 x10^3/uL (0-0.5); Hematocrit 45.1 % (42-50); Hemoglobin 12.5 g/dL (12.5-18.0); IMMATURE GRAN # 0.03 x10^3u/L (0.00-0.03); IMMATURE GRAN % 0.5 % (0.00-0.4); Lymphocyte (Absolute #) 0.73 x10^3/uL (1.0-4.6); Lymphocytes % 12.4 % (24.0-44.0); Mean Cell Volume 104.9 fL (78-100); Mean Corpuscular Hemoglobin 29.1 pg (26-32); Mean Corpuscular Hgb Concent. 27.7 g/dL (32-36); Mean Platelet Volume 9.9 fL (7.5-11.0); Monocyte (Absolute #) 0.73 x10^3/uL (0.0-1.3); Monocytes % 12.4 % (0.0-12.0); Neutrophil % 74.3 % (36.0-66.0); Platelet Count 124 x10^3/uL (150-450); Red Cell Distribution Width 14.4 % (11.5-14.0); White Blood Count 5.9 x10^3/uL (4.0-10.5)
[2022-11-28 11:07] LABS: ABG HEMOGLOBIN 12.4; ABG POTASSIUM 5.2 (3.5-5.1); ARTERIAL BLD GAS O2 SATURATION 98.5 % (95-100); ARTERIAL BLOOD GAS FIO2 40 %; ARTERIAL BLOOD GAS PCO2 125 mmHg (35-45); ARTERIAL BLOOD GAS PO2 112 mmHg (75-100); CARBOXYHEMOGLOBIN 2.2 % THgb (0.0-6.9); HGB O2 SAT 95.5 g/dF (94-100); Methhemoglobin 0.7 % (1.4-1.5)
[2022-11-28 11:08] LABS: ARTERIAL BLOOD GAS pH 7.16 (7.35-7.45)
[2022-11-28 11:09] LABS: ABG SITE RIGHT BRACHIAL
[2022-11-28 11:22] LABS: ALBUMIN 4.4 g/dL (3.5-5.0); ALKALINE PHOSPHATASE 96 U/L (38-126); BLOOD UREA NITROGEN 17 mg/dL (9-20); CHLORIDE 87 mmol/L (98-107); Calcium 9.2 mg/dL (8.4-10.2); Creatinine 1 0.59 mg/dL (0.66-1.25); EST GLOMERULAR FILTRATION RATE > 60.0 ML/MIN; Glucose 90 mg/dL (74-106); Potassium 5.3 mmol/L (3.5-5.1); SGOT/AST 23 U/L (17-59); SGPT/ALT 24 U/L (0-50); SODIUM 138 mmol/L (137-145); Total Protein 8.3 g/dL (6.3-8.2)
[2022-11-28 11:24] LABS: INR 3.56 (0.8-3.0); PROTIME 35.3 SECONDS (9.4-12.5)
[2022-11-28 11:31] LABS: ANION GAP 13.3 MEQ/L (5-15); Carbon Dioxide 43 mmol/L (22-30)
[2022-11-28 11:49] LABS: INFLUENZA A NEGATIVE (NEGATIVE); INFLUENZA B NEGATIVE (NEGATIVE); RESPIRATORY SYNCTIAL VIRUS NEGATIVE (NEGATIVE); SARS-CoV-2 Xpert Express NEGATIVE (NEGATIVE)
--- NOTE | 2022-11-28 11:59 | ERPHSYRPT ---
- History of Present Illness Source: patient, family, EMS Exam Limitations: clinical condition Patient Subjective Stated Complaint: "I've been short of breath for a couple of days. I've had a cough too". Triage Nursing Assessment: Pt presents to ER by ambulance for shortness of breath. Pt is slow to respond, pt is arousable with loud verbal stimuli. Pt skin is pale, warm, and dry. Bilateral lower extremity pitting edema. Crackles noted throughout. Respirations are labored. Respiratory does ABG upon arrival and noted Co2 of 125. Pt states he doesn't want to be on the ventilator but respiratory setting up bipap. Pt denies pain. Wears home o2, recieved nebulizer treatment, solumedrol, and nitro in the ambulance [employer]. Physician History: 67 yo WM who is 3L O2 dependent presents per EMS w increasing dyspnea x 2-3 days. Pt still smokes 1ppd. He denies chest pain/fever/worsening cough/N/V/D/melena/hematochezia. Family states that he has upped his O2 to 5L over the last several days. PMH includes CHF/COPD/HTN/CAGB. Pt is a DNR. EMS gave pt a Duoneb/125mg IV Solumedrol/NTG paste. Timing/Duration: other (2-3 days) Activities at Onset: rest Severity of Dyspnea-Max: severe Severity of Dyspnea-Current: severe Possible Cause: frequent episodes Modifying Factors: Improves With: activity Associated Symptoms: wheezing Allergies/Adverse Reactions: No Known Drug Allergies Allergy (Verified 11/28/22 13:09) Home Medications: Aspirin 81 mg PO DAILY 06/12/13 [History] Carvedilol [Coreg ] 6.25 mg PO DAILY 06/12/13 [History] Levothyroxine Sodium 150 mcg PO DAILY 06/12/13 [History] Isosorbide Mononitrate [Isosorbide Mononitrate ER] 90 mg PO DAILY 01/20/15 [History] Atorvastatin Calcium 40 mg PO DAILY 07/25/18 [History] Albuterol/Ipratropium 3ml Neb* [DUONEB 0.5-3 MG/3 ml Neb] 3 ml NEB Q4H 07/31/19 [History] Fluticasone/Umeclidin/Vilanter [Trelegy Ellipta 100-62.5-25] 1 each IH DAILY 08/08/19 [History] Carvedilol 12.5 mg [Coreg 12.5 mg] 12.5 mg PO EVENING MEAL 03/21/21 [History] Furosemide 40 mg [Lasix 40 MG] 20 mg PO DAILY PRN PRN 03/21/21 [History] Albuterol/Ipratropium cc [Combivent Inhaler COMMON CANISTER] 1 ea IH UD PRN 05/23/21 [History] Hx Tetanus, Diphtheria Vaccination/Date Given: Yes Hx Influenza Vaccination/Date Given: Yes Hx Pneumococcal Vaccination/Date Given: Yes Immunizations Up to Date: Yes Travel Risk - International Travel Have you traveled outside of the country in past 3 weeks: No - Coronavirus Screening Are you exhibiting any of the following symptoms?: Yes Symptoms: Shortness of Breath Close contact with a COVID-19 positive Pt in past 14-21 Days: No - Vaccine Status Have you recieved a Covid-19 vaccination: Yes [employer]: Moderna - Vaccination Dates Date of 2cond Vaccination (if applicable): 05/07/2020 - Review of Systems Constitutional: No Symptoms, Fatigue, Lethargy, Malaise Eyes: No Symptoms Ears, Nose, & Throat: No Symptoms Respiratory: No Symptoms, Dyspnea, Dyspnea on Exertion (HANLEY) Cardiac: No Symptoms Abdominal/Gastrointestinal: No Symptoms Genitourinary Symptoms: No Symptoms Musculoskeletal: No Symptoms Skin: No Symptoms Neurological: No Symptoms Psychological: No Symptoms Endocrine: No Symptoms Hematologic/Lymphatic: No Symptoms Immunological/Allergic: No Symptoms - Past Medical History Pertinent Past Medical History: Yes Neurological History: No Pertinent History ENT History: No Pertinent History Cardiac History: Aneurysm, Angina, Congestive Heart Failure, Coronary Artery Disease, High Cholesterol, Other Respiratory History: CHF, COPD Endocrine Medical History: Hypothyroidism Musculoskeletal History: No Pertinent History GI Medical History: Gallbladder Disease History: No Pertinent History Psycho-Social History: No Pertinent History Male Reproductive Disorders: No Pertinent History Other Medical History: Right knee implant, left hip implant, HYPOTENSION - Past Surgical History Past Surgical History: Yes Neuro Surgical History: No Pertinent History Cardiac: CABG, Cardiac Stent Respiratory: No Pertinent History Gastrointestinal: Cholecystectomy Genitourinary: No Pertinent History Musculoskeletal: Joint Replacement Male Surgical History: No Pertinent History Other Surgical History: R knee, L hip replacement. Aortic aneursym repair - Social History Smoking Status: Current every day smoker How long have you smoked: 40 YEARS Exposure to second hand smoke: No Drug Use: none Patient Lives Alone: No - Nursing Vital Signs Nursing Vital Signs: Initial Vital Signs Temperature 98.2 F 11/28/22 10:38 Pulse Rate 85 11/28/22 10:38 Respiratory Rate 30 H 11/28/22 10:38 Blood Pressure 129/74 11/28/22 10:38 O2 Sat by Pulse Oximetry 100 11/28/22 10:38 Pain Scale Pain Intensity 0 Tachypneic - Physical Exam General Appearance: moderate distress, lethargy Eye Exam: PERRL/EOMI, eyes nml inspection Ears, Nose, Throat Exam: hearing grossly normal, normal ENT inspection, normal pharynx Neck Exam: normal inspection, non-tender, supple, full range of motion, No Brudzinski, No Kernig's, No meningismus, No carotid bruit Respiratory Exam: respiratory distress, airway intact, diminished breath sounds (Markedly decreased B) Cardiovascular/Chest Exam: normal heart sounds, regular rate/rhythm, No murmur Abdominal/Gastrointestinal Exam: soft, normal bowel sounds, No tenderness Extremity Exam: non-tender, normal range of motion, normal capillary refill, no calf tenderness, no pedal edema Peripheral Pulses Exam: carotid (R): 2+, carotid (L): 2+ Neurologic Exam: cooperative, 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, sensation nml, other (Somnolent but w good airway/Oriented to person-place), No motor deficits Skin Exam: normal color, warm, dry Lymphatic Exam: No adenopathy SpO2 Interpretation: normal SpO2: 97 O2 Delivery: BiPap/CPAP - Course Nursing assessment & vital signs reviewed: Yes EKG Interpreted by Me: RATE (NSR/Rate 71/Normal QT-QTc/Artifact present/No acute ST segment changes) - Radiology Exams Chest X-ray Interpretation: Reviewed by me (Chronic changes) Ordered Tests: Active Orders 24 hr Category Date Time Status EKG-ER Only STAT Care 11/28/22 10:37 Active IV Insertion STAT Care 11/28/22 10:37 Active CHEST 1 VIEW (PORTABLE) Stat Exams 11/28/22 10:38 Completed ABG [ARTERIAL BLOOD GASES] Stat Lab 11/28/22 10:56 Completed ABG [ARTERIAL BLOOD GASES] Stat Lab 11/28/22 12:20 Completed BLOOD CULTURE Stat Lab 11/28/22 13:49 Received CBC W DIFF Stat Lab 11/28/22 10:37 Completed CMP Stat Lab 11/28/22 11:01 Completed MAGNESIUM Stat Lab 11/28/22 11:01 Completed NT PRO BNPII Stat Lab 11/28/22 11:01 Completed PROTIME WITH INR Stat Lab 11/28/22 11:01 Completed PTT Stat Lab 11/28/22 11:01 Completed TROPONIN Q4H Lab 11/28/22 11:01 Completed TROPONIN Q4H Lab 11/28/22 14:45 Ordered TROPONIN Q4H Lab 11/28/22 18:45 Ordered BiPap/CPAP STAT RT 11/28/22 11:50 Active Medication Summary Generic Name Dose Route Start Last Admin Trade Name Freq PRN Reason Stop Dose Admin Azithromycin 500 mg in 250 mls @ 250 mls/hr 11/28/22 13:22 Zithromax 500 Mg/ 250 Ml Nacl Premix IV 11/28/22 14:21 STAT STA Discontinued Medications Generic Name Dose Route Start Last Admin Trade Name Freq PRN Reason Stop Dose Admin Furosemide 20 mg 11/28/22 12:03 11/28/22 12:26 Furosemide 40 Mg/4 Ml Vial IV 11/28/22 12:04 20 mg STAT ONE Administration Furosemide Confirm 11/28/22 12:23 Furosemide 40 Mg/4 Ml Vial Administered 11/28/22 12:24 Dose 40 mg .ROUTE .STK-MED ONE Ceftriaxone Sodium/Dextrose 1 g in 50 mls @ 100 mls/hr 11/28/22 13:22 11/28/22 14:07 Rocephin 1 Gm-D5w 50 Ml Bag IV 11/28/22 13:51 100 ml/hr STAT STA 100 mls/hr Administration Ceftriaxone Sodium/Dextrose Confirm 11/28/22 14:05 Rocephin 1 Gm-D5w 50 Ml Bag Administered 11/28/22 14:06 Dose 1 g in 50 mls @ ud IV .STK-MED ONE Lab/Rad Data: Laboratory Result Diagrams 11/28/22 10:37 11/28/22 11:01 Laboratory Results 11/28/22 11/28/22 11/28/22 Range/Units 12:20 11:01 11:01 WBC (4.0-10.5) x10^3/uL RBC (4.1-5.6) x10^6/uL Hgb (12.5-18.0) g/dL Hct (42-50) % MCV (78-100) fL MCH (26-32) pg MCHC (32-36) g/dL RDW (11.5-14.0) % Plt Count (150-450) x10^3/uL MPV (7.5-11.0) fL Gran % (36.0-66.0) % Immature Gran % (Auto) (0.00-0.4) % Nucleat RBC Rel Count (0.00-0.1) % Eos # (Auto) (0-0.5) x10^3/uL Immature Gran # (Auto) (0.00-0.03) x10^3u/L Absolute Lymphs (auto) (1.0-4.6) x10^3/uL Absolute Monos (auto) (0.0-1.3) x10^3/uL Absolute Nucleated RBC (0.00-0.01) x10^3u/L Lymphocytes % (24.0-44.0) % Monocytes % (0.0-12.0) % Eosinophils % (0.00-5.0) % Basophils % (0.0-0.4) % Absolute Granulocytes (1.4-6.9) x10^3/uL Basophils # (0-0.4) x10^3/uL PT (9.4-12.5) SECONDS INR (0.8-3.0) APTT (25.1-36.5) SECONDS Puncture Site RIGHT BRACHIAL pCO2 103 H* (35-45) mmHg pO2 70 L (75-100) mmHg Base Excess 21.9 H (-2.0-2.0) O2 Saturation 93.7 L (94-100) g/dF ABG pH 7.32 L (7.35-7.45) ABG HCO3 53.1 H* ABG O2 Sat (Measured) 96.1 (95-100) % Pool Test NOT APPLICABLE A-a Gradient 86 a/A Ratio 0.45 Hemoglobin 11.9 Carboxyhemoglobin 2.0 (0.0-6.9) % THgb Methemoglobin 0.5 L (1.4-1.5) % Potassium 5.3 H (3.5-5.1) Temperature 37.0 C POC O2 Flow Rate 40 % Vent Mode BiPAP Inspiratory BiPAP 14 Expiratory BiPAP 6 Sodium (137-145) mmol/L Chloride (98-107) mmol/L Carbon Dioxide (22-30) mmol/L Anion Gap (5-15) MEQ/L BUN (9-20) mg/dL Creatinine (0.66-1.25) mg/dL Estimated GFR ML/MIN Glucose (74-106) mg/dL Calcium (8.4-10.2) mg/dL Magnesium (1.6-2.3) mg/dL Total Bilirubin (0.2-1.3) mg/dL AST (17-59) U/L ALT (0-50) U/L Alkaline Phosphatase (38-126) U/L Troponin I (0.000-0.034) ng/mL NT-Pro-B Natriuret Pep 1870 (<300) pg/mL Serum Total Protein (6.3-8.2) g/dL Albumin (3.5-5.0) g/dL Influenza Type A Ag NEGATIVE (NEGATIVE) Influenza Type B Ag NEGATIVE (NEGATIVE) RSV (PCR) NEGATIVE (NEGATIVE) SARS-CoV-2 (PCR) NEGATIVE (NEGATIVE) Slides for Path Review 11/28/22 11/28/22 11/28/22 Range/Units 11:01 11:01 11:01 WBC (4.0-10.5) x10^3/uL RBC (4.1-5.6) x10^6/uL Hgb (12.5-18.0) g/dL Hct (42-50) % MCV (78-100) fL MCH (26-32) pg MCHC (32-36) g/dL RDW (11.5-14.0) % Plt Count (150-450) x10^3/uL MPV (7.5-11.0) fL Gran % (36.0-66.0) % Immature Gran % (Auto) (0.00-0.4) % Nucleat RBC Rel Count (0.00-0.1) % Eos # (Auto) (0-0.5) x10^3/uL Immature Gran # (Auto) (0.00-0.03) x10^3u/L Absolute Lymphs (auto) (1.0-4.6) x10^3/uL Absolute Monos (auto) (0.0-1.3) x10^3/uL Absolute Nucleated RBC (0.00-0.01) x10^3u/L Lymphocytes % (24.0-44.0) % Monocytes % (0.0-12.0) % Eosinophils % (0.00-5.0) % Basophils % (0.0-0.4) % Absolute Granulocytes (1.4-6.9) x10^3/uL Basophils # (0-0.4) x10^3/uL PT 35.3 H (9.4-12.5) SECONDS INR 3.56 H (0.8-3.0) APTT 41.0 H (25.1-36.5) SECONDS Puncture Site pCO2 (35-45) mmHg pO2 (75-100) mmHg Base Excess (-2.0-2.0) O2 Saturation (94-100) g/dF ABG pH (7.35-7.45) ABG HCO3 ABG O2 Sat (Measured) (95-100) % Pool Test A-a Gradient a/A Ratio Hemoglobin Carboxyhemoglobin (0.0-6.9) % THgb Methemoglobin (1.4-1.5) % Potassium 5.3 H (3.5-5.1) Temperature C POC O2 Flow Rate % Vent Mode Inspiratory BiPAP Expiratory BiPAP Sodium 138 (137-145) mmol/L Chloride 87 L (98-107) mmol/L Carbon Dioxide 43 H (22-30) mmol/L Anion Gap 13.3 (5-15) MEQ/L BUN 17 (9-20) mg/dL Creatinine 0.59 L (0.66-1.25) mg/dL Estimated GFR > 60.0 ML/MIN Glucose 90 (74-106) mg/dL Calcium 9.2 (8.4-10.2) mg/dL Magnesium 2.0 (1.6-2.3) mg/dL Total Bilirubin 0.80 (0.2-1.3) mg/dL AST 23 (17-59) U/L ALT 24 (0-50) U/L Alkaline Phosphatase 96 (38-126) U/L Troponin I < 0.012 (0.000-0.034) ng/mL NT-Pro-B Natriuret Pep (<300) pg/mL Serum Total Protein 8.3 H (6.3-8.2) g/dL Albumin 4.4 (3.5-5.0) g/dL Influenza Type A Ag (NEGATIVE) Influenza Type B Ag (NEGATIVE) RSV (PCR) (NEGATIVE) SARS-CoV-2 (PCR) (NEGATIVE) Slides for Path Review 11/28/22 11/28/22 Range/Units 10:56 10:37 WBC 5.9 (4.0-10.5) x10^3/uL RBC 4.30 (4.1-5.6) x10^6/uL Hgb 12.5 (12.5-18.0) g/dL Hct 45.1 (42-50) % MCV 104.9 H (78-100) fL MCH 29.1 (26-32) pg MCHC 27.7 L (32-36) g/dL RDW 14.4 H (11.5-14.0) % Plt Count 124 L (150-450) x10^3/uL MPV 9.9 (7.5-11.0) fL Gran % 74.3 H (36.0-66.0) % Immature Gran % (Auto) 0.5 H (0.00-0.4) % Nucleat RBC Rel Count 0.0 (0.00-0.1) % Eos # (Auto) 0.01 (0-0.5) x10^3/uL Immature Gran # (Auto) 0.03 (0.00-0.03) x10^3u/L Absolute Lymphs (auto) 0.73 L (1.0-4.6) x10^3/uL Absolute Monos (auto) 0.73 (0.0-1.3) x10^3/uL Absolute Nucleated RBC 0.00 (0.00-0.01) x10^3u/L Lymphocytes % 12.4 L (24.0-44.0) % Monocytes % 12.4 H (0.0-12.0) % Eosinophils % 0.2 (0.00-5.0) % Basophils % 0.2 (0.0-0.4) % Absolute Granulocytes 4.36 (1.4-6.9) x10^3/uL Basophils # 0.01 (0-0.4) x10^3/uL PT (9.4-12.5) SECONDS INR (0.8-3.0) APTT (25.1-36.5) SECONDS Puncture Site RIGHT BRACHIAL pCO2 125 H* (35-45) mmHg pO2 112 H (75-100) mmHg Base Excess (-2.0-2.0) O2 Saturation 95.5 (94-100) g/dF ABG pH 7.16 L* (7.35-7.45) ABG HCO3 Not Reportable ABG O2 Sat (Measured) 98.5 (95-100) % Pool Test NOT APPLICABLE A-a Gradient a/A Ratio Hemoglobin 12.4 Carboxyhemoglobin 2.2 (0.0-6.9) % THgb Methemoglobin 0.7 L (1.4-1.5) % Potassium 5.2 H (3.5-5.1) Temperature 37.0 C POC O2 Flow Rate 40 % Vent Mode Inspiratory BiPAP Expiratory BiPAP Sodium (137-145) mmol/L Chloride (98-107) mmol/L Carbon Dioxide (22-30) mmol/L Anion Gap (5-15) MEQ/L BUN (9-20) mg/dL Creatinine (0.66-1.25) mg/dL Estimated GFR ML/MIN Glucose (74-106) mg/dL Calcium (8.4-10.2) mg/dL Magnesium (1.6-2.3) mg/dL Total Bilirubin (0.2-1.3) mg/dL AST (17-59) U/L ALT (0-50) U/L Alkaline Phosphatase (38-126) U/L Troponin I (0.000-0.034) ng/mL NT-Pro-B Natriuret Pep (<300) pg/mL Serum Total Protein (6.3-8.2) g/dL Albumin (3.5-5.0) g/dL Influenza Type A Ag (NEGATIVE) Influenza Type B Ag (NEGATIVE) RSV (PCR) (NEGATIVE) SARS-CoV-2 (PCR) (NEGATIVE) Slides for Path Review YES - Progress Progress Note: 11/28/22 14:18 Nursing note and vital signs reviewed No food or housing insecurities noted Additional history per daughter Pt is a DNR Pt retaining CO2 on NC, so decision to place on Bipap Pt improved w Bipap 20mg IV Lasix Dr. Batista wanted Dr. Davies consulted, RT talked to Dr. Davies who will consult on pt later today Obs per Dr. Batista Blood cultures x2/1gm IV Rocephin/500mg IV Zithromax All lab results reviewed and shared w pt/family CXR result reviewed and shared w pt Medical Desision Making - Independent Historian Additional History obtained from: Family - Departure Departure Disposition: Observation Clinical Impression: COPD exacerbation, CHF (congestive heart failure) Condition: Stable Critical Care Time: Yes Critical Care Time(excluding separately billable procedures): Critical 30-74 mins Referrals: KENNA MISTRY MD [Primary Care Provider] - Follow up/PCP as directed Instructions: Chronic Obstructive Pulmonary Disease, Heart Failure
[2022-11-28] MEDS ORDERED: Lasix 40 MG/4 ML IV ONE (12:03)
[2022-11-28] MEDS ORDERED: Lasix 40 MG/4 ML ONE (12:23)
[2022-11-28 12:27] LABS: A-aADO2 86; ABG HEMOGLOBIN 11.9; ABG POTASSIUM 5.3 (3.5-5.1); ABG SITE RIGHT BRACHIAL; ARTERIAL BLD GAS O2 SATURATION 96.1 % (95-100); ARTERIAL BLOOD GAS BASE EXCESS 21.9 (-2.0-2.0); ARTERIAL BLOOD GAS FIO2 40 %; ARTERIAL BLOOD GAS PCO2 103 mmHg (35-45); ARTERIAL BLOOD GAS PO2 70 mmHg (75-100); ARTERIAL BLOOD GAS VENT MODE BiPAP; ARTERIAL BLOOD GAS pH 7.32 (7.35-7.45); BIPAP(E) 6; BIPAP(I) 14; HCO3- 53.1 (22-28); HGB O2 SAT 93.7 g/dF (94-100); Methhemoglobin 0.5 % (1.4-1.5); paO2 pAO1 0.45
[2022-11-28] MEDS ORDERED: Zithromax 500 MG/ 250 ML NaCl Premix 500 MG/250 ML IVPB IV STA (13:22)
[2022-11-28] MEDS ORDERED: ROCEPHIN 1 Gm-D5w 50 ml Bag** 1 G/50 ML IVPB IV STA (13:22)
[2022-11-28 13:28] LABS: Slide Review 1 YES
[2022-11-28] MEDS ORDERED: ROCEPHIN 1 Gm-D5w 50 ml Bag** 1 G/50 ML IVPB IV ONE (14:05)
[2022-11-28] MEDS ORDERED: Zithromax 500 MG/ 250 ML NaCl Premix 500 MG/250 ML IVPB IV ONE (14:39)
[2022-11-28] MEDS ORDERED: DUONEB 0.5-3 MG/3 ml Neb IH PRN (16:02)
--- NOTE | 2022-11-28 16:48 | PCM.HP ---
History of Present Illness - Chief Complaint Chief Complaint: COPD Date: 11/28/22 History of Present Illness: is a 67 year old male with PMHx of CHF, CAD, hyperlipidemia, COPD, hypothyroidism, and daily smoker. Per family he was recently started on hospice due to end stage COPD and heart failure. His recently last week. He is currently on Bipap and Abg's have improved since admission. Dr. Mccabe consulted. Pt explained he wants to be a DNR and wants everything stopped. Family does not want this. He was started on medication for depression and anxiety last week but he never started the meds. Consider OP sleep study if pt is willing. Will continue Bipap and meds for COPD exacerbation. Continue Lasix. Will have case management discuss with pt and family in AM plan of care. He is rather sleepy and tired. He does not want to talk much due to being so SOB. He denies CP, ABd. pain, N/V/D. - Review of Systems Constitutional: No Fever, No Chills Eyes: No Symptoms Ears, Nose, & Throat: No Symptoms Respiratory: Short Of Breath, No Cough Cardiac: No Chest Pain, No Edema, No Syncope Abdominal/Gastrointestinal: No Abdominal Pain, No Nausea, No Vomiting, No Diarrhea Genitourinary Symptoms: No Dysuria Musculoskeletal: No Back Pain, No Neck Pain Skin: No Rash Neurological: No Dizziness, No Focal Weakness, No Sensory Changes Psychological: No Symptoms Endocrine: No Symptoms Hematologic/Lymphatic: No Symptoms Immunological/Allergic: No Symptoms Medications & Allergies Home Medications: Home Medication List Aspirin 81 mg PO DAILY 06/12/13 [History Confirmed 11/28/22] Carvedilol [Coreg ] 6.25 mg PO DAILY 06/12/13 [History Confirmed 11/28/22] Levothyroxine Sodium 150 mcg PO DAILY 06/12/13 [History Confirmed 11/28/22] Albuterol Sulfate [Albuterol Sulfate Hfa] 8.5 gm IH Q4H PRN #1 [id number] 07/25/18 [Rx Confirmed 11/28/22] Atorvastatin Calcium 40 mg PO DAILY 07/25/18 [History Confirmed 11/28/22] Fluticasone/Umeclidin/Vilanter [Trelegy Ellipta 100-62.5-25] 1 each IH DAILY 08/08/19 [History Confirmed 11/28/22] Carvedilol 12.5 mg [Coreg 12.5 mg] 12.5 mg PO EVENING MEAL 03/21/21 [History Confirmed 11/28/22] Furosemide 40 mg [Lasix 40 MG] 20 mg PO DAILY PRN PRN 03/21/21 [History Confirmed 11/28/22] ALPRAZolam 0.25 MG [xanAX 0.25 MG] 0.25 mg PO BID PRN 11/28/22 [History Confirmed 11/28/22] Isosorbide Mononitrate [Isosorbide Mononitrate ER] 120 mg PO DAILY 11/28/22 [History Confirmed 11/28/22] Prednisone 10 mg [Deltasone 10 mg] 10 mg PO DAILY 11/28/22 [History Confirmed 11/28/22] Sertraline HCl [Zoloft] 25 mg PO DAILY 11/28/22 [History Confirmed 11/28/22] Warfarin Sodium 2 mg [Coumadin 2 MG] 2 mg PO DAILY 11/28/22 [History Confirmed 11/28/22] Allergies/Adverse Reactions: Allergies Allergy/AdvReac Type Severity Reaction Status Date / Time No Known Drug Allergies Allergy Verified 11/28/22 13:09 - Past Medical History Past Medical History: Yes Neurological History: No Pertinent History ENT History: No Pertinent History Cardiac History: Aneurysm, Angina, Congestive Heart Failure, Coronary Artery Disease, High Cholesterol, Other Respiratory History: CHF, COPD Endocrine Medical History: Hypothyroidism Musculoskelatal History: No Pertinent History GI Medical History: Gallbladder Disease History: No Pertinent History Pyscho-Social History: No Pertinent History Male Reproductive Disorders: No Pertinent History Comment: Right knee implant, left hip implant, HYPOTENSION - Past Surgical History Past Surgical History: Yes Neuro Surgical History: No Pertinent History Cardiac History: CABG, Cardiac Stent Respiratory Surgery: No Pertinent History GI Surgical History: Cholecystectomy Genitourinary Surgical Hx: No Pertinent History Musculskeletal Surgical Hx: Joint Replacement Male Surgical History: No Pertinent History Other Surgical History: R knee, L hip replacement. Aortic aneursym repair - Social History Smoking Status: Current every day smoker How long have you smoked: 40 YEARS Exposure to second hand smoke: No Alcohol: Rarely Drug Use: none - Physical Exam Vital Signs: Vital Signs - 24 hr Temp Pulse Resp BP BP Pulse Ox 11/28/22 15:43 88 32 H 96 11/28/22 15:20 98.2 F 82 39 H 129/74 96 11/28/22 14:30 82 39 H 96 11/28/22 14:25 97 11/28/22 14:20 83 33 H 100 11/28/22 14:10 77 39 H 100 11/28/22 14:00 81 30 H 94 L 11/28/22 13:50 81 17 99 11/28/22 13:40 80 36 H 11/28/22 13:30 74 28 H 98 11/28/22 13:20 76 34 H 99 11/28/22 13:10 76 23 95 11/28/22 13:00 70 18 96 11/28/22 12:50 76 20 96 11/28/22 12:40 73 23 95 11/28/22 12:31 74 27 H 98 11/28/22 12:06 73 17 150/91 96 11/28/22 12:05 74 22 98 11/28/22 12:02 73 20 99 11/28/22 11:47 75 26 H 137/71 97 11/28/22 10:38 98.2 F 85 30 H 129/74 94 L General Appearance: mild distress, alert Neurologic Exam: alert, oriented x 3, cooperative, normal mood/affect, nml cerebellar function, nml station & gait, sensation nml, depressed mood/affect, No motor deficits Eye Exam: PERRL/EOMI, eyes nml inspection Ears, Nose, Throat Exam: normal ENT inspection, TMs normal, pharynx normal, moist mucous membranes Neck Exam: normal inspection, non-tender, supple, full range of motion Respiratory Exam: normal breath sounds, lungs clear, No respiratory distress Cardiovascular Exam: regular rate/rhythm, normal heart sounds, normal peripheral pulses Gastrointestinal/Abdomen Exam: soft, normal bowel sounds, No tenderness, No mass Back Exam: normal inspection, normal range of motion, No CVA tenderness, No vertebral tenderness Extremity Exam: normal inspection, normal range of motion, pelvis stable Skin Exam: normal color, warm, dry, No rash Lymphatic Exam: No adenopathy Results - Labs Lab/Micro Results: Lab Results-Last 24 Hours 11/28/22 11/28/22 11/28/22 Range/Units 10:37 10:56 11:01 WBC 5.9 (4.0-10.5) x10^3/uL RBC 4.30 (4.1-5.6) x10^6/uL Hgb 12.5 (12.5-18.0) g/dL Hct 45.1 (42-50) % MCV 104.9 H (78-100) fL MCH 29.1 (26-32) pg MCHC 27.7 L (32-36) g/dL RDW 14.4 H (11.5-14.0) % Plt Count 124 L (150-450) x10^3/uL MPV 9.9 (7.5-11.0) fL Gran % 74.3 H (36.0-66.0) % Immature Gran % (Auto) 0.5 H (0.00-0.4) % Nucleat RBC Rel Count 0.0 (0.00-0.1) % Eos # (Auto) 0.01 (0-0.5) x10^3/uL Immature Gran # (Auto) 0.03 (0.00-0.03) x10^3u/L Absolute Lymphs (auto) 0.73 L (1.0-4.6) x10^3/uL Absolute Monos (auto) 0.73 (0.0-1.3) x10^3/uL Absolute Nucleated RBC 0.00 (0.00-0.01) x10^3u/L Lymphocytes % 12.4 L (24.0-44.0) % Monocytes % 12.4 H (0.0-12.0) % Eosinophils % 0.2 (0.00-5.0) % Basophils % 0.2 (0.0-0.4) % Absolute Granulocytes 4.36 (1.4-6.9) x10^3/uL Basophils # 0.01 (0-0.4) x10^3/uL PT (9.4-12.5) SECONDS INR (0.8-3.0) APTT (25.1-36.5) SECONDS Puncture Site RIGHT BRACHIAL pCO2 125 H* (35-45) mmHg pO2 112 H (75-100) mmHg Base Excess (-2.0-2.0) O2 Saturation 95.5 (94-100) g/dF ABG pH 7.16 L* (7.35-7.45) ABG HCO3 Not Reportable ABG O2 Sat (Measured) 98.5 (95-100) % Pool Test NOT APPLICABLE A-a Gradient a/A Ratio Hemoglobin 12.4 Carboxyhemoglobin 2.2 (0.0-6.9) % THgb Methemoglobin 0.7 L (1.4-1.5) % Potassium 5.2 H 5.3 H (3.5-5.1) Temperature 37.0 C POC O2 Flow Rate 40 % Vent Mode Inspiratory BiPAP Expiratory BiPAP Sodium 138 (137-145) mmol/L Chloride 87 L (98-107) mmol/L Carbon Dioxide 43 H (22-30) mmol/L Anion Gap 13.3 (5-15) MEQ/L BUN 17 (9-20) mg/dL Creatinine 0.59 L (0.66-1.25) mg/dL Estimated GFR > 60.0 ML/MIN Glucose 90 (74-106) mg/dL Calcium 9.2 (8.4-10.2) mg/dL Magnesium 2.0 (1.6-2.3) mg/dL Total Bilirubin 0.80 (0.2-1.3) mg/dL AST 23 (17-59) U/L ALT 24 (0-50) U/L Alkaline Phosphatase 96 (38-126) U/L Troponin I (0.000-0.034) ng/mL NT-Pro-B Natriuret Pep (<300) pg/mL Serum Total Protein 8.3 H (6.3-8.2) g/dL Albumin 4.4 (3.5-5.0) g/dL Influenza Type A Ag (NEGATIVE) Influenza Type B Ag (NEGATIVE) RSV (PCR) (NEGATIVE) SARS-CoV-2 (PCR) (NEGATIVE) Slides for Path Review YES 11/28/22 11/28/22 11/28/22 Range/Units 11:01 11:01 11:01 WBC (4.0-10.5) x10^3/uL RBC (4.1-5.6) x10^6/uL Hgb (12.5-18.0) g/dL Hct (42-50) % MCV (78-100) fL MCH (26-32) pg MCHC (32-36) g/dL RDW (11.5-14.0) % Plt Count (150-450) x10^3/uL MPV (7.5-11.0) fL Gran % (36.0-66.0) % Immature Gran % (Auto) (0.00-0.4) % Nucleat RBC Rel Count (0.00-0.1) % Eos # (Auto) (0-0.5) x10^3/uL Immature Gran # (Auto) (0.00-0.03) x10^3u/L Absolute Lymphs (auto) (1.0-4.6) x10^3/uL Absolute Monos (auto) (0.0-1.3) x10^3/uL Absolute Nucleated RBC (0.00-0.01) x10^3u/L Lymphocytes % (24.0-44.0) % Monocytes % (0.0-12.0) % Eosinophils % (0.00-5.0) % Basophils % (0.0-0.4) % Absolute Granulocytes (1.4-6.9) x10^3/uL Basophils # (0-0.4) x10^3/uL PT 35.3 H (9.4-12.5) SECONDS INR 3.56 H (0.8-3.0) APTT 41.0 H (25.1-36.5) SECONDS Puncture Site pCO2 (35-45) mmHg pO2 (75-100) mmHg Base Excess (-2.0-2.0) O2 Saturation (94-100) g/dF ABG pH (7.35-7.45) ABG HCO3 ABG O2 Sat (Measured) (95-100) % Pool Test A-a Gradient a/A Ratio Hemoglobin Carboxyhemoglobin (0.0-6.9) % THgb Methemoglobin (1.4-1.5) % Potassium (3.5-5.1) Temperature C POC O2 Flow Rate % Vent Mode Inspiratory BiPAP Expiratory BiPAP Sodium (137-145) mmol/L Chloride (98-107) mmol/L Carbon Dioxide (22-30) mmol/L Anion Gap (5-15) MEQ/L BUN (9-20) mg/dL Creatinine (0.66-1.25) mg/dL Estimated GFR ML/MIN Glucose (74-106) mg/dL Calcium (8.4-10.2) mg/dL Magnesium (1.6-2.3) mg/dL Total Bilirubin (0.2-1.3) mg/dL AST (17-59) U/L ALT (0-50) U/L Alkaline Phosphatase (38-126) U/L Troponin I < 0.012 (0.000-0.034) ng/mL NT-Pro-B Natriuret Pep 1870 (<300) pg/mL Serum Total Protein (6.3-8.2) g/dL Albumin (3.5-5.0) g/dL Influenza Type A Ag (NEGATIVE) Influenza Type B Ag (NEGATIVE) RSV (PCR) (NEGATIVE) SARS-CoV-2 (PCR) (NEGATIVE) Slides for Path Review 11/28/22 11/28/22 11/28/22 Range/Units 11:01 12:20 14:50 WBC (4.0-10.5) x10^3/uL RBC (4.1-5.6) x10^6/uL Hgb (12.5-18.0) g/dL Hct (42-50) % MCV (78-100) fL MCH (26-32) pg MCHC (32-36) g/dL RDW (11.5-14.0) % Plt Count (150-450) x10^3/uL MPV (7.5-11.0) fL Gran % (36.0-66.0) % Immature Gran % (Auto) (0.00-0.4) % Nucleat RBC Rel Count (0.00-0.1) % Eos # (Auto) (0-0.5) x10^3/uL Immature Gran # (Auto) (0.00-0.03) x10^3u/L Absolute Lymphs (auto) (1.0-4.6) x10^3/uL Absolute Monos (auto) (0.0-1.3) x10^3/uL Absolute Nucleated RBC (0.00-0.01) x10^3u/L Lymphocytes % (24.0-44.0) % Monocytes % (0.0-12.0) % Eosinophils % (0.00-5.0) % Basophils % (0.0-0.4) % Absolute Granulocytes (1.4-6.9) x10^3/uL Basophils # (0-0.4) x10^3/uL PT (9.4-12.5) SECONDS INR (0.8-3.0) APTT (25.1-36.5) SECONDS Puncture Site RIGHT BRACHIAL pCO2 103 H* (35-45) mmHg pO2 70 L (75-100) mmHg Base Excess 21.9 H (-2.0-2.0) O2 Saturation 93.7 L (94-100) g/dF ABG pH 7.32 L (7.35-7.45) ABG HCO3 53.1 H* ABG O2 Sat (Measured) 96.1 (95-100) % Pool Test NOT APPLICABLE A-a Gradient 86 a/A Ratio 0.45 Hemoglobin 11.9 Carboxyhemoglobin 2.0 (0.0-6.9) % THgb Methemoglobin 0.5 L (1.4-1.5) % Potassium 5.3 H (3.5-5.1) Temperature 37.0 C POC O2 Flow Rate 40 % Vent Mode BiPAP Inspiratory BiPAP 14 Expiratory BiPAP 6 Sodium (137-145) mmol/L Chloride (98-107) mmol/L Carbon Dioxide (22-30) mmol/L Anion Gap (5-15) MEQ/L BUN (9-20) mg/dL Creatinine (0.66-1.25) mg/dL Estimated GFR ML/MIN Glucose (74-106) mg/dL Calcium (8.4-10.2) mg/dL Magnesium (1.6-2.3) mg/dL Total Bilirubin (0.2-1.3) mg/dL AST (17-59) U/L ALT (0-50) U/L Alkaline Phosphatase (38-126) U/L Troponin I 0.016 (0.000-0.034) ng/mL NT-Pro-B Natriuret Pep (<300) pg/mL Serum Total Protein (6.3-8.2) g/dL Albumin (3.5-5.0) g/dL Influenza Type A Ag NEGATIVE (NEGATIVE) Influenza Type B Ag NEGATIVE (NEGATIVE) RSV (PCR) NEGATIVE (NEGATIVE) SARS-CoV-2 (PCR) NEGATIVE (NEGATIVE) Slides for Path Review - Radiology Impressions Radiology Exams & Impressions: Radiology Procedures Category Date Time Status CHEST 1 VIEW (PORTABLE) Stat Exams 11/28/22 10:38 Completed - Other Procedures and Tests Respiratory Therapy 11/28/22 11:50 BiPap/CPAP STAT 11/28/22 15:43 Respiratory Therapy Assessment DAILY 11/28/22 15:44 Oxygen Nasal Cannula 4 lpm Assessment/Plan (1) COPD exacerbation Current Visit: Yes Status: Acute Assessment & Plan: -Ceftriaxone, zithromax gave in ER - Continue ceftriaxone - Abg's improving with Bipap - Pulm Consult - Continue home dose of prednisone -lung sounds clear Code(s): J44.1 - CHRONIC OBSTRUCTIVE PULMONARY DISEASE W (ACUTE) EXACERBATION (2) CHF (congestive heart failure) Current Visit: Yes Status: Chronic Assessment & Plan: - Lasix gave in ER - Continue lasix daily - BNP 1870 Code(s): I50.9 - HEART FAILURE, UNSPECIFIED (3) Hypothyroid Current Visit: No Status: Chronic Assessment & Plan: - continue synthroid Code(s): E03.9 - HYPOTHYROIDISM, UNSPECIFIED (4) Anticoagulant long-term use Current Visit: No Status: Chronic Assessment & Plan: - Continue Coumadin - Pharmacy to manage. Code(s): Z79.01 - SENIOR LIVING (CURRENT) USE OF ANTICOAGULANTS (5) Hyperkalemia Current Visit: Yes Status: Acute Assessment & Plan: - lasix gave in ER - recheck in AM Code(s): E87.5 - HYPERKALEMIA (6) Depression Current Visit: Yes Status: Acute Assessment & Plan: - recent loss of spouse - restart antidepressant if amenable VTE: Coumadin Code status: DNR/ SCO D/C plan: 2-3 days Next of kin: Ashley [employer] [phone] Code(s): F32.A - DEPRESSION, UNSPECIFIED
[2022-11-28 16:53] LABS: A-aADO2 79; ABG POTASSIUM 5.3 (3.5-5.1); ARTERIAL BLOOD GAS BASE EXCESS 22.3 (-2.0-2.0); ARTERIAL BLOOD GAS FIO2 40 %; ARTERIAL BLOOD GAS PCO2 88 mmHg (35-45); ARTERIAL BLOOD GAS PO2 96 mmHg (75-100); ARTERIAL BLOOD GAS VENT MODE BiPAP; ARTERIAL BLOOD GAS pH 7.38 (7.35-7.45); BIPAP(E) 6; BIPAP(I) 14; CARBOXYHEMOGLOBIN 1.9 % THgb (0.0-6.9); HCO3- 52.1 (22-28); HGB O2 SAT 95.1 g/dF (94-100); paO2 pAO1 0.55
[2022-11-28 16:54] LABS: ABG SITE RIGHT BRACHIAL
[2022-11-28] MEDS: DUONEB 0.5-3 MG/3 ml Neb IH SCH ×2 (16:55→18:38)
[2022-11-28] MEDS ORDERED: xanAX 0.25 MG PO PRN (17:03)
[2022-11-28] MEDS ORDERED: VENTOLIN COMMON CANISTER IH PRN (17:03)
[2022-11-28] MEDS ORDERED: PHARMACY DOSING REQUEST MC ONE (17:04)
[2022-11-28] MEDS ORDERED: Ativan 2 MG/1 ML VIAL IV PRN (17:28)
[2022-11-28] MEDS ORDERED: solu-MEDROL ONE (17:41)
[2022-11-28] MEDS ORDERED: Sterile H2O 10 ml IJ ONE (17:43)
[2022-11-28] MEDS: ECOTRIN 81 MG PO SCH (17:45)
[2022-11-28] MEDS: ZOLOFT 50 MG TABLET PO SCH (17:45)
[2022-11-28] MEDS: ZOCOR 20MG PO SCH (17:45)
[2022-11-28] MEDS: Imdur 60MG PO SCH (17:46)
[2022-11-28] MEDS: solu-MEDROL 40 MG, Sterile H2O 10 ml 1 ML IV SCH ×2 (17:46)
[2022-11-28] MEDS ORDERED: DELTASONE 10 MG PO SCH (18:00)
[2022-11-28] MEDS ORDERED: COREG 12.5 MG PO SCH (18:00)
[2022-11-28] MEDS: SYNTHROID 150 MCG PO SCH (18:09)
[2022-11-29] MEDS ORDERED: Sterile H2O 10 ml IJ ONE (01:34)
[2022-11-29] MEDS ORDERED: solu-MEDROL ONE (01:34)
[2022-11-29] MEDS: solu-MEDROL 40 MG, Sterile H2O 10 ml 1 ML IV SCH ×4 (01:36→10:02)
[2022-11-29] MEDS ORDERED: PATIENT OWN MEDICATION IH SCH (07:00)
[2022-11-29] MEDS: DUONEB 0.5-3 MG/3 ml Neb IH SCH (07:16)
[2022-11-29 07:23] VITALS: O2SAT 96
[2022-11-29 08:44] LABS: Hematocrit 37.3 % (42-50); Hemoglobin 10.9 g/dL (12.5-18.0); Mean Cell Volume 98.2 fL (78-100); Mean Corpuscular Hemoglobin 28.7 pg (26-32); Mean Corpuscular Hgb Concent. 29.2 g/dL (32-36); Mean Platelet Volume 10.5 fL (7.5-11.0); Platelet Count 164 x10^3/uL (150-450); Red Cell Distribution Width 14.3 % (11.5-14.0); White Blood Count 7.1 x10^3/uL (4.0-10.5)
[2022-11-29 08:54] LABS: ALBUMIN 3.9 g/dL (3.5-5.0); ALKALINE PHOSPHATASE 79 U/L (38-126); BLOOD UREA NITROGEN 21 mg/dL (9-20); CHLORIDE 86 mmol/L (98-107); Calcium 8.9 mg/dL (8.4-10.2); EST GLOMERULAR FILTRATION RATE > 60.0 ML/MIN; Glucose 126 mg/dL (74-106); INR 2.76 (0.8-3.0); PROTIME 27.9 SECONDS (9.4-12.5); Potassium 4.7 mmol/L (3.5-5.1); SGOT/AST 21 U/L (17-59); SGPT/ALT 20 U/L (0-50); SODIUM 133 mmol/L (137-145); Total Protein 7.5 g/dL (6.3-8.2)
[2022-11-29 09:21] LABS: Carbon Dioxide 41 mmol/L (22-30)
[2022-11-29] MEDS ORDERED: Lasix 40 MG/4 ML IV SCH (10:00)
[2022-11-29] MEDS ORDERED: ROCEPHIN 1 Gm-D5w 50 ml Bag** 1 G/50 ML IVPB IV SCH (10:00)
[2022-11-29] MEDS ORDERED: Coreg PO SCH (10:00)
[2022-11-29] MEDS ORDERED: Lasix 20 MG/2 ML IV SCH (10:00)
[2022-11-29] MEDS: ZOLOFT 50 MG TABLET PO SCH (10:01)
[2022-11-29] MEDS: ZOCOR 20MG PO SCH (10:01)
[2022-11-29] MEDS: ECOTRIN 81 MG PO SCH (10:01)
[2022-11-29] MEDS: SYNTHROID 150 MCG PO SCH (10:02)
[2022-11-29] MEDS: Imdur 60MG PO SCH (10:02)
--- NOTE | 2022-11-29 10:54 | PCM.DS ---
Discharge Summary Date of Admission: 11/28/22 15:10 Date of Discharge: 11/29/22 Admitting Physician: STEFANI SERRANO MD Consults: Consults on Case 11/28/22 16:36 Consult Pulmonology ROUTINE Primary Care Provider: KENNA MISTRY Allergies Allergies No Known Drug Allergies Allergy (Verified 11/28/22 13:09) Hospital Summary - Hospital Course Hospital Course: 11/28/22 is a 67 year old male with PMHx of CHF, CAD, hyperlipidemia, COPD, hypothyroidism, and daily smoker. Per family he was recently started on hospice due to end stage COPD and heart failure. His recently last week. He is currently on Bipap and Abg's have improved since admission. Dr. Davidson consulted. Pt explained he wants to be a DNR and wants everything stopped. Family does not want this. He was started on medication for depression and anxiety last week but he never started the meds. Consider OP sleep study if pt is willing. Will continue Bipap and meds for COPD exacerbation. Continue Lasix. Will have case management discuss with pt and family in AM plan of care. He is rather sleepy and tired. He does not want to talk much due to being so SOB. He denies CP, ABd. pain, N/V/D. 11/29/22 Pt resting in bed. He on 4LNC today. He is feeling better and would like to go home with Hospice. Case management discussed with family and pt. Pt Chose [facility]. Plan is to d/c today. He denies any further concerns at this time. - Vitals & Intake/Output Vital Signs: Vital Signs Temperature 98.1 F 11/29/22 07:35 Pulse Rate 94 H 11/29/22 08:00 Respiratory Rate 27 H 11/29/22 07:35 Blood Pressure 135/74 11/29/22 07:35 O2 Sat by Pulse Oximetry 96 11/29/22 07:35 Intake & Output: Intake & Output 11/26/22 11/27/22 11/28/22 11/29/22 11:59 11:59 11:59 11:59 Intake Total 480 Output Total 2350 Balance -1870 Weight 80.8 kg 78.5 kg - Lab Result Diagrams: 11/29/22 08:30 11/29/22 08:30 Lab Results-Last 24 Hrs: Lab Results-Last 24 Hours 11/28/22 11/28/22 11/28/22 Range/Units 10:37 10:56 11:01 WBC 5.9 (4.0-10.5) x10^3/uL RBC 4.30 (4.1-5.6) x10^6/uL Hgb 12.5 (12.5-18.0) g/dL Hct 45.1 (42-50) % MCV 104.9 H (78-100) fL MCH 29.1 (26-32) pg MCHC 27.7 L (32-36) g/dL RDW 14.4 H (11.5-14.0) % Plt Count 124 L (150-450) x10^3/uL MPV 9.9 (7.5-11.0) fL Gran % 74.3 H (36.0-66.0) % Immature Gran % (Auto) 0.5 H (0.00-0.4) % Nucleat RBC Rel Count 0.0 (0.00-0.1) % Eos # (Auto) 0.01 (0-0.5) x10^3/uL Immature Gran # (Auto) 0.03 (0.00-0.03) x10^3u/L Absolute Lymphs (auto) 0.73 L (1.0-4.6) x10^3/uL Absolute Monos (auto) 0.73 (0.0-1.3) x10^3/uL Absolute Nucleated RBC 0.00 (0.00-0.01) x10^3u/L Lymphocytes % 12.4 L (24.0-44.0) % Monocytes % 12.4 H (0.0-12.0) % Eosinophils % 0.2 (0.00-5.0) % Basophils % 0.2 (0.0-0.4) % Absolute Granulocytes 4.36 (1.4-6.9) x10^3/uL Basophils # 0.01 (0-0.4) x10^3/uL PT (9.4-12.5) SECONDS INR (0.8-3.0) APTT (25.1-36.5) SECONDS Puncture Site RIGHT BRACHIAL pCO2 125 H* (35-45) mmHg pO2 112 H (75-100) mmHg Base Excess (-2.0-2.0) O2 Saturation 95.5 (94-100) g/dF ABG pH 7.16 L* (7.35-7.45) ABG HCO3 Not Reportable ABG O2 Sat (Measured) 98.5 (95-100) % Pool Test NOT APPLICABLE A-a Gradient a/A Ratio Hemoglobin 12.4 Carboxyhemoglobin 2.2 (0.0-6.9) % THgb Methemoglobin 0.7 L (1.4-1.5) % Potassium 5.2 H 5.3 H (3.5-5.1) Temperature 37.0 C POC O2 Flow Rate 40 % Vent Mode Inspiratory BiPAP Expiratory BiPAP Sodium 138 (137-145) mmol/L Chloride 87 L (98-107) mmol/L Carbon Dioxide 43 H (22-30) mmol/L Anion Gap 13.3 (5-15) MEQ/L BUN 17 (9-20) mg/dL Creatinine 0.59 L (0.66-1.25) mg/dL Estimated GFR > 60.0 ML/MIN Glucose 90 (74-106) mg/dL Calcium 9.2 (8.4-10.2) mg/dL Magnesium 2.0 (1.6-2.3) mg/dL Total Bilirubin 0.80 (0.2-1.3) mg/dL AST 23 (17-59) U/L ALT 24 (0-50) U/L Alkaline Phosphatase 96 (38-126) U/L Troponin I (0.000-0.034) ng/mL NT-Pro-B Natriuret Pep (<300) pg/mL Serum Total Protein 8.3 H (6.3-8.2) g/dL Albumin 4.4 (3.5-5.0) g/dL Influenza Type A Ag (NEGATIVE) Influenza Type B Ag (NEGATIVE) RSV (PCR) (NEGATIVE) SARS-CoV-2 (PCR) (NEGATIVE) Slides for Path Review YES 11/28/22 11/28/22 11/28/22 Range/Units 11:01 11:01 11:01 WBC (4.0-10.5) x10^3/uL RBC (4.1-5.6) x10^6/uL Hgb (12.5-18.0) g/dL Hct (42-50) % MCV (78-100) fL MCH (26-32) pg MCHC (32-36) g/dL RDW (11.5-14.0) % Plt Count (150-450) x10^3/uL MPV (7.5-11.0) fL Gran % (36.0-66.0) % Immature Gran % (Auto) (0.00-0.4) % Nucleat RBC Rel Count (0.00-0.1) % Eos # (Auto) (0-0.5) x10^3/uL Immature Gran # (Auto) (0.00-0.03) x10^3u/L Absolute Lymphs (auto) (1.0-4.6) x10^3/uL Absolute Monos (auto) (0.0-1.3) x10^3/uL Absolute Nucleated RBC (0.00-0.01) x10^3u/L Lymphocytes % (24.0-44.0) % Monocytes % (0.0-12.0) % Eosinophils % (0.00-5.0) % Basophils % (0.0-0.4) % Absolute Granulocytes (1.4-6.9) x10^3/uL Basophils # (0-0.4) x10^3/uL PT 35.3 H (9.4-12.5) SECONDS INR 3.56 H (0.8-3.0) APTT 41.0 H (25.1-36.5) SECONDS Puncture Site pCO2 (35-45) mmHg pO2 (75-100) mmHg Base Excess (-2.0-2.0) O2 Saturation (94-100) g/dF ABG pH (7.35-7.45) ABG HCO3 ABG O2 Sat (Measured) (95-100) % Pool Test A-a Gradient a/A Ratio Hemoglobin Carboxyhemoglobin (0.0-6.9) % THgb Methemoglobin (1.4-1.5) % Potassium (3.5-5.1) Temperature C POC O2 Flow Rate % Vent Mode Inspiratory BiPAP Expiratory BiPAP Sodium (137-145) mmol/L Chloride (98-107) mmol/L Carbon Dioxide (22-30) mmol/L Anion Gap (5-15) MEQ/L BUN (9-20) mg/dL Creatinine (0.66-1.25) mg/dL Estimated GFR ML/MIN Glucose (74-106) mg/dL Calcium (8.4-10.2) mg/dL Magnesium (1.6-2.3) mg/dL Total Bilirubin (0.2-1.3) mg/dL AST (17-59) U/L ALT (0-50) U/L Alkaline Phosphatase (38-126) U/L Troponin I < 0.012 (0.000-0.034) ng/mL NT-Pro-B Natriuret Pep 1870 (<300) pg/mL Serum Total Protein (6.3-8.2) g/dL Albumin (3.5-5.0) g/dL Influenza Type A Ag (NEGATIVE) Influenza Type B Ag (NEGATIVE) RSV (PCR) (NEGATIVE) SARS-CoV-2 (PCR) (NEGATIVE) Slides for Path Review 11/28/22 11/28/22 11/28/22 Range/Units 11:01 12:20 14:50 WBC (4.0-10.5) x10^3/uL RBC (4.1-5.6) x10^6/uL Hgb (12.5-18.0) g/dL Hct (42-50) % MCV (78-100) fL MCH (26-32) pg MCHC (32-36) g/dL RDW (11.5-14.0) % Plt Count (150-450) x10^3/uL MPV (7.5-11.0) fL Gran % (36.0-66.0) % Immature Gran % (Auto) (0.00-0.4) % Nucleat RBC Rel Count (0.00-0.1) % Eos # (Auto) (0-0.5) x10^3/uL Immature Gran # (Auto) (0.00-0.03) x10^3u/L Absolute Lymphs (auto) (1.0-4.6) x10^3/uL Absolute Monos (auto) (0.0-1.3) x10^3/uL Absolute Nucleated RBC (0.00-0.01) x10^3u/L Lymphocytes % (24.0-44.0) % Monocytes % (0.0-12.0) % Eosinophils % (0.00-5.0) % Basophils % (0.0-0.4) % Absolute Granulocytes (1.4-6.9) x10^3/uL Basophils # (0-0.4) x10^3/uL PT (9.4-12.5) SECONDS INR (0.8-3.0) APTT (25.1-36.5) SECONDS Puncture Site RIGHT BRACHIAL pCO2 103 H* (35-45) mmHg pO2 70 L (75-100) mmHg Base Excess 21.9 H (-2.0-2.0) O2 Saturation 93.7 L (94-100) g/dF ABG pH 7.32 L (7.35-7.45) ABG HCO3 53.1 H* ABG O2 Sat (Measured) 96.1 (95-100) % Pool Test NOT APPLICABLE A-a Gradient 86 a/A Ratio 0.45 Hemoglobin 11.9 Carboxyhemoglobin 2.0 (0.0-6.9) % THgb Methemoglobin 0.5 L (1.4-1.5) % Potassium 5.3 H (3.5-5.1) Temperature 37.0 C POC O2 Flow Rate 40 % Vent Mode BiPAP Inspiratory BiPAP 14 Expiratory BiPAP 6 Sodium (137-145) mmol/L Chloride (98-107) mmol/L Carbon Dioxide (22-30) mmol/L Anion Gap (5-15) MEQ/L BUN (9-20) mg/dL Creatinine (0.66-1.25) mg/dL Estimated GFR ML/MIN Glucose (74-106) mg/dL Calcium (8.4-10.2) mg/dL Magnesium (1.6-2.3) mg/dL Total Bilirubin (0.2-1.3) mg/dL AST (17-59) U/L ALT (0-50) U/L Alkaline Phosphatase (38-126) U/L Troponin I 0.016 (0.000-0.034) ng/mL NT-Pro-B Natriuret Pep (<300) pg/mL Serum Total Protein (6.3-8.2) g/dL Albumin (3.5-5.0) g/dL Influenza Type A Ag NEGATIVE (NEGATIVE) Influenza Type B Ag NEGATIVE (NEGATIVE) RSV (PCR) NEGATIVE (NEGATIVE) SARS-CoV-2 (PCR) NEGATIVE (NEGATIVE) Slides for Path Review 11/28/22 11/28/22 11/29/22 Range/Units 16:52 19:00 08:30 WBC (4.0-10.5) x10^3/uL RBC (4.1-5.6) x10^6/uL Hgb (12.5-18.0) g/dL Hct (42-50) % MCV (78-100) fL MCH (26-32) pg MCHC (32-36) g/dL RDW (11.5-14.0) % Plt Count (150-450) x10^3/uL MPV (7.5-11.0) fL Gran % (36.0-66.0) % Immature Gran % (Auto) (0.00-0.4) % Nucleat RBC Rel Count (0.00-0.1) % Eos # (Auto) (0-0.5) x10^3/uL Immature Gran # (Auto) (0.00-0.03) x10^3u/L Absolute Lymphs (auto) (1.0-4.6) x10^3/uL Absolute Monos (auto) (0.0-1.3) x10^3/uL Absolute Nucleated RBC (0.00-0.01) x10^3u/L Lymphocytes % (24.0-44.0) % Monocytes % (0.0-12.0) % Eosinophils % (0.00-5.0) % Basophils % (0.0-0.4) % Absolute Granulocytes (1.4-6.9) x10^3/uL Basophils # (0-0.4) x10^3/uL PT 27.9 H (9.4-12.5) SECONDS INR 2.76 (0.8-3.0) APTT (25.1-36.5) SECONDS Puncture Site RIGHT BRACHIAL pCO2 88 H* (35-45) mmHg pO2 96 (75-100) mmHg Base Excess 22.3 H (-2.0-2.0) O2 Saturation 95.1 (94-100) g/dF ABG pH 7.38 (7.35-7.45) ABG HCO3 52.1 H* ABG O2 Sat (Measured) 98.0 (95-100) % Pool Test NOT APPLICABLE A-a Gradient 79 a/A Ratio 0.55 Hemoglobin 12.0 Carboxyhemoglobin 1.9 (0.0-6.9) % THgb Methemoglobin 1.0 L (1.4-1.5) % Potassium 5.3 H (3.5-5.1) Temperature 37.0 C POC O2 Flow Rate 40 % Vent Mode BiPAP Inspiratory BiPAP 14 Expiratory BiPAP 6 Sodium (137-145) mmol/L Chloride (98-107) mmol/L Carbon Dioxide (22-30) mmol/L Anion Gap (5-15) MEQ/L BUN (9-20) mg/dL Creatinine (0.66-1.25) mg/dL Estimated GFR ML/MIN Glucose (74-106) mg/dL Calcium (8.4-10.2) mg/dL Magnesium (1.6-2.3) mg/dL Total Bilirubin (0.2-1.3) mg/dL AST (17-59) U/L ALT (0-50) U/L Alkaline Phosphatase (38-126) U/L Troponin I 0.022 (0.000-0.034) ng/mL NT-Pro-B Natriuret Pep (<300) pg/mL Serum Total Protein (6.3-8.2) g/dL Albumin (3.5-5.0) g/dL Influenza Type A Ag (NEGATIVE) Influenza Type B Ag (NEGATIVE) RSV (PCR) (NEGATIVE) SARS-CoV-2 (PCR) (NEGATIVE) Slides for Path Review 11/29/22 11/29/22 Range/Units 08:30 08:30 WBC 7.1 (4.0-10.5) x10^3/uL RBC 3.80 L (4.1-5.6) x10^6/uL Hgb 10.9 L (12.5-18.0) g/dL Hct 37.3 L (42-50) % MCV 98.2 D (78-100) fL MCH 28.7 (26-32) pg MCHC 29.2 L (32-36) g/dL RDW 14.3 H (11.5-14.0) % Plt Count 164 (150-450) x10^3/uL MPV 10.5 (7.5-11.0) fL Gran % (36.0-66.0) % Immature Gran % (Auto) (0.00-0.4) % Nucleat RBC Rel Count (0.00-0.1) % Eos # (Auto) (0-0.5) x10^3/uL Immature Gran # (Auto) (0.00-0.03) x10^3u/L Absolute Lymphs (auto) (1.0-4.6) x10^3/uL Absolute Monos (auto) (0.0-1.3) x10^3/uL Absolute Nucleated RBC (0.00-0.01) x10^3u/L Lymphocytes % (24.0-44.0) % Monocytes % (0.0-12.0) % Eosinophils % (0.00-5.0) % Basophils % (0.0-0.4) % Absolute Granulocytes (1.4-6.9) x10^3/uL Basophils # (0-0.4) x10^3/uL PT (9.4-12.5) SECONDS INR (0.8-3.0) APTT (25.1-36.5) SECONDS Puncture Site pCO2 (35-45) mmHg pO2 (75-100) mmHg Base Excess (-2.0-2.0) O2 Saturation (94-100) g/dF ABG pH (7.35-7.45) ABG HCO3 ABG O2 Sat (Measured) (95-100) % Pool Test A-a Gradient a/A Ratio Hemoglobin Carboxyhemoglobin (0.0-6.9) % THgb Methemoglobin (1.4-1.5) % Potassium 4.7 (3.5-5.1) Temperature C POC O2 Flow Rate % Vent Mode Inspiratory BiPAP Expiratory BiPAP Sodium 133 L (137-145) mmol/L Chloride 86 L (98-107) mmol/L Carbon Dioxide 41 H (22-30) mmol/L Anion Gap 10.0 (5-15) MEQ/L BUN 21 H (9-20) mg/dL Creatinine 0.60 L (0.66-1.25) mg/dL Estimated GFR > 60.0 ML/MIN Glucose 126 H (74-106) mg/dL Calcium 8.9 (8.4-10.2) mg/dL Magnesium (1.6-2.3) mg/dL Total Bilirubin 1.10 (0.2-1.3) mg/dL AST 21 (17-59) U/L ALT 20 (0-50) U/L Alkaline Phosphatase 79 (38-126) U/L Troponin I (0.000-0.034) ng/mL NT-Pro-B Natriuret Pep (<300) pg/mL Serum Total Protein 7.5 (6.3-8.2) g/dL Albumin 3.9 (3.5-5.0) g/dL Influenza Type A Ag (NEGATIVE) Influenza Type B Ag (NEGATIVE) RSV (PCR) (NEGATIVE) SARS-CoV-2 (PCR) (NEGATIVE) Slides for Path Review - Radiology Exams Ordered Rad Exams-Entire Visit: Radiology Procedures Category Date Time Status CHEST 1 VIEW (PORTABLE) Stat Exams 11/28/22 10:38 Completed - Procedures and Test Procedures and Tests throughout Hospitalization: Therapy Orders & Screens 11/28/22 11:50 BiPap/CPAP STAT Comment: 11/28/22 15:43 Respiratory Therapy Assessment DAILY Comment: 11/28/22 15:44 Oxygen Nasal Cannula 4 lpm Comment: Discharge Exam General Appearance: no apparent distress, alert Neurologic Exam: alert, oriented x 3, cooperative, normal mood/affect, nml cerebellar function, sensation nml, No motor deficits Eye Exam: PERRL, EOMI, eyes nml inspection Ears, Nose, Throat Exam: normal ENT inspection, pharynx normal, moist mucous membranes Neck Exam: normal inspection, non-tender, supple, full range of motion Respiratory Exam: normal breath sounds, lungs clear, crackles/rales, No respiratory distress Cardiovascular Exam: regular rate/rhythm, normal heart sounds Gastrointestinal/Abdomen Exam: soft, No tenderness, No mass Male Genitalia Exam: deferred Rectal Exam: deferred Back Exam: normal inspection, normal range of motion, No CVA tenderness, No vertebral tenderness Extremity Exam: normal inspection, normal range of motion Skin Exam: normal color, warm, dry Wound Assessment: Skin/Wound Assessment Wound/Incision Assessment Start: 11/28/22 15:47 Text: Status: Active Freq: Q6H Protocol: Document 11/29/22 08:00 JODI (Rec: 11/29/22 09:16 [facility] [id number]) Wound/Incision Assessment Right Lower Ankle Wound Assessment Shift Assessment Wound Type OLD HEALED SCABBED AREA Wound Stage Non Pressure Wound Drainage Amount None Comment OPEN TO AIR Final Diagnosis/Problem List - Final Discharge Diagnosis/Problem (1) COPD exacerbation Current Visit: Yes Status: Acute Code(s): J44.1 - CHRONIC OBSTRUCTIVE PULMONARY DISEASE W (ACUTE) EXACERBATION (2) CHF (congestive heart failure) Current Visit: Yes Status: Chronic Code(s): I50.9 - HEART FAILURE, UNSPECIFIED (3) Hypothyroid Current Visit: No Status: Chronic Code(s): E03.9 - HYPOTHYROIDISM, UNSPECIFIED (4) Anticoagulant long-term use Current Visit: No Status: Chronic Code(s): Z79.01 - CELL OPERATOR (CURRENT) USE OF ANTICOAGULANTS (5) Hyperkalemia Current Visit: Yes Status: Acute Code(s): E87.5 - HYPERKALEMIA (6) Depression Current Visit: Yes Status: Acute Assessment & Plan: Assessment/Plan (1) COPD exacerbation Current Visit: Yes Status: Acute Assessment & Plan: -Ceftriaxone, zithromax gave in ER - Continue ceftriaxone - Abg's improving with Bipap - Pulm Consult - Continue home dose of prednisone -lung sounds clear Code(s): J44.1 - CHRONIC OBSTRUCTIVE PULMONARY DISEASE W (ACUTE) EXACERBATION (2) CHF (congestive heart failure) Current Visit: Yes Status: Chronic Assessment & Plan: - Lasix gave in ER - Continue lasix daily - BNP 1870 Code(s): I50.9 - HEART FAILURE, UNSPECIFIED (3) Hypothyroid Current Visit: No Status: Chronic Assessment & Plan: - continue synthroid Code(s): E03.9 - HYPOTHYROIDISM, UNSPECIFIED (4) Anticoagulant long-term use Current Visit: No Status: Chronic Assessment & Plan: - Continue Coumadin - Pharmacy to manage. Code(s): Z79.01 - SNF (CURRENT) USE OF ANTICOAGULANTS (5) Hyperkalemia Current Visit: Yes Status: Acute Assessment & Plan: - lasix gave in ER - recheck in AM 11/29 - resolved Code(s): E87.5 - HYPERKALEMIA (6) Depression Current Visit: Yes Status: Acute Assessment & Plan: - recent loss of spouse - restart antidepressant if amenable Code(s): F32.A - DEPRESSION, UNSPECIFIED - Discharge Discharge Date: 11/29/22 (Hospice) Disposition: Home, Self-Care Condition: Stable Prescriptions: Continue Carvedilol [Coreg ] 6.25 mg PO DAILY Aspirin 81 mg PO DAILY Levothyroxine Sodium 150 mcg PO DAILY Atorvastatin Calcium 40 mg PO DAILY Albuterol Sulfate [Albuterol Sulfate Hfa] 8.5 gm IH Q4H PRN #1 [id number] PRN Reason: Shortness Of Breath/Wheezing Fluticasone/Umeclidin/Vilanter [Trelegy Ellipta 100-62.5-25] 1 each IH DAILY Carvedilol 12.5 mg [Coreg 12.5 mg] 12.5 mg PO EVENING MEAL Furosemide 40 mg [Lasix 40 MG] 20 mg PO DAILY PRN PRN PRN Reason: fluid retention Warfarin Sodium 2 mg [Coumadin 2 MG] 2 mg PO DAILY Sertraline HCl [Zoloft] 25 mg PO DAILY Prednisone 10 mg [Deltasone 10 mg] 10 mg PO DAILY Isosorbide Mononitrate [Isosorbide Mononitrate ER] 120 mg PO DAILY ALPRAZolam 0.25 MG [xanAX 0.25 MG] 0.25 mg PO BID PRN PRN Reason: Anxiety Additional Instructions: [facility] TO BEGIN CARE Follow up with: JOLEEN DAVIDSON [ACTIVE STAFF] - 12/07/22 2:00 pm (APPOINTMENT WILL BE [facility] OFFICE) KENNA MISTRY MD [Primary Care Provider] - 12/08/22 11:00 am
--- NOTE | 2022-11-29 11:52 | CONS ---
CONSULT DATE: 11/28/2022 REASON FOR CONSULT: Respiratory failure. HISTORY: William Carter is a 67-year-old male with end-stage chronic obstructive pulmonary disease who has been brought to the hospital with complaints of shortness of breath. The patient was noted to have altered mental status with altered blood gas exchange with acute on chronic hypercapnic respiratory failure. He has been admitted to the Med/Surg Unit where he has been placed on BiPAP with improvement in gases with incremental decrease in CO2 levels. He is a lot more awake but unable to carry out a conversation. He has been taken off of BiPAP. Other than shortness of breath he voices no new complaints. PAST MEDICAL HISTORY: Positive for chronic obstructive pulmonary disease, chronic hypoxic/hypercapnic respiratory failure, coronary artery disease, hypothyroidism, anxiety, depression and likely atrial fibrillation for which he is on anticoagulation with Coumadin. His INR on admission was elevated which has been managed by primary care. PAST SURGICAL HISTORY: No recent surgery. PERSONAL AND SOCIAL HISTORY: The patient recently lost his and is depressed due to that. He had been a former smoker. MEDICATIONS: Home and current medications were reviewed. ALLERGIES: NKDA. PHYSICAL EXAMINATION: This is an elderly male appears weak. Vital signs noted. HEENT: Normocephalic. Oral exam limited. Receiving oxygen via face mask. NECK: Supple, accessory muscles are prominent. CVS: First and second heart sounds are regular. RESPIRATORY: Shows increase in AP diameter. Breath sounds are severely diminished. Bilateral rhonchi heard. ABDOMEN: Soft. EXTREMITIES: No edema is noted. LABORATORY DATA AND TESTS: Labs and x-rays were reviewed. ASSESSMENT: This is a 67-year-old male with: 1) End-stage chronic obstructive pulmonary disease admitted with acute on chronic hypercapnic respiratory failure acute component improved. 2) Chronic hypoxemia. 3) End-stage chronic obstructive pulmonary disease with exacerbation. 4) History of atrial fibrillation. 5) Coronary artery disease. 6) Coagulopathy due to medication effect. RECOMMENDATIONS: 1) The patient had significant clinical improvement with help of noninvasive ventilation and advised the same to be continued not only overnight but also upon discharge from hospital. 2) Continue home medications, continue bronchodilators, reduce steroids and hold Coumadin until INR is therapeutic where he will require Coumadin dose adjustment upon discharge. I discussed with the patient's daughter regarding terminal nature of his pulmonary problems. The patient would benefit from Hospice care and the daughter is in agreement with this and would prefer Hospice of their choice upon discharge. Hospice should be able to provide noninvasive ventilation along with additional help including oxygen, hospital bed as well as fall precaution device as essentially the patient lives alone. His condition is terminal and the family is well aware of this.
[2022-11-29 12:53] VITALS: BP 109/57; RESP 14; TEMP 98.2
[2022-11-29 13:53] VITALS: PULSE 71
[2022-11-29] MEDS ORDERED: Coumadin 2 MG PO SCH (18:00)
== END 2022-11-29 13:13 | disposition home or self-care (01) ==
LOC: ED 10:35 → ICU 15:10
PROVIDERS: ADMIT Internal Medicine; ATTEND Internal Medicine
DX: J44.1 Chronic obstructive pulmonary disease with (acute) exacerbation (principal); J96.22 Acute and chronic respiratory failure with hypercapnia; I25.10 Atherosclerotic heart disease of native coronary artery without angina pectoris; D68.9 Coagulation defect, unspecified; Z79.899 Other long term (current) drug therapy; F17.210 Nicotine dependence, cigarettes, uncomplicated; E03.9 Hypothyroidism, unspecified; E87.5 Hyperkalemia; Z79.01 Long term (current) use of anticoagulants; F32.A Depression, unspecified; F41.9 Anxiety disorder, unspecified; Z20.828 Contact with and (suspected) exposure to other viral communicable diseases
CPT/HCPCS: 0241U; 36000; 36415; 36600; 71045; 80053; 82375; 82803; 83735; 83880; 84484; 85025; 85027; 85610; 85730; 87040; 87086; 93005; 93268; 94002; 94003; 94640; 96367; 96374; 99285; 99291; G0378; Q3014; 96365; 96375; J0456; J0696; J1940; J2920; A9270-GY